=== PATIENT | female | born 1935 | race Caucasian/White ===

== ENCOUNTER 2016-11-06 12:44 | Emergency (ER) | payer MEDICARE ==
--- NOTE | 2016-11-06 16:19 | UC ---
Complaint Female HPI - HPI Summary HPI Summary: complaint of pain with urination that started 3 days ago incontinent for the last 2 days increase frequency and urgency of urination denies fever abdomonial pain or back pain hasn't taken any medication for pain or symptoms - History Of Current Complaint Chief Complaint: UCGU Stated Complaint: URINARY Time Seen by Provider: 11/06/16 16:13 Hx Obtained From: Patient - Allergies/Home Medications Allergies/Adverse Reactions: Allergies Allergy/AdvReac Type Severity Reaction Status Date / Time Amiodarone Allergy Severe TORSADES Verified 11/06/16 14:31 Nitrofurantoin Allergy Severe Difficulty Verified 11/06/16 14:29 [From Macrodantin] Breathing Milk Protein Extract Allergy Intermediate THRUSH Verified 11/06/16 14:31 [From Spiriva] Piperacillin [From Zosyn] Allergy Intermediate BURNING Verified 11/06/16 14:31 SENSATION Tazobactam [From Zosyn] Allergy Intermediate BURNING Verified 11/06/16 14:31 SENSATION Tiotropium [From Spiriva] Allergy Intermediate THRUSH Verified 11/06/16 14:31 Home Medications: Home Medications Apixaban* [Eliquis*] 5 mg PO BID 11/06/16 [History Confirmed 11/06/16] Montelukast Sodium TAB* [Singulair 10 MG TAB*] 10 mg PO DAILY 11/06/16 [History Confirmed 11/06/16] Propafenone HCl 300 mg PO BID 11/06/16 [History Confirmed 11/06/16] Simvastatin [Zocor 40 MG (NF)] 20 mg PO QPM 11/06/16 [History Confirmed 11/06/16 ] PMH/Surg Hx/FS Hx/Imm Hx Previously Healthy: Yes Endocrine History Of: Denies: Diabetes, Thyroid Disease Cardiovascular History Of: Reports: Cardiac Disorders - PACEMAKER 10/11/16, Hypertension Denies: Congestive Heart Failure Respiratory History Of: Reports: COPD - "SOB", Asthma GI/ History Of: Denies: Ulcer, Renal Disease - Surgical History Surgical History: Yes Surgery Procedure, Year, and Place: 2007 left shoulder replacement BILATERALTOTAL HIPS AND LEFT KNEE REPLACEMENT. CARDIAC BYPASS . PACEMAKER OCTOBER2016 - Family History Known Family History: Negative: Cardiac Disease, Hypertension, Diabetes - Social History Occupation: Retired Lives: With Family Alcohol Use: None Substance Use Type: None Smoking Status (MU): Former Smoker When Did the Patient Quit Smoking/Using Tobacco: 1980 Review of Systems Constitutional: Negative Skin: Negative Eyes: Negative ENT: Negative Respiratory: Negative Cardiovascular: Negative Gastrointestinal: Negative Genitourinary: Dysuria, Hematuria, Frequency, Urgency Neurovascular: Negative Musculoskeletal: Negative Neurological: Negative Psychological: Negative All Other Systems Reviewed And Are Negative: Yes Physical Exam Triage Information Reviewed: Yes Appearance: No Pain Distress, Well-Nourished Vital Signs: Initial Vital Signs Temp 98.2 F 11/06/16 14:38 Pulse 77 11/06/16 14:38 Resp 20 11/06/16 14:38 BP 135/59 11/06/16 14:38 Pulse Ox 98 11/06/16 14:38 Vital Signs Reviewed: Yes Eyes: Positive: Conjunctiva Clear ENT: Positive: Pharynx normal, TMs normal Neck: Positive: No Lymphadenopathy Respiratory: Positive: Lungs clear, Normal breath sounds, No respiratory distress, No accessory muscle use Cardiovascular: Positive: RRR, No Murmur, Pulses Normal Abdomen Description: Positive: Nontender, Soft Bowel Sounds: Positive: Present Musculoskeletal: Positive: No Edema Neurological: Positive: Alert Psychological Exam: Normal Skin Exam: Normal Complaint Female Dx - Differential Dx/Diagnosis Differential Diagnosis/HQI/PQRI: Ureteral Stone, Urinary Tract Infection Provider Diagnoses: UTI Discharge - Discharge Plan Condition: Stable Disposition: HOME Prescriptions: Phenazopyridine TAB* [Pyridium 100 mg TAB*] 100 mg PO TID #6 tab Sulfamethox/Trimethoprim DS* [Bactrim DS 800/160 TAB*] 1 tab PO BID #14 tab Patient Education Materials: Urinary Tract Infection in Women (ED) Referrals: Juan J Velásquez MD [Primary Care Provider] - Additional Instructions: Please take antibiotic as directed Increase fluids and rest Take acetaminophen or ibuprofen for fever or pain Please review your discharge instructions. If your symptoms do not improve please call your primary care provider or return to urgent care. Your blood pressure is pre-hypertensive reading. Please contact your primary care provider within 1 day -4 weeks for further evaluation
[2016-11-06 16:30] VITALS: BP 146/60
== END 2016-11-06 16:27 | disposition home or self-care (01) ==
LOC: UCCORT 12:44
DX: N39.0 Urinary tract infection, site not specified (principal); R31.9 Hematuria, unspecified; Z88.1 Allergy status to other antibiotic agents; I10 Essential (primary) hypertension; Z95.0 Presence of cardiac pacemaker; J44.9 Chronic obstructive pulmonary disease, unspecified; Z96.612 Presence of left artificial shoulder joint; Z96.643 Presence of artificial hip joint, bilateral; Z96.652 Presence of left artificial knee joint; Z95.1 Presence of aortocoronary bypass graft; Z87.891 Personal history of nicotine dependence
CPT/HCPCS: 81003; 87077; 87086; 87186; 99212; G0463

== ENCOUNTER 2017-01-22 12:51 | Emergency (ER) | payer MEDICARE ==
[2017-01-22 13:16] VITALS: BP 135/59
--- NOTE | 2017-01-22 13:43 | UC ---
Complaint Female HPI - HPI Summary HPI Summary: 3 DAYS OF WORSENING DYSURIA AND URINARY FREQUENCY. NO FEVER, NAUSEA OR BACK PAIN. LAST UTI ABOUT 3 WEEKS AGO TX WITH CIPRO BY UROLOGY. PRIOR TO THAT HAD KLEBSIELLA UTI 11/06/16 TX WITH BACTRIM. - History Of Current Complaint Chief Complaint: UCGU Stated Complaint: URINARY Time Seen by Provider: 01/22/17 13:15 Hx Obtained From: Patient Onset/Duration: Gradual Onset, Lasting Days, Still Present Timing: Constant Severity Initially: Moderate Severity Currently: Moderate Pain Intensity: 4 Pain Scale Used: 0-10 Numeric Character: Burning Aggravating Factor(s): Urination Alleviating Factor(s): Nothing Associated Signs And Symptoms: Negative: Fever, Back Pain, Nausea, Vomiting(# Of Episodes =) - Allergies/Home Medications Allergies/Adverse Reactions: Allergies Allergy/AdvReac Type Severity Reaction Status Date / Time Amiodarone Allergy Severe TORSADES Verified 01/22/17 13:16 Nitrofurantoin Allergy Severe Difficulty Verified 01/22/17 13:16 [From Macrodantin] Breathing Milk Protein Extract Allergy Intermediate THRUSH Verified 01/22/17 13:16 [From Spiriva] Piperacillin [From Zosyn] Allergy Intermediate BURNING Verified 01/22/17 13:16 SENSATION Tazobactam [From Zosyn] Allergy Intermediate BURNING Verified 01/22/17 13:16 SENSATION Tiotropium [From Spiriva] Allergy Intermediate THRUSH Verified 01/22/17 13:16 Home Medications: Home Medications DULoxetine DR CAP* [Cymbalta CAP*] 60 mg PO DAILY 01/22/17 [History Confirmed ] clonazePAM TAB(*) [Klonopin TAB(*)] 0.5 mg PO TID PRN 01/22/17 [History Confirmed 01/22/17] PMH/Surg Hx/FS Hx/Imm Hx Cardiovascular History: Cardiac Disease, Hypertension Respiratory History: COPD - Surgical History Surgical History: Yes Surgery Procedure, Year, and Place: 2007 left shoulder replacement BILATERALTOTAL HIPS AND LEFT KNEE REPLACEMENT. CARDIAC BYPASS . PACEMAKER OCTOBER2016 - Family History Known Family History: Positive: Cardiac Disease, Hypertension Negative: Diabetes - Social History Alcohol Use: None Substance Use Type: None Smoking Status (MU): Former Smoker When Did the Patient Quit Smoking/Using Tobacco: 1980 Review of Systems Constitutional: Negative Respiratory: Negative Cardiovascular: Negative Gastrointestinal: Negative Genitourinary: Dysuria, Frequency, Urgency All Other Systems Reviewed And Are Negative: Yes Physical Exam Triage Information Reviewed: Yes Appearance: Well-Appearing, No Pain Distress, Well-Nourished Vital Signs: Initial Vital Signs Temp 98.4 F 01/22/17 13:10 Pulse 90 01/22/17 13:10 Resp 18 01/22/17 13:10 BP 135/59 01/22/17 13:10 Pulse Ox 98 01/22/17 13:10 Vital Signs Reviewed: Yes Eyes: Positive: Conjunctiva Clear ENT: Positive: Hearing grossly normal Neck: Positive: Supple Respiratory: Positive: No respiratory distress, No accessory muscle use Cardiovascular: Positive: Pulses Normal Abdomen Description: Positive: Nontender, Soft. Negative: CVA Tenderness (R), CVA Tenderness (L), Distended, Guarding Musculoskeletal: Positive: No Edema Neurological: Positive: Alert Psychological: Positive: Normal Response To Family, Age Appropriate Behavior Skin: Negative: rashes Diagnostics - Laboratory Diagnostic Studies Completed/Ordered: URINE DIP SP. GR. 11.020, 2+ PROTEIN, 2+ BLOOD, 2+ LEUKS, POS NITRITES Complaint Female Dx - Differential Dx/Diagnosis Provider Diagnoses: UTI Discharge - Discharge Plan Condition: Stable Disposition: HOME Prescriptions: Phenazopyridine TAB* [Pyridium TAB*] 200 mg PO TID #6 tab Sulfamethox/Trimethoprim DS* [Bactrim DS 800/160 TAB*] 1 tab PO BID #10 tab Patient Education Materials: Urinary Tract Infection in Women (ED) Referrals: Juan J Velásquez MD [Primary Care Provider] - If Needed Additional Instructions: FOLLOW-UP WITH YOUR UROLOGIST TO DISCUSS RECURRENT URINARY TRACT INFECTIONS.
== END 2017-01-22 14:28 | disposition home or self-care (01) ==
LOC: UCCORT 12:51
DX: N39.0 Urinary tract infection, site not specified (principal); I10 Essential (primary) hypertension; I25.10 Atherosclerotic heart disease of native coronary artery without angina pectoris; Z95.1 Presence of aortocoronary bypass graft; Z95.0 Presence of cardiac pacemaker; J44.9 Chronic obstructive pulmonary disease, unspecified; Z96.612 Presence of left artificial shoulder joint; Z96.643 Presence of artificial hip joint, bilateral; Z96.652 Presence of left artificial knee joint; Z87.891 Personal history of nicotine dependence
CPT/HCPCS: 81003; 87077; 87086; 87186; 99212; G0463

== ENCOUNTER 2017-06-12 12:17 | Emergency (ER) | payer MEDICARE ==
[2017-06-12 12:55] VITALS: BP 125/69
--- NOTE | 2017-06-12 13:46 | UC ---
Complaint Female HPI - HPI Summary HPI Summary: FOUR DAYS OF URINARY FREQUENCY, URGENCY, BURNING WITH URINATION. NO BACK PAIN. NO FEVER. HISTORY OF FREQUENT URINARY TRACT INFECTIONS. SEEN BY UROLOGIST. - History Of Current Complaint Chief Complaint: UCGU Stated Complaint: URINARY Time Seen by Provider: 06/12/17 12:50 Hx Obtained From: Patient, Family/Vice [employer] Hx Last Menstrual Period: n/a Pain Intensity: 0 Pain Scale Used: 0-10 Numeric Character: Dull, Burning Aggravating Factor(s): Urination Associated Signs And Symptoms: Negative: Fever, Back Pain, Vaginal Bleeding/ Discharge, Vaginal Discharge, Nausea, Vomiting(# Of Episodes =) - Risk Factors Ectopic Risk Factor: Negative - Allergies/Home Medications Allergies/Adverse Reactions: Allergies Allergy/AdvReac Type Severity Reaction Status Date / Time Amiodarone Allergy Severe TORSADES Verified 01/22/17 13:16 Nitrofurantoin Allergy Severe Difficulty Verified 01/22/17 13:16 [From Macrodantin] Breathing Milk Protein Extract Allergy Intermediate THRUSH Verified 01/22/17 13:16 [From Spiriva] Piperacillin [From Zosyn] Allergy Intermediate BURNING Verified 01/22/17 13:16 SENSATION Tazobactam [From Zosyn] Allergy Intermediate BURNING Verified 01/22/17 13:16 SENSATION Tiotropium [From Spiriva] Allergy Intermediate THRUSH Verified 01/22/17 13:16 Sulfamethoxazole Allergy Rash Verified 06/12/17 12:55 w/Trimethoprim [From Bactrim] Home Medications: Home Medications Ascorbic Acid TAB* [Vitamin C TAB*] 1,000 mg PO BID 06/12/17 [History Confirmed 06/12/17] Solifenacin(NF) [Vesicare(NF)] 10 mg PO DAILY 06/12/17 [History Confirmed ] Torsemide TAB* [Demadex*] 10 mg PO DAILY 06/12/17 [History Confirmed 06/12/17] PMH/Surg Hx/FS Hx/Imm Hx Previously Healthy: Yes - Surgical History Surgical History: Yes Surgery Procedure, Year, and Place: 2007 left shoulder replacement BILATERALTOTAL HIPS AND LEFT KNEE REPLACEMENT. CARDIAC BYPASS . PACEMAKER OCTOBER2016. AV node ablation 2015 - Family History Known Family History: Positive: Cardiac Disease, Hypertension Negative: Diabetes - Social History Occupation: Retired Lives: With Family Alcohol Use: None Substance Use Type: None Smoking Status (MU): Former Smoker When Did the Patient Quit Smoking/Using Tobacco: 1980 Review of Systems Constitutional: Negative Skin: Negative Eyes: Negative ENT: Negative Respiratory: Negative Cardiovascular: Negative Gastrointestinal: Negative Genitourinary: Dysuria, Frequency, Urgency Motor: Negative Neurovascular: Negative Musculoskeletal: Negative Neurological: Negative Psychological: Negative Is Patient Immunocompromised?: No All Other Systems Reviewed And Are Negative: Yes Physical Exam Triage Information Reviewed: Yes Appearance: Well-Appearing, No Pain Distress, Well-Nourished Vital Signs: Initial Vital Signs Temp 97.9 F 06/12/17 12:51 Pulse 88 06/12/17 12:51 Resp 18 06/12/17 12:51 BP 125/69 06/12/17 12:51 Pulse Ox 98 06/12/17 12:51 Vital Signs Reviewed: Yes Eye Exam: Normal ENT Exam: Normal Dental Exam: Normal Neck exam: Normal Respiratory Exam: Normal Respiratory: Positive: Chest non-tender, Lungs clear, Normal breath sounds, No respiratory distress, No accessory muscle use Cardiovascular Exam: Normal Cardiovascular: Positive: RRR, No Murmur, Pulses Normal, Brisk Capillary Refill Abdominal Exam: Normal Abdomen Description: Positive: Nontender. Negative: CVA Tenderness (R), CVA Tenderness (L) Musculoskeletal Exam: Normal Neurological Exam: Normal Psychological Exam: Normal Psychological: Positive: Normal Response To Family Skin Exam: Normal Complaint Female Dx - Differential Dx/Diagnosis Differential Diagnosis/HQI/PQRI: Urinary Tract Infection Provider Diagnoses: URINARY TRACT INFECTION Discharge - Discharge Plan Condition: Stable Disposition: HOME Prescriptions: Ciprofloxacin TAB* [Cipro 500 MG TAB*] 500 mg PO BID #10 tab Patient Education Materials: Urinary Tract Infection in Women (ED) Referrals: Juan J Velásquez MD [Primary Care Provider] - Saji Shah MD [Medical Doctor] -
--- NOTE | 2017-06-15 07:16 | UC ---
Progress - Progress Note Progress Note: + uti on cipro await sensitivity 06/15/17 7:16a [email or web address]
== END 2017-06-12 13:19 | disposition home or self-care (01) ==
LOC: UCCORT 12:17
DX: N39.0 Urinary tract infection, site not specified (principal); B96.20 Unspecified Escherichia coli [E. coli] as the cause of diseases classified elsewhere; Z87.440 Personal history of urinary (tract) infections; Z95.0 Presence of cardiac pacemaker; Z95.1 Presence of aortocoronary bypass graft; Z96.612 Presence of left artificial shoulder joint; Z96.643 Presence of artificial hip joint, bilateral; Z96.652 Presence of left artificial knee joint; Z88.1 Allergy status to other antibiotic agents; Z88.2 Allergy status to sulfonamides; Z87.891 Personal history of nicotine dependence
CPT/HCPCS: 81003; 87077; 87086; 87186; 99212; G0463

== ENCOUNTER 2017-11-10 14:38 | Emergency (ER) | payer MEDICARE ==
--- OUTSIDE RECORDS SUMMARY | 2017-11-10 15:05 | XMS REPORT ---
:1935 External Reference #:[id number] Author Organization [facility] Address [facility] [place] [address] Phone [phone] Care Team Providers Name Role Phone Guillermo Montelongo MD [facility] Care Team Information Cardiopulmonary Physical Therapist Unavailable Juan J Velásquez M.D. Primary Care Physician Unavailable Payers Type Date Identification Numbers Payment Provider Subscriber Medicare Primary Effective: Policy Number: Medicare Marcelina Cobian 1998 [id number] PayID: [id number] [address] [place] [address] Medigap Part B Effective: Policy Number: [facility] Supplemental Marcelina Mixon 2015 [id number] Plan Aranza PayID: [id number] [address] [place] [address] Problems Date Description Provider Status Onset: 12/15/2011 Needs influenza immunization Juan J Velásquez M.D. Active Onset: 12/15/2011 Systemic lupus erythematosus Juan J Velásquez M.D. Active Onset: 12/15/2011 Depressive disorder Juan J Velásquez M.D. Active Onset: 12/15/2011 Urinary incontinence Juan J Velásquez M.D. Active Onset: 12/15/2011 Pure hypercholesterolemia Juan J Velásquez M.D. Active Onset: 12/15/2011 Chronic renal failure Juan J Velásquez M.D. Active Onset: 12/15/2011 Transient cerebral ischemia Juan J Velásquez M.D. Active Onset: 12/15/2011 Chronic sinusitis Juan J Velásquez M.D. Active Onset: 12/15/2011 Carotid artery occlusion Juan J Velásquez M.D. Active Onset: 12/15/2011 Senile osteoporosis Juan J Velásquez M.D. Active Onset: 12/15/2011 Peripheral vascular disease Juan J Velásquez M.D. Active Onset: 12/15/2011 Edema Juan J Velásquez M.D. Active Onset: 12/15/2011 Essential hypertension Juan J Velásquez M.D. Active Onset: 12/15/2011 Sleep apnea Juan J Velásquez M.D. Active Onset: 12/15/2011 Osteochondropathy Juan J Velásquez M.D. Active Onset: 12/15/2011 Spinal stenosis Juan J Velásquez M.D. Active Onset: 12/15/2011 Mitral valve disorder Juan J Velásquez M.D. Active Onset: 12/15/2011 Chronic obstructive lung disease Juan J Velásquez M.D. Active Onset: 03/17/2017 Mixed urinary incontinence Saji Shah MD Active Onset: 07/20/2017 Bladder muscle dysfunction - overactive Saji Shah MD Active Onset: 10/19/2017 Urinary tract infectious disease Saji Shah MD Active Family History Date Family Member(s) Problem(s) Comments Father due to CAD () Father Heart Disease Father Hypertension Mother Heart Disease Mother Hyperlipidemia Mother Hypercholesterolemia First Brother due to Heart Disease () Social History Type Date Description Comments Marital Status Occupation Patient is retired Cigarette Use 11/01/2017 Former Cigarette Smoker ETOH Use 12/10/2016 Patient denies alcohol use Daily Caffeine 10 oz Allergies, Adverse Reactions, Alerts Date Description Reaction Status Severity Comments 11/17/2011 Macrodantin Anaphylaxis active 01/07/2016 Zosyn burning sensation active 01/07/2016 Spiriva thrush active 03/17/2017 Bactrim active sob 06/24/2017 Amiodarone active leathal arrythmia stated Medications Medication Date Status Form Strength Qnty SIG Indications Ordering Provider Myrbetriq 10/20/ Active Tablets ER 25mg 30tab 1po qd Saji Vasquez 2017 24HR mary Shah MD Vesicare 04/22/ Active Tablets 10mg 30tab 1 by Melissa 2015 s mouth Reddy M, every day M.D. Simvastatin 07/11/ Active Tablets 20mg 90tab 1 by Christen 2013 s mouth Juan J, every day M.D. Singulair 11/16/ Active Tablets 10mg 90tab 1 by Christen 2011 s mouth Juan J, every day M.DFroy Omeprazole 11/04/ Active Capsules 20mg 90cap 1 by Christen 2011 s mouth bid Vasquez Arita Cymbalta 11/04/ Active Caps DR 60mg 90cap 1 by Christen 2011 Part s mouth Juan J, every day M.DFroy Calcium + D / Active Chewtabs 500-1000-4 2 po bid Unknown 0mg-Unt-mc g Centrum / Active Tablets 1 by Unknown mouth every day Imodium A-D / Active Tablets 2mg prn Unknown Miralax / Active Powder qod Unknown Eliquis / Active Tablets 5mg bid Unknown Biotin / Active every day Unknown Torsemide / Active Tablets 10mg as needed Unknown Potassium / Active Tablets ER 10Meq as needed Unknown Chloride ER Stiolto Respimat / Active Aerosol 2.5-2.5mcg as Unknown 0000 /Act directed Ciprofloxacin HCL 09/05/ Hx Tablets 500mg 14tab 1 by Saji Vasquez 2017 Bess s roxana Shah MD 09/12/ twice a 2017 day Cipro 07/20/ Hx Tablets 500mg 6tabs 1 by Saji Vasquez 2018 Bess Shah MD 07/23/ twice a 2017 day Uribel 07/07/ Hx Capsules 118mg 10cap 1 by Saji Vasquez 2017 Bess s roxana Shah MD 07/19/ every 12 2018 hours Ciprofloxacin HCL 05/18/ Hx Tablets 500mg 1tabs 1 by Saji Vasquez 2017 Bess Shah MD 05/19/ prior to [address] by Dr. Shah. Keflex 04/30/ Hx Capsules 500mg 21cap one Saji Shah MD 06/23/ three 2016 times a day. Ciprofloxacin HCL 04/27/ Hx Tablets 250mg 1tabs 1 by Saji Shah MD 04/28/ prior to 2016 Uds test. Verbal given by Dr. Shah. Myrbetriq 04/06/ Hx Tablets ER 25mg 30tab 1 by Saji Vasquez 2016 - 24HR mary Shah MD 06/23/ every day 2016 Oxybutynin 03/17/ Hx Tablets ER 5mg 90tab 1 by Saji Vasquez Chloride ER 2016 - 24HR s mouth MD Pablo 06/23/ day 2016 Cipro 11/25/ Hx Tablets 250mg 14tab 1 by Melissa 2016 - s mouth Reddy M, 12/09/ twice a M.D. 2017 day x 7d Vesicare 04/22/ Hx Tablets 5mg 30tab 1 by Melissa 2016 - s mouth Reddy M, 06/14/ every day M.D. 2015 Trospium Chloride 01/21/ Hx Caps ER 60mg 90cap take 1 JANIYA Torres 2015 - 24HR s capsule Maureen M, 06/14/ by mouth M.D. 2016 daily *do not crush or chew* take 1 hour before food staff admin & initial Myrbetriq 01/07/ Hx Tablets ER 25mg 30tab 1 by Melissa 2016 - 24HR s mouth Maureen M, 01/20/ every day M.DFroy 2015 Proair HFA 02/19/ Hx Aerosol 108(90Base 8.500 2 puffs 4 Christen, 2015 - ) mcg/Act units x daily Juan J, 06/23/ M.D. 2016 Pradaxa / Hx Capsules 150mg 1 by Unknown 0000 - mouth 01/06/ twice a 2015 day Breo Ellipta / Hx Aerosol 100-25mcg/ inhale 1 Unknown 0000 - Inh puff by mouth 2015 once daily Fludrocortisone / Hx Tablets 0.1mg 1 by Unknown Acetate 0000 - mouth 01/06/ day 2015 Propafenone HCL 00/ Hx Tablets 150mg Unknown 0000 - 2015 Lasix / Hx Tablets 20mg 1 by Unknown 0000 - mouth prn 2016 Oxybutynin / Hx Tablets ER 10mg Unknown Chloride ER 0000 - 24HR 2015 Propafenone HCL /00/ Hx Tablets 150mg Unknown 0000 - 2016 Iron 00/ Hx Tablets 325(65Fe) 1 by Unknown 0000 - mg mouth every day 2016 Clonazepam / Hx Tablets 0.5mg prn Unknown - 2016 Pradaxa / Hx Capsules 150mg TK 1 C PO Unknown 0000 - bid 2016 Propafenone HCL / Hx Tablets 300mg tid Unknown - 2016 Loratadine / Hx Capsules 10mg 1 by Unknown 0000 - mouth every day 2016 Co Q-10 / Hx Capsules 100mg 1 by Unknown 0000 - mouth every day 2016 Osteo Bi-Flex / Hx Tablets qam Unknown Regular Strength - 2016 Vital Signs Date Vital Result Comment 11/01/2017 Height 62 inches 5'2" Weight 192.00 lb Weight in kg's 87.091 BMI (Body Mass Index) 35.1 kg/m2 BP Systolic 158 mmHg BP Diastolic 81 mmHg Heart Rate 89 /min Respiratory Rate 18 /min 10/19/2017 Height 62 inches 5'2" Weight 192.00 lb Weight in kg's 87.091 BMI (Body Mass Index) 35.1 kg/m2 BP Systolic 157 mmHg BP Diastolic 60 mmHg Heart Rate 113 /min Post Void Residual 20 07/20/2017 Height 62 inches 5'2" Weight 191.00 lb Weight in kg's 86.638 BMI (Body Mass Index) 34.9 kg/m2 BP Systolic 150 mmHg BP Diastolic 78 mmHg Heart Rate 80 /min Respiratory Rate 20 /min 06/24/2017 Height 62 inches 5'2" Weight 191.00 lb Weight in kg's 86.638 BMI (Body Mass Index) 34.9 kg/m2 BP Systolic 142 mmHg BP Diastolic 70 mmHg Heart Rate 68 /min Respiratory Rate 20 /min 03/17/2017 Height 62 inches 5'2" Weight 187.00 lb Weight in kg's 84.823 BMI (Body Mass Index) 34.2 kg/m2 BP Systolic 168 mmHg BP Diastolic 95 mmHg Heart Rate 88 /min Body Temperature 97.7 F 12/10/2016 Height 62 inches 5'2" Weight 180.00 lb Weight in kg's 81.648 BMI (Body Mass Index) 32.9 kg/m2 BP Systolic 149 mmHg BP Diastolic 82 mmHg Heart Rate 89 /min Respiratory Rate 18 /min Body Temperature 97.3 F Post Void Residual ml 5 Indication:, Ultrasound dominic 01/07/2016 Height 62 inches 5'2" Weight 158.00 lb Weight in kg's 71.669 BMI (Body Mass Index) 28.9 kg/m2 BP Systolic 113 mmHg left wrist audio BP Diastolic 80 mmHg left wrist audio Heart Rate 84 /min Body Temperature 97.2 F Post Void Residual ml 0 Indication:, Ultrasound incont 01/06/2016 BP Systolic 138 mmHg BP Diastolic 78 mmHg Results Test Date Test Result H/L Range Note 230 Ua Routine 11/01/2017 Ua Glucose Negative Ua Protein 1+ Ua Nitrite Negative Ua Leuko 2+ Ua Blood 2+ Ua Color Yellow Ua Ketones Negative Ua Clarity Cloudy Ua Specific Bangs 1.025 1.003-1.030 Ua PH 5.5 5.0-7.5 Ua Bilirubin Negative Ua Urobilinogen 0.2 E.U./dL 0.0-1.0 Urine Culture 10/19/2017 Urine Culture CITROBACTER FREU <SEE NOTE> 1 Quantity > 100,000 CFU/mL 2 Ast-GN67 10/19/2017 Nitrofurantoin <=16 Cefazolin >=64 Ciprofloxacin <=0.25 Ceftazidime 16 Ceftriaxone 2 Cefepime <=1 Levofloxacin 1 Imipenem <=0.25 Gentamicin 8 Tobramycin 8 230 Ua Routine 10/19/2017 Ua Glucose Negative Ua Protein 3+ Ua Nitrite Positive Ua Leuko 3+ Ua Blood 3+ Ua Color Yellow Ua Ketones Trace Ua Clarity Cloudy Ua Specific Bangs 1.025 1.003-1.030 Ua PH 5.5 5.0-7.5 Ua Bilirubin Negative Ua Urobilinogen 0.2 E.U./dL 0.0-1.0 Urine Culture 09/13/2017 Urine Culture MIXED URETHRAL F <SEE NOTE> 3, 4 Quantity 10,000 - 100,000 <SEE NOTE> 3, 5 230 Ua Routine 09/13/2017 Ua Glucose Negative Ua Protein 2+ Ua Nitrite Negative Ua Leuko 1+ Ua Blood 3+ Ua Color Yellow Ua Ketones Negative Ua Clarity Slightly Cloudy Ua Specific Bangs 1.025 1.003-1.030 Ua PH 5.5 5.0-7.5 Ua Bilirubin Negative Ua Urobilinogen 0.2 E.U./dL 0.0-1.0 Urine Culture 09/01/2017 Urine Culture ESCHERICHIA COLI 6 Quantity > 100,000 CFU/mL 7 Urine Culture MIXED URETHRAL F <SEE NOTE> 8 Quantity 10,000 - 50,000 <SEE NOTE> 9 Escherichia Coli 09/01/2017 Nitrofurantoin <=16 Trimethoprim/Sulfamethoxazole <=20 Ampicillin >=32 Cefazolin <=4 Ampicillin/Sulbactam >=32 Ciprofloxacin <=0.25 Piperacillin/Tazobactam <=4 Ceftazidime <=1 Ceftriaxone <=1 Cefepime <=1 Levofloxacin <=0.12 Imipenem <=0.25 Gentamicin <=1 Tobramycin <=1 230 Ua Routine 09/01/2017 Ua Glucose Negative Ua Protein 2+ Ua Nitrite Negative Ua Leuko 3+ Ua Blood 2+ Ua Color Green Ua Ketones Negative Ua Clarity Cloudy Ua Specific Bangs 1.020 1.003-1.030 Ua PH 6.0 5.0-7.5 Ua Bilirubin 1+ Ua Urobilinogen 0.2 E.U./dL 0.0-1.0 Urine Culture 07/05/2017 Urine Culture BETA STREPTOCOCC <SEE NOTE> 10, 11 Quantity > 100,000 CFU/mL 10, 12 Recommended Therapy: PENICILLIN OR AM <SEE NOTE> 10, 13 Urine Culture URETHRAL LEONARD 10 Quantity 50,000 - 100,000 <SEE NOTE> 10, 14 230 Ua Routine 05/18/2017 Ua Glucose Negative Ua Protein Negative Ua Nitrite Negative Ua Leuko Trace Ua Blood Negative Ua Color Not Entered Ua Ketones Negative Ua Clarity Not Entered Ua Specific Bangs 1.015 1.003-1.030 Ua PH 5.5 5.0-7.5 Ua Bilirubin Negative Ua Urobilinogen 0.2 E.U./dL 0.0-1.0 Laboratory test finding 04/27/2017 Urine Culture SPECIMEN DESCRI> 15 230 Ua Routine 04/27/2017 Ua Glucose Negative Ua Protein 30 mg/dL Ua Nitrite Positive Ua Leuko Moderate Ua Blood Moderate Ua Color Not Entered Ua Ketones Negative Ua Clarity Not Entered Ua Specific Bangs 1.015 1.003-1.030 Ua PH 5.0 5.0-7.5 Ua Bilirubin Negative Ua Urobilinogen 0.2 E.U./dL 0.0-1.0 Urine Microscopy 04/06/2017 Urine WBC >100 /HPF 0 - 5 Urine RBC 3-5 /HPF 0-2 Bacteria 3+ /HPF Neg Crystals JOSUE OX, 4+ /HPF Neg Epithelial Cells RARE /HPF Neg Sperm NEG /HPF Neg Yeast NEG /HPF Neg UACast NEG /LPF Neg 230 Ua Routine 04/06/2017 Ua Glucose Negative Ua Protein 1+ Ua Nitrite Negative Ua Leuko 3+ Ua Blood 2+ Ua Color Yellow Ua Ketones Negative Ua Clarity Cloudy Ua Specific Bangs 1.025 1.003-1.030 Ua PH 5.5 5.0-7.5 Ua Bilirubin Negative Ua Urobilinogen 0.2 E.U./dL 0.0-1.0 230 Ua Routine 03/17/2017 Ua Glucose Negative Ua Protein 1+ Ua Nitrite Negative Ua Leuko 3+ Ua Blood 2+ Ua Color Not Entered Ua Ketones Trace Ua Clarity Not Entered Ua Specific Bangs 1.020 1.003-1.030 Ua PH 5.5 5.0-7.5 Ua Bilirubin Negative Ua Urobilinogen 0.2 E.U./dL 0.0-1.0 Urine Culture 12/10/2016 Urine Culture MIXED URETHRAL F <SEE NOTE> 16, 17 Quantity 10,000 - 50,000 <SEE NOTE> 16, 18 Urine Microscopy 12/10/2016 Urine WBC 10-25 /HPF 0 - 5 Urine RBC 0-2 /HPF 0-2 Bacteria 1+ /HPF Neg Crystals CA OX 2+ /HPF Neg Epithelial Cells 2+ /HPF Neg Sperm NEG /HPF Neg Yeast NEG /HPF Neg UACast NEG /LPF Neg 230 Ua Routine 12/10/2016 Ua Glucose Negative Ua Protein Negative Ua Nitrite Negative Ua Leuko 3+ Ua Blood Trace-intact Ua Color yellow Ua Ketones Negative Ua Clarity clear Ua Specifici Bangs 1.020 1.003-1.030 Ua PH 5.0 5.0-7.5 Ua Bilirubin Negative Ua Urobilinogen 0.2 E.U./dL 0.0-1.0 Urine Culture 11/26/2016 Urine Culture ESCHERICHIA COLI 19 Quantity > 100,000 CFU/mL 20 Urine Culture URETHRAL LEONARD Quantity 10,000 - 50,000 <SEE NOTE> 21 Ast-GN67 11/26/2016 Nitrofurantoin 128 Trimethoprim/Sulfamethoxazole <=20 Ampicillin 4 Cefazolin <=4 Ampicillin/Sulbactam 4 Ciprofloxacin <=0.25 Piperacillin/Tazobactam <=4 Ceftazidime <=1 Ceftriaxone <=1 Cefepime <=1 Levofloxacin <=0.12 Imipenem <=0.25 Gentamicin <=1 Tobramycin <=1 230 Ua Routine 11/26/2016 Ua Glucose Negative Ua Protein 1+ Ua Nitrite Positive Ua Leuko 1+ Ua Blood Trace-lysed Ua Color tea colored Ua Ketones Trace Ua Clarity clear Ua Specifici Bangs 1.025 1.003-1.030 Ua PH 5.0 5.0-7.5 Ua Bilirubin 1+ Ua Urobilinogen 0.2 E.U./dL 0.0-1.0 BUN And Creatinine 04/20/2016 BUN - Urea Nitrogen 24 High 7-18 Creatinine 0.9 0.6-1.3 Laboratory test finding 04/20/2016 Egfr >60 >60 230 Ua Routine 01/22/2016 Ua Glucose Negative Ua Protein Negative Ua Nitrite Negative Ua Leuko Negative Ua Blood Negative Ua Color yellow Ua Ketones Negative Ua Clarity clear Ua Specifici Bangs 1.015 1.003-1.030 Ua PH 5.0 5.0-7.5 Ua Bilirubin Negative Ua Urobilinogen 0.2 E.U./dL 0.0-1.0 Laboratory test finding 2015 % Saturation 20 % 11-50 Ferritin 109 ng/mL 20-288 Folate,Serum 19.4 ng/mL Iron,Total 68 g/dL 45-160 22 Reticulocyte Count 0.7 % 0.5-2.0 Reticulocyte Count,Absolute 39589 cells/uL [address] Tibc 341 g/dL 250-450 Vitamin B12,Serum 642 pg/mL 200-1100 BMP W/O Egfr 2015 BUN/Creatinine Ratio 37.3 High 6-22 Calcium 9.2 mg/dL 8.6-10.4 Carbon Dioxide 20 mmol/L 19-30 Chloride 107 mmol/L 98-110 Creatinine 0.71 mg/dL 0.60-0.88 Glucose 92 mg/dL 65-99 Potassium 4.3 mmol/L 3.5-5.3 23 Sodium 141 mmol/L 135-146 24 Urea Nitrogen 27 mg/dL High 7-25 CBC W/ Diff & PLT 2015 Anisocytosis 3+ Bands,% Pending Bands,Absolute Pending Basophilic Stippling Pending Basophils,% 0 % 0-1 Basophils,Absolute 0 cells/uL 0-200 Blast Cells,Absolute Pending Blasts,% Pending Comment Pending Eosinophils,% 2 % 0-4 Eosinophils,Absolute 70 cells/uL 15-500 Hematocrit 33.8 % Low 35.0-45.0 Hemoglobin 10.6 g/dL Low 11.7-15.5 Hypochromasia Pending Lymphocytes,Absolute 1300 cells/uL 850-3900 MCH 31.4 pg 27.0-33.0 MCHC 31.3 g/dL Low 32.0-36.0 MCV 100.2 FL High 80.0-100.0 MPV 9.9 FL 7.5-11.5 Macrocytosis Pending Metamyelocytes,% Pending Metamyelocytes,Absolute Pending Microcytosis Pending Monocytes,% 14 % High 4-12 Monocytes,Absolute 580 cells/uL 200-950 Myelocytes,% Pending Myelocytes,Absolute Pending Neutrophils,Absolute 2190 cells/uL 8039-9340 Nucleated RBC Pending Nucleated RBC,Absolute Pending Platelet Count 102 thous/uL Low 140-400 Platelet Sufficiency Pending Poikilocytosis Pending Polychromasia Pending Promyelocytes,% Pending Promyelocytes,Absolute Pending RBC 3.38 mill/uL Low 3.80-5.10 RBC Morphology Pending RDW 21.8 % High 11.0-15.0 Target Cells Pending Total Lymphocytes,% 32 % 12-47 Total Neutrophils,% 53 % 40-75 WBC 4.1 thous/uL 3.8-10.8 25 Laboratory test finding 11/26/2015 % Saturation 20 % 11-50 Ferritin 112 ng/mL 20-288 Folate,Serum >24.0 ng/mL Iron,Total 76 g/dL 45-160 26 Tibc 373 g/dL 250-450 Vitamin B12,Serum 679 pg/mL 200-1100 CBC W/ Diff & PLT 11/26/2015 Anisocytosis 3+ Bands,% Pending Bands,Absolute Pending Basophilic Stippling Pending Basophils,% 0 % 0-1 Basophils,Absolute 0 cells/uL 0-200 Blast Cells,Absolute Pending Blasts,% Pending Comment Pending Eosinophils,% 2 % 0-4 Eosinophils,Absolute 110 cells/uL 15-500 Hematocrit 37.6 % 35.0-45.0 Hemoglobin 11.5 g/dL Low 11.7-15.5 Hypochromasia Pending Lymphocytes,Absolute 1200 cells/uL 850-3900 MCH 31.0 pg 27.0-33.0 MCHC 30.6 g/dL Low 32.0-36.0 MCV 101.3 FL High 80.0-100.0 MPV 10.7 FL 7.5-11.5 Macrocytosis Pending Metamyelocytes,% Pending Metamyelocytes,Absolute Pending Microcytosis Pending Monocytes,% 9 % 4-12 Monocytes,Absolute 460 cells/uL 200-950 Myelocytes,% Pending Myelocytes,Absolute Pending Neutrophils,Absolute 3470 cells/uL 9019-9679 Nucleated RBC Pending Nucleated RBC,Absolute Pending Platelet Count 128 thous/uL Low 140-400 Platelet Sufficiency Pending Poikilocytosis Pending Polychromasia Pending Promyelocytes,% Pending Promyelocytes,Absolute Pending RBC 3.71 mill/uL Low 3.80-5.10 RBC Morphology Pending RDW 21.5 % High 11.0-15.0 Target Cells Pending Total Lymphocytes,% 23 % 12-47 Total Neutrophils,% 66 % 40-75 WBC 5.2 thous/uL 3.8-10.8 27 BMP W/O Egfr 11/26/2015 BUN/Creatinine Ratio 24.0 High 6-22 Calcium 9.4 mg/dL 8.6-10.4 Carbon Dioxide 24 mmol/L 19-30 Chloride 100 mmol/L 98-110 Creatinine 0.85 mg/dL 0.60-0.88 Glucose 104 mg/dL High 65-99 Potassium 4.2 mmol/L 3.5-5.3 28 Sodium 139 mmol/L 135-146 29 Urea Nitrogen 20 mg/dL 7-25 Laboratory test finding 11/10/2015 Act Partial Thrombo Time 43.2 s High 23.9-34.3 30 Troponin-I 0.031 ng/mL 31 Laboratory test finding 11/10/2015 Culture If Indicated Comment See Note 32 Ua RFX Micro + Culture II See Note 33 Urine Culture See Note 34 CBC W/Automated Diff 11/10/2015 Bas% 0.4 % 0.0-1.1 Baso # 0.02 K/uL 0.0-0.1 Eo% 2.9 % 0.0-6.6 Eos # 0.14 K/uL 0.0-0.5 Hematocrit 31.9 % Low 36.0-46.1 Hemoglobin 9.7 gm/dL Low 11.6-15.8 Lymph # 0.90 K/uL Low 1.8-7.0 Lymph % 18.8 % 17.0-46.1 Mean Cell Volume 102.6 fl High 80.9-99.0 Mean Corpuscular HGB 31.2 pg 25.9-32.7 Mean Corpuscular HGB Conc 30.4 g/dL Low 30.8-34.3 Mean Platelet Volume 10.9 fL 8.9-12.4 Story # 0.57 K/uL 0.3-0.9 Story % 11.9 % 4.3-13.2 Neut# 3.16 K/uL 1.8-7.0 Neut% 66.0 % 40.4-72.8 Platelet Count 106 K/uL Low 155-360 Red Blood Count 3.11 M/uL Low 3.90-5.40 Red Cell Distri Width %CV 18.4 % High 11.7-14.4 Red Cell Distri Width SD 65.7 fl High 3-47 White Blood Count 4.8 K/uL 3.1-10.7 Comprehensive Metabolic Panel 11/10/2015 Alb/Glob 0.6 ratio Albumin 2.5 g/dL Low 3.4-5.0 Alkaline Phosphatase 131 U/L High 45-117 Anion Gap 10 mEq/L 8-16 BUN 16 mg/dL 7-18 BUN/Creat 17.7 ratio Bilirubin,Total 1.0 mg/dL 0.2-1.0 Calcium 9.0 mg/dL 8.5-10.1 Carbon Dioxide 31 mmol/L 21-32 Chloride 96 mmol/L Low 98-107 Creatinine 0.9 mg/dL 0.6-1.3 Globulin 4.2 g/dL 1.9-4.3 Glom Filtration Rate, Estimate >60 mL/min >60 Glucose 102 mg/dL 74-106 35 If >60 mL/min >60 Potassium 3.5 mmol/L 3.5-5.1 SGPT/Alt 33 U/L 12-78 Sgot/Ast 31 U/L 15-37 Sodium 137 mmol/L 136-145 Total Protein 6.7 g/dL 6.4-8.2 Protime 11/10/2015 Inr 1.3 High 0.9-1.1 Protime 16.2 s High 12.1-14.9 36 Urinalysis With Microscopic 11/10/2015 Urine Bacteria Many None Seen High Urine Bilirubin - Dipstick Negative Negative Urine Blood Negative Negative Urine Clarity SL Cloudy Clear Urine Color Yellow Yellow Urine Epithelial Cells Few None Seen /lpf Urine Glucose - Dipstick Negative mg/dL Negative Urine Hyaline Cast 0-2 None Seen #/lpf Urine Ketone Negative mg/dL Negative Urine Leuk Esterase Negative Negative Urine Nitrite - Dipstick Positive High Negative Urine PH 5.5 Low 6.5-7.5 Urine Protein - Dipstick Negative mg/dL Negative Urine RBC 0-2 rbc/hpf 0-2 Urine Specific Bangs >=1.030 1.010-1.030 Urine Urobilinogen - Dipstick 0.2 E.U./dL 0.2-1.0 Urine WBC 2-5 wbc/hpf 0-7 Laboratory test finding 10/29/2015 Magnesium 2.2 mg/dL 1.8-2.4 Basic Metabolic Panel 10/29/2015 Anion Gap 8 mEq/L 8-16 BUN 14 mg/dL 7-18 BUN/Creat 20.0 ratio Calcium 8.3 mg/dL Low 8.5-10.1 Carbon Dioxide 31 mmol/L 21-32 Chloride 100 mmol/L 98-107 Creatinine 0.7 mg/dL 0.6-1.3 Glom Filtration Rate, Estimate >60 mL/min >60 Glucose 89 mg/dL 74-106 37 If >60 mL/min >60 Potassium 3.8 mmol/L 3.5-5.1 Sodium 139 mmol/L 136-145 Laboratory test finding 10/28/2015 Magnesium 2.3 mg/dL 1.8-2.4 Basic Metabolic Panel 10/28/2015 Anion Gap 8 mEq/L 8-16 BUN 12 mg/dL 7-18 BUN/Creat 17.1 ratio Calcium 8.4 mg/dL Low 8.5-10.1 Carbon Dioxide 30 mmol/L 21-32 Chloride 100 mmol/L 98-107 Creatinine 0.7 mg/dL 0.6-1.3 Glom Filtration Rate, Estimate >60 mL/min >60 Glucose 98 mg/dL 74-106 38 If >60 mL/min >60 Potassium 3.2 mmol/L Low 3.5-5.1 Sodium 138 mmol/L 136-145 Laboratory test finding 10/27/2015 Magnesium 2.1 mg/dL 1.8-2.4 Basic Metabolic Panel 10/27/2015 Anion Gap 9 mEq/L 8-16 BUN 12 mg/dL 7-18 BUN/Creat 15.0 ratio Calcium 8.5 mg/dL 8.5-10.1 Carbon Dioxide 31 mmol/L 21-32 Chloride 99 mmol/L 98-107 Creatinine 0.8 mg/dL 0.6-1.3 Glom Filtration Rate, Estimate >60 mL/min >60 Glucose 91 mg/dL 74-106 39 If >60 mL/min >60 Potassium 3.1 mmol/L Low 3.5-5.1 Sodium 139 mmol/L 136-145 Laboratory test finding 10/26/2015 Magnesium 1.9 mg/dL 1.8-2.4 Basic Metabolic Panel 10/26/2015 Anion Gap 9 mEq/L 8-16 BUN 15 mg/dL 7-18 BUN/Creat 18.7 ratio Calcium 8.8 mg/dL 8.5-10.1 Carbon Dioxide 32 mmol/L 21-32 Chloride 99 mmol/L 98-107 Creatinine 0.8 mg/dL 0.6-1.3 Glom Filtration Rate, Estimate >60 mL/min >60 Glucose 96 mg/dL 74-106 40 If >60 mL/min >60 Potassium 3.2 mmol/L Low 3.5-5.1 Sodium 140 mmol/L 136-145 Basic Metabolic Panel 10/24/2015 Anion Gap 8 mEq/L 8-16 BUN 27 mg/dL High 7-18 41 BUN/Creat 22.5 ratio Calcium 8.6 mg/dL 8.5-10.1 Carbon Dioxide 30 mmol/L 21-32 Chloride 101 mmol/L 98-107 Creatinine 1.2 mg/dL 0.6-1.3 Glom Filtration Rate, Estimate 46 mL/min >60 Glucose 92 mg/dL 74-106 42 If 55 mL/min >60 Potassium 3.6 mmol/L 3.5-5.1 Sodium 139 mmol/L 136-145 Occult Blood,Stool 10/23/2015 Stool Occult Blood-Single Negative Negative Spec Basic Metabolic Panel 10/23/2015 Anion Gap 14 mEq/L 8-16 BUN 29 mg/dL High 7-18 43 BUN/Creat 18.1 ratio Calcium 9.2 mg/dL 8.5-10.1 Carbon Dioxide 22 mmol/L 21-32 Chloride 103 mmol/L 98-107 Creatinine 1.6 mg/dL High 0.6-1.3 Glom Filtration Rate, Estimate 33 mL/min >60 Glucose 81 mg/dL 74-106 44 If 40 mL/min >60 Potassium 5.3 mmol/L High 3.5-5.1 Sodium 139 mmol/L 136-145 Basic Metabolic Panel 10/22/2015 Anion Gap 6 mEq/L Low 8-16 BUN 20 mg/dL High 7-18 BUN/Creat 13.3 ratio Calcium 9.0 mg/dL 8.5-10.1 Carbon Dioxide 32 mmol/L 21-32 Chloride 102 mmol/L 98-107 Creatinine 1.5 mg/dL High 0.6-1.3 Glom Filtration Rate, Estimate 35 mL/min >60 Glucose 106 mg/dL 74-106 45 If 43 mL/min >60 Potassium 4.3 mmol/L 3.5-5.1 Sodium 140 mmol/L 136-145 CBC W/Automated Diff 10/22/2015 Bas% 0.4 % 0.0-1.1 Baso # 0.02 K/uL 0.0-0.1 Eo% 1.0 % 0.0-6.6 Eos # 0.05 K/uL 0.0-0.5 Hematocrit 32.8 % Low 36.0-46.1 Hemoglobin 9.7 gm/dL Low 11.6-15.8 Lymph # 1.41 K/uL Low 1.8-7.0 Lymph % 29.1 % 17.0-46.1 Mean Cell Volume 104.5 fl High 80.9-99.0 Mean Corpuscular HGB 30.9 pg 25.9-32.7 Mean Corpuscular HGB Conc 29.6 g/dL Low 30.8-34.3 Mean Platelet Volume 12.2 fL 8.9-12.4 Story # 0.46 K/uL 0.3-0.9 Story % 9.5 % 4.3-13.2 Neut# 2.90 K/uL 1.8-7.0 Neut% 60.0 % 40.4-72.8 Platelet Count 102 K/uL Low 155-360 Red Blood Count 3.14 M/uL Low 3.90-5.40 Red Cell Distri Width %CV 17.7 % High 11.7-14.4 Red Cell Distri Width SD 63.2 fl High 3-47 White Blood Count 4.8 K/uL 3.1-10.7 LDL Cholesterol Profile 10/22/2015 Cholesterol 85 mg/dL <200 46 HDL Cholesterol 23 mg/dL Low >40 47 LDL-Cholesterol 43 mg/dL < 100 48 Triglycerides 93 mg/dL <150 49 Laboratory test finding 10/22/2015 Magnesium 2.0 mg/dL 1.8-2.4 Basic Metabolic Panel 10/22/2015 Anion Gap 8 mEq/L 8-16 BUN 19 mg/dL High 7-18 BUN/Creat 12.6 ratio Calcium 9.1 mg/dL 8.5-10.1 Carbon Dioxide 29 mmol/L 21-32 Chloride 103 mmol/L 98-107 Creatinine 1.5 mg/dL High 0.6-1.3 Glom Filtration Rate, Estimate 35 mL/min >60 Glucose 111 mg/dL High 74-106 50 If 43 mL/min >60 Potassium 4.2 mmol/L 3.5-5.1 Sodium 140 mmol/L 136-145 Laboratory test finding 10/21/2015 Act Partial Thrombo Time 53.2 s High 23.9-34.3 51 Anisocytosis 0-1+ Band% 4 % 0-8 Basophil% 1 % 0-2 CK 78 U/L 26-192 52 Elliptocytes 0-1+ Eosinophil% 1 % 0-5 Lymph% 27 % 17-56 Magnesium 1.9 mg/dL 1.8-2.4 Monocyte% 5 % 0-10 Neutrophils% 62 % 33-73 Nucleated Red Blood Cell 2 % High -0 Platelet Estimate Mod Decrease Poikilocytosis 0-1+ Total Cells Counted 100 #CELLS Troponin-I 0.107 ng/mL 53 CBC W/Automated Diff 10/21/2015 Bas% 0.4 % 0.0-1.1 Baso # 0.02 K/uL 0.0-0.1 Eo% 1.3 % 0.0-6.6 Eos # 0.06 K/uL 0.0-0.5 Hematocrit 33.5 % Low 36.0-46.1 Hemoglobin 10.1 gm/dL Low 11.6-15.8 Lymph # 0.89 K/uL Low 1.8-7.0 Lymph % 18.9 % 17.0-46.1 Mean Cell Volume 104.4 fl High 80.9-99.0 Mean Corpuscular HGB 31.5 pg 25.9-32.7 Mean Corpuscular HGB Conc 30.1 g/dL Low 30.8-34.3 Mean Platelet Volume 12.5 fL High 8.9-12.4 Story # 0.33 K/uL 0.3-0.9 Story % 7.0 % 4.3-13.2 Neut# 3.41 K/uL 1.8-7.0 Neut% 72.4 % 40.4-72.8 Nucleated Red Blood Cell 2 % High -0 Platelet Count 99 K/uL Low 155-360 Red Blood Count 3.21 M/uL Low 3.90-5.40 Red Cell Distri Width %CV 17.7 % High 11.7-14.4 Red Cell Distri Width SD 63.7 fl High 3-47 White Blood Count 4.7 K/uL 3.1-10.7 Comprehensive Metabolic Panel 10/21/2015 Alb/Glob 0.7 ratio Albumin 2.6 g/dL Low 3.4-5.0 Alkaline Phosphatase 233 U/L High 45-117 Anion Gap 10 mEq/L 8-16 BUN 15 mg/dL 7-18 BUN/Creat 15.0 ratio Bilirubin,Total 1.8 mg/dL High 0.2-1.0 Calcium 8.8 mg/dL 8.5-10.1 Carbon Dioxide 33 mmol/L High 21-32 Chloride 100 mmol/L 98-107 Creatinine 1.0 mg/dL 0.6-1.3 Globulin 4.0 g/dL 1.9-4.3 Glom Filtration Rate, Estimate 57 mL/min >60 Glucose 89 mg/dL 74-106 54 If >60 mL/min >60 Potassium 2.8 mmol/L Low 3.5-5.1 SGPT/Alt 61 U/L 12-78 Sgot/Ast 63 U/L High 15-37 Sodium 143 mmol/L 136-145 Total Protein 6.6 g/dL 6.4-8.2 Protime 10/21/2015 Inr 1.6 High 0.9-1.1 Protime 19.0 s High 12.1-14.9 55 Laboratory test finding 10/21/2015 Ua RFX Micro + Culture II See Note 56 1 CITROBACTER FREUNDII 2 > 100,000 CFU/mL 3 R31.9 4 MIXED URETHRAL LEONARD 5 10,000 - 100,000 CFU/mL 6 ESCHERICHIA COLI 7 > 100,000 CFU/mL 8 MIXED URETHRAL LEONARD 9 10,000 - 50,000 CFU/mL 10 Z87.440 11 BETA STREPTOCOCCUS GROUP B 12 > 100,000 CFU/mL 13 PENICILLIN OR AMPICILLIN. 14 50,000 - 100,000 CFU/mL 15 SPECIMEN DESCRIPTION CATHETER,STRAIGHT CULTURE RESULTS >100,000 CFU/ML ESCHERICHIA COLI REPORT STATUS FINAL 04/29/2017 ORGANISM ESCHERICHIA COLI METHOD MICHELE AMIKACIN <=2 SUSCEPTIBLE AMOXICILLIN/CLAVULANIC AC 8/4 SUSCEPTIBLE AMPICILLIN >=32 RESISTANT ISOLATES SUSCEPTIBLE TO AMPICILLIN ARE ALSO SUSCEPTIBLE TO AMOXICILLIN. CEFAZOLIN <=4 SUSCEPTIBLE FOR UNCOMPLICATED UTI'S,CEFAZOLIN MICHELE RESULTS LESS THAN OR EQUAL TO 16 MCG/ML PREDICT SUSCEPTIBILITY OF THE FOLLOWING ORAL CEPHALOSPORINS:CEFACLOR,CEFDINIR, CEFPODOXIME,CEFPROZIL,CEFUROXIME AND CEPHALEXIN. CEFEPIME <=1 SUSCEPTIBLE CEFOXITIN <=4 SUSCEPTIBLE CEFTAZIDIME <=1 SUSCEPTIBLE CEFTRIAXONE <=1 SUSCEPTIBLE CIPROFLOXACIN <=0.25 SUSCEPTIBLE GENTAMICIN <=1 SUSCEPTIBLE LEVOFLOXACIN <=0.12 SUSCEPTIBLE NITROFURANTOIN <=16 SUSCEPTIBLE PIPERACILLIN/TAZOBACTAM <=4 SUSCEPTIBLE TETRACYCLINE <=1 SUSCEPTIBLE TOBRAMYCIN <=1 SUSCEPTIBLE TRIMETH/SULFA <=1/19 SUSCEPTIBLE ERTAPENEM <=0.5 SUSCEPTIBLE 16 R31.9 17 MIXED URETHRAL LEONARD 18 10,000 - 50,000 CFU/mL 19 ESCHERICHIA COLI 20 > 100,000 CFU/mL 21 10,000 - 50,000 CFU/mL 22 NORMAL >5.4 NG/ML BORDERLINE 3.4-5.4 NG/ML LOW <3.4 NG/ML 23 The upper reference limit for Creatinine is approximately 13% higher for people identified as -Taiwanese. 24 GLUCOSE REFERENCE RANGE BASED ON FASTING SPECIMEN. 25 Relative blood cell counts (%) should be compared with absolute cell counts (cells/mcL). Relative counts may not be clinically meaningful if the absolute count of one or more cell type is decreased. Reference ranges for relative cell counts derived from: A Manual of Laboratory and Diagnostics Tests, 9th Ed, [employer] T[employer] Iqbal, 2015. Pediatric Reference Intervals, 7th Ed, [employer], 2011. 26 NORMAL >5.4 NG/ML BORDERLINE 3.4-5.4 NG/ML LOW <3.4 NG/ML 27 Relative blood cell counts (%) should be compared with absolute cell counts (cells/mcL). Relative counts may not be clinically meaningful if the absolute count of one or more cell type is decreased. Reference ranges for relative cell counts derived from: A Manual of Laboratory and Diagnostics Tests, 9th Ed, [employer] Iqbal, 2015. Pediatric Reference Intervals, 7th Ed, [employer], 2011. 28 The upper reference limit for Creatinine is approximately 13% higher for people identified as -Taiwanese. 29 GLUCOSE REFERENCE RANGE BASED ON FASTING SPECIMEN. 30 Is patient on anticoagulants? Coumadin QUERY: Anticoagulant Therapy? QUERY: Date of Last Dose: QUERY: Time of Last Dose: 31 0.0 - 0.045 ng/mL: Normal 0.046 - 0.5 ng/mL: Suggestive 0.6 - 1.5 ng/mL: Consistent 32 CULTURE TO FOLLOW 33 11/10/15 LAB.[email or web address] Deleted by Reflex Group [facility] [place] 34 Organism 1 ! KLEBSIELLA PNEUMONIAE Quantity ! > 100,000 CFU/mL Organism 2 ! URETHRAL LEONARD Quantity ! > 100,000 CFU/mL KLEBSIELLA PNEUMONIAE Target Route Dose M.I.C. RX AB COST ------ ----- -------- ------ -- ------ NITROFURANTOIN 64 I TRIMETHOPRIM/SULFAMETHOXAZOLE <=20 S AMPICILLIN 16 R CEFAZOLIN <=4 S AMPICILLIN/SULBACTAM 4 S CIPROFLOXACIN <=0.25 S PIPERACILLIN/TAZOBACTAM <=4 S CEFTAZIDIME <=1 S CEFTRIAXONE <=1 S CEFEPIME <=1 S LEVOFLOXACIN <=0.12 S IMIPENEM <=0.25 S GENTAMICIN <=1 S TOBRAMYCIN <=1 S 35 Note: Persistent reduction for 3 months or more in an eGFR <60 mL/min/1.73 m2 defines CKD. Patients with eGFR values >/=60 mL/min/1.73 m2 may also have CKD if evidence of persistent proteinuria is present. The original MDRD equation for estimated GFR is not valid for patients less than 18 years of age. Additional information may be found at [email or web address]. 36 THERAPEUTIC INR RANGE: 2.0 - 3.0 DVT, Pulmonary embolus, prophylaxis against venous thrombosis or systemic embolization in high risk patients. 2.5 - 3.5 Mechanical heart valves 37 Note: Persistent reduction for 3 months or more in an eGFR <60 mL/min/1.73 m2 defines CKD. Patients with eGFR values >/=60 mL/min/1.73 m2 may also have CKD if evidence of persistent proteinuria is present. The original MDRD equation for estimated GFR is not valid for patients less than 18 years of age. Additional information may be found at [email or web address]. 38 Note: Persistent reduction for 3 months or more in an eGFR <60 mL/min/1.73 m2 defines CKD. Patients with eGFR values >/=60 mL/min/1.73 m2 may also have CKD if evidence of persistent proteinuria is present. The original MDRD equation for estimated GFR is not valid for patients less than 18 years of age. Additional information may be found at [email or web address]. 39 Note: Persistent reduction for 3 months or more in an eGFR <60 mL/min/1.73 m2 defines CKD. Patients with eGFR values >/=60 mL/min/1.73 m2 may also have CKD if evidence of persistent proteinuria is present. The original MDRD equation for estimated GFR is not valid for patients less than 18 years of age. Additional information may be found at [email or web address]. 40 Note: Persistent reduction for 3 months or more in an eGFR <60 mL/min/1.73 m2 defines CKD. Patients with eGFR values >/=60 mL/min/1.73 m2 may also have CKD if evidence of persistent proteinuria is present. The original MDRD equation for estimated GFR is not valid for patients less than 18 years of age. Additional information may be found at [email or web address]. 41 Result confirmed by repeat analysis. 42 Note: Persistent reduction for 3 months or more in an eGFR <60 mL/min/1.73 m2 defines CKD. Patients with eGFR values >/=60 mL/min/1.73 m2 may also have CKD if evidence of persistent proteinuria is present. The original MDRD equation for estimated GFR is not valid for patients less than 18 years of age. Additional information may be found at [email or web address]. 43 SPECIMEN IS SLIGHTLY HEMOLYZED 44 Note: Persistent reduction for 3 months or more in an eGFR <60 mL/min/1.73 m2 defines CKD. Patients with eGFR values >/=60 mL/min/1.73 m2 may also have CKD if evidence of persistent proteinuria is present. The original MDRD equation for estimated GFR is not valid for patients less than 18 years of age. Additional information may be found at [email or web address]. 45 Note: Persistent reduction for 3 months or more in an eGFR <60 mL/min/1.73 m2 defines CKD. Patients with eGFR values >/=60 mL/min/1.73 m2 may also have CKD if evidence of persistent proteinuria is present. The original MDRD equation for estimated GFR is not valid for patients less than 18 years of age. Additional information may be found at [email or web address]. 46 Reference Guidelines*: Desirable: ........... < 200 mg/dL Borderline High: ..... 200-239 mg/dL High: ................ >=240 mg/dL * The National Cholesterol Education Program (NCEP) 47 Reference Guidelines*: Low HDL: ..... < 40 mg/dL Normal: ..... 40-60 mg/dL Desirable: ... > 60 mg/dL *The National Cholesterol Education Program(NCEP) 48 Reference Guidelines*: Optimal:........... <100 mg/dL Near Optimal....... 100-129 mg/dL Borderline High.... 130-159 mg/dL High............... 160-189 mg/dL Very High.......... >=190 mg/dL * Source: National Cholesterol Education Program (NCEP) 49 Reference Guidelines*: Normal: ............. < 150 mg/dL Borderline High: .... 150-199 mg/dL High: ............... 200-499 mg/dL Very High: .......... > 500 mg/dL * Source: National Cholesterol Education Program (NCEP) 50 Note: Persistent reduction for 3 months or more in an eGFR <60 mL/min/1.73 m2 defines CKD. Patients with eGFR values >/=60 mL/min/1.73 m2 may also have CKD if evidence of persistent proteinuria is present. The original MDRD equation for estimated GFR is not valid for patients less than 18 years of age. Additional information may be found at [email or web address]. 51 Is patient on anticoagulants? Coumadin QUERY: Anticoagulant Therapy? QUERY: Date of Last Dose: QUERY: Time of Last Dose: 52 CALLED RGEAN Vieira WITH K AT 1629 10/21/15 by LAB.[email or web address] 53 0.0 - 0.045 ng/mL: Normal 0.046 - 0.5 ng/mL: Suggestive 0.6 - 1.5 ng/mL: Consistent 54 Note: Persistent reduction for 3 months or more in an eGFR <60 mL/min/1.73 m2 defines CKD. Patients with eGFR values >/=60 mL/min/1.73 m2 may also have CKD if evidence of persistent proteinuria is present. The original MDRD equation for estimated GFR is not valid for patients less than 18 years of age. Additional information may be found at [email or web address]. 55 THERAPEUTIC INR RANGE: 2.0 - 3.0 DVT, Pulmonary embolus, prophylaxis against venous thrombosis or systemic embolization in high risk patients. 2.5 - 3.5 Mechanical heart valves 56 " NO SPECIMEN OBTAINED" PER REQUEST AT 1739 Procedures Date CPT Code Description Status Comment 10/19/2017 37209 Bladder Scan, Post Voiding Residual Urine Completed 07/20/2017 45569 Cystourethroscopy, Separate Procedure Completed 07/20/2017 Mammogram Completed unknown 05/18/2017 33125 Urodynamics, Voiding Pressure Studies Intra Completed Abdominal Tech Comp 05/18/2017 49529 Urodynamics, Voiding Pressure Studies Intra Completed Abdominal Prof Comp 05/18/2017 22438 Urodynamics, Voiding Pressure Studies Intra Completed Abdominal Global 05/18/2017 91325 Urodynamics, Electromyography Studies EMG Of Completed Anal Or Urethra TC 05/18/2017 74148 Urodynamics, Electromyography Studies EMG Of Completed Anal Or Urethra pc 05/18/2017 11842 Urodynamics, Electromyography Studies EMG Of Completed Anal Or Urethral S 05/18/2017 10127 Complex Cystometrogram, With Voiding Pressure Completed Studies Tech Comp 05/18/2017 96877 Complex Cystometrogram, With Voiding Pressure Completed Studies Prof Comp 05/18/2017 74306 Complex Cystometrogram, With Voiding Pressure Completed Studies Global 12/10/2016 98393 Bladder Scan, Post Voiding Residual Urine Completed 01/07/2016 17880 Bladder Scan, Post Voiding Residual Urine Completed 07/04/2009 Colonoscopy Completed neg Encounters Type Date Location Provider CPT E/M Dx Office Visit 11/01/2017 3:30p Lina Chandler 25066 N39.0 Urology Manoj Jolley N32.81 Office Visit 10/27/2017 3:45p Lina Chandler 88031 N39.0 Urology SamreenP.Yakelin Office Visit 10/19/2017 2:35p Fito/[place] [address] N39.0 Urology N32.81 N39.46 Office Visit 04/06/2017 3:15p [facility] [address] N39.46 Office Visit 03/17/2017 2:35p [facility] [address] N39.46 Office Visit 12/10/2016 11:00a [facility] Gillian Young, [place] [address] N39.46 Z87.440 Office Visit 04/22/2016 2:00p [facility] Maureen Torres, 05726 N39.46 M.D. N32.81 R34 Office Visit 01/22/2016 10:50a [facility] Maureen Torres, 80238 N39.46 M.D. N32.81 Office Visit 01/07/2016 10:00a [facility] Gillian Young [employer]/[place] [address] N32.81 N39.46 Plan of Care Future Appointment(s):12/01/2017 2:50 pm - Saji Shah MD at [facility] Lvhdvrf0911/01/2017 - Ángel JolleyPShellN39.0 Urinary tract infection, site not specifiedComments:I performed a catheterized urine collection sent for culture and sensitivity for test of cure.N32.81 Overactive bladderComments:I provided her samples of Myrbetriq 50 mg. Take that for 2 weeks. Should she feel her symptoms have improved she can consider discontinuing Vesicare to see if she can take only 1 medication. Keep her follow-up as scheduled.
--- OUTSIDE RECORDS SUMMARY | 2017-11-10 15:06 | XMS REPORT ---
:1935 External Reference #:[id number] Author Organization [employer] [facility] Address [facility] [place] [address] Phone [phone] Care Team Providers Name Role Phone Guillermo Montelongo MD 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 Primary Care Physician Unavailable Payers Type Date Identification Numbers Payment Provider Subscriber Medicare Primary Effective: Policy Number: Medicare Marcelina Cobian 1998 [id number] PayID: [id number] [address] [place] [address] Medigap Part B Effective: Policy Number: [facility] Supplemental Marcelina Mixon 2015 [id number] Plan Aranza PayID: [id number] [address] [place] [address] Problems Date Description Provider Status Onset: 12/15/2011 [...] Status Occupation Patient is retired Cigarette Use 07/20/2017 Former Cigarette Smoker ETOH Use 12/10/2016 Patient [...] 2016 Vital Signs Date Vital Result Comment 10/19/2017 Height 62 inches 5'2" Weight 192.00 [...] Test Date Test Result H/L Range Note Urine Culture 10/19/2017 Urine Culture CITROBACTER FREU <SEE 1 NOTE> Quantity > 100,000 CFU/mL 2 Ast-GN67 10/19/2017 Nitrofurantoin <=16 Cefazolin >=64 Ciprofloxacin <=0.25 Ceftazidime 16 Ceftriaxone 2 Cefepime <=1 Levofloxacin 1 Imipenem <=0.25 Gentamicin 8 Tobramycin 8 230 Ua Routine 10/19/2017 Ua Glucose Negative Ua Protein 3+ Ua Nitrite Positive Ua Leuko 3+ Ua Blood 3+ Ua Color Yellow Ua Ketones Trace Ua Clarity Cloudy Ua Specific [place] 1.025 1.003-1.030 Ua PH 5.5 5.0-7.5 Ua [...] Negative Ua Clarity Slightly Cloudy Ua Specific [place] 1.025 1.003-1.030 Ua PH 5.5 5.0-7.5 Ua [...] Ketones Negative Ua Clarity Cloudy Ua Specific [place] 1.020 1.003-1.030 Ua PH 6.0 5.0-7.5 Ua [...] Negative Ua Clarity Not Entered Ua Specific [place] 1.015 1.003-1.030 Ua PH 5.5 5.0-7.5 Ua Bilirubin Negative Ua Urobilinogen 0.2 E.U./dL 0.0-1.0 Laboratory test finding 04/27/2017 Urine Culture SPECIMEN DESCRI> 15 230 Ua Routine 04/27/2017 Ua Glucose Negative Ua Protein 30 mg/dL Ua Nitrite Positive Ua Leuko Moderate Ua Blood Moderate Ua Color Not Entered Ua Ketones Negative Ua Clarity Not Entered Ua Specific [place] 1.015 1.003-1.030 Ua PH 5.0 5.0-7.5 Ua [...] Ketones Negative Ua Clarity Cloudy Ua Specific [place] 1.025 1.003-1.030 Ua PH 5.5 5.0-7.5 Ua Bilirubin Negative Ua Urobilinogen 0.2 E.U./dL 0.0-1.0 230 Ua Routine 03/17/2017 Ua Glucose Negative Ua Protein 1+ Ua Nitrite Negative Ua Leuko 3+ Ua Blood 2+ Ua Color Not Entered Ua Ketones Trace Ua Clarity Not Entered Ua Specific [place] 1.020 1.003-1.030 Ua PH 5.5 5.0-7.5 Ua [...] Ketones Negative Ua Clarity clear Ua Specifici [place] 1.020 1.003-1.030 Ua PH 5.0 5.0-7.5 Ua [...] Ketones Trace Ua Clarity clear Ua Specifici [place] 1.025 1.003-1.030 Ua PH 5.0 5.0-7.5 Ua [...] Ketones Negative Ua Clarity clear Ua Specifici [place] 1.015 1.003-1.030 Ua PH 5.0 5.0-7.5 Ua Bilirubin Negative Ua Urobilinogen 0.2 E.U./dL 0.0-1.0 Laboratory test finding 2015 % Saturation 20 % 11-50 Ferritin 109 ng/mL 20-288 Folate,Serum 19.4 ng/mL Iron,Total 68 g/dL 45-160 22 Reticulocyte Count 0.7 % 0.5-2.0 Reticulocyte Count,Absolute 97935 cells/uL 12617-58050 Tibc 341 g/dL 250-450 Vitamin B12,Serum 642 [...] Myelocytes,% Pending Myelocytes,Absolute Pending Neutrophils,Absolute 2190 cells/uL 4530-4323 Nucleated RBC Pending Nucleated RBC,Absolute Pending Platelet [...] Myelocytes,% Pending Myelocytes,Absolute Pending Neutrophils,Absolute 3470 cells/uL 9920-7137 Nucleated RBC Pending Nucleated RBC,Absolute Pending Platelet [...] 30.8-34.3 Mean Platelet Volume 10.9 fL 8.9-12.4 [place] # 0.57 K/uL 0.3-0.9 [place] % 11.9 % 4.3-13.2 Neut# 3.16 K/uL [...] Urine RBC 0-2 rbc/hpf 0-2 Urine Specific [place]bin >=1.030 1.010-1.030 Urine Urobilinogen - Dipstick 0.2 [...] 8 mEq/L 8-16 BUN 27 mg/dL High - 41 BUN/Creat 22.5 ratio Calcium 8.6 mg/dL [...] 14 mEq/L 8-16 BUN 29 mg/dL High 01-18 43 BUN/Creat 18.1 ratio Calcium 9.2 mg/dL [...] 30.8-34.3 Mean Platelet Volume 12.2 fL 8.9-12.4 [place] # 0.46 K/uL 0.3-0.9 [place] % 9.5 % 4.3-13.2 Neut# 2.90 K/uL [...] Mean Platelet Volume 12.5 fL High 8.9-12.4 [place] # 0.33 K/uL 0.3-0.9 [place] % 7.0 % 4.3-13.2 Neut# 3.41 K/uL [...] approximately 13% higher for people identified as -Romanian. 24 GLUCOSE REFERENCE RANGE BASED ON FASTING [...] Iqbal, 2015. Pediatric Reference Intervals, 7th Ed, [facility] Press, 2011. 26 NORMAL >5.4 NG/ML BORDERLINE [...] Iqbal, 2015. Pediatric Reference Intervals, 7th Ed, [facility] Press, 2011. 28 The upper reference limit for Creatinine is approximately 13% higher for people identified as -Romanian. 29 GLUCOSE REFERENCE RANGE BASED ON FASTING SPECIMEN. 30 Is patient on anticoagulants? Coumadin QUERY: Anticoagulant Therapy? QUERY: Date of Last Dose: QUERY: Time of Last Dose: 31 0.0 - 0.045 ng/mL: Normal 0.046 - 0.5 ng/mL: Suggestive 0.6 - 1.5 ng/mL: Consistent 32 CULTURE TO FOLLOW 33 11/10/15 LAB.[email or web address] Deleted by Reflex Group [facility] 34 Organism 1 ! KLEBSIELLA PNEUMONIAE Quantity [...] QUERY: Time of Last Dose: 52 CALLED REGAN Vieira WITH K AT 1625 10/21/15 by LAB.MPK 53 0.0 - 0.045 ng/mL: Normal 0.046 [...] Date CPT Code Description Status Comment 10/19/2017 01427 Bladder Scan, Post Voiding Residual Urine Completed 07/20/2017 07119 Cystourethroscopy, Separate Procedure Completed 07/20/2017 Mammogram Completed unknown 05/18/2017 22187 Urodynamics, Voiding Pressure Studies Intra Completed Abdominal Tech Comp 05/18/2017 98949 Urodynamics, Voiding Pressure Studies Intra Completed Abdominal Prof Comp 05/18/2017 08247 Urodynamics, Voiding Pressure Studies Intra Completed Abdominal Global 05/18/2017 05222 Urodynamics, Electromyography Studies EMG Of Completed Anal Or Urethra TC 05/18/2017 48614 Urodynamics, Electromyography Studies EMG Of Completed Anal Or Urethra pc 05/18/2017 16876 Urodynamics, Electromyography Studies EMG Of Completed Anal Or Urethral S 05/18/2017 15293 Complex Cystometrogram, With Voiding Pressure Completed Studies Tech Comp 05/18/2017 20663 Complex Cystometrogram, With Voiding Pressure Completed Studies Prof Comp 05/18/2017 24319 Complex Cystometrogram, With Voiding Pressure Completed Studies Global 12/10/2016 37051 Bladder Scan, Post Voiding Residual Urine Completed 01/07/2016 63132 Bladder Scan, Post Voiding Residual Urine Completed 07/04/2009 Colonoscopy Completed neg Encounters Type Date Location Provider CPT E/M Dx Office Visit 10/27/2017 3:45p [facility].Nikhil Chandler [address] N39.0 Urology SamreenPShell Office Visit 10/19/2017 2:35p [facility]/[place] [address] N39.0 Urology N32.81 N39.46 Office Visit 04/06/2017 3:15p [facility].[place] [address] N39.46 Office Visit 03/17/2017 2:35p [facility] [address] N39.46 Office Visit 12/10/2016 11:00a [facility].[facility] [address] N39.46 Z87.440 Office Visit 04/22/2016 2:00p [place] U[facility] Maureen Torres, 27005 N39.46 M.DFroy N32.81 R34 Office Visit 01/22/2016 10:50a [facility] Maureen Torres, [address]2081 N39.46 Vasquez N32.81 Office Visit 01/07/2016 10:00a [place] Urology Gillian Young NP/CARL 82715 N32.81 N39.46 Plan of Care Future Appointment(s):11/01/2017 3:30 pm - Manoj Vasquez at [place] [facility] Vzxysrx7012/01/2017 2:50 pm - Saji Shah MD at [facility] [id number] - Manoj VasquezN39.0 Urinary tract infection, site not specifiedComments:Review the culture results and she has Citrobacter freundi susceptible to Cipro. She is given a single dose of Cipro 500 mg today and then 250 twice a day for 4 days. She'll return in 6 days for a catheterized urine and a vaginal exam to make sure there is no evidence of sling erosion.
--- OUTSIDE RECORDS SUMMARY | 2017-11-10 15:07 | XMS REPORT ---
:1935 External Reference #:[id number] Author Organization [facility] Address [address], [address] [place] [address] Phone [phone] Care Team Providers Name Role Phone Juan J Velásquez MD Primary Care Physician Unavailable Payers Type Date Identification Numbers Payment Provider Subscriber Medicare Primary Policy Number: [id number] Medicare Marcelina Cobian PayID: [id number] [address] [place] [address] [facility] Policy Number: [id number] [facility] Marcelina Cobian PayID: [id number] [address] [place] [address] Problems Date Description Provider Status Onset: 10/04/2012 C/O - debility - malaise Pamela Lucas MD Active Onset: 10/04/2012 Acute respiratory failure Pamela Lucas MD Active Onset: 10/04/2012 Pneumonia Pamela Lucas MD Active Onset: 10/04/2012 Walking disability Pamela Lucas MD Active Onset: 10/04/2012 Rehabilitation Unspec Pamela Lucas MD Active Onset: 08/29/2013 Atrial fibrillation Guillermo Montelongo M.D., Active FACC Onset: 08/29/2013 Mitral valve disorder Guillermo Montelongo M.D., Active FACC Onset: 08/29/2013 Dyspnea Guillermo Montelongo M.D., Active FACC Onset: 01/01/2014 Congestive heart failure Guillermo Montelongo M.D., Active FACC Onset: 01/01/2014 Malaise and fatigue Guillermo Montelongo M.D., Active FACC Onset: 01/01/2014 Coronary arteriosclerosis Guillermo Montelongo M.D., Active FACC Onset: 01/18/2014 Low blood pressure Guillermo Montelongo M.D., Active FACC Onset: 09/11/2014 Sleep dysfunction with sleep stage Yudelka Tony, Active disturbance MSN, [place] Onset: 10/22/2014 Palpitations Guillermo Montelongo M.D., Active FACC Onset: 01/08/2015 Atrial flutter Guillermo Montelongo M.D., Active FACC Onset: 03/24/2015 Cellulitis and abscess of upper Kyaw Solorzano MD Active limb Onset: 06/11/2015 Orthostatic hypotension Yudelka Tony, Active MSN, [place] Onset: 10/13/2015 Dizziness and giddiness Guillermo Montelongo M.D., Active FACC Onset: 10/13/2015 Edema Guillermo Montelongo M.D., Active FACC Onset: 11/11/2015 Paroxysmal atrial fibrillation Yudelka Tony, Active MSN, [place] Onset: 11/11/2015 Paroxysmal ventricular tachycardia Yudelka Tony, Active MSN, [place] Onset: 11/11/2015 Unspecified diastolic (congestive) Yudelka Tony, Active heart failure MSN, [place] Family History Date Family Member(s) Problem(s) Comments General CAD General Heart Disease General High Cholesterol Father Heart Disease Mother Heart Disease : (age 48 Years) First Son due to MA First Son Heart Disease Onset: (age 48 Years) First Daughter Myocardial Infarction First Brother CAD CABG @ 42 Social History Type Date Description Comments Marital Status Lives With Daughter Diet Patient is on a low sodium diet Diet Patient is on a low fat diet Occupation Retired Work Status Not Currently Working retired Drive Patient drives Cigarette Use 1980 Quit Cigarette Use Pack Years - 43 ETOH Use Denies alcohol use Smoking Patient is a former smoker quit 1979 Recreational Drug Use Denies Drug Use Daily Caffeine Consumes on average 2 cups of regular coffee per day Allergies, Adverse Reactions, Alerts Date Description Reaction Status Severity Comments Macrodantin active Spiriva thrush active 10/13/2015 Midodrine active allucinations 10/24/2015 Amiodarone active Torsade de Points Medications Medication Date Status Form Strength Qnty SIG Indications Ordering Provider Stiolto 08/03 Active Aerosol 2.5-2.5mc 4gm take 2 puffs Otoniel Respimat g/Act once daily. MD Shanel Please load and teach medication. Miralax 07/27 Active Packet 3350NF 1Mont 17g by mouth h twice a day Jayda, as needed Vasquez, [facility] constipation. Eliquis 05/17 Active Tablets 5mg 180ta 1 Tab By bs Mouth Twice A Reese, Day Vasquez, [facility] Cymbalta Active Caps DR 60mg 30cap 1 po daily Unknown /0000 Part s Omeprazole Active Capsules 20mg 30cap 1 po daily Unknown /0000 DR s Multivitamins Active Capsules 90cap 1 by mouth Unknown /0000 s every day Singulair Active Tablets 10mg 1 by mouth Unknown /0000 every day Simvastatin Active Tablets 40mg 1 by mouth Unknown /0000 every day Tylenol 8 Hour Active Tablets 500MF 2 po bid Unknown Arthritis Pain /0000 ER Vesicare Active Tablets 10mg 1 by mouth Unknown /0000 every day Klor-Con 10 Active Tablets 10Meq 2 by mouth Unknown /0000 ER daily Calcium/Vitamin Active Tablets 600-400mg 2 po bid Unknown D /0000 -Unit Claritin Active Tablets 10mg take 1 tablet Unknown /0000 by mouth daily for allergy Biotin Maximum Active Tablets 34529hvb 1 po daily Unknown Strength /0000 Imodium Active Tablets 2-125mg prn Unknown Multi-Symptom /0000 Relief Torsemide Active Tablets 20mg take 1/2 R60.9 Guillermo M. / tablet prn Jayda, weight gain Vasquez, [facility] Proair HFA Active Aerosol 108(90Bas take 2 puffs Unknown /0000 e) every 6 hours mcg/Act as needed for shortness of breath. Utibron 08/01 Hx Capsules 27.5-15.6 1mont Take 1 puff Otoniel Neohaler /2018 mcg h twice daily. MD Shanel - Please teach 08/03 how to use /2018 inhaler. Demadex 05/12 Hx Tablets 20mg 30tab 20 MG PO Qday R60.9 Guillermo M. /2016 s Start Bassem Montelongo M.D., [facility] Metolazone 05/09 Hx Tablets 2.5mg 90tab take 1 tab 30 R60.9 Guillermo M. s minutes Bess Montelongo M.D., [facility] 05/12 morning lasix dose Oxygen 03/14 Hx discontinue home oxygen Megan Tony, MSN, [place] Nocturnal O2 03/09 Hx hypoxia Guillermo M. And Arterial O2 Bess Montelongo M.D., [facility] 03/14 Propafenone HCL 12/30 Hx Tablets 300mg 4tabs 1- 2 tablets I48.4 by mouth as Megan needed Chavo, palpitations MSN, [place] Multaq 07/27 Hx Tablets 400mg 60tab take one s tablet by roxana Montelongo twice a M.DFroy, [facility] day Ranexa 07/27 Hx Tablets 500mg 1 by mouth ER 12HR twice a day Vasquez Montelongo, [facility] Flecainide 07/22 Hx Tablets 100mg 180ta 1 by mouth . bs twice a day Vasquez Montelongo, [facility] Propafenone HCL 04/14 Hx Tablets 150mg 240ta 1 Tablets . bs Three Times A Smiley Montelongo M.D., [facility] Oxygen Therapy 12/07 Hx Please Discontinue Megan Tony, MSN, [place] Amiodarone HCL 10/12 Hx Tablets 200mg 90tab 2 po qd for 7 R60.0 Guillermo M. s days and then Bess Montelongo by mouth M.DFroy, [facility] 10/23 every Pradaxa 10/12 Hx Capsules 150mg 60cap 1 by mouth I48.0 Guillermo M. s twice a day Vasquez oMntelongo, [facility] Midodrine HCL 09/08 Hx Tablets 10mg 180ta 1 by mouth 3 Guillermo M. bs times a day Vasquez Montelongo, [facility] Oxygen / Hx NC 2Liters Oxygen R06.02 concentrator Megan and Chavo portability MSN, [place] 2L, continuous o2: 86% sitting ra. Exert on ra: 84%. 2L nc exert 96% and rest 94% J44.9 I50.9 Aspirin 07/31/2015 Hx Tablets 81mg 1 by mouth I25.10 Yudelka every day JANN Stack, [place] Midodrine HCL 07/09/2015 - Hx Tablets 10mg 60 1 by mouth I95.1 Guillermo M. 07/31/2015 ta Tid fernanda Montelongo M.D., [facility] Fludrocortisone 07/09/2015 Hx Tablets 0.1mg 18 2 by mouth I95.1 Guillermo M. Acetate 0t every day ab Vasquez Montelongo, [facility] s Northera 06/18/2015 Hx Capsules 100mg 90 1 tab by I95.1 Guillermo M. ca mouth three marie Montelongo times a day Vasquez, [facility] Fludrocortisone 06/18/2015 - Hx Tablets 0.1mg 30 1 by mouth I95.1 Yudelka Acetate 07/09/2015 ta every day JANN Bui, [place] Midodrine HCL 06/11/2015 - Hx Tablets 10mg 90 1 tab by I95.1 Yudelka 06/18/2015 ta mouth quan Guzman bs times a day JANN Tony, [place] Amlodipine 02/18/2015 Hx Tablets 5mg 30 1 by mouth Guillermo M. Besylate ta every day fernanda Montelongo M.D., [facility] Carvedilol 01/21/2015 - Hx Tablets 3.125m 1 by mouth 427.31 Yudelka 02/12/2015 g twice a day JANN Stack, [place] Digoxin 01/20/2015 - Hx Tablets 125mcg 30 1 tab by Yudelka 02/12/2015 ta mouth every Megan michael evening JANN Tony, [place] Carvedilol 01/20/2015 - Hx Tablets 6.25mg 1 by mouth 427.31 Yudelka 01/21/2015 twice a day JANN Stack, [place] Carvedilol 01/13/2015 - Hx Tablets 6.25mg 60 2 by mouth 427.31 Luci Larose, 01/20/2015 ta twice a day MD michael Pradaxa 01/08/2015 - Hx Capsules 150mg 60 1 by mouth I48.0 Luci Larose, 07/31/2015 ca twice a day MD salazar Amiodarone HCL 01/08/2015 Hx Tablets 200mg 90 1 po twice Guillermo M. ta daily fernanda Montelongo M.D., [facility] Carvedilol 09/11/2014 - Hx Tablets 3.125m 60 2 by mouth 427.31 Yudelka 01/13/2015 g ta twice a day Megan Tony, MSN, [place] Klor-Con M10 02/18/2014 Hx Tablets ER 10Meq 90 1 by mouth Yudelka ta on the days Megan michael that nato Tony, [place] is taken Losartan Potassium 01/01/2014 Hx Tablets 100mg 90 1 po qd dave Velásquez MD bs Lisinopril 01/01/2014 - Hx Tablets 2.5mg 90 1 po qd Guillermo M. 01/01/2014 fernanda Christine M.D., [facility] Midodrine HCL 01/01/2014 Hx Tablets 10mg 60 1 by mouth Guillermo MFroy acosta every day fernanda Montelongo M.D., [facility] Lisinopril 12/28/2013 - Hx Tablets 2.5mg 90 1 po qd Kang L 01/01/2014 dave Amos MD, bs PhD Azithromycin 09/11/2013 - Hx Tablets 250mg 6t z pack 5 Yudelka 09/16/2013 ab days Megan Tony MSN, [place] Amiodarone HCL 08/29/2013 - Hx Tablets 300mg 1 po qd Guillermo M. 08/29/2013 Vasquez Montelongo, [facility] Amiodarone HCL 08/29/2013 - Hx Tablets 200mg 1 po qd Guillermo M. 01/01/2014 Vasquez Montelongo, [facility] Coreg 08/29/2013 - Hx Tablets 6.25mg 1 tab po qhs Guillermo M. 01/01/2014 Vasquez Montelongo, [facility] Lasix 08/29/2013 - Hx Tablets 40mg 1 and 1/2 po Guillermo M. 01/01/2014 qd Vasquez Montelongo, [facility] Amiodarone HCL 03/28/2013 - Hx Tablets 200mg 90 1 po qd Guillermo M. 08/29/2013 fernanda Christine M.D., [facility] Carvedilol 09/18/2012 Hx Tablets 6.25mg 18 1 po bid 401.1 Kang Amos MD, ab PhD s Protonix Hx Tablets DR 40mg 30 1 po qd Unknown ta bs Zestril Hx Tablets 10mg 1 1/2 tabs Unknown po qd Aspirin Ec Hx Tablets DR 325mg 1 po qd Unknown Lasix Hx Tablets 20mg 30 1 po qd Unknown ta bs Pravachol Hx Tablets 20mg 30 1 po qd Unknown ta bs Ditropan XL Hx Tablets ER 10mg 1 po qd Unknown 24HR Multivitamins Hx Tablets 1 po qd Unknown Vitamin D3 Hx Capsules 400Uni 60 1 po qd Unknown t ca ps Singulair Hx Tablets 10mg 1 po qd Unknown Cozaar Hx Tablets 25mg 30 1 po qd Unknown ta bs Cordarone Hx Tablets 200mg 90 by mouth Unknown ta every other bs day Xopenex Hx Nebulizer 0.63mg prn Unknown /3ML Spiriva Handihaler Hx Capsules 18mcg 30 1 po qd Unknown ca ps Pradaxa Hx Capsules 150mg 18 1 cap by Unknown 0c mouth twice ap a day s Augmentin Hx Tablets 875-12 20 1 po bid Unknown 5mg ta bs Prednisone Hx Tablets 20mg po qd Unknown Klor-Con M20 - Hx Tablets ER 10Meq 90 1 po qd Unknown 02/18/2014 ta bs Claritin Hx Tablets 10mg po qd prn Unknown Clonazepam Hx Tablets 0.5mg 60 1 po bid prn Unknown ta bs Spiriva Handihaler Hx Capsules 18mcg 1 puff qd Unknown Warfarin Sodium Hx Tablets 2.5mg 12 As directed Yudelka 0t mary Ashley MSN, [place] Clonazepam Hx Tablets 0.5mg 60 1 po prn Unknown ta bs Oxybutynin Hx Tablets ER 10mg 30 1 po qd Unknown Chloride ER 24HR ta bs Simvastatin - Hx Tablets 20mg 30 1 po qd Unknown 01/01/2014 ta bs Lasix - Hx Tablets 40mg 90 1 po qd Unknown 08/29/2013 ta bs Losartan Potassium - Hx Tablets 100mg 90 1 po qd Unknown 01/01/2014 ta bs Coreg - Hx Tablets 6.25mg 18 1 po bid Unknown 08/29/2013 0t ab hernandez Claritin D Hx Capsules 10mg 1 qd Unknown Atorvastatin Hx Tablets 20mg 90 1 po qd Unknown Calcium ta bs Flonase Hx Suspension 50mcg/ 1 intranasal Unknown Act as needed Aspir-[address] 81mg 1 po qd Unknown Lasix Hx Tablets 40mg 90 1 po qd as Unknown ta needed bs Calcium 600 Hx Tablets 1200mg 1 by mouth Unknown twice a day Aspirin Hx Tablets 81mg 1 by mouth Unknown every day Simvastatin - Hx Tablets 20mg 90 1 by mouth Unknown 02/12/2015 ta every day bs Warfarin Sodium - Hx Tablets 5mg 1-2 tabs po Unknown 10/22/2014 qd as directed Clindamycin HCL Hx Capsules 300mg 1 tab bid Unknown for 10 days started 03/22 Albuterol - Hx Powder 2 puffs Unknown 10/13/2015 every 4 - 6 as needed Midodrine HCL - Hx Tablets 10mg 1 by mouth I95.1 Unknown 06/11/2015 twice a day Clonazepam Hx Tablets 0.5mg 1 by mouth Unknown three times a day as needed Iron Hx Tablets 325(65 1 by mouth Unknown Fe) mg every day Tylenol Hx Tablets 325mg 2 by mouth Unknown bid Breo Ellipta Hx Aerosol 100-25 1 inhalation Unknown mcg/In every day h Naproxen Hx Tablets 250mg 1 by mouth Unknown twice a day Fludrocortisone - Hx Tablets 0.1mg 1 by mouth Unknown Acetate 10/13/2015 every day Sodium Chloride Hx 1gm bid Unknown Lasix - Hx Tablets 100mg 60 in a , 40 Unknown 05/12/2017 in pm Ditropan XL Hx Tablets ER 10mg 1 by mouth Unknown 24HR every day Propafenone HCL Hx Tablets 150mg 24 1 by mouth Guillermo Billingsley 0t every 8 ab Jayda hours Vasquez, [facility] s Albuterol Hx Powder 2 puffs Unknown every 4 - 6 as needed Buspirone HCL Hx Tablets 5mg 1-2 tabs by Unknown mouth bid-tid for anxiety as needed Buspar Hx 5 1 po bid Unknown Clonazepam Hx Tablets 0.5mg as needed Unknown Propafenone HCL - Hx Tablets 300mg 2 tabs by Unknown 04/14/2016 mouth three times daily Pradaxa - Hx Capsules 150mg 90 1 by mouth Guillermo Billingsley 05/17/2016 ca twice a day marie Montelongo M.D., [facility] Trospium Chloride Hx Caps ER 24HR 60mg 1 by mouth Unknown ER every day Propafenone HCL - Hx Tablets 300mg 24 1 By Mouth Guillermo Billingsley 07/22/2016 0t Three Times ab Jayda A Day Vasquez, [facility] s Propafenone HCL - Hx Tablets 300mg 1 By Mouth Unknown 07/27/2016 Three Times A Day Propafenone HCL Hx Tablets 300mg 1 po bid Unknown Vital Signs Date Vital Result Comment 10/11/2017 BP Systolic Sitting Left Arm 128 mmHg BP Diastolic Sitting Left Arm 72 mmHg Heart Rate 95 /min Respiratory Rate 16 /min Height 62 inches 5'2" Weight 197.00 lb BMI (Body Mass Index) 36.0 kg/m2 BSA (Body Surface Area) 1.90 m2 [place] body weight in kilograms 50 O2 % BldC Oximetry 96 % Ora 07/11/2017 BP Systolic Sitting Left Arm 118 mmHg BP Diastolic Sitting Left Arm 66 mmHg Heart Rate 81 /min Respiratory Rate 16 /min Height 62 inches 5'2" Weight 198.00 lb BMI (Body Mass Index) 36.2 kg/m2 BSA (Body Surface Area) 1.90 m2 [place] body weight in kilograms 50 O2 % BldC Oximetry 96 % 06/22/2017 BP Systolic Sitting Left Arm 138 mmHg BP Diastolic Sitting Left Arm 58 mmHg Heart Rate 72 /min Respiratory Rate 18 /min Height 62 inches 5'2" Weight 197.00 lb BMI (Body Mass Index) 36.0 kg/m2 BSA (Body Surface Area) 1.90 m2 [place] body weight in kilograms 50 05/24/2017 BP Systolic Sitting Left Arm 136 mmHg BP Diastolic Sitting Left Arm 70 mmHg Heart Rate 74 /min Respiratory Rate 16 /min Height 62 inches 5'2" Weight 195.00 lb BMI (Body Mass Index) 35.7 kg/m2 BSA (Body Surface Area) 1.89 m2 [place] body weight in kilograms 50 05/09/2017 BP Systolic Sitting Left Arm 144 mmHg BP Diastolic Sitting Left Arm 66 mmHg Heart Rate 94 /min Respiratory Rate 16 /min Height 62 inches 5'2" Weight 192.00 lb BMI (Body Mass Index) 35.1 kg/m2 BSA (Body Surface Area) 1.88 m2 [place] body weight in kilograms 50 12/30/2016 BP Systolic Sitting Right Arm 144 mmHg BP Diastolic Sitting Right Arm 80 mmHg Heart Rate 98 /min Respiratory Rate 16 /min Height 62 inches 5'2" Weight 187.00 lb BMI (Body Mass Index) 34.2 kg/m2 BSA (Body Surface Area) 1.86 m2 [place] body weight in kilograms 50 09/23/2016 BP Systolic Sitting Left Arm 132 mmHg BP Diastolic Sitting Left Arm 70 mmHg Heart Rate 64 /min Respiratory Rate 16 /min Height 62 inches 5'2" Weight 181.00 lb BMI (Body Mass Index) 33.1 kg/m2 BSA (Body Surface Area) 1.83 m2 08/12/2016 BP Systolic Sitting Left Arm 130 mmHg BP Diastolic Sitting Left Arm 60 mmHg Heart Rate 72 /min Respiratory Rate 18 /min Height 62 inches 5'2" Weight 178.00 lb BMI (Body Mass Index) 32.6 kg/m2 BSA (Body Surface Area) 1.82 m2 [place] body weight in kilograms 50 07/27/2016 BP Systolic Sitting Right Arm 136 mmHg BP Diastolic Sitting Right Arm 76 mmHg Heart Rate 73 /min Respiratory Rate 16 /min Weight 175.00 lb 05/12/2016 BP Systolic Sitting Left Arm 124 mmHg BP Diastolic Sitting Left Arm 60 mmHg Heart Rate 76 /min Respiratory Rate 16 /min Height 62 inches 5'2" Weight 169.00 lb BMI (Body Mass Index) 30.9 kg/m2 BSA (Body Surface Area) 1.78 m2 02/26/2016 BP Systolic Sitting Left Arm 124 mmHg BP Diastolic Sitting Left Arm 64 mmHg Heart Rate 75 /min Height 62 inches 5'2" Weight 164.00 lb BMI (Body Mass Index) 30.0 kg/m2 BSA (Body Surface Area) 1.76 m2 12/18/2015 BP Systolic Sitting Left Arm 110 mmHg BP Diastolic Sitting Left Arm 60 mmHg Heart Rate 84 /min Respiratory Rate 16 /min Height 62 inches 5'2" Weight 156.00 lb BMI (Body Mass Index) 28.5 kg/m2 BSA (Body Surface Area) 1.72 m2 11/11/2015 BP Systolic Sitting Left Arm 124 mmHg BP Diastolic Sitting Left Arm 54 mmHg Heart Rate 76 /min Respiratory Rate 16 /min Height 62 inches 5'2" 10/13/2015 BP Systolic Sitting Right Arm 140 mmHg BP Diastolic Sitting Right Arm 82 mmHg Heart Rate 143 /min Respiratory Rate 20 /min Height 62 inches 5'2" Weight 191.00 lb BMI (Body Mass Index) 34.9 kg/m2 BSA (Body Surface Area) 1.87 m2 09/09/2015 BP Systolic Sitting Right Arm 160 mmHg BP Diastolic Sitting Right Arm 66 mmHg Heart Rate 96 /min Respiratory Rate 16 /min Height 62 inches 5'2" Weight 188.00 lb BMI (Body Mass Index) 34.4 kg/m2 BSA (Body Surface Area) 1.86 m2 09/04/2015 BP Systolic Sitting Right Arm 146 mmHg BP Diastolic Sitting Right Arm 64 mmHg Heart Rate 74 /min Respiratory Rate 18 /min Height 62 inches 5'2" Weight 188.00 lb BMI (Body Mass Index) 34.4 kg/m2 BSA (Body Surface Area) 1.86 m2 O2 % BldC Oximetry 87 % 08/14/2015 BP Systolic Sitting Left Arm 160 mmHg BP Diastolic Sitting Left Arm 99 mmHg Heart Rate 82 /min Height 62 inches 5'2" Weight 189.00 lb BMI (Body Mass Index) 34.6 kg/m2 BSA (Body Surface Area) 1.87 m2 07/31/2015 BP Systolic Sitting Left Arm 162 mmHg BP Diastolic Sitting Left Arm 76 mmHg Heart Rate 68 /min Respiratory Rate 16 /min Height 60.75 inches 5'0.75" Weight 187.00 lb BMI (Body Mass Index) 35.6 kg/m2 BSA (Body Surface Area) 1.83 m2 07/09/2015 BP Systolic Sitting Left Arm 170 mmHg BP Diastolic Sitting Left Arm 70 mmHg Heart Rate 86 /min Respiratory Rate 18 /min Height 60.75 inches 5'0.75" Weight 188.00 lb BMI (Body Mass Index) 35.8 kg/m2 BSA (Body Surface Area) 1.83 m2 06/18/2015 BP Systolic Sitting Left Arm 166 mmHg BP Diastolic Sitting Left Arm 80 mmHg Heart Rate 82 /min Respiratory Rate 16 /min Height 60.75 inches 5'0.75" Weight 184.00 lb BMI (Body Mass Index) 35.0 kg/m2 BSA (Body Surface Area) 1.82 m2 06/11/2015 BP Systolic Sitting Right Arm 144 mmHg Standing 122/58 BP Diastolic Sitting Right Arm 68 mmHg Standing 122/58 Heart Rate 84 /min Respiratory Rate 16 /min Height 60.75 inches 5'0.75" Weight 183.00 lb BMI (Body Mass Index) 34.9 kg/m2 BSA (Body Surface Area) 1.81 m2 02/18/2015 BP Systolic Sitting Left Arm 140 mmHg BP Diastolic Sitting Left Arm 68 mmHg Heart Rate 80 /min Respiratory Rate 16 /min Height 60.75 inches 5'0.75" Weight 192.00 lb BMI (Body Mass Index) 36.6 kg/m2 BSA (Body Surface Area) 1.85 m2 02/12/2015 BP Systolic Sitting Right Arm 152 mmHg BP Diastolic Sitting Right Arm 64 mmHg Heart Rate 72 /min Respiratory Rate 16 /min Height 60.75 inches 5'0.75" Weight 190.00 lb BMI (Body Mass Index) 36.2 kg/m2 BSA (Body Surface Area) 1.84 m2 O2 % BldC Oximetry 95 % 01/28/2015 BP Systolic Sitting Left Arm 110 mmHg BP Diastolic Sitting Left Arm 54 mmHg Heart Rate 111 /min Respiratory Rate 18 /min Height 60.75 inches 5'0.75" Weight 190.00 lb BMI (Body Mass Index) 36.2 kg/m2 BSA (Body Surface Area) 1.84 m2 01/08/2015 BP Systolic Sitting Right Arm 130 mmHg BP Diastolic Sitting Right Arm 62 mmHg Heart Rate 122 /min Respiratory Rate 16 /min Height 60.75 inches 5'0.75" Weight 190.00 lb BMI (Body Mass Index) 36.2 kg/m2 BSA (Body Surface Area) 1.84 m2 12/23/2014 BP Systolic Sitting Right Arm 138 mmHg BP Diastolic Sitting Right Arm 68 mmHg Heart Rate 82 /min Respiratory Rate 16 /min Height 60.75 inches 5'0.75" Weight 189.00 lb BMI (Body Mass Index) 36.0 kg/m2 BSA (Body Surface Area) 1.84 m2 10/22/2014 BP Systolic Sitting Right Arm 124 mmHg BP Diastolic Sitting Right Arm 64 mmHg Heart Rate 84 /min Respiratory Rate 16 /min Height 60.75 inches 5'0.75" Weight 182.00 lb BMI (Body Mass Index) 34.7 kg/m2 BSA (Body Surface Area) 1.81 m2 09/25/2014 BP Systolic Sitting Right Arm 142 mmHg BP Diastolic Sitting Right Arm 64 mmHg Heart Rate 75 /min Respiratory Rate 20 /min Height 60.75 inches 5'0.75" Weight 183.00 lb BMI (Body Mass Index) 34.9 kg/m2 BSA (Body Surface Area) 1.81 m2 09/11/2014 BP Systolic Sitting Right Arm 142 mmHg BP Diastolic Sitting Right Arm 78 mmHg Heart Rate 87 /min Respiratory Rate 16 /min Height 60.75 inches 5'0.75" Weight 183.00 lb BMI (Body Mass Index) 34.9 kg/m2 BSA (Body Surface Area) 1.81 m2 08/01/2014 Heart Rate 88 /min Respiratory Rate 16 /min Height 60.75 inches 5'0.75" Weight 179.00 lb BMI (Body Mass Index) 34.1 kg/m2 BSA (Body Surface Area) 1.80 m2 05/01/2014 BP Systolic Sitting Right Arm 150 mmHg BP Diastolic Sitting Right Arm 78 mmHg Heart Rate 88 /min Respiratory Rate 16 /min Height 60.75 inches 5'0.75" Weight 180.00 lb BMI (Body Mass Index) 34.3 kg/m2 BSA (Body Surface Area) 1.80 m2 01/18/2014 BP Systolic Sitting Left Arm 150 mmHg BP Diastolic Sitting Left Arm 78 mmHg Heart Rate 92 /min Respiratory Rate 20 /min Height 60.75 inches 5'0.75" Weight 173.00 lb BMI (Body Mass Index) 33.0 kg/m2 BSA (Body Surface Area) 1.77 m2 01/01/2014 BP Systolic Sitting Right Arm 108 mmHg BP Diastolic Sitting Right Arm 50 mmHg Heart Rate 70 /min Respiratory Rate 16 /min Height 60.75 inches 5'0.75" 09/10/2013 BP Systolic Sitting Left Arm 136 mmHg BP Diastolic Sitting Left Arm 66 mmHg Heart Rate 59 /min Respiratory Rate 16 /min Height 60.75 inches 5'0.75" Weight 191.00 lb BMI (Body Mass Index) 36.4 kg/m2 BSA (Body Surface Area) 1.85 m2 08/29/2013 BP Systolic Sitting Right Arm 124 mmHg BP Diastolic Sitting Right Arm 60 mmHg Heart Rate 58 /min Respiratory Rate 16 /min Height 60.75 inches 5'0.75" Weight 194.00 lb BMI (Body Mass Index) 37.0 kg/m2 BSA (Body Surface Area) 1.86 m2 04/12/2013 BP Systolic Sitting Right Arm 112 mmHg BP Diastolic Sitting Right Arm 52 mmHg Heart Rate 61 /min Respiratory Rate 16 /min Height 60.75 inches 5'0.75" Weight 194.00 lb BMI (Body Mass Index) 37.0 kg/m2 BSA (Body Surface Area) 1.86 m2 01/17/2013 Height 60.75 inches 5'0.75" Weight 192.00 lb BMI (Body Mass Index) 36.6 kg/m2 BSA (Body Surface Area) 1.85 m2 12/06/2012 Height 60.75 inches 5'0.75" Weight 190.00 lb BMI (Body Mass Index) 36.2 kg/m2 BSA (Body Surface Area) 1.84 m2 11/01/2012 Height 60.75 inches 5'0.75" Weight 192.00 lb BMI (Body Mass Index) 36.6 kg/m2 BSA (Body Surface Area) 1.85 m2 10/04/2012 BP Systolic Sitting Right Arm 114 mmHg BP Diastolic Sitting Right Arm 58 mmHg Respiratory Rate 18 /min Height 60.75 inches 5'0.75" Weight 188.00 lb BMI (Body Mass Index) 35.8 kg/m2 09/18/2012 BP Systolic Sitting Left Arm 150 mmHg BP Diastolic Sitting Left Arm 78 mmHg Heart Rate 95 /min Respiratory Rate 16 /min Height 62 inches 5'2" Weight 192.00 lb BMI (Body Mass Index) 35.1 kg/m2 Results Test Date Test Result H/L Range Note TSH Reflex FT4 And/Or 05/24/2017 Thyroid Stim Hormone 1.32 uIU/mL 0.30- 4.20 1 FT3 Reflex add FT3? Y 1 Reflex add FT4? Y 1 Basic Metabolic Panel 05/17/2017 Glucose 128 mg/dL High 74-106 2 BUN 34 mg/dL High 7-18 2 Creatinine 1.3 mg/dL 0.6-1.3 2 Glom Filtration Rate, Estimate 42 mL/min >60 2 If 50 mL/min >60 2, 3 BUN/Creat 26.1 ratio 2 Sodium 143 mmol/L 136-145 2 Potassium 3.7 mmol/L 3.5-5.1 2 Chloride 106 mmol/L 98-107 2 Carbon Dioxide 30 mmol/L 21-32 2 Anion Gap 7 mEq/L Low 8-16 2 Calcium 9.6 mg/dL 8.5-10.1 2 Basic Metabolic Panel 05/12/2017 Glucose 114 mg/dL High 74-106 4 BUN 31 mg/dL High 7-18 4 Creatinine 1.0 mg/dL 0.6-1.3 4 Glom Filtration Rate, Estimate 56 mL/min >60 4 If >60 mL/min >60 4, 5 BUN/Creat 31.0 ratio 4 Sodium 144 mmol/L 136-145 4 Potassium 2.9 mmol/L Low 3.5-5.1 4 Chloride 106 mmol/L 98-107 4 Carbon Dioxide 30 mmol/L 21-32 4 Anion Gap 8 mEq/L 8-16 4 Calcium 8.8 mg/dL 8.5-10.1 4 Sodium SerPl-sCnc 05/12/2017 Sodium SerPl-sCnc 144 136-145 Serum or plasma urea 05/12/2017 Serum or plasma urea 31 High 7-18 nitrogen measurement nitrogen measurement (mass/vo (mass/volume) Serum or plasma 05/12/2017 Serum or plasma 1.0 0.6-1.3 creatinine measurement creatinine measurement (mass/volum (mass/volume) Serum or plasma calcium 05/12/2017 Serum or plasma 8.8 8.5-10.1 measurement calcium measurement (mass/volume) (mass/volume) Potassium SerPl-sCnc 05/12/2017 Potassium SerPl-sCnc 2.9 3.5-5.1 Laboratory test finding 05/12/2017 Magnesium 1.9 mg/dL 1.8-2.4 4 Anion Gap SerPl-sCnc 05/12/2017 Anion Gap SerPl-sCnc 8 8-16 BUN/Creat SerPl 05/12/2017 BUN/Creat SerPl 31.0 Glucose [Mass/volume] 05/12/2017 Glucose [Mass/volume] 114 High 74-106 in Serum or Plasma in Serum or Plasma GFR/Bsa pred.non black 05/12/2017 GFR/Bsa pred.non black 56 >60 SerPl MDRD-ArVRat SerPl MDRD-ArVRat Co2 SerPl-sCnc 05/12/2017 Co2 SerPl-sCnc 30 21-32 Chloride SerPl-sCnc 05/12/2017 Chloride SerPl-sCnc 106 98-107 Lymphocytes [#/volume] 05/11/2017 Lymphocytes [#/volume] 1.37 1.0-4.0 in Blood by Automated in Blood by Automated count count Lymphocytes/leuk NFr 05/11/2017 Lymphocytes/leuk NFr 27.1 20.0-42.0 Bld Auto Bld Auto Monocytes/leuk NFr Bld 05/11/2017 Monocytes/leuk NFr Bld 8.9 4.3-13.2 Auto Auto Neutrophils # Bld Auto 05/11/2017 Neutrophils # Bld Auto 3.12 1.8-7.0 Neutrophils/leuk NFr 05/11/2017 Neutrophils/leuk NFr 61.8 40.4-72.8 Bld Auto Bld Auto PMV Bld Auto 05/11/2017 PMV Bld Auto 11.0 8.9-12.4 Platelets [#/volume] in 05/11/2017 Platelets [#/volume] 91 Low 150-400 Blood by Automated in Blood by Automated count count RDW RBC Auto 05/11/2017 RDW RBC Auto 52.5 High 3-47 RDW RBC Auto-Rto 05/11/2017 RDW RBC Auto-Rto 14.0 11.7-14.4 Serum or plasma albumin 05/11/2017 Serum or plasma 3.8 3.4-5.0 measurement albumin measurement (mass/volume) (mass/volume) Serum or plasma 05/11/2017 Serum or plasma 94 45-117 alkaline phosphatase alkaline phosphatase measurement ( measurement (enzymatic activity/volume) Serum or plasma 05/11/2017 Serum or plasma 50 26-192 creatine kinase creatine kinase measurement (enzym measurement (enzymatic activity/volume) Serum or plasma protein 05/11/2017 Serum or plasma 8.0 6.4-8.2 measurement protein measurement (mass/volume) (mass/volume) Serum or plasma total 05/11/2017 Serum or plasma total 0.7 0.2-1.0 bilirubin measurement bilirubin measurement (mass/ (mass/volume) Unloinc 05/11/2017 Unloinc . WBC # Bld Auto 05/11/2017 WBC # Bld Auto 5.1 3.1-10.7 Laboratory test finding 05/11/2017 Troponin-I 0.042 4, 6 ng/mL Laboratory test finding 05/11/2017 Troponin-I 0.031 4, 7 ng/mL Alt SerPl-cCnc 05/11/2017 Alt SerPl-cCnc 21 12-78 Albumin/Glob SerPl 05/11/2017 Albumin/Glob SerPl 0.9 Aspartate 05/11/2017 Aspartate 30 15-37 aminotransferase aminotransferase [Enzymatic activity/vol [Enzymatic activity/volume] in Serum or Plasma Automated erythrocyte 05/11/2017 Automated erythrocyte 35.1 High 25.9- 32.7 mean corpuscular mean corpuscular hemoglobin hemoglobin (mass per erythrocyte) Automated erythrocyte 05/11/2017 Automated erythrocyte 32.8 30.8-34.3 mean corpuscular mean corpuscular hemoglobin hemoglobin concentration measurement (mass/volume) Automated erythrocyte 05/11/2017 Automated erythrocyte 107.0 High 80.9- 99.0 mean corpuscular volume mean corpuscular volume Basophils [#/volume] in 05/11/2017 Basophils [#/volume] 0.01 0.0-0.1 Blood by Automated in Blood by Automated count count Basophils/leuk NFr Bld 05/11/2017 Basophils/leuk NFr Bld 0.2 0.0-1.1 Auto Auto Blood erythrocytes 05/11/2017 Blood erythrocytes 3.73 Low 3.90-5.40 automated count automated count (number/volume) (number/volume) Blood hemoglobin 05/11/2017 Blood hemoglobin 13.1 11.6-15.8 measurement measurement (mass/volume) (mass/volume) Blood monocytes 05/11/2017 Blood monocytes 0.45 0.3-0.9 automated count automated count (number/volume) (number/volume) Blood ovalocytes 05/11/2017 Blood ovalocytes 1+ detection by light detection by light microscopy microscopy Eosinophil # Bld Auto 05/11/2017 Eosinophil # Bld Auto 0.10 0.0-0.5 Eosinophil/leuk NFr Bld 05/11/2017 Eosinophil/leuk NFr 2.0 0.0-6.6 Auto Bld Auto Globulin Ser Calc-mCnc 05/11/2017 Globulin Ser Calc-mCnc 4.2 1.9-4.3 Hct VFr Bld Auto 05/11/2017 Hct VFr Bld Auto 39.9 36.0-46.1 Laboratory test finding 07/24/2016 Alanine 19 12-78 Aminotransferase (Alt/SGPT) Albumin 3.5 3.4-5.0 Albumin/Globulin Ratio 0.8 Alkaline Phosphatase 91 45-117 Anion Gap 13 8-16 BUN/Creatinine Ratio 20.0 Basophils # (Auto) 0.16 High 0.0-0.1 Blood Urea Nitrogen 18 7-18 Calcium Level 9.5 8.5-10.1 Carbon Dioxide Level 26 21-32 Chloride Level 102 98-107 Creatinine 0.9 0.6-1.3 Eosinophils # (Auto) 0.06 0.0-0.5 Globulin 4.2 1.9-4.3 Glucose Screen 108 High 74-106 Hematocrit 40.6 36.0-46.1 Hemoglobin 13.7 11.6-15.8 Mean Corpuscular Hemoglobin 35.4 High 25.9-32.7 Mean Corpuscular Hemoglobin Concent 33.7 30.8-34.3 Mean Corpuscular Volume 104.9 High 80.9-99.0 Mean Platelet Volume 11.3 8.9-12.4 Monocytes # (Auto) 0.42 0.3-0.9 Neutrophils % 59 33-73 Platelet Count 81 Low 155-360 Potassium Level 3.9 3.5-5.1 RDW Coefficient of Variation 11.9 11.7-14.4 Red Blood Count 3.87 Low 3.90-5.40 Red Cell Distribution Width 44.7 3-47 Sodium Level 141 136-145 Total Bilirubin 0.5 0.2-1.0 Total Protein 7.7 6.4-8.2 White Blood Count 5.3 3.1-10.7 Aspartate Amino Transf 07/24/2016 Aspartate Amino Transf 23 15-37 (Ast/Sgot) (Ast/Sgot) Atypical Lymphocytes % 07/24/2016 Atypical Lymphocytes % 8 High 0-7 Differential Total 07/24/2016 Differential Total 100 Cells Counted Cells Counted Eosinophils % 07/24/2016 Eosinophils % 2 0-5 Lymphocytes # (Auto) 07/24/2016 Lymphocytes # (Auto) 1.68 1.0-4.0 Lymphocytes % 07/24/2016 Lymphocytes % 25 20-42 Manual Slide Review 07/24/2016 Manual Slide Review Diff Ordered (Hematology) (Hematology) Monocytes % 07/24/2016 Monocytes % 6 0-10 Neutrophils # (Auto) 07/24/2016 Neutrophils # (Auto) 2.96 1.8-7.0 Platelet Estimate 07/24/2016 Platelet Estimate Mod Decrease Laboratory test 04/20/2016 Urine Bilirubin Negative Negative finding Urine Color Yellow Yellow Urine Ketones Negative Negative Urine Leukocyte Esterase Small High Negative Urine Nitrite Negative Negative Urine Protein Negative Negative Urine Urobilinogen 0.2 0.2-1.0 Urine pH 5.5 Low 6.5-7.5 Urine Blood 04/20/2016 Urine Blood Negative Negative Urine Clarity 04/20/2016 Urine Clarity Clear Clear Urine Epithelial Cells 04/20/2016 Urine Epithelial Few None Seen Cells Urine Glucose (Ua) 04/20/2016 Urine Glucose (Ua) Negative Negative Urine RBC 04/20/2016 Urine RBC None Seen 0-2 Urine Specific [place] 04/20/2016 Urine Specific 1.025 1.010-1.030 [place] Laboratory test 02/18/2016 Troponin-I 0.031 ng/mL 8, 9 finding Laboratory test 02/18/2016 Troponin-I 0.033 ng/mL 10 finding Basic Metabolic Panel 02/18/2016 Glucose 95 mg/dL 74-106 BUN 24 mg/dL High -18 Creatinine 0.9 mg/dL 0.6-1.3 Glom Filtration Rate, Estimate >60 mL/min >60 If >60 mL/min >60 11 BUN/Creat 26.6 ratio Sodium 141 mmol/L 136-145 Potassium 3.4 mmol/L Low 3.5-5.1 Chloride 104 mmol/L 98-107 Carbon Dioxide 29 mmol/L 21-32 Anion Gap 8 mEq/L 8-16 Calcium 8.6 mg/dL 8.5-10.1 CBC W/Automated Diff 02/18/2016 White Blood Count 4.6 K/uL 3.1-10.7 Red Blood Count 3.11 M/uL Low 3.90-5.40 Hemoglobin 11.2 gm/dL Low 11.6-15.8 Hematocrit 34.0 % Low 36.0-46.1 Mean Cell Volume 109.3 fl High 80.9-99.0 Mean Corpuscular HGB 36.0 pg High 25.9-32.7 Mean Corpuscular HGB Conc 32.9 g/dL 30.8-34.3 Platelet Count 85 K/uL Low 155-360 12 Red Cell Distri Width SD 54.9 fl High 3-47 Red Cell Distri Width %CV 14.3 % 11.7-14.4 Mean Platelet Volume 10.8 fL 8.9-12.4 Neut% 43.6 % 40.4-72.8 Lymph % 44.7 % 17.0-46.1 Bland % 8.9 % 4.3-13.2 Eo% 2.6 % 0.0-6.6 Bas% 0.2 % 0.0-1.1 Neut# 2.00 K/uL 1.8-7.0 Lymph # 2.05 K/uL 1.8-7.0 Bland # 0.41 K/uL 0.3-0.9 Eos # 0.12 K/uL 0.0-0.5 Baso # 0.01 K/uL 0.0-0.1 Laboratory test finding 02/18/2016 Slide Review . 13 Laboratory test finding 04/05/2015 Miscellaneous Test Comment Test(s) added Laboratory test finding 04/05/2015 Markel Test Yes Arterial Blood Base Excess -1 -2-2 Arterial Blood Hco3 24 22-26 Arterial Blood Oxygen Saturation 97 90-99 Arterial Blood pCO2 at Patient Temp 39 35-45 Arterial Blood pH at Patient Temp 7.40 7.35-7.45 Arterial Blood pO2 at Patient Temp 89 80-105 Blood Gas Puncture Site R.Rad.Art. Blood Gas Specimen Type Room Air Blood Gas Spontaneous Rate 15 Laboratory test finding 04/05/2015 Alanine Aminotransferase (Alt/SGPT) 19 12-78 Albumin 3.3 Low 3.4-5.0 Albumin/Globulin Ratio 1.0 Alkaline Phosphatase 86 45-117 Anion Gap 6 Low 8-16 Aspartate Amino Transf (Ast/Sgot) 19 15-37 BUN/Creatinine Ratio 21.4 Basophils # (Auto) 0.01 0.0-0.1 Basophils (%) (Auto) 0.2 0.0-1.1 Blood Urea Nitrogen 30 High 7-18 Calcium Level 8.6 8.5-10.1 Carbon Dioxide Level 29 21-32 Chloride Level 105 98-107 Creatinine 1.4 High 0.6-1.3 D-Dimer, Quantitative 9.66 Eosinophils # (Auto) 0.30 0.0-0.5 Eosinophils (%) (Auto) 6.0 0.0-6.6 Estimated GFR () 46 >60 Estimated GFR (Non- 38 >60 Globulin 3.3 1.9-4.3 Glucose Screen 89 74-106 Hematocrit 30.3 Low 36.0-46.1 Hemoglobin 9.4 Low 11.6-15.8 Lymphocytes # (Auto) 0.85 Low 1.8-7.0 Lymphocytes (%) (Auto) 17.1 17.0-46.1 Mean Corpuscular Hemoglobin 31.4 25.9-32.7 Mean Corpuscular Hemoglobin Concent 31.0 30.8-34.3 Mean Corpuscular Volume 101.3 High 80.9-99.0 Mean Platelet Volume 10.0 8.9-12.4 Monocytes # (Auto) 0.31 0.3-0.9 Monocytes (%) (Auto) 6.3 4.3-13.2 Neutrophils # (Auto) 3.49 1.0-7.0 Neutrophils (%) (Auto) 70.4 40.4-72.8 Platelet Count 198 155-360 Potassium Level 4.2 3.5-5.1 RDW Coefficient of Variation 15.3 High 11.7-14.4 Red Blood Count 2.99 Low 3.90-5.40 Red Cell Distribution Width 54.5 High 3-47 Sodium Level 140 136-145 Total Bilirubin 0.4 0.2-1.0 Total Creatine Kinase 29 26-192 Total Protein 6.6 6.4-8.2 White Blood Count 5.0 3.1-10.7 Laboratory test finding 03/23/2015 Aerobic Culture Organism: Methicillin Resistant S.aureus Laboratory test finding 03/22/2015 Anion Gap 2 Low 8-16 BUN/Creatinine Ratio 18.8 Blood Urea Nitrogen 17 7-18 C-Reactive Protein, Quantitative 85.5 <3.0 Calcium Level 8.1 Low 8.5-10.1 Carbon Dioxide Level 28 21-32 Chloride Level 107 98-107 Creatinine 0.9 0.6-1.3 Glucose Screen 95 74-106 Hematocrit 26.4 Low 36.0-46.1 Hemoglobin 8.3 Low 11.6-15.8 Mean Corpuscular Hemoglobin 31.3 25.9-32.7 Mean Corpuscular Hemoglobin Concent 31.4 30.8-34.3 Mean Corpuscular Volume 99.6 High 80.9-99.0 Mean Platelet Volume 11.4 8.9-12.4 Platelet Count 169 155-360 Potassium Level 4.4 3.5-5.1 RDW Coefficient of Variation 14.0 11.7-14.4 Red Blood Count 2.65 3.90-5.40 Sodium Level 137 136-145 White Blood Count 6.5 3.1-10.7 Laboratory test finding 03/21/2015 Vancomycin Level Trough 10.9 Low 15.0- 20.0 Laboratory test finding 03/20/2015 Alanine Aminotransferase 15 12-78 (Alt/SGPT) Albumin 2.1 Low 3.4-5.0 Albumin/Globulin Ratio 0.6 Alkaline Phosphatase 80 45-117 Aspartate Amino Transf (Ast/Sgot) 20 15-37 Globulin 3.6 1.9-4.3 Magnesium Level 2.1 1.8-2.4 Total Bilirubin 0.4 0.2-1.0 Total Protein 5.7 Low 6.4-8.2 Laboratory test finding 03/18/2015 Band Neutrophils % 7 0-8 Basophils # (Auto) 0.01 0.0-0.1 Differential Total Cells Counted 100 Eosinophils # (Auto) 0.26 0.0-0.5 Eosinophils % 1 0-5 Lymphocytes # (Auto) 0.43 Low 1.8-7.0 Lymphocytes % 3 Low 17-56 Macrocytosis 1+ Monocytes # (Auto) 0.48 0.3-0.9 Monocytes % 3 0-10 Neutrophils # (Auto) 9.68 High 1.0-7.0 Neutrophils % 86 High 33-73 Ovalocytes 2+ Platelet Estimate Slight Decrease Red Cell Distribution Width 51.8 High 3-47 Laboratory test finding 03/18/2015 Urine Culture No Growth: Final Report Laboratory test finding 03/17/2015 Aerobic Blood Culture No Growth: Final Report Anaerobic Blood Culture No Growth: Final Report Basophils (%) (Auto) 0.1 0.0-1.1 Digoxin Level 0.2 Low 0.8-2.0 Eosinophils (%) (Auto) 0.6 0.0-6.6 Erythrocyte Sedimentation Rate 49 High 0-30 Lactic Acid Level 1.8 0.4-2.0 Lymphocytes (%) (Auto) 6.1 Low 17.0-46.1 Monocytes (%) (Auto) 5.3 4.3-13.2 Neutrophils (%) (Auto) 87.9 High 40.4-72.8 Laboratory test finding 02/19/2015 Blood Urea Nitrogen 19 High 7-18 Creatinine 1.1 0.6-1.3 Laboratory test finding 02/12/2015 Basophils # (Auto) 0.02 0.0-0.1 Basophils (%) (Auto) 0.3 0.0-1.1 Eosinophils # (Auto) 0.34 0.0-0.5 Eosinophils (%) (Auto) 4.7 0.0-6.6 Estimated GFR () 55 >60 Estimated GFR (Non- 46 >60 Lymphocytes # (Auto) 1.50 Low 1.8-7.0 Lymphocytes (%) (Auto) 20.7 17.0-46.1 Monocytes # (Auto) 0.61 0.3-0.9 Monocytes (%) (Auto) 8.4 4.3-13.2 Neutrophils # (Auto) 4.76 1.0-7.0 Neutrophils (%) (Auto) 65.9 40.4-72.8 RDW Coefficient of Variation 13.8 11.7-14.4 Red Cell Distribution Width 47.7 High 3-47 Sodium Level 141 136-145 CBC W/Automated Diff 02/12/2015 White Blood Count 7.2 K/uL 3.1-10.7 Red Blood Count 3.50 M/uL Low 3.90-5.40 Hemoglobin 10.8 gm/dL Low 11.6-15.8 Hematocrit 34.6 % Low 36.0-46.1 Mean Cell Volume 98.9 fl 80.9-99.0 Mean Corpuscular HGB 30.9 pg 25.9-32.7 Mean Corpuscular HGB Conc 31.2 g/dL 30.8-34.3 Platelet Count 156 K/uL 155-360 Red Cell Distri Width SD 47.7 fl High 3-47 Red Cell Distri Width %CV 13.8 % 11.7-14.4 Mean Platelet Volume 10.6 fL 8.9-12.4 Neut% 65.9 % 40.4-72.8 Lymph % 20.7 % 17.0-46.1 Bland % 8.4 % 4.3-13.2 Eo% 4.7 % 0.0-6.6 Bas% 0.3 % 0.0-1.1 Neut# 4.76 K/uL 1.0-7.0 Lymph # 1.50 K/uL Low 1.8-7.0 Bland # 0.61 K/uL 0.3-0.9 Eos # 0.34 K/uL 0.0-0.5 Baso # 0.02 K/uL 0.0-0.1 Laboratory test finding 02/12/2015 Thyroid Stim 2.13 uIU/mL 0.36-3.74 Hormone Comprehensive Metabolic 02/12/2015 Glucose 108 mg/dL High 74-106 Panel BUN 26 mg/dL High 7-18 Creatinine 1.2 mg/dL 0.6-1.3 Glom Filtration Rate, Estimate 46 mL/min >60 If 55 mL/min >60 14 BUN/Creat 21.6 ratio Sodium 141 mmol/L 136-145 Potassium 4.2 mmol/L 3.5-5.1 Chloride 107 mmol/L 98-107 Carbon Dioxide 28 mmol/L 21-32 Anion Gap 6 mEq/L Low 8-16 Calcium 9.6 mg/dL 8.5-10.1 Total Protein 6.8 g/dL 6.4-8.2 Albumin 3.4 g/dL 3.4-5.0 Globulin 3.4 g/dL 1.9-4.3 Alb/Glob 1.0 ratio Bilirubin,Total 0.5 mg/dL 0.2-1.0 Sgot/Ast 21 U/L 15-37 SGPT/Alt 23 U/L 12-78 Alkaline Phosphatase 82 U/L 45-117 Laboratory test finding 01/23/2015 Estimated GFR () 55 & gt;60 Estimated GFR (Non- 46 >60 Sodium Level 141 136-145 Basic Metabolic Panel 01/23/2015 Glucose 88 mg/dL 74-106 BUN 22 mg/dL High 7-18 Creatinine 1.2 mg/dL 0.6-1.3 Glom Filtration Rate, Estimate 46 mL/min >60 If 55 mL/min >60 15 BUN/Creat 18.3 ratio Sodium 141 mmol/L 136-145 Potassium 4.4 mmol/L 3.5-5.1 Chloride 106 mmol/L 98-107 Carbon Dioxide 26 mmol/L 21-32 Anion Gap 9 mEq/L 8-16 Calcium 8.9 mg/dL 8.5-10.1 Laboratory test finding 01/23/2015 Magnesium 1.9 mg/dL 1.8-2.4 Protime 10/08/2014 Protime 26.7 seconds High 12.1-14.9 Inr 2.5 High 0.9-1.1 16 Protime 09/25/2014 Protime 24.6 seconds High 12.1-14.9 Inr 2.3 High 0.9-1.1 17 Protime 09/17/2014 Protime 17.1 seconds High 12.0-14.4 Inr 1.4 High 0.9-1.1 18 Protime 05/01/2014 Protime 22.2 seconds High 12.0-14.4 Inr 2.0 High 0.9-1.1 19 Protime 03/20/2014 Protime 29.3 seconds High 12.1-14.9 Inr 2.8 High 0.9-1.1 20 Protime 03/06/2014 Protime 22.6 seconds High 12.1-14.9 Inr 2.0 High 0.9-1.1 21 Protime 02/25/2014 Protime 17.5 seconds High 12.0-14.4 Inr 1.4 High 0.9-1.1 22 Protime 02/08/2014 Protime 18.6 seconds High 12.1-14.9 Inr 1.6 High 0.9-1.1 23 1 R06.02, I48.4 2 BMP 3 Note: Persistent reduction for 3 months or more in an eGFR <60 mL/min/1.73 m2 defines CKD. Patients with eGFR values >/=60 mL/min/1.73 m2 may also have CKD if evidence of persistent proteinuria is present. The original MDRD equation for estimated GFR is not valid for patients less than 18 years of age. Additional information may be found at [email or web address]. 4 DEHYDRATION, AHMET 5 Note: Persistent reduction for 3 months or more in an eGFR <60 mL/min/1.73 m2 defines CKD. Patients with eGFR values >/=60 mL/min/1.73 m2 may also have CKD if evidence of persistent proteinuria is present. The original MDRD equation for estimated GFR is not valid for patients less than 18 years of age. Additional information may be found at [email or web address]. 6 0.0 - 0.045 ng/mL: Normal 0.046 - 0.5 ng/mL: Suggestive 0.6 - 1.5 ng/mL: Consistent 7 0.0 - 0.045 ng/mL: Normal 0.046 - 0.5 ng/mL: Suggestive 0.6 - 1.5 ng/mL: Consistent 8 AFIB 9 0.0 - 0.045 ng/mL: Normal 0.046 - 0.5 ng/mL: Suggestive 0.6 - 1.5 ng/mL: Consistent 10 0.0 - 0.045 ng/mL: Normal 0.046 - 0.5 ng/mL: Suggestive 0.6 - 1.5 ng/mL: Consistent 11 Note: Persistent reduction for 3 months or more in an eGFR <60 mL/min/1.73 m2 defines CKD. Patients with eGFR values >/=60 mL/min/1.73 m2 may also have CKD if evidence of persistent proteinuria is present. The original MDRD equation for estimated GFR is not valid for patients less than 18 years of age. Additional information may be found at [email or web address]. 12 NO PLT CLUMPS SEEN ON SCAN OF PERIPHERAL SMEAR LRG PLTS SEEN ON SCAN OF PERIPHERAL SMEAR Result confirmed by repeat analysis. 13 Instrument flagged sample for slide review. Less than 10% Bands seen, no other immature WBC's seen. RBC morphology essentially normal. Platelet estimate=MODERATE DECREASE 14 Note: Persistent reduction for 3 months or more in an eGFR <60 mL/min/1.73 m2 defines CKD. Patients with eGFR values >/=60 mL/min/1.73 m2 may also have CKD if evidence of persistent proteinuria is present. The original MDRD equation for estimated GFR is not valid for patients less than 18 years of age. Additional information may be found at [email or web address]. 15 Note: Persistent reduction for 3 months or more in an eGFR <60 mL/min/1.73 m2 defines CKD. Patients with eGFR values >/=60 mL/min/1.73 m2 may also have CKD if evidence of persistent proteinuria is present. The original MDRD equation for estimated GFR is not valid for patients less than 18 years of age. Additional information may be found at [email or web address]. 16 THERAPEUTIC INR RANGE: 2.0 - 3.0 DVT, Pulmonary embolus, prophylaxis against venous thrombosis or systemic embolization in high risk patients. 2.5 - 3.5 Mechanical heart valves 17 THERAPEUTIC INR RANGE: 2.0 - 3.0 DVT, Pulmonary embolus, prophylaxis against venous thrombosis or systemic embolization in high risk patients. 2.5 - 3.5 Mechanical heart valves 18 THERAPEUTIC INR RANGE: 2.0 - 3.0 DVT, Pulmonary embolus, prophylaxis against venous thrombosis or systemic embolization in high risk patients. 2.5 - 3.5 Mechanical heart valves 19 THERAPEUTIC INR RANGE: 2.0 - 3.0 DVT, Pulmonary embolus, prophylaxis against venous thrombosis or systemic embolization in high risk patients. 2.5 - 3.5 Mechanical heart valves 20 THERAPEUTIC INR RANGE: 2.0 - 3.0 DVT, Pulmonary embolus, prophylaxis against venous thrombosis or systemic embolization in high risk patients. 2.5 - 3.5 Mechanical heart valves 21 THERAPEUTIC INR RANGE: 2.0 - 3.0 DVT, Pulmonary embolus, prophylaxis against venous thrombosis or systemic embolization in high risk patients. 2.5 - 3.5 Mechanical heart valves 22 THERAPEUTIC INR RANGE: 2.0 - 3.0 DVT, Pulmonary embolus, prophylaxis against venous thrombosis or systemic embolization in high risk patients. 2.5 - 3.5 Mechanical heart valves 23 THERAPEUTIC INR RANGE: 2.0 - 3.0 DVT, Pulmonary embolus, prophylaxis against venous thrombosis or systemic embolization in high risk patients. 2.5 - 3.5 Mechanical heart valves Procedures Date CPT Code Description Status 10/04/2017 54280 Dual Pacemaker Programming Anayisis, Review And Report Completed 07/26/2017 89414 Bronchospasm Provocation Evaluation Multi Spirometric Completed Determinati 07/26/2017 25914 Spirometry Completed 05/24/2017 10036 Dual Pacemaker Programming Anayisis, Review And Report Completed 05/17/2017 96145 Echocardiogram Complete Completed 05/09/2017 50998 EKG-Tracing And Report Completed 03/01/2017 03085 Dual Pacemaker Programming Anayisis, Review And Report Completed 01/18/2017 27515 Dual Pacemaker Programming Anayisis, Review And Report Completed 01/18/2017 13452 Dual Pacemaker Programming Anayisis, Review And Report Completed 12/30/2016 84608 EKG-Tracing And Report Completed 12/21/2016 06354 Dual Pacemaker Programming Anayisis, Review And Report Completed 12/21/2016 74000 Dual Pacemaker Programming Anayisis, Review And Report Completed 09/23/2016 04945 EKG-Tracing And Report Completed 08/12/2016 88446 EKG-Tracing And Report Completed 07/27/2016 45280 EKG-Tracing And Report Completed 05/12/2016 66809 EKG-Tracing And Report Completed 02/26/2016 62964 EKG-Tracing And Report Completed 02/18/2016 30582 Cardioversion External Completed 02/18/2016 61093 EKG Interpretation And Report Only Completed 02/18/2016 13852 EKG Interpretation And Report Only Completed 12/18/2015 05705 EKG-Tracing And Report Completed 11/11/2015 71552 EKG-Tracing And Report Completed 10/29/2015 65582 EKG Interpretation And Report Only Completed 10/29/2015 50226 EKG Interpretation And Report Only Completed 10/28/2015 55253 EKG Interpretation And Report Only Completed 10/27/2015 24316 EKG Interpretation And Report Only Completed 10/26/2015 21600 EKG Interpretation And Report Only Completed 10/26/2015 54189 EKG Interpretation And Report Only Completed 10/25/2015 63879 EKG Interpretation And Report Only Completed 10/24/2015 95502 EKG Interpretation And Report Only Completed 10/23/2015 25589 EKG Interpretation And Report Only Completed 10/22/2015 56665 EKG Interpretation And Report Only Completed 10/13/2015 03900 EKG-Tracing And Report Completed 07/31/2015 92000 EKG-Tracing And Report Completed 06/30/2015 48746 Echocardiogram Complete Completed 03/19/2015 04908 EKG Interpretation And Report Only Completed 02/12/2015 87092 EKG-Tracing And Report Completed 01/28/2015 47881 EKG Interpretation And Report Only Completed 01/28/2015 16537 EKG-Tracing And Report Completed 01/28/2015 15952 Cardioversion External Completed 01/08/2015 85318 EKG-Tracing And Report Completed 10/22/2014 00963 EKG-Tracing And Report Completed 09/25/2014 55314 Event Monitor Inter/Review Only Completed 09/25/2014 21456 EKG-Tracing And Report Completed 09/11/2014 45031 EKG-Tracing And Report Completed 01/01/2014 74011 EKG-Tracing And Report Completed 12/26/2013 40470 Doppler ECHO Color Flow Mapping Completed 12/26/2013 61371 Doppler Echocardiogram Complete Completed 12/26/2013 86381 Transesophageal Echocardiogram Completed 11/15/2013 69692 Echocardiogram Complete Completed 08/29/2013 70508 EKG-Tracing And Report Completed 07/30/2013 31249 Cardioversion External Completed 07/30/2013 22554 Transesophageal Echocardiogram Completed 07/30/2013 59584 Doppler Echocardiogram Complete Completed 07/30/2013 33212 Doppler ECHO Color Flow Mapping Completed 04/12/2013 09155 EKG-Tracing And Report Completed 04/12/2013 10816 EKG-Tracing And Report Completed 09/18/2012 35979 EKG-Tracing And Report Completed 08/28/2012 82174 Doppler ECHO Color Flow Mapping Completed 08/28/2012 47765 Doppler Echocardiogram Complete Completed 08/28/2012 20004 Transesophageal Echocardiogram Completed 08/21/2012 40111 EKG Interpretation And Report Only Completed 08/21/2012 61433 Echocardiogram Complete Completed 08/21/2012 55873 Transesophageal Echocardiogram Completed 08/21/2012 68740 Doppler Echocardiogram Complete Completed 08/21/2012 38835 Doppler ECHO Color Flow Mapping Completed 08/18/2012 81622 Echocardiogram Complete Completed 05/17/2008 03955 Doppler ECHO Color Flow Mapping Completed 05/17/2008 05587 Doppler Echocardiogram Complete Completed 05/17/2008 88366 Echocariogram 2D Complete Completed Encounters Type Date Location Provider CPT E/M Dx Office Visit 07/11/2017 2:00p [place] [address] R06.02 Office Visit 06/22/2017 1:40p Cardiology Office Yudelka Tony, 25516 R06.02 MSN, [employer] I47.2 I50.9 I48.4 I25.10 I34.0 Office Visit 05/24/2017 1:20p Cardiology Office Yudelka Knoxyder, 86348 R06.02 MSN, [employer] I50.9 I25.10 I34.0 Z95.0 I47.2 I48.4 Office Visit 05/09/2017 1:30p Cardiology Office CARL Antoine 89641 R60.9 I48.4 I47.2 Z95.0 I34.0 I25.10 Office Visit 12/30/2016 1:40p Cardiology Office Yudelka Knoxyder, 09684 I48.4 MSN, [employer] I47.2 I34.0 I25.10 I50.9 I95.1 Office Visit 09/23/2016 3:40p Cardiology Office Yudelka Knoxyder, 15575 I48.4 MSN, [facility] I95.1 I34.0 I25.10 I47.2 I50.9 Office Visit 08/12/2016 2:40p Cardiology Office Yudelka Guzman Chavo, 35458 I48.4 MSN, [facility] I34.0 I95.1 I25.10 I47.2 Office Visit 07/27/2016 2:45p Cardiology Office Guillermo Montelongo, 37285 I48.4 M.D., [facility] I34.0 I95.1 R53.1 Office Visit 05/12/2016 10:40a Cardiology Office Yudelka Menchacakelly Tony, 87326 I48.4 MSN, [facility] I50.9 I34.0 I25.10 Office Visit 02/26/2016 11:00a Cardiology Office Guillermo Montelongo, 46014 I48.4 M.D., FACC R06.02 I34.0 I25.10 I95.1 Office Visit 12/18/2015 3:00p Cardiology Office Yudelka Tony, 64653 I34.0 MSN, [facility] I48.1 I25.10 I47.2 I95.1 I50.9 Office Visit 11/11/2015 2:00p Cardiology Office Yudelka Tony, 40785 I48.0 MSN, [facility] I50.30 I47.2 I25.10 I34.0 R53.1 Office Visit 10/28/2015 1:52p [place] [address] I48.0 I48.0 Office Visit 10/22/2015 11:26a [place] [address] I47.2 I25.10 R55 Office Visit 10/13/2015 3:00p Cardiology Office Guillermo Montelongo, 86096 I48.0 M.DFroy, [facility] R06.02 I34.0 I25.10 R53.83 R42 R60.0 Office Visit 09/09/2015 1:00p Cardiology Office Guillermo Montelongo, 91398 R06.02 M.DFroy, [facility] R53.83 I34.0 I25.10 I48.0 Office Visit 09/04/2015 9:40a Cardiology Office Yudelka Knoxyder, 68181 J44.9 MSN, [facility] I95.1 I48.0 I25.10 I50.9 I34.0 Office Visit 08/14/2015 3:20p Cardiology Office Yudelka Guzman Tony, 42326 I95.1 MSN, [facility] R06.02 I48.0 I25.10 I50.9 I34.0 Office Visit 07/31/2015 3:40p Cardiology Office Yudelka Knoxyder, 12755 I95.1 MSN, [facility] I48.0 I25.10 I50.9 I34.0 Office Visit 07/09/2015 3:10p Cardiology Office Guillermo Montelongo, 67477 I95.1 M.DFroy, [facility] I48.0 R06.02 I34.0 I25.10 Office Visit 06/18/2015 3:00p Cardiology Office Yudelka Knoxyder, 83380 I95.1 MSN, [facility] R06.02 I48.0 I34.0 I25.10 I50.9 Office Visit 06/11/2015 3:00p Cardiology Office Yudelka Tony, 07484 R06.02 MSN, [facility] I95.1 I48.0 I34.0 I25.10 I50.9 Office Visit 03/24/2015 1:00p [place] [address] L02.411 Office Visit 03/17/2015 2:16p [facility] [address] [place] [address] L02.411 I48.0 Office Visit 02/18/2015 3:00p Cardiology Office Guillermo Montelongo, 22215 780.79 M.D., FACC 427.32 786.05 424.0 Office Visit 02/12/2015 2:00p Cardiology Office Guillermo Montelongo, 24271 427.32 M.D., FACC 786.05 424.0 780.79 Office Visit 01/28/2015 11:30a Cardiology Office Yudelkahimanshu Menchacakelly Tony, 23725 427.32 MSN, [facility] 786.05 424.0 427.31 414.00 458.9 Office Visit 01/08/2015 11:20a Cardiology Office Guillermo Montelongo, 99447 427.32 M.D., FACC 786.05 424.0 Office Visit 12/23/2014 1:40p Cardiology Office Guillermo Montelongo, 10697 786.05 M.D., FACC 785.1 427.31 414.00 458.9 Office Visit 10/22/2014 10:00a Cardiology Office Guillermo Montelongo, 24382 785.1 M.D., FACC 786.05 414.00 Office Visit 09/25/2014 1:00p Cardiology Office Yudelka Megan Tony, 14592 427.31 MSN, [facility] 424.0 458.9 Office Visit 09/11/2014 2:00p Cardiology Office Yudelka Tony, 64035 427.31 MSN, [facility] 414.00 424.0 458.9 780.56 Office Visit 08/01/2014 1:40p Cardiology Office Guillermo Montelongo, 92447 414.00 M.D., FACC 427.31 424.0 458.9 780.79 Office Visit 05/01/2014 1:20p Cardiology Office Guillermo Montelongo, 40374 414.00 M.D., FACC 428.0 427.31 424.0 786.05 Office Visit 01/18/2014 1:30p Cardiology Office Guillermo Montelongo, 71567 414.00 M.D., FACC 428.0 427.31 V57.9 458.9 Office Visit 01/01/2014 3:40p Cardiology Office Guillermo Montelongo, 76732 428.0 M.D., FACC 780.79 427.31 414.00 Office Visit 12/26/2013 2:28p [place], [address] 428.0 PhD Office Visit 12/25/2013 11:24a [facility] Judy Martinez, 38086 428.0 [facility] M.D. 782.3 Office Visit 11/26/2013 4:01p [place], [address] 786.05 PhD Office Visit 11/25/2013 2:32p [facility] Erica Trinh, 25714 428.0 [facility] M.D. 414.00 Office Visit 11/15/2013 4:19p [facility] Erica Trinh M.D. 73814 486 [facility] 794.31 Office Visit 09/10/2013 3:00p Cardiology Office Guillermo Montelongo, 67083 427.31 M.D., FACC 424.0 Office Visit 08/29/2013 1:20p Cardiology Office Guillermo Montelongo, 41571 427.31 M.D., FACC 424.0 786.05 Office Visit 07/30/2013 3:50p [place], [address] 427.31 PhD Office Visit 07/29/2013 11:51a [facility] Erica Trinh, 14015 786.05 [facility] M.D. Office Visit 04/12/2013 11:20a Cardiology Office Guillermo Montelongo, 85693 427.31 MSylvain, [facility] 401.1 272.0 Office Visit 03/28/2013 3:10p [facility] Cheryle Jennifer, 93596 427.31 [facility] M.Skylar. Office Visit 03/28/2013 1:06p Cardiology Office Guillermo Billingsley 20806 427.31 Vasquez Montelongo, [facility] Office Visit 01/17/2013 10:30a [place] [address] 486 799.3 719.7 V57.9 Office Visit 12/06/2012 10:30a [place] [address] 799.3 486 V57.9 Office Visit 11/01/2012 10:00a [place] [address] 799.3 719.7 V57.9 Office Visit 10/04/2012 9:00a [place] [address] 799.3 518.81 486 719.7 V57.9 Office Visit 09/18/2012 1:30p Cardiology [place] 10295 427.31 272.0 401.1 Office Visit 08/25/2012 3:25p Cardiology Office Guillermo Montelongo, 30463 427.31 MSylvain, [facility] Office Visit 08/18/2012 10:07a Cardiology Office Guillermo Montelongo, 75935 786.09 MSylvain, [facility] 786.05 Plan of Care Future Appointment(s):04/19/2018 1:30 pm - Otoniel Ugarte MD at Porbczcbjth08/02/ 2018 10:15 am - Yudelka Tony, MSN, [facility] at Cardiology [id number]/26/2017 3:20 pm - Yudelka Tony MSN, [facility] at Cardiology [id number]/11/2017 - Otoniel Ugarte MDJ44.9 Chronic obstructive pulmonary disease, unspecifiedComments: Reviewed PFTs. Continue with Stiolto and as needed albuterol.Follow up:6 months
[2017-11-10 15:14] VITALS: BP 133/61
[2017-11-10] MEDS ORDERED: Tetan/Diph/Pertus SYR(Tdap)* 0.5 ML SYR(BOOSTRIX) use SYR IM ONE (15:27)
--- NOTE | 2017-11-10 15:45 | ED ---
Bite Injury/Animal - HPI Summary HPI Summary: 81 yo WF p/w cat bite on right forearm last night from her domestic cat as she was shooing it away from her bed before going to sleep. Cat vaccinations UTD but she does not recall her last tetanus booster - History of Current Complaint Chief Complaint: UCBiteInjury Stated Complaint: RIGHT FOREARM CAT BITE Time Seen by Provider: 11/10/17 14:55 Hx Obtained From: Patient Hx Last Menstrual Period: n/a Onset of Injury: Happened hours ago Type of Bite: Pet Hx of Bite: Provoked by: - shooing Has Animal Been Immunized?: Yes Severity Initially: Mild Severity Currently: Mild Pain Intensity: 0 Character: Puncture - Allergies/Home Medications Allergies/Adverse Reactions: Allergies Allergy/AdvReac Type Severity Reaction Status Date / Time amiodarone Allergy Palpitation Verified 11/10/17 15:17 s nitrofurantoin Allergy Difficulty Verified 11/10/17 15:17 Breathing Penicillins Allergy Unknown Verified 11/10/17 15:08 Reaction Details piperacillin [From Zosyn] Allergy Flushing Verified 11/10/17 15:17 sulfamethoxazole Allergy Rash Verified 11/10/17 15:17 [From Bactrim] tazobactam [From Zosyn] Allergy Flushing Verified 11/10/17 15:17 tiotropium Allergy See Comment Verified 11/10/17 15:17 [From Spiriva with HandiHaler] trimethoprim [From Bactrim] Allergy Rash Verified 11/10/17 15:17 Home Medications: Home Medications Mirabegron (NF) [Myrbetriq (NF)] 50 mg PO DAILY 11/10/17 [History Confirmed 04/20] Tiotropium Br/Olodaterol HCl [Stiolto Respimat Inhal In[place]ar] 1 each PO DAILY 04/20 [History Confirmed 11/10/17] PMH/Surg Hx/FS Hx/Imm Hx Previously Healthy: Yes Endocrine/Hematology History: Denies: Hx Diabetes, Hx Systemic Lupus Erythematosus, Hx Thyroid Disease Cardiovascular History: Reports: Hx Hypertension Denies: Hx Congestive Heart Failure Respiratory History: Reports: Hx Asthma, Hx Chronic Obstructive Pulmonary Disease (COPD) - "SOB" GI History: Denies: Hx Ulcer History: Denies: Hx Dialysis, Hx Renal Disease - Cancer History Hx Chemotherapy: No - Surgical History Surgery Procedure, Year, and Place: 2007 BILATERAL shoulder replacement BILATERAL TOTAL HIPS AND LEFT KNEE REPLACEMENT. CARDIAC BYPASS . PACEMAKER OCTOBER2016. AV node ablation 2015 Infectious Disease History: No Infectious Disease History: Reports: Hx of Known/Suspected MRSA Denies: Hx Clostridium Difficile, Hx Hepatitis, Hx Human Immunodeficiency Virus (HIV), Hx Shingles, Hx Tuberculosis, Hx Known/Suspected VRE, Hx Known/ Suspected VRSA, History Other Infectious Disease, Traveled Outside the [place] in Last 30 Days - Family History Known Family History: Positive: Cardiac Disease, Hypertension Negative: Diabetes - Social History Alcohol Use: None Substance Use Type: Reports: None Smoking Status (MU): Former Smoker Have You Smoked in the Last Year: No Review of Systems Constitutional: Negative Eyes: Negative ENT: Negative Cardiovascular: Negative Respiratory: Negative Positive: Other - see HPI Neurological: Negative All Other Systems Reviewed And Are Negative: Yes Physical Exam Triage Information Reviewed: Yes Vital Signs On Initial Exam: Initial Vitals Temp Pulse Resp BP Pulse Ox 37.1 C 86 19 133/61 97 11/10/17 15:04 11/10/17 15:04 11/10/17 15:04 11/10/17 15:04 11/10/17 15:04 Vital Signs Reviewed: Yes Appearance: Positive: Well-Appearing Skin: Positive: Warm, Other - small 1cm sideways V shaped puncture wound on extensor surface of right forearm Head/Face: Positive: Normal Head/Face Inspection Eyes: Positive: Normal ENT: Positive: Normal ENT inspection Neck: Positive: Supple Respiratory/Lung Sounds: Positive: Clear to Auscultation Cardiovascular: Positive: Normal Abdomen Description: Positive: Nontender Musculoskeletal: Positive: Normal Neurological: Positive: Normal Diagnostics - Vital Signs Vital Signs Temp Pulse Resp BP Pulse Ox 11/10/17 15:04 37.1 C 86 19 133/61 97 - Laboratory Lab Statement: Any lab studies that have been ordered have been reviewed, and results considered in the medical decision making process. Bite Injury Course/Dx - Diagnoses Provider Diagnosis: Cat bite of forearm Discharge - Sign-Out/Discharge Documenting (check all that apply): Discharge/Admit/Transfer - Discharge Plan Condition: Stable Disposition: HOME Prescriptions: Clindamycin HCl 300 mg PO TID 10 Days #30 capsule Patient Education Materials: Animal Bite (ED) Referrals: Juan J Velásquez MD [Primary Care Provider] - - Billing Disposition and Condition Condition: STABLE Disposition: HOME
== END 2017-11-10 15:47 | disposition home or self-care (01) ==
LOC: UCCORT 14:38
DX: S51.851A Open bite of right forearm, initial encounter (principal); W55.01XA Bitten by cat, initial encounter; Y93.89 Activity, other specified; Y92.003 Bedroom of unspecified non-institutional (private) residence as the place of occurrence of the external cause; Z88.1 Allergy status to other antibiotic agents; Z88.0 Allergy status to penicillin; Z88.8 Allergy status to other drugs, medicaments and biological substances; Z87.891 Personal history of nicotine dependence
CPT/HCPCS: 90471; 90715; 99212; G0463

== ENCOUNTER 2018-07-05 20:18 | Emergency (ER) | payer MEDICARE ==
[2018-07-05 21:15] VITALS: BP 118/58
[2018-07-05] MEDS: Ciprofloxacin TAB* 500 MG PO ONE (21:45)
--- NOTE | 2018-07-05 21:50 | UC ---
Complaint Female HPI - HPI Summary HPI Summary: Patient is an 82-year-old female who presents to emergency department for dysuria or frequency 2-3 days. Patient notes history of recurrent UTIs. She notes she has not been treated and several months. Patient's daughter notes she is a history of pancytopenia and [place] [facility] Daughter notes that she is going to be started on cyclosporine. Patient denies fever, chills, nausea, vomiting, abdominal pain, flank pain. Symptoms are mild in severity. No current modifying factors. Patient notes numerous drug allergies and states she is usually prescribed Cipro 500 mg twice a day 7 days. 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 Hx Last Menstrual Period: n/a Pain Intensity: 0 - Allergies/Home Medications Allergies/Adverse Reactions: Allergies Allergy/AdvReac Type Severity Reaction Status Date / Time amiodarone Allergy Palpitation Verified 07/05/18 21:05 s nitrofurantoin Allergy Difficulty Verified 07/05/18 21:05 Breathing piperacillin [From Zosyn] Allergy Flushing Verified 07/05/18 21:05 sulfamethoxazole Allergy Rash Verified 07/05/18 21:05 [From Bactrim] tazobactam [From Zosyn] Allergy Flushing Verified 06/23/18 14:33 tiotropium Allergy See Comment Verified 07/05/18 21:05 [From Spiriva with HandiHaler] trimethoprim [From Bactrim] Allergy Rash Verified 07/05/18 21:05 Home Medications: Home Medications LevoCETirizine TAB (NF) [Xyzal TAB (NF)] 5 mg PO DAILY 07/05/18 [History Confirmed 07/05/18] Lisinopril TAB* [Prinivil TAB*] 40 mg PO DAILY 07/05/18 [History Confirmed 07/05] Omeprazole CAP* [Prilosec CAP* 20 MG] 20 mg PO BID 07/05/18 [History Confirmed 07/05/18] Potassium Chlor TAB* [Klor Con ER TAB*] 10 meq PO DAILY 07/05/18 [History Confirmed 07/05/18] PMH/Surg Hx/FS Hx/Imm Hx Previously Healthy: Yes - Surgical History Surgical History: Yes Surgery Procedure, Year, and Place: 2007 BILATERAL shoulder replacement BILATERAL TOTAL HIPS AND LEFT KNEE REPLACEMENT. CARDIAC BYPASS . PACEMAKER OCTOBER2016. AV node ablation 2015 - Family History Known Family History: Positive: Cardiac Disease, Hypertension Negative: Diabetes - Social History Occupation: Retired Lives: With Family Alcohol Use: Rare Substance Use Type: None Smoking Status (MU): Former Smoker Type: Cigarettes Have You Smoked in the Last Year: No When Did the Patient Quit Smoking/Using Tobacco: 1980 Household Exposure Type: Cigarettes Review of Systems All Other Systems Reviewed And Are Negative: Yes Constitutional: Positive: Negative. Negative: Fever, Chills Gastrointestinal: Positive: Negative. Negative: Vomiting, Nausea Genitourinary: Positive: Dysuria, Frequency, Urgency Neurovascular: Positive: Negative Neurological: Positive: Negative Is Patient Immunocompromised?: Yes Physical Exam Triage Information Reviewed: Yes Appearance: Well-Appearing - Pt. sitting in chair in NAD. Wearing NC. Daughter present. Vital Signs: Initial Vital Signs Temp 97.5 F 07/05/18 21:11 Pulse 75 07/05/18 21:11 Resp 18 07/05/18 21:11 BP 118/58 07/05/18 21:11 Pulse Ox 99 07/05/18 21:11 Vital Signs Reviewed: Yes Eye Exam: Normal Eyes: Positive: Conjunctiva Clear Neck exam: Normal Respiratory Exam: Normal Respiratory: Positive: Lungs clear, Normal breath sounds Cardiovascular: Positive: RRR Abdomen Description: Positive: Nontender, Soft, Other: - Mild bilateral CVA tenderness Musculoskeletal Exam: Normal Neurological Exam: Normal Psychological Exam: Normal Skin Exam: Normal Complaint Female Dx - Course Course Of Treatment: Patient presenting with urinary symptoms. She is afebrile and very well-appearing. Urinalysis is consistent with a UTI. Will started on Cipro since this is worse for patient in the past and she has numerous drug allergies. Advised to call PCP tomorrow for close follow-up appointment. Increase fluids. Advised to go to the emergency room for abdominal pain, fever , vomiting or if concerned. Patient and daughter understand and agree with plan. - Differential Dx/Diagnosis Differential Diagnosis/HQI/PQRI: Renal Colic, Ureteral Stone, Urinary Tract Infection Provider Diagnosis: UTI (urinary tract infection) Discharge - Sign-Out/Discharge Documenting (check all that apply): Patient Departure All imaging exams completed and their final reports reviewed: No Studies - Discharge Plan Condition: Good Disposition: HOME Prescriptions: Ciprofloxacin TAB* [Cipro 500 MG TAB*] 500 mg PO BID #14 tab Patient Education Materials: Urinary Tract Infection in Women (ED) Referrals: Perla Samuels MD [Primary Care Provider] - Additional Instructions: Follow up with your PCP in 2-3 days Take antibiotic as directed Increase fluids Go to the ER for abdominal pain, fever, vomiting or if concerned - Billing Disposition and Condition Condition: GOOD Disposition: Home - Attestation Statements Provider Attestation: Per institutional requirements, I have reviewed the chart, however, I was not consulted specifically or made aware of this patient by the midlevel provider. I did not personally evaluate, interact with , or disposition this patient.
== END 2018-07-05 21:51 | disposition home or self-care (01) ==
LOC: UCCORT 20:18
DX: N39.0 Urinary tract infection, site not specified (principal); D61.818 Other pancytopenia; Z88.0 Allergy status to penicillin; Z88.8 Allergy status to other drugs, medicaments and biological substances; Z88.1 Allergy status to other antibiotic agents; Z87.891 Personal history of nicotine dependence
CPT/HCPCS: 81003; 87077; 87086; 87186; 99212; A9270-GY; G0463

== ENCOUNTER 2018-09-27 10:38 | Inpatient (IN) | payer MEDICARE ==
--- NOTE | 2018-09-27 11:24 | ED ---
Shortness of Breath - HPI Summary HPI Summary: This patient is an 82 year old F presenting to ED accompanied by daughter with a chief complaint of SOB since a couple months ago. The CC is described as worsening since blood transfusion (one unit of blood) 2 days ago for dx of slow GI bleed and anemia. She was dx with those and discharged from [place] 1 week ago and was given 2L of blood then. The daughter found the patient SOB and confusion at 0500 this morning. The patient rates the pain 3/10 in severity. Symptoms aggravated by nothing. Symptoms alleviated by nothing. Patient reports epigastric cramping with minimal hematochezia, confusion, and RLE edema. Patient denies any weight gain, cough, and CP. She has not followed up with GI as an outpatient and is supposed to see them today in [place]. Patient didnt take the Lasix this morning but did take it yesterday. The patient sleeps on three pillows. PMHx of afib, CHF, COPD, and MRSA. Patient is on 2L O2 at home. Patients platelets were found to be low in [place] so she was taken off Eliquis. 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 - accompanied by daughter Onset/Duration: Sudden Onset, Lasting Weeks, Still Present Timing: Constant Current Severity: Mild - 3/10 Alleviating Factors: Nothing Associated Signs & Symptoms: Cough (Nonproductive), Edema - RLE - Allergy/Home Medications Allergies/Adverse Reactions: Allergies Allergy/AdvReac Type Severity Reaction Status Date / Time amiodarone Allergy Palpitation Verified 09/27/18 10:55 s cefdinir Allergy Rash Verified 09/27/18 10:55 nitrofurantoin Allergy Difficulty Verified 09/27/18 10:55 Breathing piperacillin [From Zosyn] Allergy Flushing Verified 09/27/18 10:55 sulfamethoxazole Allergy Rash Verified 09/27/18 10:55 [From Bactrim] tazobactam [From Zosyn] Allergy Flushing Verified 09/27/18 10:55 tiotropium Allergy See Comment Verified 09/27/18 10:55 [From Spiriva with HandiHaler] trimethoprim [From Bactrim] Allergy Rash Verified 09/27/18 10:55 Home Medications: Home Medications Biotin 10,000 mcg PO DAILY 09/27/18 [History Confirmed 09/27/18] Calcium Carbonate/Vitamin D3 [Calcium 600-Vit D3 800 Tablet] 2 tab PO BID [History Confirmed 09/27/18] Eltrombopag Olamine [Promacta] 50 mg PO DAILY 09/27/18 [History Confirmed ] Levocetirizine Dihydrochloride [Xyzal] 5 mg PO DAILY 09/27/18 [History Confirmed 09/27/18] PMH/Surg Hx/FS Hx/Imm Hx Endocrine/Hematology History: Denies: Hx Diabetes, Hx Systemic Lupus Erythematosus, Hx Thyroid Disease Cardiovascular History: Reports: Hx Hypertension Denies: Hx Congestive Heart Failure Respiratory History: Reports: Hx Asthma, Hx Chronic Obstructive Pulmonary Disease (COPD) - "SOB" GI History: Denies: Hx Ulcer History: Denies: Hx Dialysis, Hx Renal Disease - Cancer History Hx Chemotherapy: No - Surgical History Surgery Procedure, Year, and Place: 2007 BILATERAL shoulder replacement BILATERAL TOTAL HIPS AND LEFT KNEE REPLACEMENT. CARDIAC BYPASS . PACEMAKER OCTOBER2016. AV node ablation 2015 Infectious Disease History: Yes Infectious Disease History: Reports: Hx of Known/Suspected MRSA Denies: Hx Clostridium Difficile, Hx Hepatitis, Hx Human Immunodeficiency Virus (HIV), Hx Shingles, Hx Tuberculosis, Hx Known/Suspected VRE, Hx Known/ Suspected VRSA, History Other Infectious Disease, Traveled Outside the [place] in Last 30 Days - Family History Known Family History: Positive: Cardiac Disease, Hypertension Negative: Diabetes - Social History Alcohol Use: None Substance Use Type: Reports: None Smoking Status (MU): Former Smoker Type: Cigarettes Have You Smoked in the Last Year: No Review of Systems Negative: Fever, Chills Negative: Erythema Negative: Sore Throat Negative: Chest Pain Positive: Shortness Of Breath, Cough - nonproductive Positive: Abdominal Pain - epigastric cramping, Other - minimal hematochezia; denies recent weight gain Negative: dysuria, hematuria Positive: Edema - RLE. Negative: Myalgia Negative: Rash Neurological: Other - confusion; denies dizziness All Other Systems Reviewed And Are Negative: Yes Physical Exam - Summary Physical Exam Summary: Constitutional: Well-developed, Well-nourished, Alert. (-) Distressed Skin: Warm, Dry HENT: Normocephalic; Atraumatic Eyes: Conjunctiva normal Neck: Musculoskeletal ROM normal neck. (-) JVD, (-) Stridor, (-) Tracheal deviation Cardio: Rhythm regular, rate normal, Heart sounds normal; Intact distal pulses; The pedal pulses are 2+ and symmetric. Radial pulses are 2+ and symmetric. (-) Murmur Pulmonary/Chest wall: Effort normal. (-) Respiratory distress, Crackles and wheezes in L lower lung field, (-) Rales Abd: Soft, (-) epigastric tenderness, (-) Distension, (-) Guarding, (-) Rebound Musculoskeletal: (-) Edema Lymph: (-) Cervical adenopathy Neuro: Alert, Oriented x3 Psych: Mood and affect Normal Triage Information Reviewed: Yes Vital Signs On Initial Exam: Initial Vitals Temp Pulse Resp BP Pulse Ox 98 F 74 16 162/61 94 09/27/18 10:50 09/27/18 10:50 09/27/18 10:50 09/27/18 10:50 09/27/18 10:50 Vital Signs Reviewed: Yes Diagnostics - Vital Signs Vital Signs Temp Pulse Resp BP Pulse Ox 09/27/18 10:50 98 F 74 16 162/61 94 - Laboratory Result Diagrams: 09/29/18 09:35 09/29/18 09:35 Lab Statement: Any lab studies that have been ordered have been reviewed, and results considered in the medical decision making process. - Radiology CXR Radiology Interpretation Completed By: Radiologist Summary of Radiographic Findings: CARDIOMEGALY WITH INTERSTITIAL EDEMA CONSISTENT WITH CHF. PACEMAKER LEADS ARE IN PLACE. Dr. Johnson has reviewed this radiology report. - EKG 1125 Cardiac Rate: Other Rate - paced at 69 BPM Summary of EKG Findings: Q waves in V2-V6, no STEMI, changed from 05/25/13 Re-Evaluation - Re-Evaluation First Eval Re-Evaluation Time: 13:19 Comment: Discussed results with the patient and plan for admission. Patient understands and agrees with this plan. Course/Dx - Course Assessment/Plan: This patient is an 82 year old F presenting to ED accompanied by daughter with a chief complaint of SOB since a couple months ago. The CC is described as worsening since blood transfusion (one unit of blood) 2 days ago for dx of slow GI bleed and anemia in [place]. In the ED course, the patient was given a duoneb. EKG reveals paced rhythm at 69 BPM, Q waves in V2-V6, and no STEMI; changed from 05/25/13. CXR reveals CARDIOMEGALY WITH INTERSTITIAL EDEMA CONSISTENT WITH CHF. PACEMAKER LEADS ARE IN PLACE. Consulted Dr. Calhoun about the patient's case and he accepts the patient for admission. Spoke with Dr. Harper at 1331 about the patient's case and informed her that the patient will be admitteed. Dr. Harper knows the patient as an outpatient referral. The patient will be admitted with dx of CHF exacerbation, chronic GI bleed, and R leg swelling. Patient understands and agrees with this plan. - Diagnoses Differential Diagnosis/HQI/PQRI: Positive: Other - CHF exacerbation, chronic GI bleed, and R leg swelling Provider Diagnoses: CHF exacerbation, Chronic GI bleeding, Right leg swelling - Physician Notifications Discussed Care of Patient With: Kwabena Calhoun Time Discussed With Above Provider: 13:25 Instructed by Provider To: Other - Dr. Calhoun accepts the patient for admission. Spoke with Dr. Harper at 1331 about the patient's case and informed her that the patient will be admitteed. Dr. Harper knows the patient as an outpatient referral. - Critical Care Time Critical Care Time: 30-74 min - 45 minutes Discharge - Sign-Out/Discharge Documenting (check all that apply): Patient Departure - admit Patient Received Moderate/Deep Sedation with Procedure: No - Discharge Plan Condition: Stable Disposition: ADMITTED TO [facility] - Billing Disposition and Condition Condition: STABLE Disposition: Admitted to [facility] - Attestation Statements Document Initiated by Leelaibe: Yes Documenting Scribe: Pete Apodaca Provider For Whom Joey is Documenting (Include Credential): Francis Johnson MD Scribe Attestation: Pete Thomason, scribed for Francis Johnson MD on 10/02/18 at 1040. Scribe Documentation Reviewed: Yes Provider Attestation: The documentation as recorded by the Pete shabazz accurately reflects the service I personally performed and the decisions made by me, Francis Johnson MD Status of Scribe Document: Viewed
[2018-09-27] MEDS ORDERED: Albuterol/Ipratropium NEB.SOL* Albuterol 2.5 MG/Ipratropium 0.5 MG 3 ML INH ONE (11:25)
[2018-09-27 12:01] LABS: Influenza A Molecular NEGATIVE (Negative); Influenza B Molecular NEGATIVE (Negative)
[2018-09-27 13:03] LABS: Hematocrit 24 % (33-41); Hemoglobin 8.1 g/dL (12.0-16.0); Mean Corpuscular HGB Conc 34 g/dL (31-36); Mean Corpuscular Hemoglobin 36 pg (27-31); Mean Corpuscular Volume 106 fL (80-97); Red Blood Count 2.23 10^6 /uL (3.70-4.87); Red Cell Distribution Width 24 % (10.5-15)
[2018-09-27 13:09] LABS: Albumin 3.2 g/dL (3.2-5.2); BUN/Creatinine Ratio 26.9 (8-20); Calcium 8.9 mg/dL (8.6-10.3); EGFR African American 85.1 (>60); EGFR Non-African American 70.4 (>60); Globulin 3.1 g/dL (2-4); Potassium 3.9 mmol/L (3.5-5.0); Total Bilirubin 1.4 mg/dL (0.2-1.0); Total Protein 6.3 g/dL (6.4-8.9)
[2018-09-27] MEDS ORDERED: Furosemide IV* 10 MG/ML VIAL (40 MG) IV SLOW PU ONE (13:15)
[2018-09-27] MEDS ORDERED: Nitro 2% OINT* (Nitroglycerin) 1 INCH/PAK PAK TOPICAL ONE (13:15)
[2018-09-27 13:17] LABS: Troponin I 0.04 ng/mL (<0.04)
[2018-09-27 14:03] LABS: ABS Basophils 0 10^3/ul (0-0.2); ABS Eosinophils 0.2 10^3/ul (0-0.6); ABS Lymphocytes 1.4 10^3/ul (1.0-4.8); ABS Monocytes 0.2 10^3/ul (0-0.8); ABS Nucleated RBC 0 10^3/ul; Lymphocyte % 23.7 %; Mean Platelet Volume 10.3 fL (7.4-10.4); Nucleated Red Blood Cells % 0.2; Platelet Count 65 10^3/uL (150-450); White Blood Count 5.8 10^3/uL (3.5-10.8)
[2018-09-27] MEDS ORDERED: Acetaminophen TAB* 325 MG PO PRN (14:39)
[2018-09-27 14:41] LABS: Urine Appearance Cloudy; Urine Bacteria Absent (Absent); Urine Bilirubin Negative (Negative); Urine Blood Negative (Negative); Urine Color Yellow; Urine Glucose Negative (Negative); Urine Ketones Negative (Negative); Urine Nitrite Negative (Negative); Urine Protein Negative (Negative); Urine Red Blood Cell Trace(0-2/hpf) (Absent); Urine Specific Gravity 1.016 (1.010-1.030); Urine Squamous Epithelial Cell Present (Absent); Urine Urobilinogen Negative (Negative); Urine White Blood Cell 1+(6-10/hpf) (Absent)
[2018-09-27] MEDS ORDERED: Albuterol 2.5 MG/3 ML NEB.SOL* (0.083%) INH PRN (14:46)
[2018-09-27 14:53] LABS: Activated Partial Thrombo Time 31.7 seconds (26.0-36.3); INR 1.1 (0.77-1.02)
[2018-09-27 15:07] LABS: Troponin I 0.04 ng/mL (<0.04)
[2018-09-27 16:52] LABS: Troponin I 0.04 ng/mL (<0.04)
[2018-09-27 17:29] LABS: Hematocrit 26 % (33-41); Hemoglobin 8.5 g/dL (12.0-16.0)
--- NOTE | 2018-09-27 17:52 | HP ---
CC: Dr. Perla Samuels; Dr. Harper; Dr. Montelongo; Dr. Chase* HISTORY AND PHYSICAL: DATE OF ADMISSION: 09/27/18 PRIMARY CARE PROVIDER: Dr. Perla Sameuls. ATTENDING PHYSICIAN WHILE IN THE HOSPITAL: Dr. Kwabena Calhoun* ( report being dictated by Garrison Finn NP). CONSULTING INBOUND INGREDIENT LOGISTICS SPECIALIST: Dr. Harper. CHIEF COMPLAINT: 1. Shortness of breath. 2. Lower leg swelling. HISTORY OF PRESENT ILLNESS: Mrs. Cobian is an 82-year-old female patient with a significant past medical history. She has a history of ITP, COPD, hyperlipidemia, GERD, hypertension, depression, history of CHF, depression, anxiety, avascular necrosis, history of TIA in the past, history of recurrent GI bleed, who is coming in to our ER today stating that on Tuesday she receive a unit of blood for a low H and H. Her hemoglobin was 7.3. Recently apparently last week was in [place] and was diagnosed with a lower GI bleed secondary to the diverticular bleed. She was discharged to have followup with GI and to have a colonoscopy. Unfortunately though, over the last few days, she has noticed that she has had progressive lower leg swelling. She has been taking 20 mg of Lasix a day. She has been noticing that she has been more short of breath particularly with exertion. She denied having any orthopnea, no chest pain. She says in the last few days she has not noticed any black or tarry stools or bright red blood per rectum. She has noticed occasionally prior to the last few days that she was having some clots, but no bright red blood reported now. She states that she has been feeling fatigued, more short of breath. She was concerned and came into the hospital today for evaluation. She denies any vomiting or diarrhea. No abdominal discomfort was reported and again no chest pain. She was found in the ER to have a possible CHF exacerbation. Because of this, we were asked to evaluate for admission. PAST MEDICAL HISTORY: Significant for: 1. ITP. 2. Aplastic anemia. 3. COPD. 4. History of recurrent UTIs. 5. DANILO, not on CPAP. 6. Right lung nodule, which is chronic. 7. CHF. 8. CAD. 9. AFib. 10. Hyperlipidemia. 11. TIA. 12. Varicose veins. 13. GERD. 14. Diverticulosis. 15. Esophageal spasm. 16. Urinary incontinence secondary to urge incontinence. 17. Avascular necrosis. 18. MRSA. 19. Depression. 20. History of GI bleed. PAST SURGICAL HISTORY: 1. She has had an appendectomy. 2. Left total hip arthroplasty. 3. Right total hip x2. 4. Right total shoulder. 5. Left total knee. 6. Left total shoulder. 7. Urethral sling. 8. L4-S1 spinal surgery. 9. Cataract repair. 10. CABG with mitral valve repair and atrial fibrillation and PFO repair. 11. I and D of the right axillary abscess. 12. Pacemaker insertion. 13. AV node ablation. MEDICATIONS: Home medications include: 1. Stiolto 2 inhalations daily. 2. Zocor 40 mg daily. 3. Potassium 10 mEq daily. 4. Prilosec 20 mg p.o. b.i.d. 5. Multivitamin 1 tablet daily. 6. Singulair 10 mg daily. 7. Myrbetriq 50 mg daily. 8. Lisinopril 40 mg daily. 9. Levocetirizine 5 mg daily. 10. Lasix 20 mg daily. 11. Promacta 50 mg daily. 12. Cymbalta 60 mg a day. 13. Calcium with vitamin D 2 tablets p.o. b.i.d. 14. Biotin 10,000 mcg p.o. daily. ALLERGIES TO MEDICATIONS: Include MACRODANTIN, ZOSYN, BACTRIM, SPIRIVA, AMIODARONE, and CEFDINIR. FAMILY HISTORY: Both her parents had heart disease. SOCIAL HISTORY: She is a former smoker. Rarely drinks alcohol. Surrogate decision maker is her daughter. REVIEW OF SYSTEMS: There is no documented fever. She denies a significant weight change to me. She denies having any double vision. There is no ear discharge. She denied having any rhinorrhea. There is no sore throat. No thyroid enlargement. She denied having any chest pain. There was no orthopnea. There was no nocturnal dyspnea. She denies having any abdominal pain. There was no nausea, no vomiting. She did admit to having some dysuria and frequency. No seizure, no loss of consciousness, no pruritus, and no skin ulcerations. Review of 14 systems was completed, all others negative. PHYSICAL EXAMINATION GENERAL: At this time, Mrs. Cobian is an 82-year-old female patient. She is chronically ill appearing. She is sitting in the ED stretcher. She does not appear to be in any acute distress. VITAL SIGNS: Blood pressure 149/76, pulse of 69, respirations 18, O2 sat 96%, temperature 98. HEENT: Head: Atraumatic and normocephalic. Eyes: EOMs are intact. Sclerae anicteric and not pale. Throat: Oral mucosa appears to be dry. No oropharyngeal erythema. NECK: Supple. LUNGS: She had fine crackles in the bases, equal diaphragmatic expansion. HEART: Heart sounds S1, S2. She had a regular rate and rhythm. There were no murmurs, rubs, or gallops. ABDOMEN: Soft, flat, nontender. Bowel sounds are present. EXTREMITIES: Pulses were 2+ throughout. She had 2+ pitting edema in the pedal area bilaterally. NEUROLOGICAL: She is awake. She is alert. She is oriented x3. Tongue midline. [employer] were equal. She had no gross focal deficits. SKIN: Intact. DIAGNOSTIC STUDIES/LAB DATA: WBC 5.8, RBC 2.23, hemoglobin of 8.1, last hemoglobin was 7.3, hematocrit 24, platelet count of 65 which is running at her baseline. Sodium 141, potassium 3.9, chloride of 104, bicarb 28, BUN 22, creatinine 0.79, glucose 120, lactate 0.8, calcium 8.9. Total bili 1.4, AST 14 , ALT 8, alk phos 69. Troponin 0.04, BNP of 331 and an albumin of 3.2. Serology was negative for flu. She did have a chest x-ray obtained today, impression: Cardiomegaly with interstitial edema consistent with CHF. Pacemaker leads are in place. She did have an EKG obtained today. I have a previous EKG, but it is from 2013. Today' s EKG shows a ventricular paced rhythm, rate of 69. Previous EKG showed sinus bradycardia at a rate of 57. Old medical records were reviewed. ASSESSMENT AND PLAN: Mrs. Cobian is an 82-year-old female patient coming in to the ED today with complaints of shortness of breath, on evaluation found to be in congestive heart failure. She will be admitted under inpatient status for: 1. Congestive heart failure exacerbation. I suspect this could be secondary to the recent blood she received; however, it could be from the fact that she may have a little bit of high-output failure from low H and H due to the chronic gastrointestinal bleed. She got 80 of Lasix here in the ED. She is feeling better. Her lungs sound better. I will continue IV Lasix. Check an echo, daily weights. Place her on telemetry. Cycle her troponins. I am going to trend her H and H's as a gastrointestinal bleed could be complicating the picture. I have placed a call to Dr. Harper. She does not appear to be actively bleeding at this point, but again it was reported as a slow bleed. I am going to get the records from [place] and again get recommendations from GI as we may need to do a colonoscopy sooner rather than later, but I would like to get GI's input. At this point, I would transfuse her if her H and H falls below 8. I am repeating this in [address] 2 IVs as well and I am typing and screening her. 2. Low gastrointestinal bleed. Again, getting records from [place]. I have ordered a Hemoccult. There has been no noted stool here. At this point, I would get serial H and H's, 2 peripheral IVs, type and screen, transfuse as indicated and we will continue to follow. 3. History of immune thrombocytopenic purpura. Continue meds as prescribed. I will continue her meds as prescribed. At this point, her platelets are stable. We will continue to follow. 4. History of aplastic anemia. We will continue to follow. 5. History of chronic obstructive pulmonary disease. I will continue her inhalers as prescribed and I have ordered p.r.n. albuterol. 6. Obstructive sleep apnea. Again, she is not compliant with CPAP. 7. History of right lung nodule. Follow with PCP. 8. Coronary artery disease. Continue meds as prescribed. I would be hesitant to start aspirin at this point given the fact she has a slow bleed, but she is on statin therapy which I will continue. She did get nitrates here. She is not having any active symptoms and we will follow. 9. Atrial fibrillation. At this point, again I would hold off on any anticoagulation because of her current possible bleed. 10. History of transient ischemic attack. Continue with secondary prevention. Again, I am holding off on any anticoagulation given the fact that she does have a presumed diverticular bleed. 11. Gastroesophageal reflux disease. Continue PPI therapy. 12. History of diverticulosis. Again, getting records from [place] and have a consult with GI. 13. Depression and anxiety. Continue supportive care. 14. DVT prophylaxis. I have ordered SCDs. I am holding on heparin given the fact that there was a concern for recent bleed and concurrent bleed. 15. Hyperlipidemia. Continue statin therapy. 16. Code status. Full code. 17. Fluids, electrolytes, and nutrition. I will put her on a clear liquid diet. 18. Indeterminate troponin. Again, troponin is 0.04. EKG is stable. I am checking an echo. I will trend these. It could be some demand ischemia secondary to a possible congestive heart failure exacerbation, again secondary to a presumed lower gastrointestinal bleed. TIME SPENT: The time spent on the admission was 60 minutes, greater than half the time spent [id number] with the patient obtaining my history and physical; other half time spent going over the plan of care with the patient and implementing plan of care. I did discuss the plan of care with my attending, Dr. Calhoun; he is in agreement. GARRISON FINN NP [id number]/CPS #: [id number]
[2018-09-27] MEDS: Atorvastatin* 20 MG TAB PO SCH (18:14)
--- NOTE | 2018-09-27 20:26 | CONS ---
GASTROENTEROLOGY CONSULT REPORT: DATE OF CONSULT: 09/27/18 REASON FOR CONSULT: GI bleeding. REQUESTING PROVIDER: Dr. Griffin. HISTORY OF PRESENT ILLNESS: Ms. Marcelina Cobian is an 82-year-old woman with a complicated medical history including CAD status-post CABG, pacemaker placement , CHF, AFib, previously on Eliquis; COPD, TIA, DANILO, aplastic anemia, and ITP, who is admitted with CHF exacerbation in the setting of anemia and GI bleeding requiring transfusions. Majority of history is obtained from the patient's daughter, Ester, who is a nurse bilingual operator. Ms. Cobian has a history of GI bleeding approximately 2 years ago. She reportedly was hospitalized at that time, but the decision was made not to perform colonoscopy for unclear reasons. Then approximately 6 months ago , she began to have blood in her stools on a regular basis. Describes seeing blood with each bowel movement several times per day. Blood is typically bright red or dark red. No black stools. She has stool ranging from loose to hard. Over the same time period (6 months or so), she has also had increasing issues with anemia and thrombocytopenia. She is being followed at [facility] and has undergone several bone marrow biopsies. Currently diagnosed with aplastic anemia and ITP. She was previously on Eliquis for A fib, but this was stopped in the setting of the blood count abnormalities and bleeding. She was hospitalized at [place] last week for the bleeding and anemia. She was given 2 units of blood with subsequent hemoglobin of 8.8. She had a bleeding scan performed at [place]. This report is not available, although it seems that it was positive and demonstrated active bleeding from the distal transverse colon. The patient refused colonoscopy. She was discharged and seen by hematology last week at which point she was noted to have a hemoglobin of 7.3. She received an additional unit of blood on Tuesday, which seemed to have precipitated the heart failure exacerbation. Her GI bleeding symptoms remained unchanged. She reports having a colonoscopy attempted approximately 10 years ago in [place] ([facility]). She recalls that they were unable to complete the colonoscopy, presumably due to a difficult colon anatomically. The patient does remember being told she has diverticulosis. After the failed colonoscopy, it seems that she had a barium enema study performed. She states that she has had other colonoscopy attempts in the past, which were also unsuccessful. She denies any family history of colon polyps or colon cancer. Regarding current presentation, Ms Cobian describes significant shortness of breath since the transfusion. On arrival to the ER, Ms. Cobian was noted to have normal heart rate and mildly hypertensive blood pressure. Labs demonstrated a hemoglobin of 8.1, hematocrit of 24, platelet count 65. INR 1.1, troponin of 0.04. On interview, Ms. Cobian denies any abdominal pain at present, although she has occasional mid to diffuse abdominal discomfort. Discomfort tends to occur during periods of prolonged fasting. She has a history of GERD for which she is on omeprazole twice daily. She denies any dysphagia, nausea, vomiting. Bowel movements fluctuated from hard to soft and contain blood each time. She has several bowel movements per day. PAST MEDICAL HISTORY: Past medical history is quite complex. She has a history of aplastic anemia and ITP, for which she is followed at [facility]. 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 PAST SURGICAL HISTORY: Appendectomy in 1944, left total hip replacement in 1997 , right total hip replacement x2 in 1999 and 2003, right total shoulder replacement in 1999, left total knee replacement in 2005, left total shoulder in 2007, urethral sling in 2009, endoscopic spinal surgery L4 to S1 in 2010, bilateral cataracts in 2012, CABG with mitral valve repair, atrial ablation and a PFO repair in 2013, pacemaker in October 2016, AV marce ablation in December 2016. MEDICATIONS: 1. Promacta 50 mg every morning. 2. Singulair 10 mg every evening. 3. Simvastatin 40 mg every evening. 4. Calcium and vitamin D 2 tablets twice daily. 5. Omeprazole 20 mg twice daily. 6. Stiolto 2 puffs every morning. 7. Cymbalta 60 mg q.a.m. 8. Lasix p.r.n. 9. Xyzal 5 mg in the morning. 10. Biotin 10,000 units in the morning. 11. Centrum daily. 12. Myrbetriq 50 mg daily. 13. Lisinopril 40 mg daily. 14. 2 L of oxygen continuously. ALLERGIES: MACRODANTIN causes anaphylaxis, ZOSYN causes a burning sensation, BACTRIM causes a rash, SPIRIVA causes thrush, AMIODARONE causes torsades, CEFDINIR causes a rash. SOCIAL HISTORY: The patient is . She is a former smoker. She quit smoking 30 years ago and has a 45-pack year smoking history. She drinks rare alcohol. No drug use. REVIEW OF SYSTEMS: The patient endorses fatigue, shortness of breath, abdominal discomfort, abnormal bowel movements and bleeding as discussed above. She also has had some vaginal bleeding and blood in her urine. The patient denies any other complaints on complete review of systems. PHYSICAL EXAM: Vital Signs: Afebrile, heart rate 73, blood pressure 144/82, 96 % on room air. General: Elderly woman. Pleasant, but states "I hate gastroenterologists." HEENT: Mildly dry mucous membranes. Anicteric sclerae. Cardiovascular: Regular rate and rhythm. No murmurs, rubs, or gallops. Pulmonary: Decent air movement. No significant wheezing appreciated. No crackles on anterior lung rios. Abdomen: Soft, nondistended. Mild tenderness in epigastrium. Positive bowel sounds. Extremities: No significant edema. LABORATORY DATA: Labs as summarized in the HPI notable for a white count of 5.8 , hemoglobin 8.1, hematocrit 24, MCV 106, platelet count 65. INR 1.1. Sodium 141, creatinine 0.78, BUN 21. Bilirubin is 1.4 with normal AST, ALT, and alk phos. Troponin 0.04. BNP 331. Flu swab negative. Urinalysis notable for trace leuk esterase and trace rbc's. IMAGING: Chest x-ray demonstrated interstitial edema consistent with CHF. IMPRESSION: Ms. Cobian is an 82-year-old woman with a very complicated medical history including aplastic anemia, idiopathic thrombocytopenic purpura, coronary artery disease status post coronary artery bypass graft, congestive heart failure, transient ischemic attack, and pacemaker placement, who has history of rectal bleeding several times per day as well as progressive anemia requiring transfusions. The patient was transfused 2 units last week at [place] and received another unit of blood on Tuesday. The patient reportedly had a positive bleeding scan at [place] last week with a source of bleeding in the distal transverse colon. She refused colonoscopy workup at that time and was scheduled to be seen in clinic. Unfortunately, she now is admitted with heart failure exacerbation following her most recent transfusion. Ms. Cobian is quite hesitant to undergo an endoscopic evaluation, although she understands that the acute on chronic anemia is a significant issue. It seems as if her anemia may be multifactorial with concern for aplastic anemia as well as GI blood loss. Interestingly, she has not been able to have a complete colonoscopy presumably due to a technically challenging colonic anatomy. I think that it would be important during this hospitalization to attempt to perform a flexible sigmoidoscopy versus colonoscopy to evaluate for potential bleeding source(s) given the positive bleeding scan performed last week at [place]. I would recommended that this be deferred until the patient is more stable from a cardiopulmonary standpoint given concern for an acute heart failure exacerbation at present. She is certainly stable from a bleeding standpoint with a hemoglobin of 8.1 and a hematocrit of 24. GI will continue to follow along. Dr. Carrasco will see the patient tomorrow to reassess clinical condition and discuss possible timing of endoscopic evaluation. The patient is in agreement with this plan at this point. Please obtain outside imaging study (bleeding scan) and prior colonoscopy reports. Thank you very much for this consult. Please contact on-call GI provider with any acute change in clinical status. [id number]/[facility] #: [id number] LAZARA
[2018-09-27] MEDS: Pantoprazole TAB * 40 MG TAB PO SCH (21:59)
[2018-09-27 23:02] LABS: Hematocrit 22 % (33-41); Hemoglobin 7.6 g/dL (12.0-16.0)
[2018-09-27 23:29] LABS: Troponin I 0.06 ng/mL (<0.04)
[2018-09-27] MEDS: Melatonin 3 MG TAB PO SCH (23:55)
[2018-09-28 04:59] LABS: ABS Basophils 0 10^3/ul (0-0.2); ABS Eosinophils 0.1 10^3/ul (0-0.6); ABS Lymphocytes 1.1 10^3/ul (1.0-4.8); ABS Monocytes 0.1 10^3/ul (0-0.8); ABS Nucleated RBC 0 10^3/ul; Eosinophil % 3.1 %; Hematocrit 23 % (33-41); Hemoglobin 7.7 g/dL (12.0-16.0); Lymphocyte % 32.5 %; Mean Corpuscular HGB Conc 34 g/dL (31-36); Mean Corpuscular Hemoglobin 36 pg (27-31); Mean Corpuscular Volume 104 fL (80-97); Mean Platelet Volume 9.5 fL (7.4-10.4); Nucleated Red Blood Cells % 0.6; Platelet Count 55 10^3/uL (150-450); Red Blood Count 2.16 10^6 /uL (3.70-4.87); Red Cell Distribution Width 23 % (10.5-15); White Blood Count 3.4 10^3/uL (3.5-10.8)
[2018-09-28 05:05] LABS: INR 1.09 (0.77-1.02)
[2018-09-28 05:16] LABS: Anion Gap 12 mmol/L (2-11); BUN/Creatinine Ratio 27.4 (8-20); Blood Urea Nitrogen 20 mg/dL (6-24); CO2 Carbon Dioxide 31 mmol/L (22-32); Calcium 8.5 mg/dL (8.6-10.3); Chloride 99 mmol/L (101-111); EGFR African American 91.9 (>60); Glucose 118 mg/dL (70-100); Potassium 3.4 mmol/L (3.5-5.0); Sodium 142 mmol/L (135-145)
[2018-09-28 05:20] LABS: Troponin I 0.05 ng/mL (<0.04)
[2018-09-28] MEDS ORDERED: ELTROMBOPAG 50 MG PO SCH (09:00)
[2018-09-28] MEDS ORDERED: PTO: Tiotropium Brom/Olodaterol(NF) 4 GM 60 PUFF MDI INH SCH (09:00)
[2018-09-28] MEDS ORDERED: Potassium Chlor TAB* 10 MEQ TAB.ER PO SCH (09:00)
[2018-09-28] MEDS: Montelukast Sodium TAB* 10 MG PO SCH (09:52)
[2018-09-28] MEDS: Lisinopril TAB* 10 MG PO SCH (09:52)
[2018-09-28] MEDS: Furosemide IV* 10 MG/ML 2 ML VIAL (20 MG) IV SLOW PU SCH (09:52)
[2018-09-28] MEDS: Pantoprazole TAB * 40 MG TAB PO SCH ×2 (09:52→22:08)
[2018-09-28] MEDS: NFT: Mirabegron (NF) 50 MG TAB PO SCH (09:53)
[2018-09-28] MEDS ORDERED: Perflutren Lipid Microsphere* 3 ML VIAL ONE (11:09)
[2018-09-28] MEDS: DULoxetine DR CAP* 60 MG CAP.DR PO SCH (12:04)
--- NOTE | 2018-09-28 13:29 | ECHO ---
Patient: ALVARADO CHAVEZ [facility] Rec#: [id number] : 1935 Date: 09/28/2018 Age: 82y Height: 157 cm / 61.8 in Weight: 87 kg / 191.7 lbs Sex: F BSA: 1.87 Room#: [facility] Admit Date#: 09/27/2018 Type: Inpatient Referring: Garrison Finn NP Reading: Bakari Rios DO Heel Former: Renée San RDCS CC: Perla Samuels MD Transthoracic Echocardiogram Indication: Congestive heart failure BP: 149/36 HR: 71 Rhythm: Paced Findings History: Obesity, COPD, HLD, HTN. CHF, TIA, A-fib, Pacer, CABG, MV repair, PFO repair. Technical Comments: The study quality is fair. The study is technically limited due to poor apical windows. Completed at 1155. Left Ventricle: The left ventricular chamber size is normal. Mild concentric left ventricular hypertrophy is observed. There is normal left ventricular systolic function. The estimated ejection fraction is 60-65%. Ventricular septal wall motion has a post-operative appearance. There is abnormal ventricular septal wall motion consistent with right ventricular pacemaker. The assessment of diastolic function is non-diagnostic. Left Atrium: The left atrium is moderately dilated. Right Ventricle: The right ventricle is mildly dilated. The right ventricular global systolic function is normal. A pacemaker wire is visualized in the right ventricle. Right Atrium: The right atrium is moderately dilated. A pacemaker wire is visualized in the right atrium. Aortic Valve: The aortic valve is trileaflet. The aortic valve leaflets are mildly thickened. There is trace to mild aortic regurgitation. There is no evidence of aortic stenosis. Mitral Valve: The mitral valve leaflets are mildly thickened. There is mild mitral regurgitation. There is borderline mitral stenosis. The mean gradient across the mitral valve is 5 mmHg. Mitral valve repair functioning abnormally. Tricuspid Valve: The tricuspid valve leaflets are normal. There is mild tricuspid regurgitation. The right ventricular systolic pressure is estimated at 44 mmHg. There is evidence of mild pulmonary hypertension. There is no tricuspid stenosis. Pulmonic Valve: The pulmonic valve appears normal. There is a trace pulmonic regurgitation. There is no pulmonic stenosis. Pericardium: There is no significant pericardial effusion. Aorta: There is no dilatation of the ascending aorta. There is no dilatation of the aortic arch. The aortic root is normal in size. Pulmonary Artery: The main pulmonary artery is not well visualized. Venous: The inferior vena cava appears normal in size. There is a greater than 50% respiratory change in the inferior vena cava dimension. Contrast: Definity was used to optimize study. 4 mL of diluted Definity were utilized. Intravenous contrast was used to enhance endocardial border definition. Conclusions The left ventricular chamber size is normal. Mild concentric left ventricular hypertrophy is observed. There is normal left ventricular systolic function. The estimated ejection fraction is 60-65%. The left atrium is moderately dilated. The right ventricle is mildly dilated. The right ventricular global systolic function is normal. A pacemaker wire is visualized in the right ventricle. No history provided, appears to be a normal functioning mitral valve repair with mild intravalvular regurgitation and borderline stenosis. There is mild tricuspid regurgitation. There is evidence of mild pulmonary hypertension. Definity was used to optimize study. Patient is in an atrial arrhythmia at time of study None prior for comparison at time of interpretation Measurements Name Value Normal Range RVIDd (AP) 2D 2.8 cm (0.9 - 2.6) RVDdMajor (2D) 4.5 cm (2.2 - 4.4) RAd ISD 4CH 5.7 cm (3.4 - 4.9) RA (A4C)W 4.5 cm (2.9 - 4.6) IVSd (2D) 1.1 cm (0.6 - 1) LVPWd (2D) 1.2 cm (0.6 - 1) LVIDd (2D) 4.5 cm (3.6 - 5.4) LVIDs (2D) 3.5 cm - LV FS (2D) 23 % (25 - 45) Aortic Annulus 1.7 cm (1.4 - 2.6) Ao root diameter (2D) 3.1 cm (2.1 - 3.5) Ascending Ao 2.9 cm (2.1 - 3.4) Aortic arch 2 cm (1.8 - 3.4) LA dimension (AP) 2D 3.9 cm (2.3 - 3.8) LAd ISD 4CH 6.1 cm (2.9 - 5.3) LA ISD 4CH W 4.6 cm (2.5 - 4.5) Name Value Normal Range LA ESV BP (A/L) index 41 ml/m2 - Name Value Normal Range MV E-wave Vmax 1.5 m/sec - MV deceleration time 254 msec - LV septal e' Vmax 0.06 m/sec - LV lateral e' Vmax 0.08 m/sec - LV E:e' septal ratio 25 ratio - LV E:e' lateral ratio 18.8 ratio - Name Value Normal Range AV Vmax 1.8 m/sec - AV VTI 34 cm - AV peak gradient 13 mmHg - AV mean gradient 6 mmHg - LVOT diameter 2 cm - LVOT Vmax 1.2 m/sec - LVOT VTI 21 cm - LVOT peak gradient 6 mmHg - LVOT mean gradient 3 mmHg - ELADIO Vmax 0.8 m/sec - Name Value Normal Range MV Vmax 1.9 m/sec - MV VTI 48 cm - MV peak gradient 14 mmHg - MV mean gradient 5 mmHg - MV PHT 175 msec - MVA (PHT) 1.3 cm2 - MVA (continuity VTI) 1.4 cm2 - Name Value Normal Range TR Vmax 3.2 m/sec - TR peak gradient 41 mmHg - RAP 3 mmHg - RVSP 44 mmHg - IVC diameter 2 cm - Name Value Normal Range PV Vmax 1.1 m/sec - PV peak gradient 5 mmHg - AL end-diastolic Vmax 1.1 m/sec - PA end-diastolic pressur5 mmHg -
[2018-09-28] MEDS: ELTROMBOPAG 50 MG PO SCH (14:31)
[2018-09-28] MEDS: PTO: Tiotropium Brom/Olodaterol(NF) 4 GM 60 PUFF MDI INH SCH (14:33)
[2018-09-28] MEDS ORDERED: PEG 3000 GI LAVAGE* 1 GALLON PO ONE ×2 (14:37→18:00)
[2018-09-28] MEDS ORDERED: Potassium Chlor TAB* 20 MEQ TAB.ER PO ONE (17:40)
--- NOTE | 2018-09-28 17:43 | PN ---
Subjective Date of Service: 09/28/18 Interval History: At baseline resp status. Uses O2 2L/min at home. Quit smoking in her 40's. No new c/o. Objective Active Medications: Acetaminophen (Tylenol Tab*) 650 mg PO Q4H PRN PRN Reason: FEVER/PAIN Albuterol (Ventolin 2.5 Mg/3 Ml Neb.Berta*) 2.5 mg INH Q2H PRN PRN Reason: SOB/WHEEZING Atorvastatin Calcium (Lipitor*) 20 mg PO QPM [facility] Last Admin: 09/27/18 18:14 Dose: 20 mg Duloxetine HCl (Cymbalta Cap*) 60 mg PO DAILY [facility] Last Admin: 09/28/18 12:04 Dose: 60 mg Eltrombopag (Promacta (Nf)) 50 mg PO DAILY@0730 [facility] Last Admin: 09/28/18 14:31 Dose: 50 mg Furosemide (Lasix Iv*) 20 mg IV SLOW PU DAILY [facility] Last Admin: 09/28/18 09:52 Dose: 20 mg Lisinopril (Prinivil Tab*) 40 mg PO DAILY [facility] Last Admin: 09/28/18 09:52 Dose: 40 mg Melatonin (Melatonin) 3 mg PO BEDTIME [facility] Last Admin: 09/27/18 23:55 Dose: Not Given Mirabegron (Myrbetriq (Nf)) 50 mg PO DAILY [facility] Last Admin: 09/28/18 09:53 Dose: Not Given Montelukast Sodium (Singulair Tab*) 10 mg PO DAILY [facility] Last Admin: 09/28/18 09:52 Dose: 10 mg Pantoprazole Sodium (Protonix Tab*) 40 mg PO BID [facility] Last Admin: 09/28/18 09:52 Dose: 40 mg Polyethylene Glycol/Electrolytes (Golytely*) 4,000 ml PO 1800 ONE Stop: 09/28/18 18:01 Potassium Chloride (Klor Con Er Tab*) 10 meq PO DAILY [facility] Last Admin: 09/28/18 09:52 Dose: 10 meq Tiotropium [place]/Olodaterol (Stiolto Respimat Inh [place] (60 Puff)(Nf)) 2 puff INH DAILY@0900 [facility] Last Admin: 09/28/18 14:33 Dose: 2 puff Vital Signs - 8 hr 09/28/18 14:31 Temperature 97.3 F Pulse Rate 72 Respiratory 22 Rate Blood Pressure 146/48 (mmHg) O2 Sat by Pulse 98 Oximetry Oxygen Devices in Use Now: Nasal Cannula Appearance: Alert, partly up in bed. In good spirits. Looks comfortable. Eyes: No Scleral Icterus Neck: NL Appearance and Movements; NL JVP, No Thyroid Enlargement, Masses Respiratory: Symmetrical Chest Expansion and Respiratory Effort, Clear to Auscultation, Clear to Percussion Cardiovascular: NL Sounds; No Murmurs; No JVD, RRR, No Edema, - Extremities: No Edema, No Clubbing, Cyanosis Skin: No Rash or Ulcers, No Nodules or Sclerosis, - Neurological: Alert and Oriented x 3, NL Sensation Result Diagrams: 09/28/18 04:44 09/28/18 04:44 Microbiology and Other Data: Microbiology 09/27/18 19:40 Nasal Screen MRSA (PCR) - Final Nasal Mrsa Not Detected 09/27/18 11:36 Influenza Types A,B Antigen - Final Nasal Specimen received for Influenza A/B Molecular testing Assess/Plan/Problems-Billing Assessment: - Patient Problems (1) Anemia Current Visit: Yes Status: Acute Code(s): D64.9 - ANEMIA, UNSPECIFIED SNOMED Code(s): 475593283 Comment: Treated for hypoproliferative anemia by Dr. Chase with eltromopag. ? contibution of bleeding to anemia. Clinically bleeding may have stopped. Note high ferritin and iron levels. (2) Lower GI bleed Current Visit: Yes Status: Acute Code(s): K92.2 - GASTROINTESTINAL HEMORRHAGE, UNSPECIFIED SNOMED Code(s): 98013546 Comment: Colonoscopy 09/29. Discussed with Dr. Carrasco. (3) CHF (congestive heart failure) Current Visit: Yes Status: Acute Code(s): I50.9 - HEART FAILURE, UNSPECIFIED SNOMED Code(s): 55941747 Comment: ? diastolic chf. Pt reports increases SOB after transfusion. Continue IV furosemide, consider changing to oral torsemide later. (4) COPD (chronic obstructive pulmonary disease) Current Visit: Yes Status: Acute Code(s): J44.9 - CHRONIC OBSTRUCTIVE PULMONARY DISEASE, UNSPECIFIED SNOMED Code(s): 48997543 Comment: Continue montelukast, tiotropium. Also DANILO, not on CPAP. (5) HTN (hypertension) Current Visit: Yes Status: Acute Code(s): I10 - ESSENTIAL (PRIMARY) HYPERTENSION SNOMED Code(s): 26645316 Comment: Continue lisinopril home dose. (6) CAD (coronary artery disease) Current Visit: Yes Status: Acute Code(s): I25.10 - ATHSCL HEART DISEASE OF [place] CORONARY ARTERY W/O ANG PCTRS SNOMED Code(s): 72304293 Comment: S/P CABG with mirtal valve and PFO repair. Continue statin. No ASA due to bleeding and thrombocytopenia.
[2018-09-28] MEDS: Atorvastatin* 20 MG TAB PO SCH (18:01)
[2018-09-28] MEDS: Melatonin 3 MG TAB PO SCH (22:08)
[2018-09-28] MEDS: Potassium Chlor TAB* 10 MEQ TAB.ER PO SCH (22:08)
[2018-09-29] MEDS ORDERED: PROCHLORPERAZINE INJ 5 MG/ML 2 ML VIAL IV PRN (00:29)
[2018-09-29 07:46] VITALS: BP 149/41
[2018-09-29] MEDS: ELTROMBOPAG 50 MG PO SCH (08:07)
[2018-09-29] MEDS: PTO: Tiotropium Brom/Olodaterol(NF) 4 GM 60 PUFF MDI INH SCH (08:07)
[2018-09-29] MEDS: Pantoprazole TAB * 40 MG TAB PO SCH (08:08)
[2018-09-29] MEDS: Potassium Chlor TAB* 10 MEQ TAB.ER PO SCH (08:08)
[2018-09-29] MEDS: Lisinopril TAB* 10 MG PO SCH (08:08)
[2018-09-29] MEDS: Montelukast Sodium TAB* 10 MG PO SCH (08:08)
[2018-09-29] MEDS: Furosemide IV* 10 MG/ML 2 ML VIAL (20 MG) IV SLOW PU SCH ×2 (08:08→08:13)
[2018-09-29] MEDS: DULoxetine DR CAP* 60 MG CAP.DR PO SCH (08:08)
[2018-09-29] MEDS: NFT: Mirabegron (NF) 50 MG TAB PO SCH (08:09)
[2018-09-29] MEDS ORDERED: Torsemide TAB* 20 MG PO SCH (09:00)
[2018-09-29] MEDS ORDERED: Potassium Chlor TAB* 20 MEQ TAB.ER PO SCH (09:00)
[2018-09-29 09:51] LABS: Hematocrit 23 % (33-41); Hemoglobin 7.8 g/dL (12.0-16.0); Mean Corpuscular HGB Conc 34 g/dL (31-36); Mean Corpuscular Hemoglobin 36 pg (27-31); Mean Corpuscular Volume 105 fL (80-97); Red Blood Count 2.18 10^6 /uL (3.70-4.87); Red Cell Distribution Width 24 % (10.5-15); White Blood Count 3.3 10^3/uL (3.5-10.8)
[2018-09-29 10:01] LABS: Calcium 8.9 mg/dL (8.6-10.3); EGFR African American 91.9 (>60); Potassium 3.9 mmol/L (3.5-5.0)
[2018-09-29 10:29] LABS: ABS Basophils 0 10^3/ul (0-0.2); ABS Eosinophils 0.1 10^3/ul (0-0.6); ABS Lymphocytes 0.7 10^3/ul (1.0-4.8); ABS Monocytes 0.1 10^3/ul (0-0.8); ABS Neutrophils 2.3 10^3/ul (1.5-7.7); ABS Nucleated RBC 0 10^3/ul; Eosinophil % 3.4 %; Mean Platelet Volume 9.5 fL (7.4-10.4); Nucleated Red Blood Cells % 0.5; Platelet Count 60 10^3/uL (150-450)
--- NOTE | 2018-09-29 10:51 | PN ---
Progress Note - Progress Note Date of Service: 09/29/18 Note: Time spent on discharge including exam of patient, discussion with patient, daughter, CM, nurse, Dr. Healy, review of EMR and preparation of discharge documents is 45 minutes.
--- NOTE | 2018-09-29 11:40 | DS ---
CC: Dr. Harper; Dr. Samuels; Dr. Chase* DISCHARGE SUMMARY: DATE OF ADMISSION: 09/27/18 DATE OF DISCHARGE: 09/29/18 HISTORY OF PRESENT ILLNESS: This 82-year-old woman presented with shortness of breath and lower leg swelling. She was thought to have a possible CHF exacerbation in the hospital. She also complained of occasional blood in her stool. She has been admitted to [place] and diagnosis of lower GI bleed, possibly related to diverticulosis. She was supposed to have a followup with colonoscopy. I think, she refused the prep. She certainly did not have colonoscopy. She has refused colonoscopy in the past, and now she is also followed by Dr. Chase for hypoproliferative anemia and thrombocytopenia. She is followed by Dr. Chase for this and he has prescribed eltrombopag oral therapy for this. She was given this throughout her hospital stay. She was seen in consultation by Dr. Harper who has recommended she have colonoscopy. She had part of the prep but only a small part of it and refused to have it any more. She did not require any transfusions during this hospital stay. I believe her stool were not bloody. Hemoglobin was 8.1 on admission that fluctuated some. The lowest was 7.6, on the day of discharge it was 7.8. Platelet count also fluctuated a little bit. It was 60,000 on the day of discharge, about the same as before. White count is 3.3. The patient will make an appointment to see Dr. Harper in the office at a later date to discuss possible alternate preparations for colonoscopy. She received intravenous furosemide here. I am going to switch off her oral furosemide to oral torsemide at same milligram dosage. She will have a CBC and basic metabolic profile on 10/02/18. DISCHARGE DIAGNOSES: 1. Anemia. 2. Lower GI bleed. 3. Congestive heart failure. 4. Chronic obstructive pulmonary disease. 5. Hypertension. 6. Coronary artery disease. DISCHARGE MEDICATIONS: 1. Torsemide 20 mg daily. 2. Multivitamin with minerals 1 daily. 3. Montelukast 10 mg daily. 4. Simvastatin 40 mg h.s. 5. Duloxetine 60 mg daily. 6. Mirabegron 50 mg daily. 7. Tiotropium/olodaterol inhaler 2 sprays daily. 8. Potassium chloride 10 mEq daily. 9. Lisinopril 40 mg daily. 10. Omeprazole 20 mg b.i.d. 11. Levocetirizine 5 mg daily. 12. Eltrombopag 50 mg daily. 13. Calcium with vitamin D3 two tablets twice daily. 14. Biotin 10,000 mcg daily. CONDITION ON DISCHARGE: Improved. DISPOSITION ON DISCHARGE: Discharged home. [id number]/[facility] #: [id number] MTDD
== END 2018-09-29 12:10 | disposition home or self-care (01) | DRG 292 ==
LOC: ED 10:38 → MEDTELE 14:36
PROVIDERS: ADMIT Student in an Organized Health Care Education/Training Program; ATTEND Internal Medicine
DX: I11.0 Hypertensive heart disease with heart failure (principal); D61.9 Aplastic anemia, unspecified; M87.9 Osteonecrosis, unspecified; D69.3 Immune thrombocytopenic purpura; D62 Acute posthemorrhagic anemia; I48.91 Unspecified atrial fibrillation; J44.9 Chronic obstructive pulmonary disease, unspecified; Z96.643 Presence of artificial hip joint, bilateral; Z96.652 Presence of left artificial knee joint; Z96.612 Presence of left artificial shoulder joint; R91.1 Solitary pulmonary nodule; Z96.611 Presence of right artificial shoulder joint; G47.33 Obstructive sleep apnea (adult) (pediatric); E78.5 Hyperlipidemia, unspecified; K21.9 Gastro-esophageal reflux disease without esophagitis; I25.10 Atherosclerotic heart disease of native coronary artery without angina pectoris; K22.4 Dyskinesia of esophagus; I83.90 Asymptomatic varicose veins of unspecified lower extremity; M81.0 Age-related osteoporosis without current pathological fracture; M19.90 Unspecified osteoarthritis, unspecified site; M48.00 Spinal stenosis, site unspecified; F32.9 Major depressive disorder, single episode, unspecified; F41.9 Anxiety disorder, unspecified; Z95.0 Presence of cardiac pacemaker; Z82.49 Family history of ischemic heart disease and other diseases of the circulatory system; Z86.14 Personal history of Methicillin resistant Staphylococcus aureus infection; Z88.1 Allergy status to other antibiotic agents; Z88.8 Allergy status to other drugs, medicaments and biological substances; Z88.2 Allergy status to sulfonamides; Z95.1 Presence of aortocoronary bypass graft; Z87.891 Personal history of nicotine dependence; Z87.440 Personal history of urinary (tract) infections; Z98.42 Cataract extraction status, left eye; Z98.41 Cataract extraction status, right eye; Z86.73 Personal history of transient ischemic attack (TIA), and cerebral infarction without residual deficits
CPT/HCPCS: 36415; 71045; 80048; 80053; 81003; 81015; 83605; 83880; 84484; 85014; 85018; 85025; 85060; 85610; 85730; 86850; 86900; 86901; 87077; 87086; 87186; 87641; 93005; 93306; 99284; A9270-GY; C8929; J0780; J1940

== ENCOUNTER 2018-11-14 12:18 | Inpatient (IN) | payer MEDICARE ==
--- NOTE | 2018-11-14 12:47 | ED ---
GI/ HPI - HPI Summary HPI Summary: Patient is a 82 y/o F presenting to ED via EMS with complaints of diarrhea and weakness for the past three days. Patient had been seen at [facility] for bloody stool, patient was admitted, had a colonoscopy around a week ago. Patient had been discharged from [facility] three days ago and is currently on Cipro and Flagyl for diverticulitis. She reports that she has been having increased episodes of diarrhea since being discharge from the hospital but denies the presence of any blood in her stool. She additionally notes increasing fatigue, stating that she has been having difficulty getting into bed and claims that she could not sit up this morning. Patient is followed by Dr. Chase, who saw the patient yesterday. Bloodwork was done and the patient was noted to have platelet level of 10. Patient reports that she had called Dr. Chase 's office this morning concerned about her continued fatigue and diarrhea, patient claims she was advised to come to the ED for platelet transfusion and CT ABD/PEL. Patient denies DELGADO and chest pain. She reports chronic SOB and some abdominal pain. PMHx of blood transfusion, anemia, angioplasty, HTN, asthma, COPD, GI bleed, arthritis, TIA, depression. PSHx of bilateral shoulder replacement, cardiac bypass, pacemaker, AV node ablation. FMHx of cardiac disease, HTN. Patient is a former smoker, reports rare alcohol usage, no substance usage is reported. On triage, nothing is noted to aggravate/alleviate Sx. Home medications and allergies are reviewed. - History of Current Complaint Chief Complaint: EDWeakness Time Seen by Provider: 11/14/18 12:23 Stated Complaint: DIARRHEA/WEAKNESS PER EMS Hx Obtained From: Patient Hx Last Menstrual Period: n/a Onset/Duration: Started Days Ago - three days, Still Present, Worse Since Timing: Constant, Lasting Days - three days Severity: Mild Current Severity: Mild Pain Intensity: 0 Associated Signs and Symptoms: Positive: Diarrhea, Abdominal Pain, Other: - POSITIVE - FATIGUE, CHRONIC SOB; NEGATIVE - DELGADO. Negative: Chest Pain Aggravating Factor(s): Nothing Alleviating Factor(s): Nothing - Additional Pertinent History Primary Care Physician: [id number] - Allergy/Home Medications Allergies/Adverse Reactions: Allergies Allergy/AdvReac Type Severity Reaction Status Date / Time amiodarone Allergy Palpitation Verified 11/14/18 12:28 s cefdinir Allergy Rash Verified 11/14/18 12:28 nitrofurantoin Allergy Difficulty Verified 11/14/18 12:28 Breathing piperacillin [From Zosyn] Allergy Flushing Verified 11/14/18 12:28 sulfamethoxazole Allergy Rash Verified 11/14/18 12:28 [From Bactrim] tazobactam [From Zosyn] Allergy Flushing Verified 11/14/18 12:28 tiotropium Allergy See Comment Verified 11/14/18 12:28 [From Spiriva with HandiHaler] trimethoprim [From Bactrim] Allergy Rash Verified 11/14/18 12:28 Home Medications: Home Medications Biotin 10,000 mcg PO QAM 11/14/18 [History Confirmed 11/14/18] Ciprofloxacin TAB* [Cipro 250 MG Tab*] 250 mg PO TID 11/14/18 [History Confirmed 11/14/18] Famotidine TAB* [Pepcid 20 MG TAB*] 20 mg PO DAILY PRN 11/14/18 [History Confirmed 11/14/18] Loperamide CAP* [Imodium CAP*] 2 - 4 mg PO DAILY PRN 11/14/18 [History Confirmed 11/14/18] Multivitamin/Iron/Folic Acid [Centrum Adults Tablet] 1 tab PO QAM 11/14/18 [ History Confirmed 11/14/18] Ondansetron TAB* [Zofran 4 MG Tab*] 4 mg PO Q6H PRN 11/14/18 [History Confirmed 11/14/18] Torsemide TAB* [Demadex 20 MG*] 20 mg PO DAILY PRN 11/14/18 [History Confirmed 11/14/18] azaCITIDine* IV USE [Vidaza* IV USE] 100 mg .SEE ORDER Q28D 11/14/18 [History Confirmed 11/14/18] clonazePAM TAB(*) [KlonoPIN TAB(*)] 0.5 mg PO DAILY PRN 11/14/18 [History Confirmed 11/14/18] metroNIDAZOLE [Flagyl 500 MG TAB] 500 mg PO BID 11/14/18 [History Confirmed ] predniSONE TAB* [Deltasone 10 MG TAB*] 20 mg PO DAILY 11/14/18 [History Confirmed 11/14/18] PMH/Surg Hx/FS Hx/Imm Hx Endocrine/Hematology History: Reports: Hx Blood Transfusions, Hx Anemia Denies: Hx Diabetes, Hx Systemic Lupus Erythematosus, Hx Thyroid Disease Cardiovascular History: Reports: Hx Angioplasty, Hx Hypertension Denies: Hx Congestive Heart Failure Respiratory History: Reports: Hx Asthma, Hx Chronic Obstructive Pulmonary Disease (COPD) - "SOB" GI History: Reports: Hx Gastrointestinal Bleed Denies: Hx Ulcer History: Denies: Hx Dialysis, Hx Renal Disease Musculoskeletal History: Reports: Hx Arthritis, Other Musculoskeletal History - Bilat hip replacements, knee replacement, bilat shoulder surgery Sensory History: Reports: Hx Contacts or Glasses Denies: Hx Hearing Aid Opthamlomology History: Reports: Hx Contacts or Glasses Neurological History: Reports: Hx Transient Ischemic Attacks (TIA) Psychiatric History: Reports: Hx Depression - Cancer History Hx Chemotherapy: No - Surgical History Surgery Procedure, Year, and Place: 2007 BILATERAL shoulder replacement BILATERAL TOTAL HIPS AND LEFT KNEE REPLACEMENT. CARDIAC BYPASS . PACEMAKER OCTOBER2016. AV node ablation 2015 Infectious Disease History: No Infectious Disease History: Reports: Hx of Known/Suspected MRSA Denies: Hx Clostridium Difficile, Hx Hepatitis, Hx Human Immunodeficiency Virus (HIV), Hx Shingles, Hx Tuberculosis, Hx Known/Suspected VRE, Hx Known/ Suspected VRSA, History Other Infectious Disease, Traveled Outside the [place] in Last 30 Days - Family History Known Family History: Positive: Cardiac Disease, Hypertension Negative: Diabetes - Social History Alcohol Use: Rare Alcohol Amount: 3 drinks a month Substance Use Type: Reports: None Smoking Status (MU): Former Smoker Type: Cigarettes Have You Smoked in the Last Year: No Review of Systems Positive: Fatigue Negative: Chest Pain Positive: Shortness Of Breath - CHRONIC Positive: Abdominal Pain, Diarrhea Negative: Headache All Other Systems Reviewed And Are Negative: Yes Physical Exam - Summary Physical Exam Summary: Appearance: Chronically Ill-appearing, Well-nourished, lying in bed comfortably Skin: Warm, dry, no obvious rash; ecchymotic areas of varying ages at both arms Eyes: sclera anicteric, no conjunctival pallor ENT: mucous membranes moist, pharynx appears normal Neck: Supple, nontender Respiratory: Clear to auscultation, no signs of respiratory distress Cardiovascular: Normal S1, S2. No murmurs. Normal distal pulses in tibial and radial bilaterally. Abdomen: Soft, nontender, normal active bowel sounds present Musculoskeletal: Normal, Strength/ROM Intact Neurological: A&Ox3, awake and alert, mentation is normal, speech is fluent and appropriate Psychiatric: affect is normal, does not appear anxious or depressed Triage Information Reviewed: Yes Vital Signs On Initial Exam: Initial Vitals Temp Pulse Resp BP Pulse Ox 98.0 F 71 19 105/38 98 11/14/18 12:23 11/14/18 12:23 11/14/18 12:23 11/14/18 12:23 11/14/18 12:23 Vital Signs Reviewed: Yes Diagnostics - Vital Signs Vital Signs Temp Pulse Resp BP Pulse Ox 11/14/18 12:23 98.0 F 71 19 105/38 98 - Laboratory Result Diagrams: 11/14/18 13:46 11/14/18 13:46 Lab Statement: Any lab studies that have been ordered have been reviewed, and results considered in the medical decision making process. - CT ABD/PEL CT CT Interpretation Completed By: Radiologist Summary of CT Findings: IMPRESSION: 1. FINDINGS MOST CONSISTENT WITH SIGMOID DIVERTICULITIS WITH WITH A PERIDIVERTICULAR. ABSCESS. 2. NO CONTRAST IS SEEN WITHIN THE KIDNEY COLLECTING SYSTEMS ON THE DELAYED IMAGES. CONSISTENT WITH RENAL FAILURE. RECOMMEND HYDRATION AND FOLLOW-UP. 3. HEPATIC STEATOSIS. THIS REPORT WAS REVIEWED BY DR. JONES Re-Evaluation - Re-Evaluation First Eval Re-Evaluation Time: 14:21 Comment: Notified of platelet count of 7, absolute neutrophils of 0.9. GIGU Course/Dx - Course Course Of Treatment: Patient is a 82 y/o F presenting to ED via EMS with complaints of diarrhea and weakness for the past three days. Patient had been seen at [facility] for bloody stool, patient was admitted, had a colonoscopy around a week ago. Patient had been discharged from [facility] three days ago and is currently on Cipro and Flagyl for diverticulitis. She reports that she has been having increased episodes of diarrhea since being discharge from the hospital but denies the presence of any blood in her stool. She additionally notes increasing fatigue. Patient is followed by Dr. Chase, who saw the patient yesterday. Bloodwork was done and the patient was noted to have platelet level of 10. Patient reports that she had called Dr. Chase's office this morning concerned about her continued fatigue and diarrhea, patient claims she was advised to come to the ED for platelet transfusion and CT ABD/PEL. Patient denies DELGADO and chest pain. She reports chronic SOB and some abdominal pain. On physical exam, patient is noted to be chronically ill appearing with ecchymotic areas of varying age at both arms. Labs showed WBC 2.2, RBC 2.8, Hgb 9.3, Hct 27, MCH 33, RDW 23, Plt count 7, absolute neuts 0.9, potassium 3.1 , chloride 97, anion gap 13, BUN 45, creatinine 1.45, BUN/creatinine ratio 31, glucose 102, total bilirubin 1.3, total protein 6. During ED course, patient received [address] ABD/PEL IMPRESSION: 1. FINDINGS MOST CONSISTENT WITH SIGMOID DIVERTICULITIS WITH WITH A PERIDIVERTICULAR. ABSCESS. 2. NO CONTRAST IS SEEN WITHIN THE KIDNEY COLLECTING SYSTEMS ON THE DELAYED IMAGES. CONSISTENT WITH RENAL FAILURE. RECOMMEND HYDRATION AND FOLLOW-UP. 3. HEPATIC STEATOSIS. Patient's case was discussed with Dr. Chase, he states that someone from his services will come to ED to see patient and that the patient will be admitted to his services. - Diagnoses Provider Diagnoses: Diverticulitis - Physician Notifications Discussed Care Of Patient With: Wilton Chase Time Discussed With Above Provider: 13:38 Instructed by Provider To: Other - Patient's case was discussed with Dr. Chase, he states that someone from his services will come to ED to see patient and that the patient will be admitted to his services. Discharge - Sign-Out/Discharge Documenting (check all that apply): Patient Departure - admit Patient Received Moderate/Deep Sedation with Procedure: No - Discharge Plan Condition: Stable Disposition: ADMITTED TO [facility] - Billing Disposition and Condition Condition: STABLE Disposition: Admitted to [facility] - Attestation Statements Document Initiated by Joey: Yes Documenting Scribe: JORDANA EASON Provider For Whom Joey is Documenting (Include Credential): LUIS E JONES MD Scribe Attestation: JORDANA Thomason, scribed for LUIS E JONES MD on 11/14/18 at 2054. Scribe Documentation Reviewed: Yes Provider Attestation: The documentation as recorded by the JORDANA shabazz accurately reflects the service I personally performed and the decisions made by me, LUIS E JONES MD Status of Scribe Document: Viewed
[2018-11-14 14:23] LABS: ABS Eosinophils 0.1 10^3/ul (0-0.6); ABS Monocytes 0.3 10^3/ul (0-0.8); Eosinophil % 3.7 %; Hematocrit 27 % (35-47); Hemoglobin 9.3 g/dL (12.0-16.0); Lymphocyte % 43.4 %; Mean Corpuscular HGB Conc 34 g/dL (31-36); Mean Corpuscular Hemoglobin 33 pg (27-31); Mean Corpuscular Volume 97 fL (80-97); Mean Platelet Volume 8.9 fL (7.4-10.4); Platelet Count 7 10^3/uL (150-450); Red Cell Distribution Width 23 % (10.5-15); White Blood Count 2.2 10^3/uL (3.5-10.8)
[2018-11-14 14:46] LABS: Albumin 3.3 g/dL (3.2-5.2); Albumin/Globulin Ratio 1.2 (1-3); Calcium 8.8 mg/dL (8.6-10.3); EGFR African American 41.6 (>60); EGFR Non-African American 34.4 (>60); Globulin 2.7 g/dL (2-4); Potassium 3.1 mmol/L (3.5-5.0); Total Bilirubin 1.3 mg/dL (0.2-1.0)
[2018-11-14] MEDS ORDERED: Iodixanol* (CONTRAST) 320 MG/ML 100 ML SDV IV ONE (15:21)
[2018-11-14] MEDS ORDERED: Magnesium Sulfate 2 GM IV* 2 GM/50 ML BAG IVPB ONE (15:31)
[2018-11-14] MEDS ORDERED: clonazePAM TAB(*) 0.5 MG PO PRN (15:32)
[2018-11-14 15:57] LABS: Magnesium 1.8 mg/dL (1.9-2.7)
[2018-11-14] MEDS ORDERED: Montelukast Sodium TAB* 10 MG PO SCH (18:00)
[2018-11-14] MEDS: NS 0.9% w/ 20 Meq KCL 1000 ML* 1,000 ML IV SCH (18:03)
[2018-11-14] MEDS: KCL 10 MEQ/50 ML IVPREMIX* 10 MEQ/50 ML BAG IV SCH ×3 (18:04→23:44)
[2018-11-14] MEDS ORDERED: metroNIDAZOLE IV 500 MG/100ML* 500 MG/100 ML BAG IVPB SCH (19:30)
[2018-11-14] MEDS: PTO: Mirabegron (NF) 50 MG TAB PO SCH (19:31)
[2018-11-14] MEDS ORDERED: Ciprofloxacin 400MG IVPREMIX(* 400 MG/200 ML BAG IVPB SCH (21:00)
[2018-11-14 22:22] LABS: ABS Neutrophils 0.9 10^3/ul (1.5-7.7)
[2018-11-14] MEDS: Montelukast Sodium TAB* 10 MG PO SCH (22:40)
[2018-11-15] MEDS ORDERED: Ciprofloxacin 400MG IVPREMIX(* 400 MG/200 ML BAG IVPB SCH (00:30)
[2018-11-15] MEDS: metroNIDAZOLE IV 500 MG/100ML* 500 MG/100 ML BAG IVPB SCH ×4 (01:49→17:26)
[2018-11-15] MEDS: MDI INH SCH (07:30)
[2018-11-15] MEDS: OLODATEROL INH SCH (07:30)
[2018-11-15] MEDS: TIOTROPIUM BROM INH SCH (07:30)
[2018-11-15 08:15] LABS: Hematocrit 23 % (35-47); Mean Corpuscular HGB Conc 35 g/dL (31-36); Mean Corpuscular Hemoglobin 34 pg (27-31); Mean Corpuscular Volume 98 fL (80-97); Mean Platelet Volume 9.6 fL (7.4-10.4); Platelet Count 7 10^3/uL (150-450); Red Blood Count 2.39 10^6 /uL (3.70-4.87); Red Cell Distribution Width 23 % (10.5-15)
[2018-11-15 08:22] LABS: Albumin 2.7 g/dL (3.2-5.2); Albumin/Globulin Ratio 1.1 (1-3); BUN/Creatinine Ratio 34.2 (8-20); Calcium 8.1 mg/dL (8.6-10.3); EGFR African American 56.7 (>60); EGFR Non-African American 46.8 (>60); Globulin 2.5 g/dL (2-4); Potassium 4.2 mmol/L (3.5-5.0); Total Bilirubin 1.2 mg/dL (0.2-1.0); Total Protein 5.2 g/dL (6.4-8.9)
[2018-11-15 08:40] LABS: ABS Eosinophils 0.1 10^3/ul (0-0.6); ABS Lymphocytes 0.6 10^3/ul (1.0-4.8); ABS Monocytes 0.1 10^3/ul (0-0.8); ABS Neutrophils 1.1 10^3/ul (1.5-7.7)
[2018-11-15 08:49] LABS: ABS Neutrophils 1.1 10^3/ul (1.5-7.7)
[2018-11-15] MEDS: Pantoprazole TAB * 40 MG TAB PO SCH (08:50)
[2018-11-15] MEDS: DULoxetine DR CAP* 60 MG CAP.DR PO SCH (08:50)
[2018-11-15] MEDS ORDERED: predniSONE TAB* 10 MG PO SCH (09:00)
[2018-11-15] MEDS ORDERED: Potassium Chlor TAB* 10 MEQ TAB.ER PO SCH (09:00)
[2018-11-15] MEDS: NS 0.9% w/ 20 Meq KCL 1000 ML* 1,000 ML IV SCH (10:41)
--- NOTE | 2018-11-15 11:09 | PN ---
Progress Note - Progress Note Date of Service: 11/15/18 SOAP: Subjective: lower abdominal pain improved but still there. frequent diarrhea, wanting immodium. Objective: Vital Signs Temp Pulse Resp BP Pulse Ox 97.9 F 70 18 132/44 100 11/15/18 08:12 11/15/18 08:12 11/15/18 09:15 11/15/18 08:48 11/15/18 08:12 lying flat in nad dry OP CTA bl s1 s2 II/ SHARON relatively soft, mild ttp over LLQ +bs trace LE edema A+O x 3, nonfocal neurological exam CT A/P personally reviewed and as per EMR (sigmoid diverticulitis and 3 cm pericolonic abscess) Laboratory Results - last 24 hr 11/14/18 11/14/18 11/15/18 13:46 13:46 07:42 WBC 2.2 L 2.0 L RBC 2.80 L 2.39 L Hgb 9.3 L 8.0 L Hct 27 L 23 L MCV 97 98 H MCH 33 H 34 H MCHC 34 35 RDW 23 H 23 H Plt Count 7 L* 7 L* MPV 8.9 9.6 Neut % (Auto) 39.6 Not Reportable Lymph % (Auto) 43.4 Not Reportable [place] % (Auto) 12.7 Not Reportable Eos % (Auto) 3.7 Not Reportable Baso % (Auto) 0.6 Not Reportable Absolute Neuts (auto) 0.9 L* 1.1 L Absolute Lymphs (auto) 1.0 0.6 L Absolute Monos (auto) 0.3 0.1 Absolute Eos (auto) 0.1 0.1 Absolute Basos (auto) 0.0 0.0 Absolute Nucleated RBC 0.0 Not Reportable Neutrophils % 53.0 Lymphocytes % 38.0 Reactive Lymphs % 3.0 Monocytes % 5.0 Eosinophils % 1.0 Basophils % 0.0 Nucleated RBC % 0.0 Not Reportable Abs Neuts (Manual) 1.1 L Abs Lymphs (Manual) 0.9 L Abs Monocytes (Manual) 0.1 Absolute Eos (Manual) 0.0 Abs Basophils (Manual) 0.0 Normal RBC Morphology Not Reportable Anisocytosis 1+ Sodium 141 Potassium 3.1 L Chloride 97 L Carbon Dioxide 31 Anion Gap 13 H BUN 45 H Creatinine 1.45 H Est GFR ( Amer) 41.6 Est GFR (Non-Af Amer) 34.4 BUN/Creatinine Ratio 31.0 H Glucose 102 H Calcium 8.8 Magnesium 1.8 L Total Bilirubin 1.30 H AST 15 ALT 18 Alkaline Phosphatase 63 Total Protein 6.0 L Albumin 3.3 Globulin 2.7 Albumin/Globulin Ratio 1.2 11/15/18 07:42 WBC RBC Hgb Hct MCV MCH MCHC RDW Plt Count MPV Neut % (Auto) Lymph % (Auto) [place] % (Auto) Eos % (Auto) Baso % (Auto) Absolute Neuts (auto) Absolute Lymphs (auto) Absolute Monos (auto) Absolute Eos (auto) Absolute Basos (auto) Absolute Nucleated RBC Neutrophils % Lymphocytes % Reactive Lymphs % Monocytes % Eosinophils % Basophils % Nucleated RBC % Abs Neuts (Manual) Abs Lymphs (Manual) Abs Monocytes (Manual) Absolute Eos (Manual) Abs Basophils (Manual) Normal RBC Morphology Anisocytosis Sodium 138 Potassium 4.2 Chloride 100 L Carbon Dioxide 33 H Anion Gap 5 BUN 38 H Creatinine 1.11 H Est GFR ( Amer) 56.7 Est GFR (Non-Af Amer) 46.8 BUN/Creatinine Ratio 34.2 H Glucose 91 Calcium 8.1 L Magnesium Total Bilirubin 1.20 H AST 14 ALT 14 Alkaline Phosphatase 60 Total Protein 5.2 L Albumin 2.7 L Globulin 2.5 Albumin/Globulin Ratio 1.1 Acetaminophen (Tylenol Tab*) 650 mg PO Q4H PRN PRN Reason: FEVER/PAIN Clonazepam (Klonopin Tab(*)) 0.5 mg PO DAILY PRN PRN Reason: ANXIETY Duloxetine HCl (Cymbalta Cap*) 60 mg PO QAM [facility] Last Admin: 11/15/18 08:50 Dose: 60 mg Potassium Chloride/Sodium Chloride (Ns 0.9% W/ 20 Meq Kcl 1000 Ml*) 1,000 mls @ 75 mls/hr IV PER RATE [facility] Last Admin: 11/15/18 10:41 Dose: 75 mls/hr Ciprofloxacin/Dextrose (Cipro 400 Mg Ivpremix(*)) 400 mg in 200 mls @ 200 mls/ hr IVPB 2200 ANA; Protocol Last Admin: 11/15/18 00:42 Dose: 200 mls/hr Metronidazole/Sodium Chloride (Flagyl 500 Mg Ivpb*) 500 mg in 100 mls @ 100 mls /hr IVPB 0130,0930,1730 [facility] Last Admin: 11/15/18 08:50 Dose: 100 mls/hr Mirabegron (Myrbetriq (Nf)) 50 mg PO QPM [facility] Last Admin: 11/14/18 19:31 Dose: Not Given Montelukast Sodium (Singulair Tab*) 10 mg PO BEDTIME [facility] Last Admin: 11/14/18 22:40 Dose: 10 mg Ondansetron HCl (Zofran Inj*) 4 mg IV Q4H PRN PRN Reason: NAUSEA/VOMITING Pantoprazole Sodium (Protonix Tab*) 40 mg PO DAILY [facility] Last Admin: 11/15/18 08:50 Dose: 40 mg Potassium Chloride (Klor Con Er Tab*) 10 meq PO DAILY [facility] Last Admin: 11/15/18 08:49 Dose: 10 meq Prednisone (Deltasone Tab*) 20 mg PO DAILY [facility] Last Admin: 11/15/18 08:50 Dose: 20 mg Tiotropium [place]/Olodaterol (Stiolto Respimat Inh [place] (60 Puff)(Nf)) 2 puff INH QAM [facility] Last Admin: 11/15/18 07:30 Dose: 2 puff Assessment: 82 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 Unfortunately with her platelets of 7k she is NOT a surgical candidate and would not be a candidate for percutaneous drainage either. I explained to her that we will need to pursue conservative management. 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 ITP). will try another course of IVIG and will not transfuse platelets unless bleeding. If no response may need to consider matched platelet transfusion -discussed risks and benefits of IVIG and she is willing to proceed -will dose over 5 days and watch fluid status full code
[2018-11-15] MEDS: Levofloxacin 500 MG IVPREMIX(* 500 MG/100 ML BAG IVPB SCH (12:56)
[2018-11-15] MEDS: IMMUNE GLOBULIN IV SCH ×4 (14:28)
[2018-11-15] MEDS: Vancomycin CAP* 125 MG CAP PO SCH ×3 (14:31→20:33)
[2018-11-15] MEDS ORDERED: ELTROMBOPAG 50 MG PO SCH (16:00)
[2018-11-15] MEDS: ELTROMBOPAG 50 MG PO SCH (16:48)
[2018-11-15] MEDS: PTO: Mirabegron (NF) 50 MG TAB PO SCH (17:19)
[2018-11-15] MEDS: Montelukast Sodium TAB* 10 MG PO SCH (20:33)
[2018-11-16] MEDS: metroNIDAZOLE IV 500 MG/100ML* 500 MG/100 ML BAG IVPB SCH ×3 (01:20→17:54)
[2018-11-16 07:57] LABS: ABS Lymphocytes 0.7 10^3/ul (1.0-4.8); ABS Monocytes 0.1 10^3/ul (0-0.8); ABS Neutrophils 0.7 10^3/ul (1.5-7.7); Eosinophil % 0.8 %; Hematocrit 21 % (35-47); Hemoglobin 7.2 g/dL (12.0-16.0); Lymphocyte % 44.5 %; Mean Corpuscular HGB Conc 35 g/dL (31-36); Mean Corpuscular Hemoglobin 34 pg (27-31); Mean Corpuscular Volume 97 fL (80-97); Mean Platelet Volume 9.9 fL (7.4-10.4); Nucleated Red Blood Cells % 0.2; Platelet Count 4 10^3/uL (150-450); Red Blood Count 2.11 10^6 /uL (3.70-4.87); Red Cell Distribution Width 23 % (10.5-15); White Blood Count 1.5 10^3/uL (3.5-10.8)
[2018-11-16 08:13] LABS: Albumin 2.6 g/dL (3.2-5.2); Albumin/Globulin Ratio 0.7 (1-3); BUN/Creatinine Ratio 34.8 (8-20); Calcium 8.2 mg/dL (8.6-10.3); EGFR African American 73.1 (>60); EGFR Non-African American 60.4 (>60); Globulin 3.8 g/dL (2-4); Potassium 4.5 mmol/L (3.5-5.0); Total Bilirubin 0.9 mg/dL (0.2-1.0); Total Protein 6.4 g/dL (6.4-8.9)
[2018-11-16] MEDS: TIOTROPIUM BROM INH SCH (08:13)
[2018-11-16] MEDS: MDI INH SCH (08:13)
[2018-11-16] MEDS: OLODATEROL INH SCH (08:13)
--- NOTE | 2018-11-16 09:13 | PN ---
Progress Note - Progress Note Date of Service: 11/16/18 SOAP: Subjective: NPO x 24 hours and on PO vanco and stools have decreased significantly. No BM today at all yet. minimal abdominal pain. IV keeps occluding. Objective: Vital Signs Temp Pulse Resp BP Pulse Ox 98.2 F 70 16 151/57 99 11/15/18 23:36 11/16/18 08:14 11/16/18 08:14 11/15/18 23:36 11/16/18 08:14 perr eomi op dry CTA bl s1 s2 n; obese nt +bs trace LE edema A+O x 3, grossly nonfocal scattered ecchymoses Laboratory Results - last 24 hr 11/16/18 11/16/18 11/16/18 07:38 07:44 07:44 WBC 1.5 L RBC 2.11 L Hgb 7.2 L Hct 21 L MCV 97 MCH 34 H MCHC 35 RDW 23 H Plt Count 4 L* MPV 9.9 Neut % (Auto) 47.6 Lymph % (Auto) 44.5 [place] % (Auto) 5.3 Eos % (Auto) 0.8 Baso % (Auto) 1.8 Absolute Neuts (auto) 0.7 L Absolute Lymphs (auto) 0.7 L Absolute Monos (auto) 0.1 Absolute Eos (auto) 0.0 Absolute Basos (auto) 0.0 Absolute Nucleated RBC 0.0 Nucleated RBC % 0.2 Sodium 137 Potassium 4.5 Chloride 103 Carbon Dioxide 28 Anion Gap 6 BUN 31 H Creatinine 0.89 Est GFR ( Amer) 73.1 Est GFR (Non-Af Amer) 60.4 BUN/Creatinine Ratio 34.8 H Glucose 119 H Calcium 8.2 L Total Bilirubin 0.90 AST 14 ALT 13 Alkaline Phosphatase 54 Total Protein 6.4 Albumin 2.6 L Globulin 3.8 Albumin/Globulin Ratio 0.7 L Blood Type A Positive Crossmatch See Detail Acetaminophen (Tylenol Tab*) 650 mg PO Q4H PRN PRN Reason: FEVER/PAIN Clonazepam (Klonopin Tab(*)) 0.5 mg PO DAILY PRN PRN Reason: ANXIETY Duloxetine HCl (Cymbalta Cap*) 60 mg PO QAM COUNT INCLUDES THE [facility] Last Admin: 11/15/18 08:50 Dose: 60 mg Eltrombopag (Promacta (Nf)) 50 mg PO DAILY@0800 COUNT INCLUDES THE [facility] Last Admin: 11/15/18 16:48 Dose: 50 mg Metronidazole/Sodium Chloride (Flagyl 500 Mg Ivpb*) 500 mg in 100 mls @ 100 mls /hr IVPB 0130,0930,1730 COUNT INCLUDES THE [facility] Last Admin: 11/16/18 01:20 Dose: 100 mls/hr Immune Globulin 5 gm/ Immune Globulin 10 gm/ Immune Globulin 20 gm/ IV Solution 350 mls @ 0 mls/hr IV Q24H ANA; Protocol Stop: 11/19/18 13:01 Last Admin: 11/15/18 14:28 Dose: 43 mls/hr Levofloxacin/Dextrose (Levaquin 500 Mg Ivpremix(*)) 500 mg in 100 mls @ 100 mls /hr IVPB Q24H COUNT INCLUDES THE [facility]; Protocol Last Admin: 11/15/18 12:56 Dose: 100 mls/hr Sodium Chloride (Ns 0.9% 1000 Ml) 1,000 mls @ 75 mls/hr IV PER RATE COUNT INCLUDES THE [facility] Mirabegron (Myrbetriq (Nf)) 50 mg PO QPM COUNT INCLUDES THE [facility] Last Admin: 11/15/18 17:19 Dose: Not Given Montelukast Sodium (Singulair Tab*) 10 mg PO BEDTIME COUNT INCLUDES THE [facility] Last Admin: 11/15/18 20:33 Dose: 10 mg Ondansetron HCl (Zofran Inj*) 4 mg IV Q4H PRN PRN Reason: NAUSEA/VOMITING Pantoprazole Sodium (Protonix Tab*) 40 mg PO DAILY COUNT INCLUDES THE [facility] Last Admin: 11/15/18 08:50 Dose: 40 mg Prednisone (Deltasone Tab*) 20 mg PO DAILY COUNT INCLUDES THE [facility] Tiotropium [place]/Olodaterol (Stiolto Respimat Inh [place] (60 Puff)(Nf)) 2 puff INH QAM COUNT INCLUDES THE [facility] Last Admin: 11/16/18 08:13 Dose: 2 puff Vancomycin HCl (Vancomycin Cap*) 125 mg PO QID COUNT INCLUDES THE [facility] Last Admin: 11/15/18 20:33 Dose: 125 mg Assessment: 82 yo F w MDS and 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 Unfortunately with her platelets she is NOT a surgical candidate and would not be a candidate for percutaneous drainage either. 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 ITP). will try another course of IVIG. Platelets <5 today so will give a unit of platelets and check 30 mins after infusion -IVIG over 5 dys -cont home promacta -tranfuse 1 U PRBC given Hb <7.5 verbally reconsented for blood transfusion full code
[2018-11-16] MEDS: Vancomycin CAP* 125 MG CAP PO SCH ×4 (09:16→21:36)
[2018-11-16] MEDS: DULoxetine DR CAP* 60 MG CAP.DR PO SCH (09:16)
[2018-11-16] MEDS: ELTROMBOPAG 50 MG PO SCH (09:16)
[2018-11-16] MEDS: predniSONE TAB* 20 MG PO SCH (09:17)
[2018-11-16] MEDS: Pantoprazole TAB * 40 MG TAB PO SCH (09:17)
[2018-11-16] MEDS: Acetaminophen TAB* 325 MG PO PRN (09:34)
--- NOTE | 2018-11-16 13:01 | CONS ---
CONSULTATION REPORT: DATE OF CONSULT: 11/16/18 REQUESTING PHYSICIAN: Dr. Franco.* CONSULTING SERVICE: Infectious Disease. REASON FOR CONSULT: C. difficile colitis, diverticular abscess. IMPRESSION: 1. Clostridium difficile colitis after recent hospitalization outside of the area, improving on oral vancomycin. 2. Recent diverticulitis and now diverticular abscess by CT scan, which according to Interventional Radiology was not accessible due to its location. It is about 3 cm in diameter per Radiology, so I think that would be curable with a longer course of antibiotics. 3. Myelodysplastic syndrome. Recently started azacitidine and now with pancytopenia. Absolute neutrophil count 700. 4. PENICILLIN and CEPHALOSPORIN allergy; she is not sure of the reaction. RECOMMENDATION: 1. As I discussed with Dr. Franco yesterday, we will plan on Levaquin 500 mg IV daily and Flagyl 500 mg 3 times a day for now. We will see how she does over the next few days to decide on whether she would have a longer course of antibiotics delivered IV versus p.o. 2. Vancomycin 125 mg 4 times a day for 10 days. HISTORY OF PRESENT ILLNESS: This is an 82-year-old woman with myelodysplastic syndrome, recently started chemotherapy for it and then developed severe left- sided abdominal pain with some bloody diarrhea. She was taken by ambulance to [facility], treated with IV antibiotics there. She had transfusions as well. When she was discharged home, she had the onset of severe horrible explosive diarrhea that was different from the original diarrhea she had. There was some blood and lot of mucus. She also had severe diffuse abdominal pain. She was seen by the oncology office and admitted to the hospital on 11/14. A C. difficile PCR came back positive. A CT scan was done with findings as noted above. She has had no fevers here. She has had improvement in her abdominal pain and today is down to a couple of small soft stools. She is not feeling hungry. She does not have fevers, chills, or sweats. PAST MEDICAL HISTORY: 1. Myelodysplastic syndrome, recently started azacitidine. She had been on chronic corticosteroids and IVIG treatment in the past. 2. History of urinary tract infection. 3. Atrial fibrillation. 4. COPD. 5. Sinusitis. 6. Congestive heart failure. 7. History of avascular necrosis. 8. Coronary artery disease, treated with coronary artery bypass. 9. Chronic kidney disease. 10. Depression. 11. Diverticulosis. 12. Hyperlipidemia. 13. Hypertension. 14. Mitral valve disease. 15. Osteoarthritis. 16. Osteoporosis. 17. Peripheral vascular disease. 18. Obstructive sleep apnea. 19. Spinal stenosis. 20. History of TIA in the . 21. Status post appendectomy. 22. Status post bilateral shoulder arthroplasty. 23. Status post bilateral hip arthroplasties. 24. Status post right knee arthroplasty. 25. Status post mitral valve replacement and closure of PFO and coronary artery bypass in 2014. 26. Status post pacemaker. ALLERGIES: AMIODARONE and BACTRIM caused rash; CEFDINIR and MACRODANTIN caused anaphylaxis; OMNICEF, STEROIDS - developed avascular necrosis; ZOSYN, had burning sensation. MEDICATIONS: 1. Tylenol. 2. Clonazepam as needed. 3. Duloxetine. 4. Promacta. 5. Levaquin 500 mg IV daily. 6. Flagyl 500 mg 3 times daily. 7. Myrbetriq. 8. Singulair. 9. Ondansetron. 10. Pantoprazole. 11. Prednisone 20 mg a day. 12. Spiriva. 13. Vancomycin 125 mg by mouth 4 times a day. SOCIAL HISTORY: She lives in [place], lives with her daughter. She is a past smoker. FAMILY HISTORY: Hyperlipidemia, coronary artery disease. REVIEW OF SYSTEMS: All negative to 14-point review except as noted above in the history of present illness. PHYSICAL EXAM: Vital Signs: Temperature 37, heart rate 70, respiratory rate 18 , blood pressure 151/57, oxygen 100% on 2 L by nasal cannula. In general, she is awake, not in distress. Neurologic: She is oriented x3. Follows all commands. HEENT: There is no conjunctival hemorrhage. Oropharynx without lesions. Neck is supple without mass. Heart has regular rate and rhythm without murmurs, rubs, or gallops. Lungs are clear to auscultation bilaterally. Abdomen: Soft, mildly distended, nontender. There are bowel sounds present. Skin: There is no rash or splinter hemorrhage. There are ecchymoses in both arms. Musculoskeletal: There is no spine tenderness to palpation. LAB DATA: White blood cell count 1.5, hemoglobin 7, platelets 4. Creatinine is 0.9. Please see impression and recommendations outlined above. Thank you for asking me to see Cobian in consultation. [id number]/[facility] #: [id number]
[2018-11-16] MEDS: PTO: Mirabegron (NF) 50 MG TAB PO SCH (17:29)
[2018-11-16] MEDS: Levofloxacin 500 MG IVPREMIX(* 500 MG/100 ML BAG IVPB SCH ×2 (18:17→20:37)
[2018-11-16 21:32] LABS: Mean Platelet Volume 7.1 fL (7.4-10.4); Platelet Count 23 10^3/uL (150-450)
[2018-11-16] MEDS: Montelukast Sodium TAB* 10 MG PO SCH (21:36)
[2018-11-16] MEDS: IMMUNE GLOBULIN IV SCH ×4 (21:41)
[2018-11-16] MEDS: NS 0.9% 1000 ML** 1,000 ML IV SCH (22:59)
[2018-11-17] MEDS: IMMUNE GLOBULIN IV SCH ×8 (00:26→22:54)
[2018-11-17] MEDS: metroNIDAZOLE IV 500 MG/100ML* 500 MG/100 ML BAG IVPB SCH ×3 (03:07→17:59)
[2018-11-17 05:16] LABS: ABS Lymphocytes 0.8 10^3/ul (1.0-4.8); ABS Neutrophils 0.5 10^3/ul (1.5-7.7); Eosinophil % 0.7 %; Hematocrit 23 % (35-47); Hemoglobin 7.6 g/dL (12.0-16.0); Lymphocyte % 59.3 %; Mean Corpuscular HGB Conc 34 g/dL (31-36); Mean Corpuscular Hemoglobin 31 pg (27-31); Mean Corpuscular Volume 93 fL (80-97); Mean Platelet Volume 7.7 fL (7.4-10.4); Nucleated Red Blood Cells % 0.2; Platelet Count 16 10^3/uL (150-450); Red Blood Count 2.42 10^6 /uL (3.70-4.87); Red Cell Distribution Width 27 % (10.5-15); White Blood Count 1.3 10^3/uL (3.5-10.8)
[2018-11-17 05:32] LABS: Albumin 2.6 g/dL (3.2-5.2); Albumin/Globulin Ratio 0.6 (1-3); Calcium 8.1 mg/dL (8.6-10.3); EGFR African American 80.4 (>60); EGFR Non-African American 66.4 (>60); Globulin 4.5 g/dL (2-4); Potassium 4.3 mmol/L (3.5-5.0); Total Bilirubin 1.4 mg/dL (0.2-1.0); Total Protein 7.1 g/dL (6.4-8.9)
[2018-11-17] MEDS: OLODATEROL INH SCH (08:11)
[2018-11-17] MEDS: MDI INH SCH (08:11)
[2018-11-17] MEDS: TIOTROPIUM BROM INH SCH (08:11)
[2018-11-17] MEDS: Acetaminophen TAB* 325 MG PO PRN ×2 (09:45→18:20)
[2018-11-17] MEDS: Vancomycin CAP* 125 MG CAP PO SCH ×4 (09:45→22:56)
[2018-11-17] MEDS: DULoxetine DR CAP* 60 MG CAP.DR PO SCH (09:47)
[2018-11-17] MEDS: ELTROMBOPAG 50 MG PO SCH (09:47)
[2018-11-17] MEDS: Pantoprazole TAB * 40 MG TAB PO SCH (09:47)
[2018-11-17] MEDS: predniSONE TAB* 20 MG PO SCH (09:47)
--- NOTE | 2018-11-17 10:33 | PN ---
Progress Note - Progress Note Date of Service: 11/17/18 SOAP: Subjective: CC: C-diff colitis and diverticular abscess HPI: Ms. Cobian is an 82 yo female with PMH significant for Myelodysplastic syndrome, A fib, COPD, CAD s/p CABG, CKD, depression, HLD, HTN, PVD, TIA, CHF, and diverticulitis. Who presented to the emergency room with complaints of diarrhea. Continues to have diarrhea, but reports this has decreased to about 2 loose stools daily. She reports that she has not eaten in 4 days, she is excited to be advanced to clear liquids. Continues to have lower abdominal discomfort. Denies fever, chills, shortness of breath, nausea, or vomiting. Denies urinary symptoms. Objective: Vital Signs - 8 hr 11/17/18 11/17/18 11/17/18 02:17 02:32 02:47 Temperature 97.1 F 97.1 F 96.8 F Pulse Rate 69 70 70 Respiratory 16 16 18 Rate Blood Pressure 150/64 152/62 149/60 (mmHg) O2 Sat by Pulse 100 100 100 Oximetry 11/17/18 11/17/18 11/17/18 03:02 03:16 08:12 Temperature 97.2 F 97.2 F Pulse Rate 70 70 70 Respiratory 16 18 16 Rate Blood Pressure 152/61 153/61 (mmHg) O2 Sat by Pulse 100 100 93 Oximetry Physical Exam: General: NAD, laying in bed Neurological: Alert and Oriented HEENT: No thrush, moist MM Cardiovascular: Heart rate regular Respiratory: Lungs clear bilateral Abdominal: Bowel sounds present; ABD soft, slightly tender in the lower quadrants. Skin: No rash Laboratory Results - last 24 hr 11/17/18 11/17/18 04:53 04:53 WBC 1.3 L RBC 2.42 L Hgb 7.6 L Hct 23 L MCV 93 MCH 31 MCHC 34 RDW 27 H Plt Count 16 L MPV 7.7 Neut % (Auto) 36.0 Lymph % (Auto) 59.3 [place] % (Auto) 2.6 Eos % (Auto) 0.7 Baso % (Auto) 1.4 Absolute Neuts (auto) 0.5 L Absolute Lymphs (auto) 0.8 L Absolute Monos (auto) 0.0 Absolute Eos (auto) 0.0 Absolute Basos (auto) 0.0 Absolute Nucleated RBC 0.0 Nucleated RBC % 0.2 Hem Pathologist Commnt Sodium 134 L Potassium 4.3 Chloride 101 Carbon Dioxide 28 Anion Gap 5 BUN 32 H Creatinine 0.82 Est GFR ( Amer) 80.4 Est GFR (Non-Af Amer) 66.4 BUN/Creatinine Ratio 39.0 H Glucose 101 H Calcium 8.1 L Total Bilirubin 1.40 H AST 16 ALT 13 Alkaline Phosphatase 49 Total Protein 7.1 Albumin 2.6 L Globulin 4.5 H Albumin/Globulin Ratio 0.6 L Assessment: 1. C-diff colitis. Symptoms continue to improve on vancomycin. 2 loose stools daily. 2. Recent diverticulitis, now with a diverticular abscess. Unable to be drained by Radiology, abscess measures about 3 cm. Continues to have lower ABD pain. Appetite is returning. 3. PCN and CEPHALOSPORIN allergy. Unsure of the reaction Plan: Continue Vancomycin 125 mg by mouth QID for 10 days for C-diff colitis. Continue Levaquin 500 mg IV daily and Flagyl 500 mg IV TID for diverticulitis and diverticular abscess.
--- NOTE | 2018-11-17 10:33 | PN ---
Progress Note - Progress Note Date of Service: 11/17/18 SOAP: Subjective: [Feeling ok this am. 2 loose stools this am, more formed and less watery. No blood. Some abd discomfort. She would like to start eating.] Objective: [ Acetaminophen (Tylenol Tab*) 650 mg PO Q4H PRN PRN Reason: FEVER/PAIN Last Admin: 11/17/18 09:45 Dose: 650 mg Clonazepam (Klonopin Tab(*)) 0.5 mg PO DAILY PRN PRN Reason: ANXIETY Duloxetine HCl (Cymbalta Cap*) 60 mg PO QAM [facility] Last Admin: 11/17/18 09:47 Dose: 60 mg Eltrombopag (Promacta (Nf)) 50 mg PO DAILY@0800 [facility] Last Admin: 11/17/18 09:47 Dose: 50 mg Heparin Sodium (Porcine) (Heparin Flush Picc/Ml/Cvc(*)) 1 - 3 ml FLUSH 0600, 1800 ANA; Protocol Last Admin: 11/17/18 04:46 Dose: 1 ml Metronidazole/Sodium Chloride (Flagyl 500 Mg Ivpb*) 500 mg in 100 mls @ 100 mls /hr IVPB 0130,0930,1730 [facility] Last Admin: 11/17/18 09:51 Dose: 100 mls/hr Sodium Chloride (Ns 0.9% 1000 Ml) 1,000 mls @ 75 mls/hr IV PER RATE [facility] Last Admin: 11/16/18 22:59 Dose: 75 mls/hr Levofloxacin/Dextrose (Levaquin 500 Mg Ivpremix(*)) 500 mg in 100 mls @ 100 mls /hr IVPB 1800 ANA; Protocol Last Admin: 11/16/18 20:37 Dose: 100 mls/hr Immune Globulin 5 gm/ Immune Globulin 10 gm/ Immune Globulin 20 gm/ IV Solution 350 mls @ 0 mls/hr IV Q24HR@2200 ANA; Protocol Stop: 11/19/18 22:01 Last Admin: 11/17/18 00:26 Dose: 43 mls/hr Mirabegron (Myrbetriq (Nf)) 50 mg PO QPM [facility] Last Admin: 11/16/18 17:29 Dose: Not Given Montelukast Sodium (Singulair Tab*) 10 mg PO BEDTIME [facility] Last Admin: 11/16/18 21:36 Dose: 10 mg Ondansetron HCl (Zofran Inj*) 4 mg IV Q4H PRN PRN Reason: NAUSEA/VOMITING Pantoprazole Sodium (Protonix Tab*) 40 mg PO DAILY [facility] Last Admin: 11/17/18 09:47 Dose: 40 mg Prednisone (Deltasone Tab*) 20 mg PO DAILY [facility] Last Admin: 11/17/18 09:47 Dose: 20 mg Tiotropium [place]/Olodaterol (Stiolto Respimat Inh [place] (60 Puff)(Nf)) 2 puff INH QAM [facility] Last Admin: 11/17/18 08:11 Dose: 2 puff Vancomycin HCl (Vancomycin Cap*) 125 mg PO QID [facility] Last Admin: 11/17/18 09:45 Dose: 125 mg Laboratory Results - last 24 hr 11/16/18 11/16/18 11/17/18 07:38 21:16 04:53 WBC 1.3 L RBC 2.42 L Hgb 7.6 L Hct 23 L MCV 93 MCH 31 MCHC 34 RDW 27 H Plt Count 23 L D 16 L MPV 7.1 L 7.7 Neut % (Auto) 36.0 Lymph % (Auto) 59.3 [place] % (Auto) 2.6 Eos % (Auto) 0.7 Baso % (Auto) 1.4 Absolute Neuts (auto) 0.5 L Absolute Lymphs (auto) 0.8 L Absolute Monos (auto) 0.0 Absolute Eos (auto) 0.0 Absolute Basos (auto) 0.0 Absolute Nucleated RBC 0.0 Nucleated RBC % 0.2 Sodium Potassium Chloride Carbon Dioxide Anion Gap BUN Creatinine Est GFR ( Amer) Est GFR (Non-Af Amer) BUN/Creatinine Ratio Glucose Calcium Total Bilirubin AST ALT Alkaline Phosphatase Total Protein Albumin Globulin Albumin/Globulin Ratio Blood Type A Positive Antibody Screen Negative Crossmatch See Detail 11/17/18 04:53 WBC RBC Hgb Hct MCV MCH MCHC RDW Plt Count MPV Neut % (Auto) Lymph % (Auto) [place] % (Auto) Eos % (Auto) Baso % (Auto) Absolute Neuts (auto) Absolute Lymphs (auto) Absolute Monos (auto) Absolute Eos (auto) Absolute Basos (auto) Absolute Nucleated RBC Nucleated RBC % Sodium 134 L Potassium 4.3 Chloride 101 Carbon Dioxide 28 Anion Gap 5 BUN 32 H Creatinine 0.82 Est GFR ( Amer) 80.4 Est GFR (Non-Af Amer) 66.4 BUN/Creatinine Ratio 39.0 H Glucose 101 H Calcium 8.1 L Total Bilirubin 1.40 H AST 16 ALT 13 Alkaline Phosphatase 49 Total Protein 7.1 Albumin 2.6 L Globulin 4.5 H Albumin/Globulin Ratio 0.6 L Blood Type Antibody Screen Crossmatch Vital Signs: Temp Pulse Resp BP Pulse Ox 97.2 F 70 16 153/61 93 11/17/18 03:16 11/17/18 08:12 11/17/18 08:12 11/17/18 03:16 11/17/18 08:12 Exam: Gen: 82 yo female who appears chronically ill but in NAD HEENT: MMM CV: RRR, no m/r/g Resp: CTA, no w/c/r Abd: soft, TTP in the RUQ and RLQ, active bowel sounds Ext: 1+ RLE, no LLE edema Skin: scattered bruising] [Assessment: 82 yo 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 Unfortunately she is NOT a surgical candidate or percutaneous drainage due to her thrombocytopenia and neutropenia. She does appear to be improving with additional antibiotics. 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 - cont IVIG over 5 dys (day 2/5) - cont home promacta - transfuse for Hgb <7.5, plts <10K or bleeding full code ]
[2018-11-17] MEDS: FILGRASTIM-SNDZ* 480 MCG/0.8 ML SYRINGE SUBCUT SCH (12:14)
[2018-11-17] MEDS: NS 0.9% 1000 ML** 1,000 ML IV SCH (17:59)
[2018-11-17] MEDS: Levofloxacin 500 MG IVPREMIX(* 500 MG/100 ML BAG IVPB SCH (19:36)
[2018-11-17] MEDS: PTO: Mirabegron (NF) 50 MG TAB PO SCH (19:52)
[2018-11-17] MEDS: Montelukast Sodium TAB* 10 MG PO SCH (22:56)
[2018-11-18] MEDS: metroNIDAZOLE IV 500 MG/100ML* 500 MG/100 ML BAG IVPB SCH ×3 (02:14→17:40)
[2018-11-18] MEDS: NS 0.9% 1000 ML** 1,000 ML IV SCH (05:19)
[2018-11-18 06:08] LABS: Hematocrit 22 % (35-47); Hemoglobin 7.6 g/dL (12.0-16.0); Mean Corpuscular HGB Conc 34 g/dL (31-36); Mean Corpuscular Hemoglobin 32 pg (27-31); Mean Corpuscular Volume 94 fL (80-97); Mean Platelet Volume 8.3 fL (7.4-10.4); Platelet Count 9 10^3/uL (150-450); Red Blood Count 2.36 10^6 /uL (3.70-4.87); Red Cell Distribution Width 28 % (10.5-15); White Blood Count 2.6 10^3/uL (3.5-10.8)
[2018-11-18 06:22] LABS: Albumin 2.5 g/dL (3.2-5.2); Albumin/Globulin Ratio 0.5 (1-3); BUN/Creatinine Ratio 36.4 (8-20); Calcium 8.2 mg/dL (8.6-10.3); EGFR African American 86.4 (>60); EGFR Non-African American 71.4 (>60); Globulin 5.3 g/dL (2-4); Potassium 4.1 mmol/L (3.5-5.0); Total Bilirubin 1.3 mg/dL (0.2-1.0); Total Protein 7.8 g/dL (6.4-8.9)
[2018-11-18 07:36] LABS: ABS Lymphocytes 0.7 10^3/ul (1.0-4.8); ABS Monocytes 0.1 10^3/ul (0-0.8); ABS Neutrophils 1.7 10^3/ul (1.5-7.7)
[2018-11-18 07:41] LABS: ABS Neutrophils 1.9 10^3/ul (1.5-7.7)
[2018-11-18] MEDS ORDERED: Furosemide IV* 10 MG/ML 2 ML VIAL (20 MG) IV SLOW PU ONE (07:41)
--- NOTE | 2018-11-18 07:41 | PN ---
Progress Note - Progress Note Date of Service: 11/18/18 SOAP: Subjective: feeling better overall. two soft stools yesterday (no diarrhea x 2 days) and no abdominal pain. back hurts from being in bed so much. +SOB with movement Objective: Vital Signs Temp Pulse Resp BP Pulse Ox 98.9 F 101 18 149/75 97 11/18/18 04:08 11/18/18 04:08 11/18/18 04:08 11/18/18 04:08 11/18/18 04:08 sitting up in nad perr eomi op moist crackles bases bl obese nT +bs 1+ LE edema L, 2+ right scattered ecchymoses and petechiae A+O x 3 Laboratory Results - last 24 hr 11/18/18 11/18/18 05:25 05:25 WBC 2.6 L RBC 2.36 L Hgb 7.6 L Hct 22 L MCV 94 MCH 32 H MCHC 34 RDW 28 H Plt Count 9 L* MPV 8.3 Neut % (Auto) Not Reportable Lymph % (Auto) Not Reportable [place] % (Auto) Not Reportable Eos % (Auto) Not Reportable Baso % (Auto) Not Reportable Absolute Neuts (auto) 1.7 Absolute Lymphs (auto) 0.7 L Absolute Monos (auto) 0.1 Absolute Eos (auto) 0.0 Absolute Basos (auto) 0.0 Absolute Nucleated RBC Not Reportable Immature Gran % 6.0 Neutrophils % 67.0 Band Neutrophils % 6.0 Lymphocytes % 20.0 Monocytes % 6.0 Eosinophils % 1.0 Nucleated RBC % Not Reportable Normal RBC Morphology Normal Sodium 133 L Potassium 4.1 Chloride 104 Carbon Dioxide 26 Anion Gap 3 BUN 28 H Creatinine 0.77 Est GFR ( Amer) 86.4 Est GFR (Non-Af Amer) 71.4 BUN/Creatinine Ratio 36.4 H Glucose 123 H Calcium 8.2 L Total Bilirubin 1.30 H AST 17 ALT 13 Alkaline Phosphatase 49 Total Protein 7.8 Albumin 2.5 L Globulin 5.3 H Albumin/Globulin Ratio 0.5 L Assessment: 82 yo 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 now admitted with diverticulitis complicated by a diverticular abscess and c diff colitis, being medically managed and improving Plan: Diverticulitis and Diverticular abscess: cont flagyl and levaquin IV advance diet to BRAT diet today and eval for worsening diarrhea/abd pain Cdiff colitis: cont vanco PO x 10d -will d/w ID when to stop contact precautions now that having soft stools pancytopenia: - 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
[2018-11-18] MEDS: MDI INH SCH (07:54)
[2018-11-18] MEDS: OLODATEROL INH SCH (07:54)
[2018-11-18] MEDS: TIOTROPIUM BROM INH SCH (07:54)
[2018-11-18] MEDS: ELTROMBOPAG 50 MG PO SCH (10:10)
[2018-11-18] MEDS: FILGRASTIM-SNDZ* 480 MCG/0.8 ML SYRINGE SUBCUT SCH (10:13)
[2018-11-18] MEDS: predniSONE TAB* 20 MG PO SCH (10:16)
[2018-11-18] MEDS: DULoxetine DR CAP* 60 MG CAP.DR PO SCH (10:16)
[2018-11-18] MEDS: Vancomycin CAP* 125 MG CAP PO SCH ×4 (10:16→22:36)
[2018-11-18] MEDS: Pantoprazole TAB * 40 MG TAB PO SCH (10:16)
[2018-11-18] MEDS: PTO: Mirabegron (NF) 50 MG TAB PO SCH (17:49)
[2018-11-18] MEDS: Levofloxacin 500 MG IVPREMIX(* 500 MG/100 ML BAG IVPB SCH (18:13)
[2018-11-18] MEDS ORDERED: Furosemide IV* 10 MG/ML 2 ML VIAL (20 MG) IV ONE ×2 (21:34→23:59)
[2018-11-18] MEDS: Montelukast Sodium TAB* 10 MG PO SCH (22:13)
[2018-11-18] MEDS: IMMUNE GLOBULIN IV SCH ×4 (22:50)
[2018-11-19] MEDS: metroNIDAZOLE IV 500 MG/100ML* 500 MG/100 ML BAG IVPB SCH ×3 (02:41→17:38)
[2018-11-19 06:57] LABS: Hematocrit 23 % (35-47); Mean Corpuscular HGB Conc 35 g/dL (31-36); Mean Corpuscular Hemoglobin 33 pg (27-31); Mean Corpuscular Volume 94 fL (80-97); Mean Platelet Volume 9.4 fL (7.4-10.4); Platelet Count 7 10^3/uL (150-450); Red Blood Count 2.43 10^6 /uL (3.70-4.87); Red Cell Distribution Width 28 % (10.5-15); White Blood Count 4.8 10^3/uL (3.5-10.8)
[2018-11-19 07:06] LABS: Calcium 8.4 mg/dL (8.6-10.3); EGFR African American 75.1 (>60); Potassium 4.1 mmol/L (3.5-5.0)
[2018-11-19 07:19] LABS: ABS Lymphocytes 1.3 10^3/ul (1.0-4.8); ABS Neutrophils 3.5 10^3/ul (1.5-7.7)
[2018-11-19 07:25] LABS: ABS Neutrophils 3.6 10^3/ul (1.5-7.7)
[2018-11-19] MEDS: ELTROMBOPAG 50 MG PO SCH (08:07)
[2018-11-19] MEDS: predniSONE TAB* 20 MG PO SCH (08:08)
[2018-11-19] MEDS: Vancomycin CAP* 125 MG CAP PO SCH ×4 (08:08→20:38)
[2018-11-19] MEDS: FILGRASTIM-SNDZ* 480 MCG/0.8 ML SYRINGE SUBCUT SCH (08:09)
[2018-11-19] MEDS: DULoxetine DR CAP* 60 MG CAP.DR PO SCH (08:09)
[2018-11-19] MEDS: Pantoprazole TAB * 40 MG TAB PO SCH (08:09)
[2018-11-19] MEDS: MDI INH SCH (08:11)
[2018-11-19] MEDS: TIOTROPIUM BROM INH SCH (08:11)
[2018-11-19] MEDS: OLODATEROL INH SCH (08:11)
--- NOTE | 2018-11-19 09:42 | PN ---
Subjective Date of Service: 11/19/18 Interval History: Ms. Cobian reports that she continues to be short of breath with movement, even just bed mobility. She denies other complaint other than feeling anxious about feeling so sick. Objective Active Medications: Acetaminophen (Tylenol Tab*) 650 mg PO Q4H PRN Clonazepam (Klonopin Tab(*)) 0.5 mg PO DAILY PRN Duloxetine HCl (Cymbalta Cap*) 60 mg PO QAM ANA Eltrombopag (Promacta (Nf)) 50 mg PO DAILY@0800 [facility] Filgrastim-Sndz (Zarxio*) 480 mcg SUBCUT DAILY ANA Heparin Sodium (Porcine) (Heparin Flush Picc/Ml/Cvc(*)) 1 - 3 ml FLUSH 0600, 1800 ANA; Protocol Metronidazole/Sodium Chloride (Flagyl 500 Mg Ivpb*) 500 mg in 100 mls @ 100 mls /hr IVPB 0130,0930,1730 ANA Levofloxacin/Dextrose (Levaquin 500 Mg Ivpremix(*)) 500 mg in 100 mls @ 100 mls /hr IVPB 1800 ANA; Protocol Immune Globulin 5 gm/ Immune Globulin 10 gm/ Immune Globulin 20 gm/ IV Solution 350 mls @ 0 mls/hr IV Q24HR@2200 ANA; Protocol Mirabegron (Myrbetriq (Nf)) 50 mg PO QPM ANA Montelukast Sodium (Singulair Tab*) 10 mg PO BEDTIME ANA Ondansetron HCl (Zofran Inj*) 4 mg IV Q4H PRN Pantoprazole Sodium (Protonix Tab*) 40 mg PO DAILY ANA Prednisone (Deltasone Tab*) 20 mg PO DAILY ANA Tiotropium [place]/Olodaterol (Stiolto Respimat Inh [place] (60 Puff)(Nf)) 2 puff INH QAM ANA Vancomycin HCl (Vancomycin Cap*) 125 mg PO QID [facility] Vital Signs: Temp Pulse Resp BP Pulse Ox 97.0 F 99 20 165/72 99 11/19/18 03:15 11/19/18 08:08 11/19/18 08:08 11/19/18 03:15 11/19/18 08:08 Oxygen Devices in Use Now: Nasal Cannula Appearance: Female lying in bed in NAD Eyes: No Scleral Icterus Ears/Nose/Mouth/Throat: Mucous Membranes Moist Respiratory: Symmetrical Chest Expansion and Respiratory Effort, - - Crackles in bases Cardiovascular: - - UE edema Abdominal: NL Sounds; No Tenderness; No Distention Skin: No Rash or Ulcers Neurological: Alert and Oriented x 3, NL Muscle Strength and Tone Nutrition: Taking PO's Result Diagrams: 11/19/18 06:05 11/19/18 06:05 Microbiology and Other Data: . Assess/Plan/Problems-Billing Assessment: Ms. Cobian is an 82 yo F with a PMH of MDS who just started treatment with recent admission to [facility] after developing nausea and vomiting with syncope found to have diverticulitis (tx with cipro and flagyl) and GI bleeding with thrombocytopenia. She received 2 units PRBC and 2 units platelets in [place]. She was admitted here on 11/14/18 with weakness and diarrhea with plt count of 10, found to have diverticular abscess and cdiff colitis. - Patient Problems (1) Acute CHF Comment: - Persistent SOB with any movement today, plan for additional lasix - In setting of IVF and platelet/blood transfusions for MDS - Suspect diastolic dysfunction, systolic function normal on echo 09/27/18 (2) Intestinal diverticular abscess Comment: - Continue levaquin and metronidazole (3) Clostridium difficile colitis Comment: - Diarrhea improving - Continue vancomycin (4) Pancytopenia Comment: - WBC improved, Hgb stable, Plt fell slightly to 7, no bleeding - Likely due to MDS and ITP - Management per oncology - Continue IVIG (Day 5/5), continue home promacta - Transfuse for Hgb < 7.5, Plt < 5 or bleeding (5) Myelodysplastic syndrome Comment: - Management per oncology (6) CAD (coronary artery disease) Comment: - Hx of CABG with mitral valve and PFO repair. Continue statin. No ASA due to bleeding and thrombocytopenia. (7) COPD (chronic obstructive pulmonary disease) Comment: - Continue montelukast, tiotropium. Also DANILO, not on CPAP. (8) HTN (hypertension) Comment: - Continue lisinopril home dose. (9) DVT prophylaxis Comment: - SCDs only (10) Full code status Comment: Status and Disposition: Inpatient, disposition per oncology
[2018-11-19] MEDS ORDERED: Furosemide IV* 10 MG/ML 2 ML VIAL (20 MG) IV ONE (11:01)
[2018-11-19] MEDS: Ondansetron INJ* 2 MG/ML VIAL IV PRN (13:58)
[2018-11-19] MEDS: Acetaminophen TAB* 325 MG PO PRN (14:00)
[2018-11-19] MEDS: PTO: Mirabegron (NF) 50 MG TAB PO SCH (17:44)
[2018-11-19] MEDS: Levofloxacin 500 MG IVPREMIX(* 500 MG/100 ML BAG IVPB SCH (18:51)
[2018-11-19] MEDS: Montelukast Sodium TAB* 10 MG PO SCH (20:38)
[2018-11-19] MEDS ORDERED: [UNRECOGNIZED DRUG - OTHER] IV ONE ×4 (22:00)
[2018-11-19] MEDS ORDERED: IMMUNE GLOBULN IV ONE ×4 (22:00)
[2018-11-20] MEDS: metroNIDAZOLE IV 500 MG/100ML* 500 MG/100 ML BAG IVPB SCH ×3 (00:59→17:26)
[2018-11-20] MEDS: DULoxetine DR CAP* 60 MG CAP.DR PO SCH (07:13)
[2018-11-20] MEDS: Pantoprazole TAB * 40 MG TAB PO SCH (07:13)
[2018-11-20] MEDS: FILGRASTIM-SNDZ* 480 MCG/0.8 ML SYRINGE SUBCUT SCH (07:13)
[2018-11-20] MEDS: Vancomycin CAP* 125 MG CAP PO SCH ×4 (07:13→21:27)
[2018-11-20] MEDS: predniSONE TAB* 20 MG PO SCH (07:13)
[2018-11-20] MEDS: ELTROMBOPAG 50 MG PO SCH (07:13)
[2018-11-20] MEDS: OLODATEROL INH SCH (08:25)
[2018-11-20] MEDS: TIOTROPIUM BROM INH SCH (08:25)
[2018-11-20] MEDS: MDI INH SCH (08:25)
[2018-11-20 08:45] LABS: Hematocrit 20 % (35-47); Mean Corpuscular HGB Conc 35 g/dL (31-36); Mean Corpuscular Hemoglobin 33 pg (27-31); Mean Corpuscular Volume 95 fL (80-97); Mean Platelet Volume 10.1 fL (7.4-10.4); Platelet Count 5 10^3/uL (150-450); Red Blood Count 2.12 10^6 /uL (3.70-4.87); Red Cell Distribution Width 28 % (10.5-15)
[2018-11-20 09:04] LABS: Albumin 2.3 g/dL (3.2-5.2); Albumin/Globulin Ratio 0.4 (1-3); BUN/Creatinine Ratio 36.6 (8-20); Calcium 8.3 mg/dL (8.6-10.3); EGFR African American 80.4 (>60); EGFR Non-African American 66.4 (>60); Globulin 6.2 g/dL (2-4); Potassium 4.1 mmol/L (3.5-5.0); Total Bilirubin 1.7 mg/dL (0.2-1.0); Total Protein 8.5 g/dL (6.4-8.9)
[2018-11-20 09:48] LABS: Polychromasia 1+
--- NOTE | 2018-11-20 09:50 | PN ---
Progress Note - Progress Note Date of Service: 11/20/18 SOAP: Subjective: []She feels poorly today. Has been very weak, not getting out of bed. Appetite is poor and food is not very good anyway. Bowls are better, soft stool, yesterday felt less bloated. No fevers or chills. Acetaminophen (Tylenol Tab*) 650 mg PO Q4H PRN PRN Reason: FEVER/PAIN Last Admin: 11/19/18 14:00 Dose: 650 mg Clonazepam (Klonopin Tab(*)) 0.5 mg PO DAILY PRN PRN Reason: ANXIETY Duloxetine HCl (Cymbalta Cap*) 60 mg PO QAM [facility] Last Admin: 11/20/18 07:13 Dose: 60 mg Eltrombopag (Promacta (Nf)) 50 mg PO DAILY@0800 [facility] Last Admin: 11/20/18 07:13 Dose: 50 mg Filgrastim-Sndz (Zarxio*) 480 mcg SUBCUT DAILY [facility] Last Admin: 11/20/18 07:13 Dose: 480 mcg Heparin Sodium (Porcine) (Heparin Flush Picc/Ml/Cvc(*)) 1 - 3 ml FLUSH 0600, 1800 [facility]; Protocol Last Admin: 11/20/18 04:46 Dose: 1 ml Metronidazole/Sodium Chloride (Flagyl 500 Mg Ivpb*) 500 mg in 100 mls @ 100 mls /hr IVPB 0130,0930,1730 [facility] Last Admin: 11/20/18 09:29 Dose: 100 mls/hr Levofloxacin/Dextrose (Levaquin 500 Mg Ivpremix(*)) 500 mg in 100 mls @ 100 mls /hr IVPB 1800 [facility]; Protocol Last Admin: 11/19/18 18:51 Dose: 100 mls/hr Mirabegron (Myrbetriq (Nf)) 50 mg PO QPM [facility] Last Admin: 11/19/18 17:44 Dose: Not Given Montelukast Sodium (Singulair Tab*) 10 mg PO BEDTIME [facility] Last Admin: 11/19/18 20:38 Dose: 10 mg Ondansetron HCl (Zofran Inj*) 4 mg IV Q4H PRN PRN Reason: NAUSEA/VOMITING Last Admin: 11/19/18 13:58 Dose: 4 mg Pantoprazole Sodium (Protonix Tab*) 40 mg PO DAILY [facility] Last Admin: 11/20/18 07:13 Dose: 40 mg Prednisone (Deltasone Tab*) 20 mg PO DAILY [facility] Last Admin: 11/20/18 07:13 Dose: 20 mg Tiotropium [place]/Olodaterol (Stiolto Respimat Inh [place] (60 Puff)(Nf)) 2 puff INH QAM [facility] Last Admin: 11/20/18 08:25 Dose: 2 puff Vancomycin HCl (Vancomycin Cap*) 125 mg PO QID [facility] Last Admin: 11/20/18 07:13 Dose: 125 mg Objective: [] Vital Signs Temp Pulse Resp BP Pulse Ox 97.9 F 77 16 132/68 100 11/20/18 08:04 11/20/18 08:28 11/20/18 08:28 11/20/18 08:04 11/20/18 08:28 HEENT: eyes pale. OM moist and no thrush. 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 Has persistent marked thrombocytopenia and anemia, preserved WBC. Plan: 1. Diverticulitis and Diverticular abscess: - Flagyl and levaquin IV - diet as tolerated. 2. Cdiff colitis: - Continue oral vanco x 10d, through 11/25/18 3. Thrombocytopenia. 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 - Tx Plts today - Stop Promacta, tomorrow start Nplate - May be exacerbated by antibiotics 4. Anemia. - Transfuse today - Repeat serologic studies: Epo level, B12, Iron, Retic - consider GFS 4. SOB. Crackles on exam, amemia. Suspect anemia is significant contribution. - PRBC 2 U - Lasix 20 IV x 1 again 5. Code. Need to discuss but with friends, will come back later.
[2018-11-20] MEDS ORDERED: Furosemide IV* 10 MG/ML 2 ML VIAL (20 MG) IV ONE (10:05)
[2018-11-20 10:48] LABS: Hematocrit for Retic CNT 17 % (35-47); RBC Retic Count 1.78 10^6/uL (3.70-4.87)
[2018-11-20 10:51] LABS: Corrected Retic Count 0.4 % (0.5-1.5); Immature Retic Fraction 0.37
[2018-11-20 11:30] LABS: LDH 299 U/L (140-271)
[2018-11-20 12:32] LABS: Erythrocyte Sed Rate > 120 mm/Hr (0-29)
[2018-11-20 16:41] LABS: Mean Platelet Volume 7.1 fL (7.4-10.4); Platelet Count 27 10^3/uL (150-450)
[2018-11-20] MEDS: PTO: Mirabegron (NF) 50 MG TAB PO SCH (17:33)
[2018-11-20] MEDS: Acetaminophen TAB* 325 MG PO PRN (19:48)
[2018-11-20] MEDS: Levofloxacin 500 MG IVPREMIX(* 500 MG/100 ML BAG IVPB SCH (20:00)
[2018-11-20] MEDS: Montelukast Sodium TAB* 10 MG PO SCH (21:27)
[2018-11-21] MEDS: metroNIDAZOLE IV 500 MG/100ML* 500 MG/100 ML BAG IVPB SCH ×3 (01:07→17:01)
[2018-11-21 06:40] LABS: Albumin 2.4 g/dL (3.2-5.2); Albumin/Globulin Ratio 0.4 (1-3); BUN/Creatinine Ratio 42.1 (8-20); Calcium 8.4 mg/dL (8.6-10.3); EGFR African American 87.7 (>60); EGFR Non-African American 72.5 (>60); Globulin 5.6 g/dL (2-4); Magnesium 1.8 mg/dL (1.9-2.7); Potassium 3.8 mmol/L (3.5-5.0); Total Bilirubin 2.3 mg/dL (0.2-1.0)
[2018-11-21 06:43] LABS: ABS Eosinophils 0.1 10^3/ul (0-0.6); ABS Lymphocytes 1.2 10^3/ul (1.0-4.8); ABS Neutrophils 4.3 10^3/ul (1.5-7.7); Eosinophil % 1.2 %; Hematocrit 26 % (35-47); Hemoglobin 9.2 g/dL (12.0-16.0); Lymphocyte % 21.8 %; Mean Corpuscular HGB Conc 36 g/dL (31-36); Mean Corpuscular Hemoglobin 33 pg (27-31); Mean Corpuscular Volume 92 fL (80-97); Nucleated Red Blood Cells % 0.6; Red Cell Distribution Width 22 % (10.5-15); White Blood Count 5.6 10^3/uL (3.5-10.8)
[2018-11-21] MEDS: MDI INH SCH (07:17)
[2018-11-21] MEDS: TIOTROPIUM BROM INH SCH (07:17)
[2018-11-21] MEDS: OLODATEROL INH SCH (07:17)
[2018-11-21] MEDS: ELTROMBOPAG 50 MG PO SCH (08:34)
[2018-11-21 08:38] LABS: Mean Platelet Volume 10.4 fL (7.4-10.4); Platelet Count 4 10^3/uL (150-450)
[2018-11-21] MEDS: Pantoprazole TAB * 40 MG TAB PO SCH (08:52)
[2018-11-21] MEDS: Acetaminophen TAB* 325 MG PO PRN (08:52)
[2018-11-21] MEDS: predniSONE TAB* 20 MG PO SCH (08:53)
[2018-11-21] MEDS: Ondansetron INJ* 2 MG/ML VIAL IV PRN (08:53)
[2018-11-21] MEDS: DULoxetine DR CAP* 60 MG CAP.DR PO SCH (08:54)
[2018-11-21] MEDS: Vancomycin CAP* 125 MG CAP PO SCH ×4 (08:54→20:02)
[2018-11-21] MEDS: FILGRASTIM-SNDZ* 480 MCG/0.8 ML SYRINGE SUBCUT SCH (09:05)
[2018-11-21] MEDS ORDERED: ROMIPLOSTIM 250 MCG/0.5 ML SUBCUT ONE (10:00)
[2018-11-21] MEDS ORDERED: Furosemide IV* 10 MG/ML 2 ML VIAL (20 MG) IV ONE (10:39)
--- NOTE | 2018-11-21 10:39 | PN ---
Progress Note - Progress Note Date of Service: 11/21/18 SOAP: Subjective: []Feeling very discouraged and almost worse every day, however diarrhea much better. "I'm just so weak and shaky, I can't get up." No appetite and poor PO intake. Left arm aches and is swollen with bruise, "I think its a little worse." Medications: Acetaminophen (Tylenol Tab*) 650 mg PO Q4H PRN PRN Reason: FEVER/PAIN Last Admin: 11/21/18 08:52 Dose: 650 mg Clonazepam (Klonopin Tab(*)) 0.5 mg PO DAILY PRN PRN Reason: ANXIETY Last Admin: 11/20/18 14:53 Dose: 0.5 mg Duloxetine HCl (Cymbalta Cap*) 60 mg PO QAM [facility] Last Admin: 11/21/18 08:54 Dose: 60 mg Eltrombopag (Promacta (Nf)) 50 mg PO DAILY@0800 [facility] Last Admin: 11/21/18 08:34 Dose: 50 mg Filgrastim-Sndz (Zarxio*) 480 mcg SUBCUT DAILY [facility] Last Admin: 11/21/18 09:05 Dose: 480 mcg Heparin Sodium (Porcine) (Heparin Flush Picc/Ml/Cvc(*)) 1 - 3 ml FLUSH 0600, 1800 [facility]; Protocol Last Admin: 11/21/18 06:13 Dose: 2 ml Metronidazole/Sodium Chloride (Flagyl 500 Mg Ivpb*) 500 mg in 100 mls @ 100 mls /hr IVPB 0130,0930,1730 [facility] Last Admin: 11/21/18 10:22 Dose: 100 mls/hr Levofloxacin/Dextrose (Levaquin 500 Mg Ivpremix(*)) 500 mg in 100 mls @ 100 mls /hr IVPB 1800 [facility]; Protocol Last Admin: 11/20/18 20:00 Dose: 100 mls/hr Mirabegron (Myrbetriq (Nf)) 50 mg PO QPM [facility] Last Admin: 11/20/18 17:33 Dose: Not Given Montelukast Sodium (Singulair Tab*) 10 mg PO BEDTIME [facility] Last Admin: 11/20/18 21:27 Dose: 10 mg Ondansetron HCl (Zofran Inj*) 4 mg IV Q4H PRN PRN Reason: NAUSEA/VOMITING Last Admin: 11/21/18 08:53 Dose: 4 mg Pantoprazole Sodium (Protonix Tab*) 40 mg PO DAILY [facility] Last Admin: 11/21/18 08:52 Dose: 40 mg Prednisone (Deltasone Tab*) 20 mg PO DAILY [facility] Last Admin: 11/21/18 08:53 Dose: 20 mg Tiotropium [place]/Olodaterol (Stiolto Respimat Inh [place] (60 Puff)(Nf)) 2 puff INH QAM [facility] Last Admin: 11/21/18 07:17 Dose: 2 puff Vancomycin HCl (Vancomycin Cap*) 125 mg PO QID [facility] Last Admin: 11/21/18 08:54 Dose: 125 mg Objective: [] Vital Signs Temp Pulse Resp BP Pulse Ox 97.8 F 68 18 153/64 97 11/21/18 04:19 11/21/18 07:19 11/21/18 07:19 11/21/18 04:19 11/21/18 07:19 A&Ox3, EOMI, [place], neuro grossly non-focal HRR, S1S2 LS clear, right base dim. +BS, abd. soft and non-tender Obese Left hand with large hematoma, +2 edema +1 edema right foot Laboratory Results - last 24 hr 11/20/18 11/20/18 11/20/18 08:17 10:30 10:30 WBC RBC RBC (Retic) 1.78 L Hgb Hct HCT (Retic) 17 L MCV MCH MCHC RDW Plt Count MPV Neut % (Auto) Lymph % (Auto) [place] % (Auto) Eos % (Auto) Baso % (Auto) Absolute Neuts (auto) Absolute Lymphs (auto) Absolute Monos (auto) Absolute Eos (auto) Absolute Basos (auto) Absolute Nucleated RBC Nucleated RBC % ESR > 120 H Retic Count, Calc 1.2 Corrected Retic Count 0.4 L Retic Shift Factor 2.5 Retic Production Index 0.20 Immature Retic Fraction 0.37 Mean Retic Volume 150.4 Hem Pathologist Commnt Sodium Potassium Chloride Carbon Dioxide Anion Gap BUN Creatinine Est GFR ( Amer) Est GFR (Non-Af Amer) BUN/Creatinine Ratio Glucose Calcium Magnesium Total Bilirubin AST ALT Alkaline Phosphatase Lactate Dehydrogenase 299 H Total Protein Albumin Globulin Albumin/Globulin Ratio Vitamin B12 1002 H Blood Type A Positive Antibody Screen Negative Crossmatch See Detail 11/20/18 11/21/18 11/21/18 16:25 06:10 06:10 WBC 5.6 RBC 2.80 L RBC (Retic) Hgb 9.2 L Hct 26 L HCT (Retic) MCV 92 MCH 33 H MCHC 36 RDW 22 H Plt Count 27 L D 4 L* D MPV 7.1 L 10.4 Neut % (Auto) 76.3 Lymph % (Auto) 21.8 [place] % (Auto) 0.3 Eos % (Auto) 1.2 Baso % (Auto) 0.4 Absolute Neuts (auto) 4.3 Absolute Lymphs (auto) 1.2 Absolute Monos (auto) 0.0 Absolute Eos (auto) 0.1 Absolute Basos (auto) 0.0 Absolute Nucleated RBC 0.0 Nucleated RBC % 0.6 ESR Retic Count, Calc Corrected Retic Count Retic Shift Factor Retic Production Index Immature Retic Fraction Mean Retic Volume Hem Pathologist Commnt Sodium 135 Potassium 3.8 Chloride 103 Carbon Dioxide 28 Anion Gap 4 BUN 32 H Creatinine 0.76 Est GFR ( Amer) 87.7 Est GFR (Non-Af Amer) 72.5 BUN/Creatinine Ratio 42.1 H Glucose 106 H Calcium 8.4 L Magnesium 1.8 L Total Bilirubin 2.30 H AST 28 ALT 20 Alkaline Phosphatase 75 Lactate Dehydrogenase Total Protein 8.0 Albumin 2.4 L Globulin 5.6 H Albumin/Globulin Ratio 0.4 L Vitamin B12 Blood Type Antibody Screen Crossmatch Assessment: []82 yo F w MDS admitted colitis and diverticular abscess with improvement, however course complicated by persistent marked thrombocytopenia not responsive to transfusions confirming ITP. While she has improved in regards to her acute illness she is very weak and will possibly require rehab once her platelets improve. Plan: []1. C.Diff Colitis and Diverticular abscess: appears to be improving - cont. Flagyl and levaquin IV for now - Continue oral vanco x 10d, through 11/25/18 3. ITP: no evidence for bleeding at this time - start NPlate 1 mg/kg today per Dr. Chase - follow daily labs 4. Anemia: stable post transfusion - appears to have slight hemolytic component, no roll for further work-up for now - Dr. Chase to consider GSF 4. Edema: repeat lasix x1 today 5. Pain: Tylenol not effective, trial Tramadol 6. Weakness: multi-factorial - PT/OT eval. and treat - poor nutrition may play a roll, request nutrition consult DNR Dispo: inpt. d/t profound thrombocytopenia, will need PT and possible rehab on d /c
[2018-11-21 11:01] LABS: Indirect Bilirubin 1.4 mg/dL (0.3-1.0)
[2018-11-21] MEDS: PTO: Mirabegron (NF) 50 MG TAB PO SCH (18:41)
[2018-11-21] MEDS: Levofloxacin 500 MG IVPREMIX(* 500 MG/100 ML BAG IVPB SCH (18:42)
[2018-11-21] MEDS: traMADol TAB* 50 MG PO PRN (20:02)
[2018-11-21] MEDS: Montelukast Sodium TAB* 10 MG PO SCH (20:02)
[2018-11-21] MEDS: Nystatin TOP POWDER* 15 GM BTL TOPICAL SCH (20:05)
[2018-11-22] MEDS: metroNIDAZOLE IV 500 MG/100ML* 500 MG/100 ML BAG IVPB SCH ×3 (02:46→17:58)
[2018-11-22 06:43] LABS: Albumin 2.4 g/dL (3.2-5.2); Albumin/Globulin Ratio 0.5 (1-3); BUN/Creatinine Ratio 47.8 (8-20); Calcium 8.3 mg/dL (8.6-10.3); EGFR African American 101.5 (>60); EGFR Non-African American 83.9 (>60); Globulin 5.2 g/dL (2-4); Potassium 3.5 mmol/L (3.5-5.0); Total Bilirubin 2.1 mg/dL (0.2-1.0); Total Protein 7.6 g/dL (6.4-8.9)
[2018-11-22 07:03] LABS: Hematocrit 24 % (35-47); Hemoglobin 8.7 g/dL (12.0-16.0); Mean Corpuscular HGB Conc 36 g/dL (31-36); Mean Corpuscular Hemoglobin 33 pg (27-31); Mean Corpuscular Volume 92 fL (80-97); Mean Platelet Volume 10.6 fL (7.4-10.4); Platelet Count 5 10^3/uL (150-450); Red Blood Count 2.66 10^6 /uL (3.70-4.87); Red Cell Distribution Width 22 % (10.5-15); White Blood Count 5.7 10^3/uL (3.5-10.8)
[2018-11-22 07:45] LABS: ABS Neutrophils 4.5 10^3/ul (1.5-7.7); ABS Neutrophils 4.8 10^3/ul (1.5-7.7)
[2018-11-22] MEDS: OLODATEROL INH SCH (08:04)
[2018-11-22] MEDS: MDI INH SCH (08:04)
[2018-11-22] MEDS: TIOTROPIUM BROM INH SCH (08:04)
[2018-11-22] MEDS: Vancomycin CAP* 125 MG CAP PO SCH ×4 (08:28→21:08)
[2018-11-22] MEDS: predniSONE TAB* 20 MG PO SCH (08:28)
[2018-11-22] MEDS: DULoxetine DR CAP* 60 MG CAP.DR PO SCH (08:28)
[2018-11-22] MEDS: Pantoprazole TAB * 40 MG TAB PO SCH (08:29)
[2018-11-22] MEDS: ELTROMBOPAG 50 MG PO SCH (08:29)
[2018-11-22] MEDS: Nystatin TOP POWDER* 15 GM BTL TOPICAL SCH ×2 (08:30→21:05)
[2018-11-22] MEDS: FILGRASTIM-SNDZ* 480 MCG/0.8 ML SYRINGE SUBCUT SCH (08:32)
--- NOTE | 2018-11-22 08:52 | PN ---
Progress Note - Progress Note Date of Service: 11/22/18 SOAP: Subjective: CC: C-diff colitis and diverticular abscess HPI: Ms. Cobian is an 82 yo female with PMH significant for Myelodysplastic syndrome, A fib, COPD, CAD s/p CABG, CKD, depression, HLD, HTN, PVD, TIA, CHF, and diverticulitis. Denies fever, chills, shortness of breath, nausea, vomiting diarrhea, urinary symptoms, ABD pain. Reports generalized weakness. Objective: Vital Signs - 8 hr 11/22/18 11/22/18 03:10 08:05 Temperature 98.2 F Pulse Rate 70 80 Respiratory 16 16 Rate Blood Pressure 154/63 (mmHg) O2 Sat by Pulse 100 99 Oximetry Physical Exam: General: NAD, sitting up in bed Neurological: Alert and Oriented x4 HEENT: No thrush, mosit MM Cardiovascular: Heart rate regular Respiratory: Lung sounds clear, diminished in the bases Abdominal: Bowel sounds present; ABD soft, tenderness in the right lower ABD with palpation and non distended Skin: No rash Laboratory Results - last 24 hr 11/20/18 11/21/18 11/22/18 10:30 06:10 06:07 WBC 5.7 RBC 2.66 L Hgb 8.7 L Hct 24 L MCV 92 MCH 33 H MCHC 36 RDW 22 H Plt Count 5 L* MPV 10.6 H Neut % (Auto) Not Reportable Lymph % (Auto) Not Reportable [place] % (Auto) Not Reportable Eos % (Auto) Not Reportable Baso % (Auto) Not Reportable Absolute Neuts (auto) 4.5 Absolute Lymphs (auto) Not Reportable Absolute Monos (auto) Not Reportable Absolute Eos (auto) Not Reportable Absolute Basos (auto) Not Reportable Absolute Nucleated RBC Not Reportable Neutrophils % 85.0 Lymphocytes % 11.0 Monocytes % 3.0 Eosinophils % 0.0 Basophils % 0.0 Blast Cells % 1.0 H* Nucleated RBC % Not Reportable Abs Neuts (Manual) 4.8 Abs Lymphs (Manual) 0.6 L Abs Monocytes (Manual) 0.2 Absolute Eos (Manual) 0.0 Abs Basophils (Manual) 0.0 Nucleated RBCs/100 WBC 1.0 H Normal RBC Morphology Not Reportable Anisocytosis 1+ Sodium 135 Potassium 3.8 Chloride 103 Carbon Dioxide 28 Anion Gap 4 BUN 32 H Creatinine 0.76 Est GFR ( Amer) 87.7 Est GFR (Non-Af Amer) 72.5 BUN/Creatinine Ratio 42.1 H Glucose 106 H Calcium 8.4 L Magnesium 1.8 L Erythropoietin 1976 H Total Bilirubin 2.30 H Direct Bilirubin 0.90 H Indirect Bilirubin 1.4 H AST 28 ALT 20 Alkaline Phosphatase 75 Total Protein 8.0 Albumin 2.4 L Globulin 5.6 H Albumin/Globulin Ratio 0.4 L 11/22/18 06:07 Sodium 135 Potassium 3.5 Chloride 102 Carbon Dioxide 29 Anion Gap 4 BUN 32 H Creatinine 0.67 Est GFR ( Amer) 101.5 Est GFR (Non-Af Amer) 83.9 BUN/Creatinine Ratio 47.8 H Glucose 120 H Calcium 8.3 L Total Bilirubin 2.10 H AST 24 ALT 20 Alkaline Phosphatase 89 Total Protein 7.6 Albumin 2.4 L Globulin 5.2 H Albumin/Globulin Ratio 0.5 L Microbiology 11/18/18 09:00 Stool Culture - Final Stool Stool Gross Appearance - Final Shiga Toxin I & II - Final 11/15/18 10:00 Stool Gross Appearance - Final Stool C. difficile DNA Amplification - Final 027 Presumptive NEGATIVE Toxigenic C.diff POSITIVE Stool Lactoferrin - Final 11/15/18 10:00 Stool Occult Blood (MICHELE) - Final Stool Assessment: 1. C-diff colitis. Reports that the diarrhea has resolved. 2. Recent diverticulitis, now with a diverticular abscess. Unable to be drained by Radiology, abscess measures about 3 cm. ABD pain has mostly resolved, reports that she is tolerating a soft diet. 3. PCN and CEPHALOSPORIN allergy. Patient is unsure of the reaction 4. Thrombocytopenia. Hematology/Oncology is following the patient Plan: Continue Vancomycin 125 mg by mouth QID for 10 days for C-diff colitis, day 7/ 10. Continue Levaquin 500 mg IV daily and Flagyl 500 mg IV TID for diverticulitis and diverticular abscess while in the hospital. Once ready for discharge change antibiotics to Levaquin 500 mg PO daily and Flagyl 500 mg PO BID for a total of 4 week of antibiotics.
[2018-11-22 09:48] LABS: Methylmalonic Acid 0.2 nmol/mL (<=0.40)
--- NOTE | 2018-11-22 09:48 | PN ---
Progress Note - Progress Note Date of Service: 11/22/18 SOAP: Subjective: []Feels a lot better than yesterday. Left arm feels a little smaller. Has been able to eat a little. Tramadol did not do anything and made her feel weird, "I didn't sleep well either." In good spirits and hopeful for cont.'d improvement. Medications: Acetaminophen (Tylenol Tab*) 650 mg PO Q4H PRN PRN Reason: FEVER/PAIN Last Admin: 11/21/18 08:52 Dose: 650 mg Duloxetine HCl (Cymbalta Cap*) 60 mg PO QAM [facility] Last Admin: 11/22/18 08:28 Dose: 60 mg Filgrastim-Sndz (Zarxio*) 480 mcg SUBCUT DAILY [facility] Last Admin: 11/22/18 08:32 Dose: 480 mcg Heparin Sodium (Porcine) (Heparin Flush Picc/Ml/Cvc(*)) 1 - 3 ml FLUSH 0600, 1800 [facility]; Protocol Last Admin: 11/22/18 05:50 Dose: 2 ml Metronidazole/Sodium Chloride (Flagyl 500 Mg Ivpb*) 500 mg in 100 mls @ 100 mls /hr IVPB 0130,0930,1730 [facility] Last Admin: 11/22/18 08:34 Dose: 100 mls/hr Levofloxacin/Dextrose (Levaquin 500 Mg Ivpremix(*)) 500 mg in 100 mls @ 100 mls /hr IVPB 1800 [facility]; Protocol Last Admin: 11/21/18 18:42 Dose: 100 mls/hr Mirabegron (Myrbetriq (Nf)) 50 mg PO QPM [facility] Last Admin: 11/21/18 18:41 Dose: 50 mg Montelukast Sodium (Singulair Tab*) 10 mg PO BEDTIME [facility] Last Admin: 11/21/18 20:02 Dose: 10 mg Nystatin (Nystatin Top Powder*) 1 applic TOPICAL BID [facility] Last Admin: 11/22/18 08:30 Dose: 1 applic Ondansetron HCl (Zofran Inj*) 4 mg IV Q4H PRN PRN Reason: NAUSEA/VOMITING Last Admin: 11/21/18 08:53 Dose: 4 mg Pantoprazole Sodium (Protonix Tab*) 40 mg PO DAILY [facility] Last Admin: 11/22/18 08:29 Dose: 40 mg Prednisone (Deltasone Tab*) 20 mg PO DAILY [facility] Last Admin: 11/22/18 08:28 Dose: 20 mg Tiotropium [place]/Olodaterol (Stiolto Respimat Inh [place] (60 Puff)(Nf)) 2 puff INH QAM [facility] Last Admin: 11/22/18 08:04 Dose: 2 puff Tramadol HCl (Ultram*) 50 mg PO Q6H PRN PRN Reason: PAIN Last Admin: 11/21/18 20:02 Dose: 50 mg Vancomycin HCl (Vancomycin Cap*) 125 mg PO QID [facility] Last Admin: 11/22/18 08:28 Dose: 125 mg Objective: [] Vital Signs Temp Pulse Resp BP Pulse Ox 98.2 F 80 16 154/63 99 11/22/18 03:10 11/22/18 08:05 11/22/18 08:05 11/22/18 03:10 11/22/18 08:05 A&Ox3, EOMI, neuro grossly non-focal HRR, S1S2 LS clear +BS, abd. soft with mild lower quad tenderness Left arm +2 edema, slightly decreased bruising from yesterday Right foot +1 edema Laboratory Results - last 24 hr 11/20/18 11/21/18 11/22/18 10:30 06:10 06:07 WBC 5.7 RBC 2.66 L Hgb 8.7 L Hct 24 L MCV 92 MCH 33 H MCHC 36 RDW 22 H Plt Count 5 L* MPV 10.6 H Neut % (Auto) Not Reportable Lymph % (Auto) Not Reportable [place] % (Auto) Not Reportable Eos % (Auto) Not Reportable Baso % (Auto) Not Reportable Absolute Neuts (auto) 4.5 Absolute Lymphs (auto) Not Reportable Absolute Monos (auto) Not Reportable Absolute Eos (auto) Not Reportable Absolute Basos (auto) Not Reportable Absolute Nucleated RBC Not Reportable Neutrophils % 85.0 Lymphocytes % 11.0 Monocytes % 3.0 Eosinophils % 0.0 Basophils % 0.0 Blast Cells % 1.0 H* Nucleated RBC % Not Reportable Abs Neuts (Manual) 4.8 Abs Lymphs (Manual) 0.6 L Abs Monocytes (Manual) 0.2 Absolute Eos (Manual) 0.0 Abs Basophils (Manual) 0.0 Nucleated RBCs/100 WBC 1.0 H Normal RBC Morphology Not Reportable Anisocytosis 1+ Sodium 135 Potassium 3.8 Chloride 103 Carbon Dioxide 28 Anion Gap 4 BUN 32 H Creatinine 0.76 Est GFR ( Amer) 87.7 Est GFR (Non-Af Amer) 72.5 BUN/Creatinine Ratio 42.1 H Glucose 106 H Calcium 8.4 L Magnesium 1.8 L Erythropoietin 1976 H Total Bilirubin 2.30 H Direct Bilirubin 0.90 H Indirect Bilirubin 1.4 H AST 28 ALT 20 Alkaline Phosphatase 75 Total Protein 8.0 Albumin 2.4 L Globulin 5.6 H Albumin/Globulin Ratio 0.4 L Methylmalonic Acid 0.20 11/22/18 06:07 WBC RBC Hgb Hct MCV MCH MCHC RDW Plt Count MPV Neut % (Auto) Lymph % (Auto) [place] % (Auto) Eos % (Auto) Baso % (Auto) Absolute Neuts (auto) Absolute Lymphs (auto) Absolute Monos (auto) Absolute Eos (auto) Absolute Basos (auto) Absolute Nucleated RBC Neutrophils % Lymphocytes % Monocytes % Eosinophils % Basophils % Blast Cells % Nucleated RBC % Abs Neuts (Manual) Abs Lymphs (Manual) Abs Monocytes (Manual) Absolute Eos (Manual) Abs Basophils (Manual) Nucleated RBCs/100 WBC Normal RBC Morphology Anisocytosis Sodium 135 Potassium 3.5 Chloride 102 Carbon Dioxide 29 Anion Gap 4 BUN 32 H Creatinine 0.67 Est GFR ( Amer) 101.5 Est GFR (Non-Af Amer) 83.9 BUN/Creatinine Ratio 47.8 H Glucose 120 H Calcium 8.3 L Magnesium Erythropoietin Total Bilirubin 2.10 H Direct Bilirubin Indirect Bilirubin AST 24 ALT 20 Alkaline Phosphatase 89 Total Protein 7.6 Albumin 2.4 L Globulin 5.2 H Albumin/Globulin Ratio 0.5 L Methylmalonic Acid Assessment: []82 yo F w MDS admitted colitis and diverticular abscess with improvement, however course complicated by persistent marked thrombocytopenia not responsive to transfusions confirming ITP. While she has improved in regards to her acute illness she is very weak and will possibly require rehab once her platelets improve. Plan: []1. C.Diff Colitis and Diverticular abscess: appears to be improving - cont. Flagyl and levaquin IV for now, likely needs 2-3 weeks followed by PO taper - Continue oral vanco x 10d, through 11/25/18 - ID following 3. ITP: no evidence for bleeding at this time - start NPlate 1 mg/kg started 11/22/18, stop Promacta - follow daily labs 4. Anemia: stable post transfusion - appears to have slight hemolytic component, no roll for further work-up for now 4. Edema: repeat lasix x1 today 5. Pain: trial hydrocodone/APAP 6. Weakness: multi-factorial - PT/OT eval. and treat, OK to tx. with low platelets - appreciate nutrition consult DNR Dispo: inpt. d/t profound thrombocytopenia, will need PT and possible rehab on d /c
[2018-11-22] MEDS ORDERED: Furosemide IV* 10 MG/ML 2 ML VIAL (20 MG) IV SLOW PU ONE (10:17)
[2018-11-22] MEDS: PTO: Mirabegron (NF) 50 MG TAB PO SCH (18:45)
[2018-11-22] MEDS: Levofloxacin 500 MG IVPREMIX(* 500 MG/100 ML BAG IVPB SCH (21:01)
[2018-11-22] MEDS: Montelukast Sodium TAB* 10 MG PO SCH (21:05)
[2018-11-23] MEDS: metroNIDAZOLE IV 500 MG/100ML* 500 MG/100 ML BAG IVPB SCH ×3 (00:36→17:13)
[2018-11-23] MEDS: MDI INH SCH (07:23)
[2018-11-23] MEDS: TIOTROPIUM BROM INH SCH (07:23)
[2018-11-23] MEDS: OLODATEROL INH SCH (07:23)
[2018-11-23] MEDS: DULoxetine DR CAP* 60 MG CAP.DR PO SCH (07:51)
[2018-11-23] MEDS: predniSONE TAB* 20 MG PO SCH (07:51)
[2018-11-23] MEDS: Pantoprazole TAB * 40 MG TAB PO SCH (07:51)
[2018-11-23] MEDS: Nystatin TOP POWDER* 15 GM BTL TOPICAL SCH ×2 (07:52→20:55)
[2018-11-23] MEDS: Vancomycin CAP* 125 MG CAP PO SCH ×4 (07:52→20:55)
[2018-11-23] MEDS: FILGRASTIM-SNDZ* 480 MCG/0.8 ML SYRINGE SUBCUT SCH (07:52)
[2018-11-23] MEDS: Folic Acid TAB* 1 MG PO SCH (08:02)
[2018-11-23 08:17] LABS: Hematocrit 23 % (35-47); Hemoglobin 8.3 g/dL (12.0-16.0); Mean Corpuscular HGB Conc 36 g/dL (31-36); Mean Corpuscular Hemoglobin 32 pg (27-31); Mean Corpuscular Volume 91 fL (80-97); Mean Platelet Volume 10.5 fL (7.4-10.4); Platelet Count 4 10^3/uL (150-450); Red Blood Count 2.55 10^6 /uL (3.70-4.87); Red Cell Distribution Width 22 % (10.5-15); White Blood Count 5.2 10^3/uL (3.5-10.8)
[2018-11-23 08:29] LABS: Albumin 2.4 g/dL (3.2-5.2); Albumin/Globulin Ratio 0.5 (1-3); BUN/Creatinine Ratio 48.4 (8-20); Calcium 8.4 mg/dL (8.6-10.3); EGFR Non-African American 91.7 (>60); Globulin 4.9 g/dL (2-4); Potassium 3.3 mmol/L (3.5-5.0); Total Bilirubin 2.1 mg/dL (0.2-1.0); Total Protein 7.3 g/dL (6.4-8.9)
[2018-11-23 08:58] LABS: ABS Eosinophils 0.1 10^3/ul (0-0.6); ABS Neutrophils 3.3 10^3/ul (1.5-7.7)
[2018-11-23 09:59] LABS: Magnesium 1.6 mg/dL (1.9-2.7)
--- NOTE | 2018-11-23 10:11 | PN ---
Progress Note - Progress Note Date of Service: 11/23/18 SOAP: Subjective: [Feeling ok today. Disappointed with her lack of progress. 1-2 soft stools daily. No nausea. Some abdominal discomfort. L arm seems stable, no additional swelling.] Objective: [ Laboratory Results - last 24 hr 11/23/18 11/23/18 07:45 07:45 WBC 5.2 RBC 2.55 L Hgb 8.3 L Hct 23 L MCV 91 MCH 32 H MCHC 36 RDW 22 H Plt Count 4 L* MPV 10.5 H Neut % (Auto) Not Reportable Lymph % (Auto) Not Reportable [place] % (Auto) Not Reportable Eos % (Auto) Not Reportable Baso % (Auto) Not Reportable Absolute Neuts (auto) Not Reportable Absolute Lymphs (auto) Not Reportable Absolute Monos (auto) Not Reportable Absolute Eos (auto) Not Reportable Absolute Basos (auto) Not Reportable Absolute Nucleated RBC Not Reportable Immature Gran % 1.0 Neutrophils % 62.0 Band Neutrophils % 1.0 Lymphocytes % 26.0 Reactive Lymphs % 1.0 Monocytes % 9.0 Eosinophils % 1.0 Nucleated RBC % Not Reportable Abs Neuts (Manual) 3.3 Abs Lymphs (Manual) 1.4 Abs Monocytes (Manual) 0.5 Absolute Eos (Manual) 0.1 Normal RBC Morphology Normal Sodium 136 Potassium 3.3 L Chloride 101 Carbon Dioxide 32 Anion Gap 3 BUN 30 H Creatinine 0.62 Est GFR ( Amer) 111.0 Est GFR (Non-Af Amer) 91.7 BUN/Creatinine Ratio 48.4 H Glucose 122 H Calcium 8.4 L Magnesium 1.6 L Total Bilirubin 2.10 H AST 22 ALT 17 Alkaline Phosphatase 103 Total Protein 7.3 Albumin 2.4 L Globulin 4.9 H Albumin/Globulin Ratio 0.5 L Acetaminophen (Tylenol Tab*) 650 mg PO Q4H PRN PRN Reason: FEVER/PAIN Last Admin: 11/21/18 08:52 Dose: 650 mg Hydrocodone Bitart/Acetaminophen ([place] 5-325 Tab*) 1 tab PO Q4H PRN PRN Reason: PAIN Duloxetine HCl (Cymbalta Cap*) 60 mg PO QAM [facility] Last Admin: 11/23/18 07:51 Dose: 60 mg Filgrastim-Sndz (Zarxio*) 480 mcg SUBCUT DAILY [facility] Last Admin: 11/23/18 07:52 Dose: 480 mcg Folic Acid (Folvite Tab*) 1 mg PO DAILY [facility] Last Admin: 11/23/18 08:02 Dose: 1 mg Heparin Sodium (Porcine) (Heparin Flush Picc/Ml/Cvc(*)) 1 - 3 ml FLUSH 0600, 1800 [facility]; Protocol Last Admin: 11/23/18 06:18 Dose: 2 ml Metronidazole/Sodium Chloride (Flagyl 500 Mg Ivpb*) 500 mg in 100 mls @ 100 mls /hr IVPB 0130,0930,1730 [facility] Last Admin: 11/23/18 00:36 Dose: 100 mls/hr Levofloxacin/Dextrose (Levaquin 500 Mg Ivpremix(*)) 500 mg in 100 mls @ 100 mls /hr IVPB 1800 [facility]; Protocol Last Admin: 11/22/18 21:01 Dose: 100 mls/hr Magnesium Sulfate (Magnesium Sulf 4 Gm/100 Ml Iv*) 4,000 mg in 100 mls @ 33.333 mls/hr IVPB ONCE ONE Stop: 11/23/18 12:59 Potassium Chloride (Potassium Chloride 10 Meq/50 Ml Ivpremix*) 10 meq in 50 mls @ 50 mls/hr IV Q1H [facility] Stop: 11/23/18 12:59 Mirabegron (Myrbetriq (Nf)) 50 mg PO QPM [facility] Last Admin: 11/22/18 18:45 Dose: 50 mg Montelukast Sodium (Singulair Tab*) 10 mg PO BEDTIME [facility] Last Admin: 11/22/18 21:05 Dose: 10 mg Nystatin (Nystatin Top Powder*) 1 applic TOPICAL BID [facility] Last Admin: 11/23/18 07:52 Dose: 1 applic Ondansetron HCl (Zofran Inj*) 4 mg IV Q4H PRN PRN Reason: NAUSEA/VOMITING Last Admin: 11/21/18 08:53 Dose: 4 mg Pantoprazole Sodium (Protonix Tab*) 40 mg PO DAILY [facility] Last Admin: 11/23/18 07:51 Dose: 40 mg Potassium Chloride (Klor Con Er Tab*) 20 meq PO DAILY [facility] Prednisone (Deltasone Tab*) 20 mg PO DAILY [facility] Last Admin: 11/23/18 07:51 Dose: 20 mg Tiotropium [place]/Olodaterol (Stiolto Respimat Inh [place] (60 Puff)(Nf)) 2 puff INH QAM [facility] Last Admin: 11/23/18 07:23 Dose: 2 puff Torsemide (Demadex*) 20 mg PO DAILY [facility] Tramadol HCl (Ultram*) 50 mg PO Q6H PRN PRN Reason: PAIN Last Admin: 11/21/18 20:02 Dose: 50 mg Vancomycin HCl (Vancomycin Cap*) 125 mg PO QID [facility] Last Admin: 11/23/18 07:52 Dose: 125 mg Vital Signs: Temp Pulse Resp BP Pulse Ox 97.8 F 77 16 137/51 96 11/23/18 04:07 11/23/18 07:23 11/23/18 07:23 11/23/18 04:07 11/23/18 07:23 Exam: Gen: Chronically ill appearing 82 yo female in NAD HEENT: MMM CV: RRR Resp: few crackles at bases Abd: soft, active BS, diffuse mild TTP Ext: LUE is very edematous with diffuse ecchymosis, RLE 3+ edema] [Assessment: []82 yo F w MDS admitted colitis and diverticular abscess with improvement, however course complicated by persistent marked thrombocytopenia not responsive to transfusions confirming ITP. While she has improved in regards to her acute illness she is very weak with refractory thrombocytopenia. Plan: []1. C.Diff Colitis and Diverticular abscess: - improving - cont. Flagyl and levaquin IV for now, transition to po at discharge for a total of 4 weeks per ID recommendation - Continue oral vanco x 10d, through 11/25/18 - ID following 3. ITP: - hematoma L arm, which appears stable at this time - started NPlate 1 mg/kg started 11/21/18, stopped Promacta - repeat Nplate 11/28 at 2mg/kg if there is no significant response as the week goes on 4. Anemia: - Hgb drifting down slightly - no clinical evidence of active bleeding - if Hgb continues to fall, consider platelet transfusion and additional PRBCs - she does not feel like she benefits symptomatically from PRBCs, so will avoid transfusing today and wait until <8 g/dl 4. Edema: - resume usual home diuretics 5. Pain: - trial hydrocodone/APAP 6. Weakness: multi-factorial - PT/OT eval. and treat, OK for bed exercises with low platelets - appreciate nutrition consult DNR Dispo: inpt. d/t profound thrombocytopenia, will likely need ASHUTOSH at discharge ]
[2018-11-23] MEDS: Torsemide TAB 10 MG PO SCH (10:28)
[2018-11-23] MEDS: KCL 10 MEQ/50 ML IVPREMIX* 10 MEQ/50 ML BAG IV SCH ×3 (10:28→12:59)
[2018-11-23] MEDS ORDERED: Magnesium Sulf 4 GM/100 ML IV* 4,000 MG/100 ML BAG IVPB ONE (10:30)
[2018-11-23] MEDS: Ondansetron INJ* 2 MG/ML VIAL IV PRN (14:13)
[2018-11-23] MEDS: PTO: Mirabegron (NF) 50 MG TAB PO SCH (17:13)
[2018-11-23] MEDS: Levofloxacin 500 MG IVPREMIX(* 500 MG/100 ML BAG IVPB SCH (18:28)
[2018-11-23] MEDS: Montelukast Sodium TAB* 10 MG PO SCH (20:55)
[2018-11-23] MEDS: clonazePAM TAB(*) 0.5 MG PO PRN (20:55)
[2018-11-23] MEDS: HYDROcodone/ACETAMIN 5-325 MG* 1 TAB PO PRN (23:50)
[2018-11-24] MEDS: metroNIDAZOLE IV 500 MG/100ML* 500 MG/100 ML BAG IVPB SCH ×3 (02:44→16:59)
[2018-11-24 06:17] LABS: Albumin 2.3 g/dL (3.2-5.2); Albumin/Globulin Ratio 0.5 (1-3); BUN/Creatinine Ratio 42.9 (8-20); Calcium 7.9 mg/dL (8.6-10.3); EGFR African American 96.5 (>60); EGFR Non-African American 79.7 (>60); Globulin 4.7 g/dL (2-4); Potassium 3.1 mmol/L (3.5-5.0)
[2018-11-24 06:18] LABS: Hematocrit 22 % (35-47); Hemoglobin 7.7 g/dL (12.0-16.0); Mean Corpuscular HGB Conc 35 g/dL (31-36); Mean Corpuscular Hemoglobin 32 pg (27-31); Mean Corpuscular Volume 92 fL (80-97); Mean Platelet Volume 10.4 fL (7.4-10.4); Platelet Count 4 10^3/uL (150-450); Red Blood Count 2.39 10^6 /uL (3.70-4.87); Red Cell Distribution Width 22 % (10.5-15)
[2018-11-24 06:45] LABS: Polychromasia 1+
[2018-11-24 06:46] LABS: ABS Lymphocytes 0.9 10^3/ul (1.0-4.8); ABS Monocytes 0.1 10^3/ul (0-0.8); ABS Neutrophils 3.7 10^3/ul (1.5-7.7); Eosinophil % 0.3 %; Lymphocyte % 19.1 %; Nucleated Red Blood Cells % 0.3
[2018-11-24 07:00] LABS: White Blood Count 4.8 10^3/uL (3.5-10.8)
[2018-11-24 08:26] LABS: Magnesium 1.9 mg/dL (1.9-2.7)
[2018-11-24] MEDS: Torsemide TAB 10 MG PO SCH (09:38)
[2018-11-24] MEDS: Folic Acid TAB* 1 MG PO SCH (09:38)
[2018-11-24] MEDS: DULoxetine DR CAP* 60 MG CAP.DR PO SCH (09:38)
[2018-11-24] MEDS: Vancomycin CAP* 125 MG CAP PO SCH ×4 (09:39→20:00)
[2018-11-24] MEDS: Pantoprazole TAB * 40 MG TAB PO SCH (09:39)
[2018-11-24] MEDS: Potassium Chlor TAB* 20 MEQ TAB.ER PO SCH (09:39)
[2018-11-24] MEDS: predniSONE TAB* 20 MG PO SCH (09:39)
[2018-11-24] MEDS: FILGRASTIM-SNDZ* 480 MCG/0.8 ML SYRINGE SUBCUT SCH (09:40)
[2018-11-24] MEDS: Nystatin TOP POWDER* 15 GM BTL TOPICAL SCH ×2 (09:56→20:01)
[2018-11-24] MEDS: MDI INH SCH (10:11)
[2018-11-24] MEDS: TIOTROPIUM BROM INH SCH (10:11)
[2018-11-24] MEDS: OLODATEROL INH SCH (10:11)
--- NOTE | 2018-11-24 10:32 | PN ---
Progress Note - Progress Note Date of Service: 11/24/18 SOAP: Subjective: []She feels the same. Diarrhea and abdominal symptoms are better. She has no energy, is lying in bed and not moving and feels like she is not going to get better. Not in pain. She is eating. Acetaminophen (Tylenol Tab*) 650 mg PO Q4H PRN PRN Reason: FEVER/PAIN Last Admin: 11/21/18 08:52 Dose: 650 mg Hydrocodone Bitart/Acetaminophen ([place] 5-325 Tab*) 1 tab PO Q4H PRN PRN Reason: PAIN Last Admin: 11/23/18 23:50 Dose: 0.5 tab Clonazepam (Klonopin Tab(*)) 0.5 mg PO DAILY PRN PRN Reason: ANXIETY Last Admin: 11/23/18 20:55 Dose: 0.5 mg Duloxetine HCl (Cymbalta Cap*) 60 mg PO QAM [facility] Last Admin: 11/24/18 09:38 Dose: 60 mg Filgrastim-Sndz (Zarxio*) 480 mcg SUBCUT DAILY [facility] Last Admin: 11/24/18 09:40 Dose: 480 mcg Folic Acid (Folvite Tab*) 1 mg PO DAILY [facility] Last Admin: 11/24/18 09:38 Dose: 1 mg Heparin Sodium (Porcine) (Heparin Flush Picc/Ml/Cvc(*)) 1 - 3 ml FLUSH 0600, 1800 [facility]; Protocol Last Admin: 11/24/18 05:21 Dose: 2 ml Metronidazole/Sodium Chloride (Flagyl 500 Mg Ivpb*) 500 mg in 100 mls @ 100 mls /hr IVPB 0130,0930,1730 [facility] Last Admin: 11/24/18 09:38 Dose: 100 mls/hr Levofloxacin/Dextrose (Levaquin 500 Mg Ivpremix(*)) 500 mg in 100 mls @ 100 mls /hr IVPB 1800 [facility]; Protocol Last Admin: 11/23/18 18:28 Dose: 100 mls/hr Mirabegron (Myrbetriq (Nf)) 50 mg PO QPM [facility] Last Admin: 11/23/18 17:13 Dose: 50 mg Montelukast Sodium (Singulair Tab*) 10 mg PO BEDTIME [facility] Last Admin: 11/23/18 20:55 Dose: 10 mg Nystatin (Nystatin Top Powder*) 1 applic TOPICAL BID [facility] Last Admin: 11/24/18 09:56 Dose: 1 applic Ondansetron HCl (Zofran Inj*) 4 mg IV Q4H PRN PRN Reason: NAUSEA/VOMITING Last Admin: 11/23/18 14:13 Dose: 4 mg Pantoprazole Sodium (Protonix Tab*) 40 mg PO DAILY [facility] Last Admin: 11/24/18 09:39 Dose: 40 mg Potassium Chloride (Klor Con Er Tab*) 20 meq PO DAILY [facility] Last Admin: 11/24/18 09:39 Dose: 20 meq Prednisone (Deltasone Tab*) 20 mg PO DAILY [facility] Last Admin: 11/24/18 09:39 Dose: 20 mg Tiotropium [place]/Olodaterol (Stiolto Respimat Inh [place] (60 Puff)(Nf)) 2 puff INH QAM [facility] Last Admin: 11/24/18 10:11 Dose: 2 puff Torsemide (Torsemide) 20 mg PO DAILY [facility] Last Admin: 11/24/18 09:38 Dose: 20 mg Tramadol HCl (Ultram*) 50 mg PO Q6H PRN PRN Reason: PAIN Last Admin: 11/21/18 20:02 Dose: 50 mg Vancomycin HCl (Vancomycin Cap*) 125 mg PO QID [facility] Last Admin: 11/24/18 09:39 Dose: 125 mg Objective: [] Vital Signs Temp Pulse Resp BP Pulse Ox 96.9 F 70 14 141/46 99 11/23/18 23:41 11/24/18 10:12 11/24/18 10:12 11/23/18 23:41 11/24/18 10:12 HEENT: eyes pale. OM moist and no thrush. 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 Admitted for collitis but now with prolonged pancytopenias. Discussed that the critical blood count for her is her platelets. He WBC has been fine and Hgb is dropping primarily form chronic bleeding in setting of thrombocytoepina. Discussed with patient residential plan and tapia is increase in platelets. If we cannot improve platelet counts the ultimately comfort care. Plan: 1. Diverticulitis and Diverticular abscess: - Flagyl and levaquin IV x 4 weeks 2. Cdiff colitis: - Continue oral vanco x 10d, through 11/25/18 3. Thrombocytopenia. 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 - Tx Plts today and then maintain Plts > 10,000 - Nplate 2 mcg/kg today and then does q Fridays 4. Anemia. - Transfuse today x U PRBC an then for Hgb < 8.5 - Re-check Epo level tomorrow. 5. Neutropenia. Continue GCSF 6. Edema. Home diuretics - Replete K, K-dur 20 melba bid today. - Follow Mg 7. Weakness. - PT every day, work to standing - Decrease steroids 8. Code. Need to discuss but with friends, will come back later.
--- NOTE | 2018-11-24 10:39 | PN ---
Progress Note - Progress Note Date of Service: 11/24/18 SOAP: Subjective: CC: C-diff colitis and diverticular abscess HPI: Ms. Cobian is an 82 yo female with PMH significant for Myelodysplastic syndrome, A fib, COPD, CAD s/p CABG, CKD, depression, HLD, HTN, PVD, TIA, CHF, and diverticulitis. Denies fever, chills, shortness of breath, nausea, vomiting, diarrhea, urinary symptoms, or ABD pain. Reports generalized weakness, 1-2 loose stools daily. Objective: Vital Signs - 8 hr 11/24/18 10:12 Pulse Rate 70 Respiratory 14 Rate O2 Sat by Pulse 99 Oximetry Physical Exam: General: NAD, laying in bed Neurological: Alert and Oriented x4 HEENT: No thrush, Moist MM Cardiovascular: Heart rate regular Respiratory: Lung sounds clear bilateral, diminished in the bases Abdominal: Bowel sounds present; ABD soft, non distended and mild tenderness in the right LQ Skin: No rash Laboratory Results - last 24 hr 11/23/18 11/24/18 11/24/18 07:45 06:00 06:00 WBC 4.8 RBC 2.39 L Hgb 7.7 L Hct 22 L MCV 92 MCH 32 H MCHC 35 RDW 22 H Plt Count 4 L* MPV 10.4 Neut % (Auto) 78.1 Lymph % (Auto) 19.1 [place] % (Auto) 2.2 Eos % (Auto) 0.3 Baso % (Auto) 0.3 Absolute Neuts (auto) 3.7 Absolute Lymphs (auto) 0.9 L Absolute Monos (auto) 0.1 Absolute Eos (auto) 0.0 Absolute Basos (auto) 0.0 Absolute Nucleated RBC 0.0 Immature Gran % 18.0 H Neutrophils % 60.0 Band Neutrophils % 18.0 H Lymphocytes % 12.0 Reactive Lymphs % 6.0 Monocytes % 2.0 Blast Cells % 2.0 H* Nucleated RBC % 0.3 Normal RBC Morphology Not Reportable Polychromasia 1+ Hem Pathologist Commnt Sodium 137 Potassium 3.1 L Chloride 98 L Carbon Dioxide 35 H Anion Gap 4 BUN 30 H Creatinine 0.70 Est GFR ( Amer) 96.5 Est GFR (Non-Af Amer) 79.7 BUN/Creatinine Ratio 42.9 H Glucose 121 H Calcium 7.9 L Magnesium 1.9 Total Bilirubin 2.00 H AST 20 ALT 15 Alkaline Phosphatase 101 Total Protein 7.0 Albumin 2.3 L Globulin 4.7 H Albumin/Globulin Ratio 0.5 L Microbiology 11/18/18 09:00 Stool Culture - Final Stool Stool Gross Appearance - Final Shiga Toxin I & II - Final 11/15/18 10:00 Stool Gross Appearance - Final Stool C. difficile DNA Amplification - Final 027 Presumptive NEGATIVE Toxigenic C.diff POSITIVE Stool Lactoferrin - Final 11/15/18 10:00 Stool Occult Blood (MICHELE) - Final Stool Assessment: 1. C-diff colitis. Reports that the diarrhea has mostly resolved with 1-2 loose stools daily. 2. Recent diverticulitis, now with a diverticular abscess. Unable to be drained by Radiology, abscess measures about 3 cm. Afebrile and no leukocytosis. ABD pain has mostly resolved, reports that she is tolerating a soft diet. 3. PCN and CEPHALOSPORIN allergy. Patient is unsure of the reaction 4. Thrombocytopenia. Hematology/Oncology is following the patient Plan: Continue Vancomycin 125 mg by mouth QID for 10 days for C-diff colitis, day 9/ 10. Continue Levaquin 500 mg IV daily and Flagyl 500 mg IV TID for diverticulitis and diverticular abscess while in the hospital. Once ready for discharge change antibiotics to Levaquin 500 mg PO daily and Flagyl 500 mg PO BID for a total of 4 week of antibiotics.
[2018-11-24] MEDS ORDERED: ROMIPLOSTIM 250 MCG/0.5 ML SUBCUT ONE (11:00)
[2018-11-24] MEDS: Levofloxacin 500 MG IVPREMIX(* 500 MG/100 ML BAG IVPB SCH (18:29)
[2018-11-24] MEDS: PTO: Mirabegron (NF) 50 MG TAB PO SCH (18:53)
[2018-11-24] MEDS: Montelukast Sodium TAB* 10 MG PO SCH (20:00)
[2018-11-24] MEDS: HYDROcodone/ACETAMIN 5-325 MG* 1 TAB PO PRN (21:24)
[2018-11-24 21:34] LABS: Mean Platelet Volume 9.1 fL (7.4-10.4); Platelet Count 6 10^3/uL (150-450)
[2018-11-25] MEDS: metroNIDAZOLE IV 500 MG/100ML* 500 MG/100 ML BAG IVPB SCH ×3 (01:47→16:44)
[2018-11-25 05:45] LABS: Hematocrit 24 % (35-47); Hemoglobin 8.2 g/dL (12.0-16.0); Mean Corpuscular HGB Conc 35 g/dL (31-36); Mean Corpuscular Hemoglobin 32 pg (27-31); Mean Corpuscular Volume 90 fL (80-97); Mean Platelet Volume 11.1 fL (7.4-10.4); Platelet Count 3 10^3/uL (150-450); Red Blood Count 2.61 10^6 /uL (3.70-4.87); Red Cell Distribution Width 20 % (10.5-15); White Blood Count 4.4 10^3/uL (3.5-10.8)
[2018-11-25 05:49] LABS: Albumin 2.4 g/dL (3.2-5.2); Albumin/Globulin Ratio 0.6 (1-3); BUN/Creatinine Ratio 40.2 (8-20); Calcium 7.6 mg/dL (8.6-10.3); EGFR African American 80.4 (>60); EGFR Non-African American 66.4 (>60); Globulin 4.2 g/dL (2-4); Potassium 3.3 mmol/L (3.5-5.0); Total Bilirubin 1.8 mg/dL (0.2-1.0); Total Protein 6.6 g/dL (6.4-8.9)
[2018-11-25 06:08] LABS: ABS Monocytes 1.1 10^3/ul (0-0.8); ABS Neutrophils 2.3 10^3/ul (1.5-7.7); Eosinophil % 0.3 %; Lymphocyte % 22.3 %; Nucleated Red Blood Cells % 0.5
[2018-11-25] MEDS ORDERED: predniSONE TAB* 10 MG PO SCH (09:00)
[2018-11-25] MEDS: FILGRASTIM-SNDZ* 480 MCG/0.8 ML SYRINGE SUBCUT SCH (09:12)
[2018-11-25] MEDS: Pantoprazole TAB * 40 MG TAB PO SCH (09:12)
[2018-11-25] MEDS: Folic Acid TAB* 1 MG PO SCH (09:12)
[2018-11-25] MEDS: Vancomycin CAP* 125 MG CAP PO SCH (09:12)
[2018-11-25] MEDS: Potassium Chlor TAB* 20 MEQ TAB.ER PO SCH ×2 (09:12→20:00)
[2018-11-25] MEDS: Torsemide TAB 10 MG PO SCH (09:12)
[2018-11-25] MEDS: Nystatin TOP POWDER* 15 GM BTL TOPICAL SCH ×2 (09:13→20:02)
[2018-11-25] MEDS: DULoxetine DR CAP* 60 MG CAP.DR PO SCH (09:13)
[2018-11-25] MEDS: MDI INH SCH (09:24)
[2018-11-25] MEDS: OLODATEROL INH SCH (09:24)
[2018-11-25] MEDS: TIOTROPIUM BROM INH SCH (09:24)
--- NOTE | 2018-11-25 09:26 | PN ---
Progress Note - Progress Note Date of Service: 11/25/18 SOAP: Subjective: []No change, feeling pretty good. Has some pain in Left arm. No fevers or chills. No other bleeding. Tolerated transfusions. Eating well, no abdominal pain, solid BM. Worked with PT yesterday. Acetaminophen (Tylenol Tab*) 650 mg PO Q4H PRN PRN Reason: FEVER/PAIN Last Admin: 11/21/18 08:52 Dose: 650 mg Hydrocodone Bitart/Acetaminophen ([place] 5-325 Tab*) 1 tab PO Q4H PRN PRN Reason: PAIN Last Admin: 11/24/18 21:24 Dose: 0.5 tab Clonazepam (Klonopin Tab(*)) 0.5 mg PO DAILY PRN PRN Reason: ANXIETY Last Admin: 11/23/18 20:55 Dose: 0.5 mg Duloxetine HCl (Cymbalta Cap*) 60 mg PO QAM [facility] Last Admin: 11/25/18 09:13 Dose: 60 mg Filgrastim-Sndz (Zarxio*) 480 mcg SUBCUT DAILY [facility] Last Admin: 11/25/18 09:12 Dose: 480 mcg Folic Acid (Folvite Tab*) 1 mg PO DAILY [facility] Last Admin: 11/25/18 09:12 Dose: 1 mg Heparin Sodium (Porcine) (Heparin Flush Picc/Ml/Cvc(*)) 1 - 3 ml FLUSH 0600, 1800 [facility]; Protocol Last Admin: 11/25/18 05:04 Dose: 2 ml Metronidazole/Sodium Chloride (Flagyl 500 Mg Ivpb*) 500 mg in 100 mls @ 100 mls /hr IVPB 0130,0930,1730 [facility] Last Admin: 11/25/18 09:12 Dose: 100 mls/hr Levofloxacin/Dextrose (Levaquin 500 Mg Ivpremix(*)) 500 mg in 100 mls @ 100 mls /hr IVPB 1800 [facility]; Protocol Last Admin: 11/24/18 18:29 Dose: 100 mls/hr Mirabegron (Myrbetriq (Nf)) 50 mg PO QPM [facility] Last Admin: 11/24/18 18:53 Dose: 50 mg Montelukast Sodium (Singulair Tab*) 10 mg PO BEDTIME [facility] Last Admin: 11/24/18 20:00 Dose: 10 mg Nystatin (Nystatin Top Powder*) 1 applic TOPICAL BID [facility] Last Admin: 11/25/18 09:13 Dose: 1 applic Ondansetron HCl (Zofran Inj*) 4 mg IV Q4H PRN PRN Reason: NAUSEA/VOMITING Last Admin: 11/23/18 14:13 Dose: 4 mg Pantoprazole Sodium (Protonix Tab*) 40 mg PO DAILY [facility] Last Admin: 11/25/18 09:12 Dose: 40 mg Potassium Chloride (Klor Con Er Tab*) 20 meq PO DAILY [facility] Last Admin: 11/25/18 09:12 Dose: 20 meq Prednisone (Deltasone Tab*) 10 mg PO DAILY [facility] Last Admin: 11/25/18 09:12 Dose: 10 mg Tiotropium [place]/Olodaterol (Stiolto Respimat Inh [place] (60 Puff)(Nf)) 2 puff INH QAM [facility] Last Admin: 11/24/18 10:11 Dose: 2 puff Torsemide (Torsemide) 20 mg PO DAILY [facility] Last Admin: 11/25/18 09:12 Dose: 20 mg Tramadol HCl (Ultram*) 50 mg PO Q6H PRN PRN Reason: PAIN Last Admin: 11/21/18 20:02 Dose: 50 mg Vancomycin HCl (Vancomycin Cap*) 125 mg PO QID [facility] Last Admin: 11/25/18 09:12 Dose: 125 mg k 3.3 Mg 1.8 plt 3, no response to Tx Hgb 8.2 Objective: [] Vital Signs Temp Pulse Resp BP Pulse Ox 97.9 F 70 16 130/46 98 11/25/18 07:33 11/25/18 07:33 11/25/18 07:33 11/25/18 07:33 11/25/18 07:33 HEENT: eyes pale. OM moist and no thrush. Decreased BS and base crackles RRR s1S2 +BS, feels distended but non tender, obese Ext bruising and bleeding arm, buise from BP cuff. 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 Admitted for collitis but now with prolonged pancytopenias. Discussed that the critical blood count for her is her platelets. He WBC has been fine and Hgb is dropping primarily form chronic bleeding in setting of thrombocytoepina. 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 She did not respond to platelet transfusion. Has been treated with IVIG and is on Nplate, 2 mcg/kg given yesterday. Need to reduced production but do not want to use myelosuppressive agents. Options are HD Dex, Rituximab, cyclosporine. Plan: 1. Diverticulitis and Diverticular abscess: - Flagyl and levaquin IV x 4 weeks 2. Cdiff colitis: - Stop oral Vancomycin, follow for recurrent diarrhea. 3. Thrombocytopenia. 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 - Tx Plts today and then maintain Plts > 10,000 - Nplate 2 mcg/kg today and then does q Fridays - s/p IVIG, Dex 40 IV dialy and if not improved in 4 days -> Rituximab. 4. Anemia. - Transfuse for Hgb < 8.0 - Epo level pending. 5. Neutropenia. Continue GCSF 6. Edema. Home diuretics - Replete K, K-dur 20 melba bid - Give 2 G IV MG 7. Weakness. - PT every day, work to standing - Decrease steroids 8. Code. DNR DNI, discussed with patient and daughter.
[2018-11-25] MEDS ORDERED: Magnesium Sulfate 2 GM IV* 2 GM/50 ML BAG IVPB ONE (09:34)
[2018-11-25] MEDS: Dexamethasone IV* 40 MG in NS 0.9% 50 ML* 50 ML IVPB SCH (10:25)
[2018-11-25] MEDS: Levofloxacin 500 MG IVPREMIX(* 500 MG/100 ML BAG IVPB SCH (16:44)
[2018-11-25] MEDS: PTO: Mirabegron (NF) 50 MG TAB PO SCH (17:39)
[2018-11-25] MEDS: Montelukast Sodium TAB* 10 MG PO SCH (20:00)
[2018-11-25] MEDS: HYDROcodone/ACETAMIN 5-325 MG* 1 TAB PO PRN (20:00)
[2018-11-26] MEDS: metroNIDAZOLE IV 500 MG/100ML* 500 MG/100 ML BAG IVPB SCH ×3 (02:56→18:02)
[2018-11-26 05:28] LABS: Hematocrit 22 % (35-47); Hemoglobin 7.5 g/dL (12.0-16.0); Mean Corpuscular HGB Conc 35 g/dL (31-36); Mean Corpuscular Hemoglobin 31 pg (27-31); Mean Corpuscular Volume 90 fL (80-97); Mean Platelet Volume 10.9 fL (7.4-10.4); Platelet Count 3 10^3/uL (150-450); Red Cell Distribution Width 19 % (10.5-15)
[2018-11-26 05:40] LABS: Albumin 2.6 g/dL (3.2-5.2); Albumin/Globulin Ratio 0.6 (1-3); BUN/Creatinine Ratio 46.1 (8-20); Calcium 8.1 mg/dL (8.6-10.3); EGFR African American 87.7 (>60); EGFR Non-African American 72.5 (>60); Globulin 4.3 g/dL (2-4); Magnesium 1.9 mg/dL (1.9-2.7); Potassium 3.8 mmol/L (3.5-5.0); Total Bilirubin 1.5 mg/dL (0.2-1.0); Total Protein 6.9 g/dL (6.4-8.9)
[2018-11-26 05:53] LABS: ABS Lymphocytes 0.4 10^3/ul (1.0-4.8); ABS Neutrophils 1.6 10^3/ul (1.5-7.7); Eosinophil % 0.1 %; Nucleated Red Blood Cells % 0.3
[2018-11-26] MEDS: OLODATEROL INH SCH (07:16)
[2018-11-26] MEDS: TIOTROPIUM BROM INH SCH (07:16)
[2018-11-26] MEDS: MDI INH SCH (07:16)
[2018-11-26] MEDS ORDERED: Dexamethasone IV* 4 MG/ML 5 ML VIAL (20 MG) ONE (08:23)
[2018-11-26] MEDS: Dexamethasone IV* 40 MG in NS 0.9% 50 ML* 50 ML IVPB SCH (08:46)
[2018-11-26] MEDS: Nystatin TOP POWDER* 15 GM BTL TOPICAL SCH ×2 (08:53→20:09)
[2018-11-26] MEDS: Folic Acid TAB* 1 MG PO SCH (08:55)
[2018-11-26] MEDS: Torsemide TAB 10 MG PO SCH (08:55)
[2018-11-26] MEDS: DULoxetine DR CAP* 60 MG CAP.DR PO SCH (08:55)
[2018-11-26] MEDS: Pantoprazole TAB * 40 MG TAB PO SCH (08:56)
[2018-11-26] MEDS: Potassium Chlor TAB* 20 MEQ TAB.ER PO SCH ×2 (08:56→20:09)
[2018-11-26] MEDS: FILGRASTIM-SNDZ* 480 MCG/0.8 ML SYRINGE SUBCUT SCH (09:04)
--- NOTE | 2018-11-26 09:08 | PN ---
Subjective Date of Service: 11/26/18 Interval History: Patient resting in bed on assessment. Reports unchanged sob (no increase in sob or improvement). Continues to have sob with movement in bed. Has been using bed ag. Denies cp, palpitations, fever, chills. Objective Active Medications: Acetaminophen (Tylenol Tab*) 650 mg PO Q4H PRN PRN Reason: FEVER/PAIN Last Admin: 11/21/18 08:52 Dose: 650 mg Hydrocodone Bitart/Acetaminophen ([place] 5-325 Tab*) 1 tab PO Q4H PRN PRN Reason: PAIN Last Admin: 11/25/18 20:00 Dose: 1 tab Clonazepam (Klonopin Tab(*)) 0.5 mg PO DAILY PRN PRN Reason: ANXIETY Last Admin: 11/23/18 20:55 Dose: 0.5 mg Duloxetine HCl (Cymbalta Cap*) 60 mg PO QAM [facility] Last Admin: 11/26/18 08:55 Dose: 60 mg Filgrastim-Sndz (Zarxio*) 480 mcg SUBCUT DAILY [facility] Last Admin: 11/26/18 09:04 Dose: 480 mcg Folic Acid (Folvite Tab*) 1 mg PO DAILY [facility] Last Admin: 11/26/18 08:55 Dose: 1 mg Heparin Sodium (Porcine) (Heparin Flush Picc/Ml/Cvc(*)) 1 - 3 ml FLUSH 0600, 1800 [facility]; Protocol Last Admin: 11/26/18 05:04 Dose: 2 ml Metronidazole/Sodium Chloride (Flagyl 500 Mg Ivpb*) 500 mg in 100 mls @ 100 mls /hr IVPB 0130,0930,1730 [facility] Last Admin: 11/26/18 08:46 Dose: 100 mls/hr Levofloxacin/Dextrose (Levaquin 500 Mg Ivpremix(*)) 500 mg in 100 mls @ 100 mls /hr IVPB 1800 [facility]; Protocol Last Admin: 11/25/18 16:44 Dose: 100 mls/hr Dexamethasone Sodium Phosphate (40 mg/ Sodium Chloride) 60 mls @ 210 mls/hr IVPB DAILY [facility] Stop: 11/29/18 09:59 Last Admin: 11/26/18 08:46 Dose: 210 mls/hr Mirabegron (Myrbetriq (Nf)) 50 mg PO QPM [facility] Last Admin: 11/25/18 17:39 Dose: 50 mg Montelukast Sodium (Singulair Tab*) 10 mg PO BEDTIME [facility] Last Admin: 11/25/18 20:00 Dose: 10 mg Nystatin (Nystatin Top Powder*) 1 applic TOPICAL BID [facility] Last Admin: 11/26/18 08:53 Dose: 1 applic Ondansetron HCl (Zofran Inj*) 4 mg IV Q4H PRN PRN Reason: NAUSEA/VOMITING Last Admin: 11/23/18 14:13 Dose: 4 mg Pantoprazole Sodium (Protonix Tab*) 40 mg PO DAILY [facility] Last Admin: 11/26/18 08:56 Dose: 40 mg Potassium Chloride (Klor Con Er Tab*) 20 meq PO BID [facility] Last Admin: 11/26/18 08:56 Dose: 20 meq Tiotropium [place]/Olodaterol (Stiolto Respimat Inh [place] (60 Puff)(Nf)) 2 puff INH QAM [facility] Last Admin: 11/26/18 07:16 Dose: 2 puff Torsemide (Torsemide) 20 mg PO DAILY [facility] Last Admin: 11/26/18 08:55 Dose: 20 mg Tramadol HCl (Ultram*) 50 mg PO Q6H PRN PRN Reason: PAIN Last Admin: 11/21/18 20:02 Dose: 50 mg Vital Signs - 8 hr 11/26/18 11/26/18 03:24 07:17 Temperature 97.0 F Pulse Rate 70 70 Respiratory 16 14 Rate Blood Pressure 126/43 (mmHg) O2 Sat by Pulse 95 96 Oximetry Oxygen Devices in Use Now: Nasal Cannula Appearance: Comfortable, NAD Eyes: No Scleral Icterus Ears/Nose/Mouth/Throat: Clear Oropharnyx, Mucous Membranes Moist Neck: NL Appearance and Movements; NL JVP Respiratory: Symmetrical Chest Expansion and Respiratory Effort, Clear to Auscultation Cardiovascular: NL Sounds; No Murmurs; No JVD, RRR, - - Bilateral +2 LE edema. Edema to LUE. Abdominal: NL Sounds; No Tenderness; No Distention Lymphatic: No Cervical Adenopathy Extremities: - - LUE edema and bruising. Patient reports is improved from yesterday. Radial pulse strong Skin: - - Bruising to LUE Neurological: Alert and Oriented x 3 Nutrition: Taking PO's Result Diagrams: 11/26/18 05:10 11/26/18 05:10 Additional Lab and Data: Laboratory Results - last 24 hr 11/26/18 11/26/18 05:10 05:10 WBC 2.0 L RBC 2.40 L Hgb 7.5 L Hct 22 L MCV 90 MCH 31 MCHC 35 RDW 19 H Plt Count 3 L* MPV 10.9 H Neut % (Auto) 77.2 Lymph % (Auto) 20.0 [place] % (Auto) 2.0 Eos % (Auto) 0.1 Baso % (Auto) 0.7 Absolute Neuts (auto) 1.6 Absolute Lymphs (auto) 0.4 L Absolute Monos (auto) 0.0 Absolute Eos (auto) 0.0 Absolute Basos (auto) 0.0 Absolute Nucleated RBC 0.0 Nucleated RBC % 0.3 Sodium 138 Potassium 3.8 Chloride 96 L Carbon Dioxide 39 H Anion Gap 3 BUN 35 H Creatinine 0.76 Est GFR ( Amer) 87.7 Est GFR (Non-Af Amer) 72.5 BUN/Creatinine Ratio 46.1 H Glucose 187 H Calcium 8.1 L Magnesium 1.9 Total Bilirubin 1.50 H AST 14 ALT 12 Alkaline Phosphatase 81 Total Protein 6.9 Albumin 2.6 L Globulin 4.3 H Albumin/Globulin Ratio 0.6 L Microbiology and Other Data: . Assess/Plan/Problems-Billing Assessment: Ms. Cobian is an 82 yo F with a PMH of MDS who just started treatment with recent admission to [facility] after developing nausea and vomiting with syncope found to have diverticulitis (tx with cipro and flagyl) and GI bleeding with thrombocytopenia. She received 2 units PRBC and 2 units platelets in [place]. She was admitted here on 11/14/18 with weakness and diarrhea with plt count of 10, found to have diverticular abscess and cdiff colitis. 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 Then maintain PLT > 10,000 - On Nplate Q Fridays per Oncology (2) Anemia Comment: - Hgb 7.5, therefore, will receive one unit PRBC today then transfusion if Hgb less than 8.0 per Oncology - (3) Neutropenia Comment: - Management per oncology (4) Edema Comment: - Cont home diurectics - Hx of CHF Diastolic Dysfunction - No S/S of pulm edema - Cont daily weights and strict I&Os (5) Weakness Comment: - PT consulting - Conts to use bedpan as she is too weak to use commode - Steriods being decreased per oncology (6) Clostridium difficile colitis Comment: - Diarrhea improving - Completed oral vancomycin treatment (7) Intestinal diverticular abscess Current Visit: Yes Status: Acute Code(s): K63.0 - ABSCESS OF INTESTINE SNOMED Code(s): 3404709877235 Comment: - ID consulting - Continue levaquin 500 mg IV daily and metronidazole 500 mg IV TID while in the hospital - When ready for discharge can transition to Levaquin 500 mg PO daily and Metronidazole 500 mg BID for 4 weeks per ID (8) DNR (do not resuscitate) (9) DVT prophylaxis Comment: - SCDs only Status and Disposition: Inpatient, disposition per oncology Attending: Boyd Pedroza
[2018-11-26] MEDS ORDERED: Magnesium Sulfate 2 GM IV* 2 GM/50 ML BAG IVPB ONE (09:33)
[2018-11-26] MEDS: PTO: Mirabegron (NF) 50 MG TAB PO SCH (17:50)
[2018-11-26] MEDS: Levofloxacin 500 MG IVPREMIX(* 500 MG/100 ML BAG IVPB SCH (18:06)
[2018-11-26 19:37] LABS: Mean Platelet Volume 8.2 fL (7.4-10.4); Platelet Count 17 10^3/uL (150-450)
[2018-11-26] MEDS: Montelukast Sodium TAB* 10 MG PO SCH (20:09)
[2018-11-27] MEDS: metroNIDAZOLE IV 500 MG/100ML* 500 MG/100 ML BAG IVPB SCH ×3 (01:40→17:15)
[2018-11-27] MEDS: traMADol TAB* 50 MG PO PRN (01:50)
[2018-11-27 05:36] LABS: Hematocrit 24 % (35-47); Hemoglobin 8.5 g/dL (12.0-16.0); Mean Corpuscular HGB Conc 35 g/dL (31-36); Mean Corpuscular Hemoglobin 32 pg (27-31); Mean Corpuscular Volume 91 fL (80-97); Mean Platelet Volume 8.3 fL (7.4-10.4); Platelet Count 8 10^3/uL (150-450); Red Blood Count 2.69 10^6 /uL (3.70-4.87); Red Cell Distribution Width 17 % (10.5-15); White Blood Count 3.9 10^3/uL (3.5-10.8)
[2018-11-27 05:55] LABS: BUN/Creatinine Ratio 53.3 (8-20); Calcium 8.4 mg/dL (8.6-10.3); EGFR African American 89.1 (>60); EGFR Non-African American 73.6 (>60); Potassium 4.4 mmol/L (3.5-5.0)
[2018-11-27 06:44] LABS: ABS Lymphocytes 0.5 10^3/ul (1.0-4.8); ABS Monocytes 0.1 10^3/ul (0-0.8); ABS Neutrophils 3.3 10^3/ul (1.5-7.7); Eosinophil % 0.1 %; Lymphocyte % 12.7 %; Nucleated Red Blood Cells % 0.4
[2018-11-27] MEDS: MDI INH SCH (07:29)
[2018-11-27] MEDS: TIOTROPIUM BROM INH SCH (07:29)
[2018-11-27] MEDS: OLODATEROL INH SCH (07:29)
--- NOTE | 2018-11-27 09:34 | PN ---
Progress Note - Progress Note Date of Service: 11/27/18 SOAP: Subjective: []Feeling well today, no complaints. Eating, some constipation. Not in pain. Arm is stable to getting a little better. Tx blood and plts yesterday. No pain with swallowing. Acetaminophen (Tylenol Tab*) 650 mg PO Q4H PRN PRN Reason: FEVER/PAIN Last Admin: 11/21/18 08:52 Dose: 650 mg Hydrocodone Bitart/Acetaminophen ([place] 5-325 Tab*) 1 tab PO Q4H PRN PRN Reason: PAIN Last Admin: 11/25/18 20:00 Dose: 1 tab Clonazepam (Klonopin Tab(*)) 0.5 mg PO DAILY PRN PRN Reason: ANXIETY Last Admin: 11/23/18 20:55 Dose: 0.5 mg Duloxetine HCl (Cymbalta Cap*) 60 mg PO QAM [facility] Last Admin: 11/26/18 08:55 Dose: 60 mg Filgrastim-Sndz (Zarxio*) 480 mcg SUBCUT DAILY [facility] Last Admin: 11/26/18 09:04 Dose: 480 mcg Folic Acid (Folvite Tab*) 1 mg PO DAILY [facility] Last Admin: 11/26/18 08:55 Dose: 1 mg Heparin Sodium (Porcine) (Heparin Flush Picc/Ml/Cvc(*)) 1 - 3 ml FLUSH 0600, 1800 [facility]; Protocol Last Admin: 11/27/18 05:20 Dose: 2 ml Metronidazole/Sodium Chloride (Flagyl 500 Mg Ivpb*) 500 mg in 100 mls @ 100 mls /hr IVPB 0130,0930,1730 [facility] Last Admin: 11/27/18 01:40 Dose: 100 mls/hr Levofloxacin/Dextrose (Levaquin 500 Mg Ivpremix(*)) 500 mg in 100 mls @ 100 mls /hr IVPB 1800 [facility]; Protocol Last Admin: 11/26/18 18:06 Dose: 100 mls/hr Dexamethasone Sodium Phosphate (40 mg/ Sodium Chloride) 60 mls @ 210 mls/hr IVPB DAILY [facility] Stop: 11/29/18 09:59 Last Admin: 11/26/18 08:46 Dose: 210 mls/hr Mirabegron (Myrbetriq (Nf)) 50 mg PO QPM [facility] Last Admin: 11/26/18 17:50 Dose: 50 mg Montelukast Sodium (Singulair Tab*) 10 mg PO BEDTIME [facility] Last Admin: 11/26/18 20:09 Dose: 10 mg Nystatin (Nystatin Top Powder*) 1 applic TOPICAL BID [facility] Last Admin: 11/26/18 20:09 Dose: 1 applic Ondansetron HCl (Zofran Inj*) 4 mg IV Q4H PRN PRN Reason: NAUSEA/VOMITING Last Admin: 11/23/18 14:13 Dose: 4 mg Pantoprazole Sodium (Protonix Tab*) 40 mg PO DAILY [facility] Last Admin: 11/26/18 08:56 Dose: 40 mg Potassium Chloride (Klor Con Er Tab*) 20 meq PO BID [facility] Last Admin: 11/26/18 20:09 Dose: 20 meq Tiotropium [place]/Olodaterol (Stiolto Respimat Inh [place] (60 Puff)(Nf)) 2 puff INH QAM [facility] Last Admin: 11/27/18 07:29 Dose: 2 puff Torsemide (Torsemide) 20 mg PO DAILY [facility] Last Admin: 11/26/18 08:55 Dose: 20 mg Tramadol HCl (Ultram*) 50 mg PO Q6H PRN PRN Reason: PAIN Last Admin: 11/27/18 01:50 Dose: 50 mg Objective: [] Vital Signs Temp Pulse Resp BP Pulse Ox 97.3 F 69 16 135/55 99 11/27/18 03:50 11/27/18 03:50 11/27/18 04:25 11/27/18 03:50 11/27/18 03:50 HEENT: eyes pale. OM moist, no clear thrush but she may be developing Decreased BS and base crackles RRR s1S2 +BS, feels distended but non tender, obese Ext bruising and bleeding arm, buise from BP cuff. 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 Admitted for collitis but now with prolonged pancytopenias. Critical blood count for her is her platelets. He WBC has been fine and Hgb is dropping primarily form chronic bleeding in setting of thrombocytoepina. Current therapy for refractory immune mediated thrombocytopenia. Has been treated with IVIG and is on Nplate, 2 mcg/kg give last Tuesday and today on day 3 of 4 HD Dex. Plan: 1. Diverticulitis and Diverticular abscess: - Flagyl and levaquin IV x 4 weeks 2. Cdiff colitis, resolved 3. Thrombocytopenia. 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 - Tx Plts today and then maintain Plts > 10,000 - Nplate 3 mcg/kg on Tuesday - s/p IVIG, Dex 40 IV dialy x4, currently day 3/ 4. Anemia. - Transfuse for Hgb < 8.0 - Epo increased, no GFS 5. Neutropenia. Continue GCSF 6. Edema. Home diuretics - Replete K, K-dur 20 melba bid - Mg stable 7. Weakness. - PT every day, work to standing 8. Constipation. Seen 2 per day. 8. Code. DNR DNI, discussed with patient and daughter.
[2018-11-27] MEDS: Dexamethasone IV* 40 MG in NS 0.9% 50 ML* 50 ML IVPB SCH (09:53)
[2018-11-27] MEDS: DULoxetine DR CAP* 60 MG CAP.DR PO SCH (09:58)
[2018-11-27] MEDS: Folic Acid TAB* 1 MG PO SCH (09:58)
[2018-11-27] MEDS: Pantoprazole TAB * 40 MG TAB PO SCH (09:58)
[2018-11-27] MEDS: Torsemide TAB 10 MG PO SCH (09:58)
[2018-11-27] MEDS: Potassium Chlor TAB* 20 MEQ TAB.ER PO SCH ×2 (09:59→20:47)
[2018-11-27] MEDS: Nystatin TOP POWDER* 15 GM BTL TOPICAL SCH ×2 (10:01→22:21)
[2018-11-27] MEDS: FILGRASTIM-SNDZ* 480 MCG/0.8 ML SYRINGE SUBCUT SCH (10:02)
[2018-11-27] MEDS: Levofloxacin 500 MG IVPREMIX(* 500 MG/100 ML BAG IVPB SCH (19:12)
[2018-11-27] MEDS: PTO: Mirabegron (NF) 50 MG TAB PO SCH (19:16)
[2018-11-27] MEDS ORDERED: Loperamide CAP* 2 MG PO ONE (19:57)
--- NOTE | 2018-11-27 19:58 | PN ---
Hospitalist Progress Note Date of Service: 11/27/18 RN mentioned C. diff (-) for latest test. Reviewed data. Pt requests Immodium for diarrhea. Gave 1 x dose as requested.
[2018-11-27] MEDS: Montelukast Sodium TAB* 10 MG PO SCH (20:47)
[2018-11-27] MEDS ORDERED: Docusate CAP* 100 MG PO SCH (21:00)
[2018-11-27] MEDS ORDERED: Senna TAB PO SCH (21:00)
[2018-11-27] MEDS: Acetaminophen TAB* 325 MG PO PRN (23:56)
[2018-11-28 01:35] LABS: Mean Platelet Volume 7.7 fL (7.4-10.4); Platelet Count 19 10^3/uL (150-450)
[2018-11-28] MEDS: metroNIDAZOLE IV 500 MG/100ML* 500 MG/100 ML BAG IVPB SCH ×3 (01:43→19:44)
[2018-11-28] MEDS: MDI INH SCH (07:46)
[2018-11-28] MEDS: TIOTROPIUM BROM INH SCH (07:46)
[2018-11-28] MEDS: OLODATEROL INH SCH (07:46)
[2018-11-28] MEDS ORDERED: Dexamethasone IV* 4 MG/ML 5 ML VIAL (20 MG) ONE (08:53)
[2018-11-28] MEDS ORDERED: Senna TAB PO PRN (08:54)
[2018-11-28] MEDS ORDERED: Docusate CAP* 100 MG PO PRN (08:54)
[2018-11-28] MEDS: Potassium Chlor TAB* 20 MEQ TAB.ER PO SCH ×2 (09:21→23:46)
[2018-11-28] MEDS: Torsemide TAB 10 MG PO SCH (09:21)
[2018-11-28] MEDS: Pantoprazole TAB * 40 MG TAB PO SCH (09:21)
[2018-11-28] MEDS: Folic Acid TAB* 1 MG PO SCH (09:21)
[2018-11-28] MEDS: DULoxetine DR CAP* 60 MG CAP.DR PO SCH (09:21)
[2018-11-28] MEDS: clonazePAM TAB(*) 0.5 MG PO PRN (09:21)
[2018-11-28] MEDS: FILGRASTIM-SNDZ* 480 MCG/0.8 ML SYRINGE SUBCUT SCH (09:22)
[2018-11-28] MEDS: Dexamethasone IV* 40 MG in NS 0.9% 50 ML* 50 ML IVPB SCH (09:22)
--- NOTE | 2018-11-28 09:42 | PN ---
Progress Note - Progress Note Date of Service: 11/28/18 SOAP: Subjective: CC: C-diff colitis and diverticular abscess HPI: Ms. Cobian is an 82 yo female with PMH significant for Myelodysplastic syndrome, A fib, COPD, CAD s/p CABG, CKD, depression, HLD, HTN, PVD, TIA, CHF, and diverticulitis. Denies fever, chills, shortness of breath, nausea, vomiting, diarrhea, urinary symptoms, or ABD pain. Reports generalized weakness, 1-2 loose stools daily. She is tolerating a soft diet. States that she is felling much better than she was last week. Objective: Vital Signs - 8 hr 11/28/18 11/28/18 11/28/18 04:26 07:29 09:21 Temperature 98.5 F 97.4 F Pulse Rate 69 70 Respiratory 18 20 20 Rate Blood Pressure 139/72 164/73 (mmHg) O2 Sat by Pulse 95 100 Oximetry Physical Exam: General: NAD, sitting up in bed Neurological: Alert and Oriented x 4 HEENT: No thrush, moist MM Cardiovascular: Heart rate regular Respiratory: Lung sounds clear bilateral Abdominal: Bowel sounds present; ABD soft, non tender and non distended Skin: No rash Laboratory Last Values WBC 3.9 10^3/uL (3.5-10.8) 11/27/18 05:20 RBC 2.69 10^6 /uL (3.70-4.87) L 11/27/18 05:20 RBC (Retic) 1.78 10^6/uL (3.70-4.87) L 11/20/18 10:30 Hgb 8.5 g/dL (12.0-16.0) L 11/27/18 05:20 Hct 24 % (35-47) L 11/27/18 05:20 HCT (Retic) 17 % (35-47) L 11/20/18 10:30 MCV 91 fL (80-97) 11/27/18 05:20 MCH 32 pg (27-31) H 11/27/18 05:20 MCHC 35 g/dL (31-36) 11/27/18 05:20 RDW 17 % (10.5-15) H 11/27/18 05:20 Plt Count 19 10^3/uL (150-450) L D 11/28/18 01:20 MPV 7.7 fL (7.4-10.4) 11/28/18 01:20 Neut % (Auto) 84.4 % 11/27/18 05:20 Lymph % (Auto) 12.7 % 11/27/18 05:20 [place] % (Auto) 2.7 % 11/27/18 05:20 Eos % (Auto) 0.1 % 11/27/18 05:20 Baso % (Auto) 0.1 % 11/27/18 05:20 Absolute Neuts (auto) 3.3 10^3/ul (1.5-7.7) 11/27/18 05:20 Absolute Lymphs (auto) 0.5 10^3/ul (1.0-4.8) L 11/27/18 05:20 Absolute Monos (auto) 0.1 10^3/ul (0-0.8) 11/27/18 05:20 Absolute Eos (auto) 0.0 10^3/ul (0-0.6) 11/27/18 05:20 Absolute Basos (auto) 0.0 10^3/ul (0-0.2) 11/27/18 05:20 Absolute Nucleated RBC 0.0 10^3/ul 11/27/18 05:20 Immature Gran % 18.0 % (0-9) H 11/24/18 06:00 Neutrophils % 60.0 % 11/24/18 06:00 Band Neutrophils % 18.0 % (0-8) H 11/24/18 06:00 Lymphocytes % 12.0 % 11/24/18 06:00 Reactive Lymphs % 6.0 % (0-6) 11/24/18 06:00 Monocytes % 2.0 % 11/24/18 06:00 Eosinophils % 1.0 % 11/23/18 07:45 Basophils % 0.0 % 11/22/18 06:07 Blast Cells % 2.0 % H* 11/24/18 06:00 Nucleated RBC % 0.4 11/27/18 05:20 Abs Neuts (Manual) 3.3 10^3/ul (1.5-7.7) 11/23/18 07:45 Abs Lymphs (Manual) 1.4 10^3/ul (1.0-4.8) 11/23/18 07:45 Abs Monocytes (Manual) 0.5 10^3/ul (0-0.8) 11/23/18 07:45 Absolute Eos (Manual) 0.1 10^3/ul (0-0.6) 11/23/18 07:45 Abs Basophils (Manual) 0.0 10^3/ul (0-0.2) 11/22/18 06:07 Nucleated RBCs/100 WBC 1.0 (0-0) H 11/22/18 06:07 Normal RBC Morphology Not Reportable 11/24/18 06:00 Polychromasia 1+ 11/24/18 06:00 Anisocytosis 1+ 11/22/18 06:07 ESR > 120 mm/Hr (0-29) H 11/20/18 10:30 Retic Count, Calc 1.2 % (0.5-1.5) 11/20/18 10:30 Corrected Retic Count 0.4 % (0.5-1.5) L 11/20/18 10:30 Retic Shift Factor 2.5 11/20/18 10:30 Retic Production Index 0.20 11/20/18 10:30 Immature Retic Fraction 0.37 11/20/18 10:30 Mean Retic Volume 150.4 11/20/18 10:30 Hem Pathologist Commnt 11/23/18 07:45 Sodium 137 mmol/L (135-145) 11/27/18 05:20 Potassium 4.4 mmol/L (3.5-5.0) 11/27/18 05:20 Chloride 97 mmol/L (101-111) L 11/27/18 05:20 Carbon Dioxide 39 mmol/L (22-32) H 11/27/18 05:20 Anion Gap 1 mmol/L (2-11) L 11/27/18 05:20 BUN 40 mg/dL (6-24) H 11/27/18 05:20 Creatinine 0.75 mg/dL (0.51-0.95) 11/27/18 05:20 Est GFR ( Amer) 89.1 (>60) 11/27/18 05:20 Est GFR (Non-Af Amer) 73.6 (>60) 11/27/18 05:20 BUN/Creatinine Ratio 53.3 (8-20) H 11/27/18 05:20 Glucose 191 mg/dL (70-100) H 11/27/18 05:20 Calcium 8.4 mg/dL (8.6-10.3) L 11/27/18 05:20 Magnesium 2.0 mg/dL (1.9-2.7) 11/27/18 05:20 Erythropoietin 1976 mIU/mL (2.6 - 18.5) H 11/20/18 10:30 Total Bilirubin 1.50 mg/dL (0.2-1.0) H 11/26/18 05:10 Direct Bilirubin 0.90 mg/dL (0.03-0.18) H 11/21/18 06:10 Indirect Bilirubin 1.4 mg/dL (0.3-1.0) H 11/21/18 06:10 AST 14 U/L (13-39) 11/26/18 05:10 ALT 12 U/L (7-52) 11/26/18 05:10 Alkaline Phosphatase 81 U/L (34-104) 11/26/18 05:10 Lactate Dehydrogenase 299 U/L (140-271) H 11/20/18 10:30 Total Protein 6.9 g/dL (6.4-8.9) 11/26/18 05:10 Albumin 2.6 g/dL (3.2-5.2) L 11/26/18 05:10 Globulin 4.3 g/dL (2-4) H 11/26/18 05:10 Albumin/Globulin Ratio 0.6 (1-3) L 11/26/18 05:10 Vitamin B12 1002 pg/mL (180-914) H 11/20/18 10:30 Methylmalonic Acid 0.20 nmol/mL (<=0.40) 11/20/18 10:30 Blood Type A Positive 11/24/18 06:00 Antibody Screen Negative 11/24/18 06:00 Crossmatch See Detail 11/25/18 12:09 Microbiology 11/27/18 13:20 Stool Gross Appearance - Final Stool C. difficile DNA Amplification - Final 027 Presumptive NEGATIVE Toxigenic C.diff NEGATIVE 11/18/18 09:00 Stool Culture - Final Stool Stool Gross Appearance - Final Shiga Toxin I & II - Final 11/15/18 10:00 Stool Gross Appearance - Final Stool C. difficile DNA Amplification - Final 027 Presumptive NEGATIVE Toxigenic C.diff POSITIVE Stool Lactoferrin - Final 11/15/18 10:00 Stool Occult Blood (MICHELE) - Final Stool Assessment: 1. C-diff colitis. Reports that the diarrhea has resolved, is having with 1-2 loose stools daily. Completed Vancomycin for C-diff colitis, on 11/25/18. 2. Recent diverticulitis, now with a diverticular abscess. Unable to be drained by Radiology, abscess measures about 3 cm. Afebrile and no leukocytosis. ABD pain has resolved. She is tolerating a soft diet. 3. PCN and CEPHALOSPORIN allergy. Patient is unsure of the reaction 4. Thrombocytopenia. Hematology/Oncology is following the patient Plan: Continue Levaquin 500 mg IV daily and Flagyl 500 mg IV TID for diverticulitis and diverticular abscess while in the hospital. Once ready for discharge change antibiotics to Levaquin 500 mg PO daily and Flagyl 500 mg PO BID for a total of 4 week of antibiotics. Day . Followup with ID outpatient. She will need to have a repeat ABD CT scan about 3 weeks into her ABX and prior to the completion of ABX.
--- NOTE | 2018-11-28 10:07 | PN ---
Progress Note - Progress Note Date of Service: 11/28/18 SOAP: Subjective: []Feeling pretty good. Has gotten up to chair but gets really anxious and shaky when she does. Left arm cont.'s to improve. Soft stool this AM. Medications: Acetaminophen (Tylenol Tab*) 650 mg PO Q4H PRN PRN Reason: FEVER/PAIN Last Admin: 11/27/18 23:56 Dose: 650 mg Hydrocodone Bitart/Acetaminophen ([place] 5-325 Tab*) 1 tab PO Q4H PRN PRN Reason: PAIN Last Admin: 11/25/18 20:00 Dose: 1 tab Clonazepam (Klonopin Tab(*)) 0.5 mg PO DAILY PRN PRN Reason: ANXIETY Last Admin: 11/28/18 09:21 Dose: 0.5 mg Docusate Sodium (Colace Cap*) 200 mg PO BEDTIME PRN PRN Reason: CONSTIPATION Duloxetine HCl (Cymbalta Cap*) 60 mg PO QAM [facility] Last Admin: 11/28/18 09:21 Dose: 60 mg Filgrastim-Sndz (Zarxio*) 480 mcg SUBCUT DAILY [facility] Last Admin: 11/28/18 09:22 Dose: 480 mcg Folic Acid (Folvite Tab*) 1 mg PO DAILY [facility] Last Admin: 11/28/18 09:21 Dose: 1 mg Heparin Sodium (Porcine) (Heparin Flush Picc/Ml/Cvc(*)) 1 - 3 ml FLUSH 0600, 1800 [facility]; Protocol Last Admin: 11/28/18 05:08 Dose: 2 ml Metronidazole/Sodium Chloride (Flagyl 500 Mg Ivpb*) 500 mg in 100 mls @ 100 mls /hr IVPB 0130,0930,1730 [facility] Last Admin: 11/28/18 01:43 Dose: 100 mls/hr Levofloxacin/Dextrose (Levaquin 500 Mg Ivpremix(*)) 500 mg in 100 mls @ 100 mls /hr IVPB 1800 [facility]; Protocol Last Admin: 11/27/18 19:12 Dose: 100 mls/hr Dexamethasone Sodium Phosphate (40 mg/ Sodium Chloride) 60 mls @ 210 mls/hr IVPB DAILY [facility] Stop: 11/29/18 09:59 Last Admin: 11/28/18 09:22 Dose: 210 mls/hr Mirabegron (Myrbetriq (Nf)) 50 mg PO QPM [facility] Last Admin: 11/27/18 19:16 Dose: 50 mg Montelukast Sodium (Singulair Tab*) 10 mg PO BEDTIME [facility] Last Admin: 11/27/18 20:47 Dose: 10 mg Nystatin (Nystatin Top Powder*) 1 applic TOPICAL BID [facility] Last Admin: 11/27/18 22:21 Dose: 1 applic Ondansetron HCl (Zofran Inj*) 4 mg IV Q4H PRN PRN Reason: NAUSEA/VOMITING Last Admin: 11/23/18 14:13 Dose: 4 mg Pantoprazole Sodium (Protonix Tab*) 40 mg PO DAILY [facility] Last Admin: 11/28/18 09:21 Dose: 40 mg Potassium Chloride (Klor Con Er Tab*) 20 meq PO BID [facility] Last Admin: 11/28/18 09:21 Dose: 20 meq Senna (Senokot Tab*) 2 tab PO BEDTIME PRN PRN Reason: CONSTIPATION Tiotropium [place]/Olodaterol (Stiolto Respimat Inh [place] (60 Puff)(Nf)) 2 puff INH QAM [facility] Last Admin: 11/28/18 07:46 Dose: 2 puff Torsemide (Torsemide) 20 mg PO DAILY [facility] Last Admin: 11/28/18 09:21 Dose: 20 mg Tramadol HCl (Ultram*) 50 mg PO Q6H PRN PRN Reason: PAIN Last Admin: 11/27/18 01:50 Dose: 50 mg Objective: [] Vital Signs Temp Pulse Resp BP Pulse Ox 97.4 F 70 20 122/78 100 11/28/18 07:29 11/28/18 07:29 11/28/18 09:39 11/28/18 09:00 11/28/18 07:29 A&Ox3, EOMI, neuro grossly non-focal HRR, S1S2 LS clear +BS, abd. 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 Admitted for colitis but now with prolonged pancytopenias. Critical blood count at this time is her platelets with complication of intermittent/recurrent/chronic GI bleed, anemia stble at this time. 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 Plan: []1. Diverticulitis with Diverticular abscess: unable to drain, plan medication management, appreicate ID input - Will need 4 weeks of abx., cont IV while inpt. and transition to PO with discharge - D13 - c/o constipation but then requested anti-diarrheal, change laxatives to PRN 2. Cdiff colitis: resolved - OK to use PRN imodium now 3. Thrombocytopenia: MDS compounded by ITP - Transfuse to maintain Plts > 10,000 - Nplate 3 mcg/kg on Tuesday12/01/18 - s/p IVIG, Dex 40 IV daily x4, currently day 10/05 4. Anemia: 2/2 GI bleed - Transfuse for Hgb < 8.0 - Epo increased, no GFS 5. Neutropenia: stable - Continue neupogen 480 mcg sq daily for now 6. Edema: normal EF 09/2018 - cont. home diuretics - Replete K, K-dur 20 melba bid, Mg stable - Follow dialy labs 7. Weakness: - PT every day, work to standing DNR/DNI Dispo: pending improvement in plt., plan for home with daughter
[2018-11-28] MEDS: Nystatin TOP POWDER* 15 GM BTL TOPICAL SCH ×2 (10:38→23:26)
[2018-11-28 11:07] LABS: Hematocrit 21 % (35-47); Hemoglobin 7.2 g/dL (12.0-16.0); Mean Corpuscular HGB Conc 34 g/dL (31-36); Mean Corpuscular Hemoglobin 32 pg (27-31); Mean Corpuscular Volume 92 fL (80-97); Mean Platelet Volume 9.5 fL (7.4-10.4); Platelet Count 5 10^3/uL (150-450); Red Cell Distribution Width 17 % (10.5-15); White Blood Count 4.1 10^3/uL (3.5-10.8)
[2018-11-28 11:18] LABS: Albumin 2.1 g/dL (3.2-5.2); Albumin/Globulin Ratio 0.7 (1-3); BUN/Creatinine Ratio 59.7 (8-20); Calcium 6.6 mg/dL (8.6-10.3); EGFR Non-African American 91.7 (>60); Globulin 3.1 g/dL (2-4); Potassium 3.2 mmol/L (3.5-5.0); Total Bilirubin 1.3 mg/dL (0.2-1.0); Total Protein 5.2 g/dL (6.4-8.9)
[2018-11-28] MEDS ORDERED: KCL 20 MEQ/100 ML IVPREMIX* 20 MEQ/100 ML BAG IV ONE (13:17)
[2018-11-28 13:56] LABS: Magnesium 1.4 mg/dL (1.9-2.7)
[2018-11-28] MEDS ORDERED: Magnesium Sulf 4 GM/100 ML IV* 4,000 MG/100 ML BAG IVPB ONE (14:07)
[2018-11-28] MEDS: PTO: Mirabegron (NF) 50 MG TAB PO SCH (18:01)
[2018-11-28] MEDS: Levofloxacin 500 MG IVPREMIX(* 500 MG/100 ML BAG IVPB SCH (21:20)
[2018-11-28 21:55] LABS: Mean Platelet Volume 9.9 fL (7.4-10.4); Platelet Count 7 10^3/uL (150-450)
[2018-11-28] MEDS: Montelukast Sodium TAB* 10 MG PO SCH (23:26)
[2018-11-29] MEDS: metroNIDAZOLE IV 500 MG/100ML* 500 MG/100 ML BAG IVPB SCH ×2 (02:30→09:01)
[2018-11-29 07:07] LABS: Hematocrit 26 % (35-47); Hemoglobin 9.2 g/dL (12.0-16.0); Mean Corpuscular HGB Conc 35 g/dL (31-36); Mean Corpuscular Hemoglobin 31 pg (27-31); Mean Corpuscular Volume 89 fL (80-97); Platelet Count 4 10^3/uL (150-450); Red Blood Count 2.95 10^6 /uL (3.70-4.87); Red Cell Distribution Width 17 % (10.5-15); White Blood Count 3.9 10^3/uL (3.5-10.8)
[2018-11-29] MEDS: Dexamethasone IV* 40 MG in NS 0.9% 50 ML* 50 ML IVPB SCH (08:08)
[2018-11-29] MEDS: FILGRASTIM-SNDZ* 480 MCG/0.8 ML SYRINGE SUBCUT SCH (08:09)
[2018-11-29] MEDS: Folic Acid TAB* 1 MG PO SCH (08:09)
[2018-11-29] MEDS: DULoxetine DR CAP* 60 MG CAP.DR PO SCH (08:09)
[2018-11-29] MEDS: Potassium Chlor TAB* 20 MEQ TAB.ER PO SCH ×2 (08:09→20:48)
[2018-11-29] MEDS: Pantoprazole TAB * 40 MG TAB PO SCH (08:09)
[2018-11-29] MEDS: Torsemide TAB 10 MG PO SCH (08:09)
[2018-11-29] MEDS: Magnesium Oxide TAB* 400 MG PO SCH (08:10)
[2018-11-29 08:23] LABS: ABS Lymphocytes 0.3 10^3/ul (1.0-4.8); ABS Monocytes 0.1 10^3/ul (0-0.8); ABS Neutrophils 3.5 10^3/ul (1.5-7.7); Lymphocyte % 8.8 %; Nucleated Red Blood Cells % 0.4
[2018-11-29 09:35] LABS: Albumin 2.6 g/dL (3.2-5.2); Albumin/Globulin Ratio 0.7 (1-3); BUN/Creatinine Ratio 54.3 (8-20); Calcium 7.5 mg/dL (8.6-10.3); EGFR African American 96.5 (>60); EGFR Non-African American 79.7 (>60); Globulin 3.7 g/dL (2-4); Magnesium 2.2 mg/dL (1.9-2.7); Potassium 4.1 mmol/L (3.5-5.0); Total Bilirubin 1.6 mg/dL (0.2-1.0); Total Protein 6.3 g/dL (6.4-8.9)
[2018-11-29] MEDS: OLODATEROL INH SCH (09:35)
[2018-11-29] MEDS: MDI INH SCH (09:35)
[2018-11-29] MEDS: TIOTROPIUM BROM INH SCH (09:35)
--- NOTE | 2018-11-29 09:54 | PN ---
Progress Note - Progress Note Date of Service: 11/29/18 SOAP: Subjective: []Left arm is worse this AM, more dark purple and mroe swollen. Lots of discomfort with BPs (right arm restricted). Is tired this AM and discouraged. Gets stomach discomfort after eating, but no overt nausea. Medications: Acetaminophen (Tylenol Tab*) 650 mg PO Q4H PRN PRN Reason: FEVER/PAIN Last Admin: 11/27/18 23:56 Dose: 650 mg Hydrocodone Bitart/Acetaminophen ([place] 5-325 Tab*) 1 tab PO Q4H PRN PRN Reason: PAIN Last Admin: 11/25/18 20:00 Dose: 1 tab Clonazepam (Klonopin Tab(*)) 0.5 mg PO DAILY PRN PRN Reason: ANXIETY Last Admin: 11/28/18 09:21 Dose: 0.5 mg Docusate Sodium (Colace Cap*) 200 mg PO BEDTIME PRN PRN Reason: CONSTIPATION Duloxetine HCl (Cymbalta Cap*) 60 mg PO QAM [facility] Last Admin: 11/29/18 08:09 Dose: 60 mg Filgrastim-Sndz (Zarxio*) 480 mcg SUBCUT DAILY [facility] Last Admin: 11/29/18 08:09 Dose: 480 mcg Folic Acid (Folvite Tab*) 1 mg PO DAILY [facility] Last Admin: 11/29/18 08:09 Dose: 1 mg Heparin Sodium (Porcine) (Heparin Flush Picc/Ml/Cvc(*)) 1 - 3 ml FLUSH 0600, 1800 [facility]; Protocol Last Admin: 11/29/18 06:22 Dose: 2 ml Metronidazole/Sodium Chloride (Flagyl 500 Mg Ivpb*) 500 mg in 100 mls @ 100 mls /hr IVPB 0130,0930,1730 [facility] Last Admin: 11/29/18 09:01 Dose: 100 mls/hr Levofloxacin/Dextrose (Levaquin 500 Mg Ivpremix(*)) 500 mg in 100 mls @ 100 mls /hr IVPB 1800 [facility]; Protocol Last Admin: 11/28/18 21:20 Dose: 100 mls/hr Dexamethasone Sodium Phosphate (40 mg/ Sodium Chloride) 60 mls @ 210 mls/hr IVPB DAILY [facility] Stop: 11/29/18 09:59 Last Admin: 11/29/18 08:08 Dose: 210 mls/hr Loperamide HCl (Imodium Cap*) 2 mg PO QID PRN PRN Reason: DIARRHEA Magnesium Oxide (Magox 400 Tab*) 400 mg PO DAILY [facility] Last Admin: 11/29/18 08:10 Dose: 400 mg Mirabegron (Myrbetriq (Nf)) 50 mg PO QPM [facility] Last Admin: 11/28/18 18:01 Dose: 50 mg Montelukast Sodium (Singulair Tab*) 10 mg PO BEDTIME [facility] Last Admin: 11/28/18 23:26 Dose: 10 mg Nystatin (Nystatin Top Powder*) 1 applic TOPICAL BID [facility] Last Admin: 11/28/18 23:26 Dose: 1 applic Ondansetron HCl (Zofran Inj*) 4 mg IV Q4H PRN PRN Reason: NAUSEA/VOMITING Last Admin: 11/23/18 14:13 Dose: 4 mg Pantoprazole Sodium (Protonix Tab*) 40 mg PO DAILY [facility] Last Admin: 11/29/18 08:09 Dose: 40 mg Potassium Chloride (Klor Con Er Tab*) 20 meq PO BID [facility] Last Admin: 11/29/18 08:09 Dose: 20 meq Senna (Senokot Tab*) 2 tab PO BEDTIME PRN PRN Reason: CONSTIPATION Tiotropium [place]/Olodaterol (Stiolto Respimat Inh [place] (60 Puff)(Nf)) 2 puff INH QAM [facility] Last Admin: 11/29/18 09:35 Dose: 2 puff Torsemide (Torsemide) 20 mg PO DAILY [facility] Last Admin: 11/29/18 08:09 Dose: 20 mg Objective: [] Vital Signs Temp Pulse Resp BP Pulse Ox 97.5 F 70 15 145/57 97 11/29/18 07:51 11/29/18 09:36 11/29/18 09:36 11/29/18 07:51 11/29/18 09:36 A&Ox3, EOMI, neuro grossly non-focal HRR, S1S2 LS clear +BS, soft and mildly tender Left arm +2 edema with marked echymosis Laboratory Results - last 24 hr 11/25/18 11/28/18 11/28/18 05:15 09:45 09:45 WBC 4.1 RBC 2.30 L Hgb 7.2 L Hct 21 L MCV 92 MCH 32 H MCHC 34 RDW 17 H Plt Count 5 L* D MPV 9.5 Neut % (Auto) Lymph % (Auto) [place] % (Auto) Eos % (Auto) Baso % (Auto) Absolute Neuts (auto) Absolute Lymphs (auto) Absolute Monos (auto) Absolute Eos (auto) Absolute Basos (auto) Absolute Nucleated RBC Nucleated RBC % Hem Pathologist Commnt Sodium 139 Potassium 3.2 L Chloride 107 Carbon Dioxide 29 Anion Gap 3 BUN 37 H Creatinine 0.62 Est GFR ( Amer) 111.0 Est GFR (Non-Af Amer) 91.7 BUN/Creatinine Ratio 59.7 H Glucose 256 H Calcium 6.6 L Magnesium 1.4 L Total Bilirubin 1.30 H AST 12 L ALT 10 Alkaline Phosphatase 70 Total Protein 5.2 L Albumin 2.1 L Globulin 3.1 Albumin/Globulin Ratio 0.7 L Blood Type Antibody Screen Crossmatch 11/28/18 11/28/18 11/29/18 09:45 21:20 06:05 WBC 3.9 RBC 2.95 L Hgb 9.2 L Hct 26 L MCV 89 MCH 31 MCHC 35 RDW 17 H Plt Count 7 L* 4 L* MPV 9.9 11.0 H Neut % (Auto) 88.7 Lymph % (Auto) 8.8 [place] % (Auto) 2.4 Eos % (Auto) 0.0 Baso % (Auto) 0.1 Absolute Neuts (auto) 3.5 Absolute Lymphs (auto) 0.3 L Absolute Monos (auto) 0.1 Absolute Eos (auto) 0.0 Absolute Basos (auto) 0.0 Absolute Nucleated RBC 0.0 Nucleated RBC % 0.4 Hem Pathologist Commnt Sodium Potassium Chloride Carbon Dioxide Anion Gap BUN Creatinine Est GFR ( Amer) Est GFR (Non-Af Amer) BUN/Creatinine Ratio Glucose Calcium Magnesium Total Bilirubin AST ALT Alkaline Phosphatase Total Protein Albumin Globulin Albumin/Globulin Ratio Blood Type A Positive Antibody Screen Negative Crossmatch See Detail 11/29/18 08:57 WBC RBC Hgb Hct MCV MCH MCHC RDW Plt Count MPV Neut % (Auto) Lymph % (Auto) [place] % (Auto) Eos % (Auto) Baso % (Auto) Absolute Neuts (auto) Absolute Lymphs (auto) Absolute Monos (auto) Absolute Eos (auto) Absolute Basos (auto) Absolute Nucleated RBC Nucleated RBC % Hem Pathologist Commnt Sodium 138 Potassium 4.1 Chloride 97 L Carbon Dioxide 33 H Anion Gap 8 BUN 38 H Creatinine 0.70 Est GFR ( Amer) 96.5 Est GFR (Non-Af Amer) 79.7 BUN/Creatinine Ratio 54.3 H Glucose 230 H Calcium 7.5 L Magnesium 2.2 Total Bilirubin 1.60 H AST 13 ALT 12 Alkaline Phosphatase 79 Total Protein 6.3 L Albumin 2.6 L Globulin 3.7 Albumin/Globulin Ratio 0.7 L Blood Type Antibody Screen Crossmatch Assessment: []82 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 Admitted for colitis but now with prolonged pancytopenias. Critical blood count at this time is her platelets with complication of intermittent/recurrent/chronic GI bleed, anemia stable today post transfusion yesterday. Unfortunately her ITP remains refractory and the transfusion yesterday showed minimal response. I am concerned for her overall prognosis given her persistent critical platelets she will likely bleed again and this potential may be the cause of her . I do not recommend a platelet transfusion today as her hmg is stable. We discussed this at length and all questions were answered. Ultimately it is reasonable to monitor her through Tuesday at which time she will receive Nplate again, however if she does not respond hospice is most appropriate and she understands this. Plan: []1. Diverticulitis with Diverticular abscess: unable to drain, plan medication management, appreicate ID input - Will need 4 weeks of abx., transition to PO - D14 2. Cdiff colitis: resolved - OK to use PRN imodium 3. Thrombocytopenia: MDS compounded by ITP - Hold transfusion unless active bleeding - Nplate 3 mcg/kg on Tuesday12/01/18 - s/p IVIG, s/p Dex 40 IV daily x4 - follow daily labs 4. Anemia: 2/2 GI bleed - Transfuse for Hgb < 8.0 - Epo increased, no GFS 5. Neutropenia: stable - Continue neupogen 480 mcg sq daily for now 6. Edema: normal EF 09/2018 - cont. home diuretics - Replete K, K-dur 20 melba bid, Mg stable - Follow dialy labs 7. Weakness: - PT every day, work to standing as tolerated 8. Left arm hematoma: OK to decline BP checks today DNR/DNI Dispo: pending improvement in plt., plan for home with daughter
--- NOTE | 2018-11-29 10:07 | PN ---
Progress Note - Progress Note Date of Service: 11/29/18 SOAP: Subjective: CC: C-diff colitis and diverticular abscess HPI: Ms. Cobian is an 82 yo female with PMH significant for Myelodysplastic syndrome, A fib, COPD, CAD s/p CABG, CKD, depression, HLD, HTN, PVD, TIA, CHF, and diverticulitis. Denies fever, chills, shortness of breath, nausea, vomiting, diarrhea, or urinary symptoms. Reports intermittent ABD pain, usually after eating. Reports generalized weakness, 1-2 loose stools daily. She is tolerating a soft diet. Objective: Vital Signs - 8 hr 11/29/18 11/29/18 11/29/18 03:44 07:51 08:37 Temperature 97.5 F 97.5 F Pulse Rate 69 70 Respiratory 21 18 20 Rate Blood Pressure 140/50 145/57 (mmHg) O2 Sat by Pulse 95 100 Oximetry Physical Exam: General: NAD, sitting up in bed Neurological: Alert and Oriented x4 HEENT: No thrush, moist MM Cardiovascular: Heart rate regular Respiratory: Lung sounds clear, diminished bilateral Abdominal: Bowel sounds present, hypoactive; ABD soft, large, tender in the right LQ Skin: No rash Laboratory Results 11/28/18 11/28/18 11/29/18 09:45 21:20 06:05 WBC 3.9 RBC 2.95 L Hgb 9.2 L Hct 26 L MCV 89 MCH 31 MCHC 35 RDW 17 H Plt Count 7 L* 4 L* MPV 9.9 11.0 H Neut % (Auto) 88.7 Lymph % (Auto) 8.8 [place] % (Auto) 2.4 Eos % (Auto) 0.0 Baso % (Auto) 0.1 Absolute Neuts (auto) 3.5 Absolute Lymphs (auto) 0.3 L Absolute Monos (auto) 0.1 Absolute Eos (auto) 0.0 Absolute Basos (auto) 0.0 Absolute Nucleated RBC 0.0 Nucleated RBC % 0.4 Blood Type A Positive Antibody Screen Negative Crossmatch See Detail 11/29/18 08:57 Sodium 138 Potassium 4.1 Chloride 97 L Carbon Dioxide 33 H Anion Gap 8 BUN 38 H Creatinine 0.70 Est GFR ( Amer) 96.5 Est GFR (Non-Af Amer) 79.7 BUN/Creatinine Ratio 54.3 H Glucose 230 H Calcium 7.5 L Magnesium 2.2 Total Bilirubin 1.60 H AST 13 ALT 12 Alkaline Phosphatase 79 Total Protein 6.3 L Albumin 2.6 L Globulin 3.7 Albumin/Globulin Ratio 0.7 L Microbiology 11/27/18 13:20 Stool Gross Appearance - Final Stool C. difficile DNA Amplification - Final 027 Presumptive NEGATIVE Toxigenic C.diff NEGATIVE 11/18/18 09:00 Stool Culture - Final Stool Stool Gross Appearance - Final Shiga Toxin I & II - Final 11/15/18 10:00 Stool Gross Appearance - Final Stool C. difficile DNA Amplification - Final 027 Presumptive NEGATIVE Toxigenic C.diff POSITIVE Stool Lactoferrin - Final 11/15/18 10:00 Stool Occult Blood (MICHELE) - Final Stool Assessment: 1. Recent diverticulitis, now with a diverticular abscess. Unable to be drained by Radiology, abscess measures about 3 cm. Afebrile and no leukocytosis. Continues to have intermittent ABD pain. She is tolerating a soft diet. 2. C-diff colitis. Reports that the diarrhea has resolved, is having with 1-2 loose stools daily. Completed Vancomycin for C-diff colitis, on 11/25/18. 3. PCN and CEPHALOSPORIN allergy. Patient is unsure of the reaction 4. Thrombocytopenia. Hematology/Oncology is following the patient Plan: Continue Levaquin 500 mg IV daily and Flagyl 500 mg IV TID for diverticulitis and diverticular abscess. Can consider changing antibiotics to PO medications: Levaquin 500 mg PO daily and Flagyl 500 mg PO BID for a total of 4 week of antibiotics. Day 14. Followup with ID outpatient. She will need to have a repeat ABD CT scan about 3 weeks into her ABX and prior to the completion of ABX.
[2018-11-29] MEDS ORDERED: Ondansetron ODT TAB* 4 MG SL PRN (10:59)
[2018-11-29] MEDS: clonazePAM TAB(*) 0.5 MG PO PRN ×2 (11:43→20:48)
[2018-11-29] MEDS: Nystatin TOP POWDER* 15 GM BTL TOPICAL SCH ×2 (11:44→22:29)
[2018-11-29] MEDS: PTO: Mirabegron (NF) 50 MG TAB PO SCH (18:14)
[2018-11-29] MEDS: Montelukast Sodium TAB* 10 MG PO SCH (20:48)
[2018-11-29] MEDS: Levofloxacin TAB* 500 MG PO SCH (20:48)
[2018-11-29] MEDS: metroNIDAZOLE TAB* 250 MG PO SCH (20:48)
[2018-11-30 06:04] LABS: Hematocrit 27 % (35-47); Hemoglobin 9.3 g/dL (12.0-16.0); Mean Corpuscular HGB Conc 35 g/dL (31-36); Mean Corpuscular Hemoglobin 31 pg (27-31); Mean Corpuscular Volume 90 fL (80-97); Mean Platelet Volume 11.4 fL (7.4-10.4); Platelet Count 4 10^3/uL (150-450); Red Blood Count 3.01 10^6 /uL (3.70-4.87); Red Cell Distribution Width 16 % (10.5-15); White Blood Count 4.4 10^3/uL (3.5-10.8)
[2018-11-30 06:14] LABS: Albumin 2.8 g/dL (3.2-5.2); Albumin/Globulin Ratio 0.7 (1-3); BUN/Creatinine Ratio 57.3 (8-20); Calcium 8.8 mg/dL (8.6-10.3); EGFR African American 80.4 (>60); EGFR Non-African American 66.4 (>60); Globulin 3.9 g/dL (2-4); Magnesium 2.3 mg/dL (1.9-2.7); Potassium 4.6 mmol/L (3.5-5.0); Total Bilirubin 1.6 mg/dL (0.2-1.0); Total Protein 6.7 g/dL (6.4-8.9)
[2018-11-30 08:15] LABS: ABS Neutrophils 3.8 10^3/ul (1.5-7.7)
[2018-11-30] MEDS: MDI INH SCH ×2 (08:20→08:23)
[2018-11-30] MEDS: TIOTROPIUM BROM INH SCH ×2 (08:20→08:23)
[2018-11-30] MEDS: OLODATEROL INH SCH ×2 (08:20→08:23)
[2018-11-30] MEDS: DULoxetine DR CAP* 60 MG CAP.DR PO SCH (08:38)
[2018-11-30] MEDS: Magnesium Oxide TAB* 400 MG PO SCH (08:38)
[2018-11-30] MEDS: Torsemide TAB 10 MG PO SCH (08:38)
[2018-11-30] MEDS: Folic Acid TAB* 1 MG PO SCH (08:38)
[2018-11-30] MEDS: Potassium Chlor TAB* 20 MEQ TAB.ER PO SCH ×2 (08:38→22:17)
[2018-11-30] MEDS: Nystatin TOP POWDER* 15 GM BTL TOPICAL SCH ×2 (08:39→22:17)
[2018-11-30] MEDS: metroNIDAZOLE TAB* 250 MG PO SCH ×2 (08:39→22:16)
[2018-11-30] MEDS: Pantoprazole TAB * 40 MG TAB PO SCH (08:39)
[2018-11-30] MEDS: FILGRASTIM-SNDZ* 480 MCG/0.8 ML SYRINGE SUBCUT SCH (08:39)
--- NOTE | 2018-11-30 09:50 | PN ---
Progress Note - Progress Note Date of Service: 11/30/18 SOAP: Subjective: []Feels very shaky today and remains frustrated with her limited response. Daughter Ester at bedside with multiple questions regarding plan of care and discussion yesterday. Ester feels she has been more confused. Medications: Acetaminophen (Tylenol Tab*) 650 mg PO Q4H PRN PRN Reason: FEVER/PAIN Last Admin: 11/27/18 23:56 Dose: 650 mg Hydrocodone Bitart/Acetaminophen ([place] 5-325 Tab*) 1 tab PO Q4H PRN PRN Reason: PAIN Last Admin: 11/25/18 20:00 Dose: 1 tab Clonazepam (Klonopin Tab(*)) 0.5 mg PO BID PRN PRN Reason: ANXIETY Last Admin: 11/29/18 20:48 Dose: 0.5 mg Docusate Sodium (Colace Cap*) 200 mg PO BEDTIME PRN PRN Reason: CONSTIPATION Duloxetine HCl (Cymbalta Cap*) 60 mg PO QAM [facility] Last Admin: 11/30/18 08:38 Dose: 60 mg Filgrastim-Sndz (Zarxio*) 480 mcg SUBCUT DAILY [facility] Last Admin: 11/30/18 08:39 Dose: 480 mcg Folic Acid (Folvite Tab*) 1 mg PO DAILY [facility] Last Admin: 11/30/18 08:38 Dose: 1 mg Heparin Sodium (Porcine) (Heparin Flush Picc/Ml/Cvc(*)) 1 - 3 ml FLUSH 0600, 1800 [facility]; Protocol Last Admin: 11/30/18 05:47 Dose: 2 ml Levofloxacin (Levaquin Tab*) 500 mg PO BEDTIME [facility]; Protocol Last Admin: 11/29/18 20:48 Dose: 500 mg Loperamide HCl (Imodium Cap*) 2 mg PO QID PRN PRN Reason: DIARRHEA Magnesium Oxide (Magox 400 Tab*) 400 mg PO DAILY [facility] Last Admin: 11/30/18 08:38 Dose: 400 mg Metronidazole (Flagyl Tab*) 500 mg PO BID [facility] Last Admin: 11/30/18 08:39 Dose: 500 mg Mirabegron (Myrbetriq (Nf)) 50 mg PO QPM [facility] Last Admin: 11/29/18 18:14 Dose: 50 mg Montelukast Sodium (Singulair Tab*) 10 mg PO BEDTIME [facility] Last Admin: 11/29/18 20:48 Dose: 10 mg Nystatin (Nystatin Top Powder*) 1 applic TOPICAL BID [facility] Last Admin: 11/30/18 08:39 Dose: 1 applic Ondansetron HCl (Zofran Odt Tab*) 4 mg SL Q6H PRN PRN Reason: NAUSEA/VOMITING Last Admin: 11/29/18 11:43 Dose: 4 mg Pantoprazole Sodium (Protonix Tab*) 40 mg PO DAILY [facility] Last Admin: 11/30/18 08:39 Dose: 40 mg Potassium Chloride (Klor Con Er Tab*) 20 meq PO BID [facility] Last Admin: 11/30/18 08:38 Dose: 20 meq Senna (Senokot Tab*) 2 tab PO BEDTIME PRN PRN Reason: CONSTIPATION Tiotropium [place]/Olodaterol (Stiolto Respimat Inh [place] (60 Puff)(Nf)) 2 puff INH QAM [facility] Last Admin: 11/30/18 08:23 Dose: Not Given Torsemide (Torsemide) 20 mg PO DAILY [facility] Last Admin: 11/30/18 08:38 Dose: 20 mg Objective: [] Vital Signs Temp Pulse Resp BP Pulse Ox 97.4 F 69 18 145/57 98 11/30/18 07:29 11/30/18 07:29 11/30/18 08:50 11/29/18 07:51 11/30/18 07:29 A&Ox3, EOMI Tremulous HRR, S1S2 LS clear +BS Left arm hematoma slightly decreased, +2 edema remains Laboratory Results - last 24 hr 11/30/18 11/30/18 05:40 05:40 WBC 4.4 RBC 3.01 L Hgb 9.3 L Hct 27 L MCV 90 MCH 31 MCHC 35 RDW 16 H Plt Count 4 L* MPV 11.4 H Neut % (Auto) Not Reportable Lymph % (Auto) Not Reportable [place] % (Auto) Not Reportable Eos % (Auto) Not Reportable Baso % (Auto) Not Reportable Absolute Neuts (auto) 4.0 Absolute Lymphs (auto) Not Reportable Absolute Monos (auto) Not Reportable Absolute Eos (auto) Not Reportable Absolute Basos (auto) Not Reportable Absolute Nucleated RBC Not Reportable Immature Gran % 11.0 H Neutrophils % 76.0 Band Neutrophils % 11.0 H Lymphocytes % 10.0 Monocytes % 3.0 Eosinophils % 0.0 Basophils % 0.0 Nucleated RBC % Not Reportable Abs Neuts (Manual) 3.8 Abs Lymphs (Manual) 0.4 L Abs Monocytes (Manual) 0.1 Absolute Eos (Manual) 0.0 Abs Basophils (Manual) 0.0 Normal RBC Morphology Not Reportable Anisocytosis 1+ Hem Pathologist Commnt Sodium 135 Potassium 4.6 Chloride 93 L Carbon Dioxide 40 H Anion Gap 2 BUN 47 H Creatinine 0.82 Est GFR ( Amer) 80.4 Est GFR (Non-Af Amer) 66.4 BUN/Creatinine Ratio 57.3 H Glucose 247 H Calcium 8.8 Magnesium 2.3 Total Bilirubin 1.60 H AST 13 ALT 13 Alkaline Phosphatase 88 Total Protein 6.7 Albumin 2.8 L Globulin 3.9 Albumin/Globulin Ratio 0.7 L Assessment: []82 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 Admitted for colitis but now with prolonged pancytopenias. Critical blood count at this time is her platelets with complication of intermittent/recurrent/chronic GI bleed, anemia stable today post transfusion 48 hrs ago. 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 I do not recommend a platelet transfusion today as her hmg is stable. We discussed this at length and all questions were answered. Ultimately it is reasonable to monitor her through tomorrow at which time she will receive Nplate again, however if she does not respond hospice is most appropriate and she understands this. She and her daughter are interested in a palliative/hospice consult for more information and they are aware she can stop her aggressive care at any point. Plan: []1. Diverticulitis with Diverticular abscess: unable to drain, plan medication management, appreciate ID input - Will need 4 weeks of abx., tolerating PO as of yesterday, D111/28 - c.diff colitis resolved 3. Thrombocytopenia: MDS compounded by ITP - Hold transfusion unless active bleeding - Nplate 3 mcg/kg tomorrow, 12/01/18 - s/p IVIG, s/p Dex 40 IV daily x4 - follow daily labs 4. Anemia: 2/2 GI bleed - Transfuse for Hgb < 8.0 - Epo increased, no GFS 5. Neutropenia: stable - Continue neupogen 480 mcg sq daily for now 6. Edema: normal EF 09/2018 - cont. home diuretics - Replete K, K-dur 20 melba bid, Mg stable - Follow daily labs 7. Weakness: has not gotten out of bed in several days - unfortunately this deconditioning may exacerbate her need for comfort measures only - PT every day, work to standing as tolerated - consult palliative care 8. Left arm hematoma: change to once daily VS DNR/DNI Dispo: if no improvement in platelets by 12/04 will recommend transition to comfort measures only
--- NOTE | 2018-11-30 09:53 | PN ---
Progress Note - Progress Note Date of Service: 11/30/18 SOAP: Subjective: CC: diverticular abscess HPI: 82 yo woman with MDS and pancytopenia, admission with Cdif which is resolved, and diverticular abscess. No nausea, abd pain or diarrhea. Appetite ok. Objective: Vital Signs Temp 36.2 C 11/30/18 03:50 Pulse 70 11/30/18 03:50 Resp 24 11/30/18 03:50 BP 145/57 11/29/18 07:51 Pulse Ox 97 11/30/18 03:50 Intake & Output 11/29/18 11/30/18 11/30/18 18:59 06:59 18:59 Intake Total 1650 0 Balance 1650 0 Weight 205 lb 4.8 oz Intake: IV Fluids 50 NS (0.9%) 50 IVPB 170 ABX - FLAGYL 110 Dexamethazone 60 Oral 1430 0 Other: Estimated Void Large Large # Bowel Movements 1 0 Estimated Stool Amount Large # Voids 2 Gen:awake, no distress HEENT: no thrush Heart:RRR no murmur Lungs:CTA BL Abd:+BS NTND soft Skin: no rash Laboratory Results - last 24 hr 11/30/18 11/30/18 05:40 05:40 WBC 4.4 RBC 3.01 L Hgb 9.3 L Hct 27 L MCV 90 MCH 31 MCHC 35 RDW 16 H Plt Count 4 L* MPV 11.4 H Neut % (Auto) Not Reportable Lymph % (Auto) Not Reportable [place] % (Auto) Not Reportable Eos % (Auto) Not Reportable Baso % (Auto) Not Reportable Absolute Neuts (auto) 4.0 Absolute Lymphs (auto) Not Reportable Absolute Monos (auto) Not Reportable Absolute Eos (auto) Not Reportable Absolute Basos (auto) Not Reportable Absolute Nucleated RBC Not Reportable Immature Gran % 11.0 H Neutrophils % 76.0 Band Neutrophils % 11.0 H Lymphocytes % 10.0 Monocytes % 3.0 Eosinophils % 0.0 Basophils % 0.0 Nucleated RBC % Not Reportable Abs Neuts (Manual) 3.8 Abs Lymphs (Manual) 0.4 L Abs Monocytes (Manual) 0.1 Absolute Eos (Manual) 0.0 Abs Basophils (Manual) 0.0 Normal RBC Morphology Not Reportable Anisocytosis 1+ Sodium 135 Potassium 4.6 Chloride 93 L Carbon Dioxide 40 H Anion Gap 2 BUN 47 H Creatinine 0.82 Est GFR ( Amer) 80.4 Est GFR (Non-Af Amer) 66.4 BUN/Creatinine Ratio 57.3 H Glucose 247 H Calcium 8.8 Magnesium 2.3 Total Bilirubin 1.60 H AST 13 ALT 13 Alkaline Phosphatase 88 Total Protein 6.7 Albumin 2.8 L Globulin 3.9 Albumin/Globulin Ratio 0.7 L Assessment: 1. Diverticular abscess 2. MDS, pancytopenia 3. Cdif, resolved 4. PCN and cephalosoprin allergies Plan: 1. levaquin 500 mg daily, flagyl 500 mg twice daily; day 15/28, non contrast CT abd/pelvis 1 week.
--- NOTE | 2018-11-30 14:30 | CONSULT ---
Palliative / Hospice Consult Ordering Provider: Cathi Soriano - PCPMarie Referal Reason: Goals of care and aftercare - Subjective Code Status: DNR Advance Directives Location: [facility] [place] EMR MOLST Part A Completed: Yes - on chart MOLST Part E Completed:: Yes - on chart - History or Present Illness History or Present Illness: 82yo with myelodysplastic syndrome presents to ER with severe weakness. Pt started treatment for MDS recently and developed nausea, vomiting and syncope. She was seen at [facility] and admitted with diverticulitis and rectal bleeding for which she received 2units of PRBC and was discharged on antibiotics. Once at home she developed profuse diarrhea and presented to [facility] day prior and ER next day and was admitted. PMH is significant for afib 2010, COPD, chronic sinusitis, CHF, connective tissue disorder, CAD with bypass LAD, CRI, depression, diverticulosis, hyperlipidema, HTN, mitral valve disease and repair 2014, osteoarthritis and interstitial pneumonia. Studies; CTpelvis- hiatal hernia, sigmoid diverticulosis with peridiverticular abscess(3cm), hepatic steatosis and old compression fx of T11, CXR pulmonary vascular congestion, R venous doppler-no DVT, Echo EF60-65%(09/27/18), H/H 9.3/ plt 4, BUN/Cr 27/.82, egfr 66.4, tprot 6.7, alb 2.8 & t bili 1.6. Pt is lives with daughter, at [facility] [place] with Alzheimer dementia, she has 3 children 2 are still living & 2 grand children, no tob & rare etoh. All history is from the pt, daughter and medical records. Pt is admitted with c. 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 Lab Values: Abnormal Lab Results 11/30/18 11/30/18 05:40 05:40 WBC 4.4 RBC 3.01 L Hgb 9.3 L Hct 27 L MCV 90 MCH 31 MCHC 35 RDW 16 H Plt Count 4 L* MPV 11.4 H Neut % (Auto) Not Reportable Lymph % (Auto) Not Reportable [place] % (Auto) Not Reportable Eos % (Auto) Not Reportable Baso % (Auto) Not Reportable Absolute Neuts (auto) 4.0 Absolute Lymphs (auto) Not Reportable Absolute Monos (auto) Not Reportable Absolute Eos (auto) Not Reportable Absolute Basos (auto) Not Reportable Absolute Nucleated RBC Not Reportable Immature Gran % 11.0 H Neutrophils % 76.0 Band Neutrophils % 11.0 H Lymphocytes % 10.0 Monocytes % 3.0 Eosinophils % 0.0 Basophils % 0.0 Nucleated RBC % Not Reportable Abs Neuts (Manual) 3.8 Abs Lymphs (Manual) 0.4 L Abs Monocytes (Manual) 0.1 Absolute Eos (Manual) 0.0 Abs Basophils (Manual) 0.0 Normal RBC Morphology Not Reportable Anisocytosis 1+ Hem Pathologist Commnt Sodium 135 Potassium 4.6 Chloride 93 L Carbon Dioxide 40 H Anion Gap 2 BUN 47 H Creatinine 0.82 Est GFR ( Amer) 80.4 Est GFR (Non-Af Amer) 66.4 BUN/Creatinine Ratio 57.3 H Glucose 247 H Calcium 8.8 Magnesium 2.3 Total Bilirubin 1.60 H AST 13 ALT 13 Alkaline Phosphatase 88 Total Protein 6.7 Albumin 2.8 L Globulin 3.9 Albumin/Globulin Ratio 0.7 L Laboratory Last Values WBC 4.4 10^3/uL (3.5-10.8) 11/30/18 05:40 RBC 3.01 10^6 /uL (3.70-4.87) L 11/30/18 05:40 RBC (Retic) 1.78 10^6/uL (3.70-4.87) L 11/20/18 10:30 Hgb 9.3 g/dL (12.0-16.0) L 11/30/18 05:40 Hct 27 % (35-47) L 11/30/18 05:40 HCT (Retic) 17 % (35-47) L 11/20/18 10:30 MCV 90 fL (80-97) 11/30/18 05:40 MCH 31 pg (27-31) 11/30/18 05:40 MCHC 35 g/dL (31-36) 11/30/18 05:40 RDW 16 % (10.5-15) H 11/30/18 05:40 Plt Count 4 10^3/uL (150-450) L* 11/30/18 05:40 MPV 11.4 fL (7.4-10.4) H 11/30/18 05:40 Neut % (Auto) Not Reportable 11/30/18 05:40 Lymph % (Auto) Not Reportable 11/30/18 05:40 [place] % (Auto) Not Reportable 11/30/18 05:40 Eos % (Auto) Not Reportable 11/30/18 05:40 Baso % (Auto) Not Reportable 11/30/18 05:40 Absolute Neuts (auto) 4.0 10^3/ul (1.5-7.7) 11/30/18 05:40 Absolute Lymphs (auto) Not Reportable 11/30/18 05:40 Absolute Monos (auto) Not Reportable 11/30/18 05:40 Absolute Eos (auto) Not Reportable 11/30/18 05:40 Absolute Basos (auto) Not Reportable 11/30/18 05:40 Absolute Nucleated RBC Not Reportable 11/30/18 05:40 Immature Gran % 11.0 % (0-9) H 11/30/18 05:40 Neutrophils % 76.0 % 11/30/18 05:40 Band Neutrophils % 11.0 % (0-8) H 11/30/18 05:40 Lymphocytes % 10.0 % 11/30/18 05:40 Reactive Lymphs % 6.0 % (0-6) 11/24/18 06:00 Monocytes % 3.0 % 11/30/18 05:40 Eosinophils % 0.0 % 11/30/18 05:40 Basophils % 0.0 % 11/30/18 05:40 Blast Cells % 2.0 % H* 11/24/18 06:00 Nucleated RBC % Not Reportable 11/30/18 05:40 Abs Neuts (Manual) 3.8 10^3/ul (1.5-7.7) 11/30/18 05:40 Abs Lymphs (Manual) 0.4 10^3/ul (1.0-4.8) L 11/30/18 05:40 Abs Monocytes (Manual) 0.1 10^3/ul (0-0.8) 11/30/18 05:40 Absolute Eos (Manual) 0.0 10^3/ul (0-0.6) 11/30/18 05:40 Abs Basophils (Manual) 0.0 10^3/ul (0-0.2) 05/30/19 05:40 Nucleated RBCs/100 WBC 1.0 (0-0) H 11/22/18 06:07 Normal RBC Morphology Not Reportable 11/30/18 05:40 Polychromasia 1+ 11/24/18 06:00 Anisocytosis 1+ 11/30/18 05:40 ESR > 120 mm/Hr (0-29) H 11/20/18 10:30 Retic Count, Calc 1.2 % (0.5-1.5) 11/20/18 10:30 Corrected Retic Count 0.4 % (0.5-1.5) L 11/20/18 10:30 Retic Shift Factor 2.5 11/20/18 10:30 Retic Production Index 0.20 11/20/18 10:30 Immature Retic Fraction 0.37 11/20/18 10:30 Mean Retic Volume 150.4 11/20/18 10:30 Hem Pathologist Commnt 11/30/18 05:40 Sodium 135 mmol/L (135-145) 11/30/18 05:40 Potassium 4.6 mmol/L (3.5-5.0) 11/30/18 05:40 Chloride 93 mmol/L (101-111) L 11/30/18 05:40 Carbon Dioxide 40 mmol/L (22-32) H 11/30/18 05:40 Anion Gap 2 mmol/L (2-11) 11/30/18 05:40 BUN 47 mg/dL (6-24) H 11/30/18 05:40 Creatinine 0.82 mg/dL (0.51-0.95) 11/30/18 05:40 Est GFR ( Amer) 80.4 (>60) 11/30/18 05:40 Est GFR (Non-Af Amer) 66.4 (>60) 11/30/18 05:40 BUN/Creatinine Ratio 57.3 (8-20) H 11/30/18 05:40 Glucose 247 mg/dL (70-100) H 11/30/18 05:40 Calcium 8.8 mg/dL (8.6-10.3) 11/30/18 05:40 Magnesium 2.3 mg/dL (1.9-2.7) 11/30/18 05:40 Erythropoietin 1976 mIU/mL (2.6 - 18.5) H 11/20/18 10:30 Total Bilirubin 1.60 mg/dL (0.2-1.0) H 11/30/18 05:40 Direct Bilirubin 0.90 mg/dL (0.03-0.18) H 11/21/18 06:10 Indirect Bilirubin 1.4 mg/dL (0.3-1.0) H 11/21/18 06:10 AST 13 U/L (13-39) 11/30/18 05:40 ALT 13 U/L (7-52) 11/30/18 05:40 Alkaline Phosphatase 88 U/L (34-104) 11/30/18 05:40 Lactate Dehydrogenase 299 U/L (140-271) H 11/20/18 10:30 Total Protein 6.7 g/dL (6.4-8.9) 11/30/18 05:40 Albumin 2.8 g/dL (3.2-5.2) L 11/30/18 05:40 Globulin 3.9 g/dL (2-4) 11/30/18 05:40 Albumin/Globulin Ratio 0.7 (1-3) L 11/30/18 05:40 Vitamin B12 1002 pg/mL (180-914) H 11/20/18 10:30 Methylmalonic Acid 0.20 nmol/mL (<=0.40) 11/20/18 10:30 Blood Type A Positive 11/28/18 09:45 Antibody Screen Negative 11/28/18 09:45 Crossmatch See Detail 11/28/18 09:45 - Objective Active Medications: Acetaminophen (Tylenol Tab*) 650 mg PO Q4H PRN PRN Reason: FEVER/PAIN Last Admin: 11/27/18 23:56 Dose: 650 mg Hydrocodone Bitart/Acetaminophen ([place] 5-325 Tab*) 1 tab PO Q4H PRN PRN Reason: PAIN Last Admin: 11/25/18 20:00 Dose: 1 tab Clonazepam (Klonopin Tab(*)) 0.5 mg PO BID PRN PRN Reason: ANXIETY Last Admin: 11/29/18 20:48 Dose: 0.5 mg Docusate Sodium (Colace Cap*) 200 mg PO BEDTIME PRN PRN Reason: CONSTIPATION Duloxetine HCl (Cymbalta Cap*) 60 mg PO QAM [facility] Last Admin: 11/30/18 08:38 Dose: 60 mg Filgrastim-Sndz (Zarxio*) 480 mcg SUBCUT DAILY [facility] Last Admin: 11/30/18 08:39 Dose: 480 mcg Folic Acid (Folvite Tab*) 1 mg PO DAILY [facility] Last Admin: 11/30/18 08:38 Dose: 1 mg Heparin Sodium (Porcine) (Heparin Flush Picc/Ml/Cvc(*)) 1 - 3 ml FLUSH 0600, 1800 [facility]; Protocol Last Admin: 11/30/18 05:47 Dose: 2 ml Levofloxacin (Levaquin Tab*) 500 mg PO BEDTIME [facility]; Protocol Last Admin: 11/29/18 20:48 Dose: 500 mg Loperamide HCl (Imodium Cap*) 2 mg PO QID PRN PRN Reason: DIARRHEA Magnesium Oxide (Magox 400 Tab*) 400 mg PO DAILY [facility] Last Admin: 11/30/18 08:38 Dose: 400 mg Metronidazole (Flagyl Tab*) 500 mg PO BID [facility] Last Admin: 11/30/18 08:39 Dose: 500 mg Mirabegron (Myrbetriq (Nf)) 50 mg PO QPM [facility] Last Admin: 11/29/18 18:14 Dose: 50 mg Montelukast Sodium (Singulair Tab*) 10 mg PO BEDTIME [facility] Last Admin: 11/29/18 20:48 Dose: 10 mg Nystatin (Nystatin Top Powder*) 1 applic TOPICAL BID [facility] Last Admin: 11/30/18 08:39 Dose: 1 applic Ondansetron HCl (Zofran Odt Tab*) 4 mg SL Q6H PRN PRN Reason: NAUSEA/VOMITING Last Admin: 11/29/18 11:43 Dose: 4 mg Pantoprazole Sodium (Protonix Tab*) 40 mg PO DAILY [facility] Last Admin: 11/30/18 08:39 Dose: 40 mg Potassium Chloride (Klor Con Er Tab*) 20 meq PO BID [facility] Last Admin: 11/30/18 08:38 Dose: 20 meq Senna (Senokot Tab*) 2 tab PO BEDTIME PRN PRN Reason: CONSTIPATION Tiotropium [place]/Olodaterol (Stiolto Respimat Inh [place] (60 Puff)(Nf)) 2 puff INH QAM [facility] Last Admin: 11/30/18 08:23 Dose: Not Given Torsemide (Torsemide) 20 mg PO DAILY [facility] Last Admin: 11/30/18 08:38 Dose: 20 mg Vital Signs: Vital Signs: Temp Pulse Resp BP Pulse Ox 97.8 F 69 20 145/57 99 11/30/18 11:22 11/30/18 11:22 11/30/18 11:22 11/29/18 07:51 11/30/18 11:22 Patient Weight: Weight 93.123 kg Intake and Output: Intake & Output 11/28/18 11/29/18 11/30/18 12/01/18 06:59 06:59 06:59 06:59 Intake Total 1620 1409 1650 1200 Balance 1620 1409 1650 1200 Weight 92.261 kg 93.667 kg 93.123 kg Intake: IV Fluids 59 50 NS (0.9%) 59 50 IVPB 200 210 170 ABX - FLAGYL 100 110 110 ABX - LEVAQUIN 100 Dexamethazone 100 60 Oral 1420 1140 1430 1200 Other: Estimated Void Large Large Large Large Date of Last Bowel [id number] Movement # Bowel Movements 1 0 0 1 Estimated Stool Amount Small Large Medium # Voids 1 1 2 2 ADLs: Meal Record Start: 11/14/18 17: 20 Freq: DAILY@0900,1400,1800 Status: Active Protocol: Created 11/14/18 17:20 System (Rec: 11/14/18 17:20 System MED-M01) Document 11/15/18 09:00 [id number] (Rec: 11/15/18 19:42 JNG3249 MED-C09) Document 11/15/18 14:00 JZS7228 (Rec: 11/15/18 19:42 KZH0215 MED-C09) Document 11/15/18 18:00 JGH4231 (Rec: 11/15/18 19:42 FCM4775 MED-C09) Document 11/16/18 09:00 IBG2366 (Rec: 11/16/18 13:17 MGG4122 MED-C15) Document 11/16/18 13:17 DCB6132 (Rec: 11/16/18 13:18 QTR4978 MED-C15) Document 11/16/18 18:00 NWR0676 (Rec: 11/16/18 19:04 QLR7374 MED-C15) Document 11/17/18 09:00 OWS9834 (Rec: 11/17/18 09:28 XYO7542 MED-C09) Document 11/17/18 14:00 HCM2460 (Rec: 11/17/18 14:52 HXT2857 MED-C02) Document 11/17/18 18:00 SXV1363 (Rec: 11/17/18 19:17 CDD9579 MED-C09) Document 11/18/18 09:00 TNT0979 (Rec: 11/18/18 11:41 PPL9833 MED-C07) Document 11/18/18 14:00 XXZ8455 (Rec: 11/18/18 18:50 PPW2528 MED-C07) Document 11/18/18 18:00 KCP9599 (Rec: 11/18/18 18:51 TWC4461 MED-C07) Document 11/19/18 09:00 XDV9638 (Rec: 11/19/18 09:20 IWN3182 MED-C09) Document 11/19/18 13:50 GGV5195 (Rec: 11/19/18 13:51 FAS4148 MED-C11) Document 11/19/18 18:00 GYR6941 (Rec: 11/19/18 18:15 THP9324 MED-C11) Document 11/20/18 09:00 RPD9777 (Rec: 11/20/18 10:44 FVH6956 MED-C11) Document 11/20/18 14:00 EJD1988 (Rec: 11/20/18 14:08 BRL8074 MED-C09) Document 11/20/18 18:00 NJO0180 (Rec: 11/20/18 19:05 RHO1958 MED-C09) Document 11/21/18 09:00 KUH8988 (Rec: 11/21/18 09:46 JTC2167 MED-C09) Document 11/21/18 14:00 XRO3766 (Rec: 11/21/18 14:17 LJM1753 MED-C11) Document 11/21/18 18:00 IUW0960 (Rec: 11/21/18 20:35 RHR5367 MED-C05) Document 11/22/18 09:00 BLC3599 (Rec: 11/22/18 12:21 GVO3063 MED-C11) Document 11/22/18 14:00 FUU9649 (Rec: 11/22/18 14:54 PHJ6148 MED-C11) Document 11/22/18 18:00 ZFJ2254 (Rec: 11/22/18 18:59 OHF1979 MED-C11) Document 11/23/18 09:00 VHR2251 (Rec: 11/23/18 17:09 TVG0008 MED-C11) Document 11/23/18 14:00 UBW3600 (Rec: 11/23/18 17:09 NWT1088 MED-C11) Document 11/23/18 18:00 FTL6161 (Rec: 11/23/18 19:12 YMG0694 MED-C11) Document 11/24/18 09:00 UIC7237 (Rec: 11/24/18 16:04 ALG8720 MED-C11) Document 11/24/18 14:00 RDN2057 (Rec: 11/24/18 16:04 XQM0261 MED-C11) Document 11/24/18 18:00 CDK5071 (Rec: 11/24/18 19:19 DDV1867 MED-C11) Document 11/25/18 09:00 MWX9438 (Rec: 11/25/18 09:16 BOW3281 MED-C13) Document 11/25/18 14:00 CXX2774 (Rec: 11/25/18 14:33 TKT1005 MED-C13) Document 11/25/18 17:28 VIW2272 (Rec: 11/25/18 17:28 LZP0322 MED-C13) Document 11/26/18 09:00 LQP1621 (Rec: 11/26/18 11:26 OIV5666 MED-C13) Document 11/26/18 13:57 YFV9338 (Rec: 11/26/18 13:58 BAC8586 MED-C13) Document 11/26/18 18:00 JUZ2143 (Rec: 11/26/18 18:00 RTC5930 MED-C12) Document 11/27/18 09:00 OIE7532 (Rec: 11/27/18 10:04 OJQ1637 MED-C02) Document 11/27/18 14:00 YVD3124 (Rec: 11/27/18 14:24 VTB1335 MED-C02) Document 11/27/18 18:00 BDU9447 (Rec: 11/27/18 18:10 FCH2546 MED-C02) Document 11/28/18 09:00 SSN9000 (Rec: 11/28/18 09:02 BOE2140 MED-C11) Document 11/28/18 14:00 LFN3360 (Rec: 11/28/18 14:08 DLH6460 MED-C09) Document 11/28/18 18:00 KHX6887 (Rec: 11/28/18 18:25 OMP5718 MED-C11) Document 11/29/18 09:00 KJU5805 (Rec: 11/29/18 10:28 JRR3638 MED-C11) Document 11/29/18 14:00 JUW6888 (Rec: 11/29/18 17:08 ZGY3666 MED-C09) Document 11/29/18 18:00 PRW0149 (Rec: 11/29/18 18:20 UVQ4891 MED-C09) Document 11/30/18 09:00 YYX2453 (Rec: 11/30/18 10:49 IPN5714 MED-C05) Document 11/30/18 14:00 SOE6169 (Rec: 11/30/18 14:11 RCG0331 MED-C05) Intake and Output Start: 11/14/18 12: 26 Freq: Status: Active Protocol: Created 11/14/18 12:26 System (Rec: 11/14/18 12:26 System EDRM-C07) Intake and Output Start: 11/14/18 17: 20 Freq: DAILY@0600,1400,2200 Status: Active Protocol: Created 11/14/18 17:20 System (Rec: 11/14/18 17:20 System MED-M01) Document 11/14/18 22:00 PPO4174 (Rec: 11/14/18 22:30 UIM6365 MED-C13) Document 11/15/18 06:00 MLO0579 (Rec: 11/15/18 06:09 HGK9375 MED-C07) Document 11/15/18 14:00 XKY0517 (Rec: 11/15/18 19:43 XFR8454 MED-C09) Document 11/15/18 22:00 IBT7671 (Rec: 11/15/18 22:09 AWO6111 MED-C04) Document 11/16/18 05:38 FAG0480 (Rec: 11/16/18 05:39 OYN5881 MED-C09) Document 11/16/18 14:00 BPF0486 (Rec: 11/16/18 15:16 GXH4165 MED-C15) Document 11/16/18 22:00 CVD5555 (Rec: 11/16/18 22:13 UPE0995 MED-C02) Document 11/17/18 00:58 ZEW9604 (Rec: 11/17/18 00:58 WPY3617 MED-M04) Document 11/17/18 05:31 LNS1851 (Rec: 11/17/18 05:32 BHU6716 MED-C02) Document 11/17/18 14:00 RJX0678 (Rec: 11/17/18 14:52 YNJ2574 MED-C02) Document 11/17/18 22:00 ELZ7331 (Rec: 11/18/18 00:27 WWZ8771 MED-C09) Document 11/18/18 05:08 VCY2907 (Rec: 11/18/18 05:13 JYX0834 MED-C09) Document 11/18/18 14:00 MBP5871 (Rec: 11/18/18 19:27 VWB2727 MED-M02) Document 11/18/18 22:00 TVC4042 (Rec: 11/19/18 00:20 EZU5635 MED-C09) Document 11/19/18 05:16 RQM2936 (Rec: 11/19/18 05:17 PAL6937 MED-C09) Document 11/19/18 14:00 AZW6430 (Rec: 11/19/18 14:04 ULZ0573 MED-C11) Document 11/19/18 22:00 WPY4222 (Rec: 11/19/18 22:28 RQK6546 MED-C07) Document 11/20/18 05:17 HFJ8701 (Rec: 11/20/18 05:20 YYP5648 MED-M01) Document 11/20/18 13:22 DMM7777 (Rec: 11/20/18 13:22 JGX1171 MED-C09) Document 11/20/18 20:29 URF8686 (Rec: 11/20/18 20:30 QWY4333 MED-C05) Document 11/20/18 23:06 QNY6523 (Rec: 11/20/18 23:06 KGR8000 MED-C13) Document 11/21/18 04:49 LGP8335 (Rec: 11/21/18 04:49 KUQ9764 MEDL-C02) Document 11/21/18 14:00 CYY6734 (Rec: 11/21/18 14:17 SEJ5057 MED-C11) Document 11/21/18 21:48 MAD7818 (Rec: 11/21/18 21:49 YFD0867 MED-C13) Document 11/22/18 05:54 RHU3108 (Rec: 11/22/18 05:55 XDY9370 MED-C13) Document 11/22/18 14:00 AGZ1267 (Rec: 11/22/18 14:54 NAY8662 MED-C11) Document 11/22/18 22:00 NBM9958 (Rec: 11/23/18 00:12 DBJ6432 MED-C16) Document 11/23/18 06:00 DRX4999 (Rec: 11/23/18 06:49 GLO4652 MED-C16) Document 11/23/18 14:00 RTM7900 (Rec: 11/23/18 17:09 ANO4931 MED-C11) Document 11/23/18 22:00 OMB4569 (Rec: 11/24/18 00:56 HCE3022 MED-C09) Document 11/24/18 05:43 GLJ9628 (Rec: 11/24/18 05:46 DEW4618 MED-C12) Document 11/24/18 14:00 ILA3900 (Rec: 11/24/18 16:04 VQB2142 MED-C11) Document 11/24/18 19:47 RLI7802 (Rec: 11/24/18 19:48 XGM6682 MED-C42) Document 11/24/18 21:34 MXR6151 (Rec: 11/24/18 21:35 GCS6818 MED-C05) Document 11/25/18 05:05 TKT8500 (Rec: 11/25/18 05:06 YMQ7749 MED-C05) Document 11/25/18 14:00 SBY2026 (Rec: 11/25/18 14:33 PGC8975 MED-C13) Document 11/25/18 22:00 TQG8216 (Rec: 11/25/18 23:21 SCC2910 MED-C05) Document 11/26/18 05:50 TYI4672 (Rec: 11/26/18 05:51 RIQ8006 MED-C05) Document 11/26/18 11:45 HJQ8271 (Rec: 11/26/18 11:46 MKN2277 MED-C13) Document 11/26/18 20:55 IIB7528 (Rec: 11/26/18 20:57 KAS4559 MED-C16) Document 11/27/18 06:00 LFT1376 (Rec: 11/27/18 06:09 MUP8592 MED-C16) Document 11/27/18 14:00 KVA0535 (Rec: 11/27/18 14:24 JID1805 MED-C02) Document 11/27/18 20:49 FPI3052 (Rec: 11/27/18 20:50 DQL6610 MED-C42) Document 11/28/18 04:40 MOL2518 (Rec: 11/28/18 04:40 RWV1280 MED-C42) Document 11/28/18 14:00 RIA1035 (Rec: 11/28/18 15:19 ZPP9363 MED-C09) Document 11/28/18 21:56 UNS3802 (Rec: 11/28/18 21:56 AEG2661 MED-C05) Document 11/29/18 06:00 DHX9994 (Rec: 11/29/18 06:09 PSM5803 MED-C11) Document 11/29/18 08:19 NDG0241 (Rec: 11/29/18 08:20 TMU9466 MED-C11) Document 11/29/18 21:57 VSA5784 (Rec: 11/29/18 21:58 OLG0083 MED-C07) Document 11/30/18 05:58 FUX2793 (Rec: 11/30/18 06:00 VCV6290 MED-C07) Document 11/30/18 14:00 DNO3843 (Rec: 11/30/18 14:11 EKA1836 MED-C05) Eyes: No Scleral Icterus Ears/Nose/Mouth/Throat: Clear Oropharnyx, Mucous Membranes Moist Neck: NL Appearance and Movements; NL JVP Cardiovascular: NL Sounds; No Murmurs; No JVD, RRR, - - Bilateral +2 LE edema. Edema to LUE. Abdominal: NL Sounds; No Tenderness; No Distention Extremities: - - LUE edema and bruising. Patient reports is improved from yesterday. Radial pulse strong Neurological: Alert and Oriented x 3 - Assessment Assessment: 84 yo female with MDS and ITP not responding to intervention hospice eligible - Plan Consult Plan (MU): Hospice Plan: Long discussion with pt and her daughter. Pt is getting tired of being in the hospital and being unwell all the time. She doesn't want to keep coming back to the hospital. They have a good understanding of her illness and prognosis. We discussed hospice which she is familiar with since a family member used it. Their biggest concern going forward is where to go once discharged. Daughter works long hours and will need a lot of help at home. She contacted home health agencies and it's too expensive plus there is a shortage of aides currently. Pt would prefer to go home but not sure it is possible. Hospice information/ benefits were discussed, brochure was given. She liked the idea of hospice residence and a referral was sent. 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 We discussed SNF which at first she didn't want but may be open to it if she is able to sign on with hospice and there are no beds at the residence. They had a positive experience at [facility] [place] with her . in the past. We also discussed [facility] but they may not take insurance, daughter was going to call to verify fees. KPS 40%, PPS 40%. Pt is eligible for hospice with a diagnosis of refractory ITP, MDS and recurrent GI bleeding/blood loss. - Time On Unit Date of Evaluation: 11/30/18 Hospice Consult Time in: 12:30 Hospice Consult Time Out: 14:00 Hospice Consult Time Total: 90 > 50% of Time Spend In Counseling or Coordinating Care: Yes
[2018-11-30] MEDS: PTO: Mirabegron (NF) 50 MG TAB PO SCH (18:00)
[2018-11-30] MEDS: Levofloxacin TAB* 500 MG PO SCH (22:16)
[2018-11-30] MEDS: Montelukast Sodium TAB* 10 MG PO SCH (22:17)
[2018-12-01 05:53] LABS: Hematocrit 26 % (35-47); Hemoglobin 8.9 g/dL (12.0-16.0); Mean Corpuscular HGB Conc 34 g/dL (31-36); Mean Corpuscular Hemoglobin 31 pg (27-31); Mean Corpuscular Volume 90 fL (80-97); Mean Platelet Volume 10.9 fL (7.4-10.4); Platelet Count 5 10^3/uL (150-450); Red Blood Count 2.88 10^6 /uL (3.70-4.87); Red Cell Distribution Width 16 % (10.5-15); White Blood Count 4.1 10^3/uL (3.5-10.8)
[2018-12-01] MEDS: MDI INH SCH (07:34)
[2018-12-01] MEDS: OLODATEROL INH SCH (07:34)
[2018-12-01] MEDS: TIOTROPIUM BROM INH SCH (07:34)
[2018-12-01 08:37] LABS: ABS Lymphocytes 0.7 10^3/ul (1.0-4.8); ABS Monocytes 0.1 10^3/ul (0-0.8); ABS Neutrophils 3.3 10^3/ul (1.5-7.7); Eosinophil % 0.1 %; Nucleated Red Blood Cells % 0.2
--- NOTE | 2018-12-01 09:32 | PN ---
Progress Note - Progress Note Date of Service: 12/01/18 SOAP: Subjective: [Feeling "shaky" this am. No recurrent diarrhea or abd pain.] Objective: [ Laboratory Results - last 24 hr 11/30/18 12/01/18 05:40 05:30 WBC 4.1 RBC 2.88 L Hgb 8.9 L Hct 26 L MCV 90 MCH 31 MCHC 34 RDW 16 H Plt Count 5 L* MPV 10.9 H Neut % (Auto) 80.3 Lymph % (Auto) 18.0 [place] % (Auto) 1.4 Eos % (Auto) 0.1 Baso % (Auto) 0.2 Absolute Neuts (auto) 3.3 Absolute Lymphs (auto) 0.7 L Absolute Monos (auto) 0.1 Absolute Eos (auto) 0.0 Absolute Basos (auto) 0.0 Absolute Nucleated RBC 0.0 Immature Gran % 5.0 Neutrophils % 76.0 Band Neutrophils % 5.0 Lymphocytes % 18.0 Monocytes % 1.0 Nucleated RBC % 0.2 Nucleated RBCs/100 WBC 1.0 H Hem Pathologist Commnt Acetaminophen (Tylenol Tab*) 650 mg PO Q4H PRN PRN Reason: FEVER/PAIN Last Admin: 11/27/18 23:56 Dose: 650 mg Hydrocodone Bitart/Acetaminophen ([place] 5-325 Tab*) 1 tab PO Q4H PRN PRN Reason: PAIN Last Admin: 11/25/18 20:00 Dose: 1 tab Clonazepam (Klonopin Tab(*)) 0.5 mg PO BID PRN PRN Reason: ANXIETY Last Admin: 11/29/18 20:48 Dose: 0.5 mg Docusate Sodium (Colace Cap*) 200 mg PO BEDTIME PRN PRN Reason: CONSTIPATION Duloxetine HCl (Cymbalta Cap*) 60 mg PO QAM [facility] Last Admin: 11/30/18 08:38 Dose: 60 mg Filgrastim-Sndz (Zarxio*) 480 mcg SUBCUT DAILY [facility] Last Admin: 11/30/18 08:39 Dose: 480 mcg Folic Acid (Folvite Tab*) 1 mg PO DAILY [facility] Last Admin: 11/30/18 08:38 Dose: 1 mg Heparin Sodium (Porcine) (Heparin Flush Picc/Ml/Cvc(*)) 1 - 3 ml FLUSH 0600, 1800 [facility]; Protocol Last Admin: 12/01/18 05:38 Dose: 2 ml Levofloxacin (Levaquin Tab*) 500 mg PO BEDTIME [facility]; Protocol Last Admin: 11/30/18 22:16 Dose: 500 mg Loperamide HCl (Imodium Cap*) 2 mg PO QID PRN PRN Reason: DIARRHEA Magnesium Oxide (Magox 400 Tab*) 400 mg PO DAILY [facility] Last Admin: 11/30/18 08:38 Dose: 400 mg Metronidazole (Flagyl Tab*) 500 mg PO BID [facility] Last Admin: 11/30/18 22:16 Dose: 500 mg Mirabegron (Myrbetriq (Nf)) 50 mg PO QPM [facility] Last Admin: 11/30/18 18:00 Dose: 50 mg Montelukast Sodium (Singulair Tab*) 10 mg PO BEDTIME [facility] Last Admin: 11/30/18 22:17 Dose: 10 mg Nystatin (Nystatin Top Powder*) 1 applic TOPICAL BID [facility] Last Admin: 11/30/18 22:17 Dose: 1 applic Ondansetron HCl (Zofran Odt Tab*) 4 mg SL Q6H PRN PRN Reason: NAUSEA/VOMITING Last Admin: 11/29/18 11:43 Dose: 4 mg Pantoprazole Sodium (Protonix Tab*) 40 mg PO DAILY [facility] Last Admin: 11/30/18 08:39 Dose: 40 mg Potassium Chloride (Klor Con Er Tab*) 20 meq PO BID [facility] Last Admin: 11/30/18 22:17 Dose: 20 meq Senna (Senokot Tab*) 2 tab PO BEDTIME PRN PRN Reason: CONSTIPATION Tiotropium [place]/Olodaterol (Stiolto Respimat Inh [place] (60 Puff)(Nf)) 2 puff INH QAM [facility] Last Admin: 12/01/18 07:34 Dose: Not Given Torsemide (Torsemide) 20 mg PO DAILY [facility] Last Admin: 11/30/18 08:38 Dose: 20 mg Vital Signs: Temp Pulse Resp BP Pulse Ox 97.0 F 69 20 127/57 100 11/30/18 23:32 11/30/18 23:32 11/30/18 23:32 11/30/18 19:45 11/30/18 23:32 Exam: Gen: 82 yo female who appears chronically well, in NAD but appears weak HEENT: MMM CV: RRR Resp: CTA, no w/c/r Abd: soft, mild TTP over RLQ and LLQ Ext: 1-2+ LE edema Skin: multiple areas of ecchymosis] [Assessment: []82 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 Admitted for colitis but now with prolonged pancytopenias. Critical blood count at this time is her platelets with complication of intermittent/recurrent/chronic GI bleed, now stable post transfusion. Unfortunately her ITP remains refractory and we remain concerned for her overall prognosis given her persistent critical platelets she will likely bleed again. Due to the refractory nature of her disease and multiple other comorbidities Hospice has been recommended which she and her daughter are agreeable with if she does not respond to the higher dose of Nplate. Plan: []1. Diverticulitis with Diverticular abscess: unable to drain, plan medication management, appreciate ID input - Will need 4 weeks of abx., tolerating PO as of yesterday, D16/28 - repeat CT abd/pelvis ~12/07/18 - c.diff colitis resolved 3. Thrombocytopenia: MDS compounded by ITP - Hold platelet transfusion unless active bleeding - Nplate 3 mcg/kg today, 12/01/18 - s/p IVIG, s/p Dex 40 IV daily x4 - follow daily labs 4. Anemia: 2/2 GI bleed - Transfuse for Hgb < 8.0 - Epo increased, no GFS 5. Neutropenia: stable - Continue neupogen 480 mcg sq daily for now 6. Edema: normal EF 09/2018 - cont. home diuretics - Replete K prn, K-dur 20 mEq bid, Mg stable - Follow daily labs 7. Weakness: deconditioned - cont to work with PT with goal for standing 8. Left arm hematoma: stable - once daily VS only DNR/DNI Dispo: if no improvement in platelets by 12/04 will recommend transition to comfort measures only with plan for dc with Hospice]
--- NOTE | 2018-12-01 10:06 | PN ---
Progress Note - Progress Note Date of Service: 12/01/18 SOAP: Subjective: CC: Diverticular abscess HPI: Ms. Cobian is an 82 yo female with PMH significant for MDS, A fib, COPD, CAD s/p CABG, CKD, depression, HLD, HTN, PVD, TIA, CHF, and diverticulitis. Denies fever , chills, shortness of breath, nausea, vomiting, abdominal pain, diarrhea, or urinary symptoms. Reports generalized weakness, 1-2 soft stools daily. She is tolerating a soft diet without difficulty. Objective: Vital signs: T 96.2, HR 70, RR 18, BP 136/46, O2 sat 100% on 2L Physical Exam: General: NAD, sitting up in bed Neurological: Alert and Oriented x 4 HEENT: Moist MM, no thrush Cardiovascular: Heart rate regular Respiratory: Lung sound clear Abdominal: Bowel sounds present; ABD soft, non tender and large, non distended Skin: No rash Laboratory Results - last 24 hr 11/30/18 12/01/18 05:40 05:30 WBC 4.1 RBC 2.88 L Hgb 8.9 L Hct 26 L MCV 90 MCH 31 MCHC 34 RDW 16 H Plt Count 5 L* MPV 10.9 H Neut % (Auto) 80.3 Lymph % (Auto) 18.0 [place] % (Auto) 1.4 Eos % (Auto) 0.1 Baso % (Auto) 0.2 Absolute Neuts (auto) 3.3 Absolute Lymphs (auto) 0.7 L Absolute Monos (auto) 0.1 Absolute Eos (auto) 0.0 Absolute Basos (auto) 0.0 Absolute Nucleated RBC 0.0 Immature Gran % 5.0 Neutrophils % 76.0 Band Neutrophils % 5.0 Lymphocytes % 18.0 Monocytes % 1.0 Nucleated RBC % 0.2 Nucleated RBCs/100 WBC 1.0 H Normal RBC Morphology Normal Microbiology 11/27/18 13:20 Stool Gross Appearance - Final Stool C. difficile DNA Amplification - Final 027 Presumptive NEGATIVE Toxigenic C.diff NEGATIVE 11/18/18 09:00 Stool Culture - Final Stool Stool Gross Appearance - Final Shiga Toxin I & II - Final 11/15/18 10:00 Stool Gross Appearance - Final Stool C. difficile DNA Amplification - Final 027 Presumptive NEGATIVE Toxigenic C.diff POSITIVE Stool Lactoferrin - Final 11/15/18 10:00 Stool Occult Blood (MICHELE) - Final Stool Assessment: 1. Diverticular abscess. Afebrile and no leukocytosis. ABD pain has resolved. Tolerating a soft diet. 2. MDS with pancytopenia. Being followed by Onc/Hem. 3. C-diff colitis. Resolved 4. PCN and cephalosoprin allergies Plan: Continue Levaquin 500 mg PO daily and flagyl 500 mg PO twice daily; day 16/28. Should have a non contrast abd/pelvis CT in 1 week.
[2018-12-01] MEDS ORDERED: ROMIPLOSTIM 250 MCG/0.5 ML SUBCUT ONE (11:00)
[2018-12-01] MEDS: metroNIDAZOLE TAB* 250 MG PO SCH ×2 (11:02→21:46)
[2018-12-01] MEDS: Folic Acid TAB* 1 MG PO SCH (11:02)
[2018-12-01] MEDS: DULoxetine DR CAP* 60 MG CAP.DR PO SCH (11:03)
[2018-12-01] MEDS: Pantoprazole TAB * 40 MG TAB PO SCH (11:03)
[2018-12-01] MEDS: Potassium Chlor TAB* 20 MEQ TAB.ER PO SCH ×2 (11:03→21:48)
[2018-12-01] MEDS: Torsemide TAB 10 MG PO SCH (11:03)
[2018-12-01] MEDS: Magnesium Oxide TAB* 400 MG PO SCH (11:03)
[2018-12-01] MEDS: Nystatin TOP POWDER* 15 GM BTL TOPICAL SCH ×2 (11:04→21:47)
[2018-12-01] MEDS: FILGRASTIM-SNDZ* 480 MCG/0.8 ML SYRINGE SUBCUT SCH (11:10)
[2018-12-01] MEDS: PTO: Mirabegron (NF) 50 MG TAB PO SCH (18:13)
[2018-12-01] MEDS: Loperamide CAP* 2 MG PO PRN ×2 (18:31→21:47)
[2018-12-01] MEDS: Montelukast Sodium TAB* 10 MG PO SCH (21:47)
[2018-12-01] MEDS: Levofloxacin TAB* 500 MG PO SCH (21:47)
[2018-12-01] MEDS: Acetaminophen TAB* 325 MG PO PRN (21:50)
[2018-12-02 05:59] LABS: Hematocrit 26 % (35-47); Hemoglobin 8.9 g/dL (12.0-16.0); Mean Corpuscular HGB Conc 34 g/dL (31-36); Mean Corpuscular Hemoglobin 31 pg (27-31); Mean Corpuscular Volume 90 fL (80-97); Mean Platelet Volume 10.8 fL (7.4-10.4); Platelet Count 5 10^3/uL (150-450); Red Blood Count 2.89 10^6 /uL (3.70-4.87); Red Cell Distribution Width 16 % (10.5-15); White Blood Count 4.4 10^3/uL (3.5-10.8)
[2018-12-02 06:17] LABS: BUN/Creatinine Ratio 46.5 (8-20); Calcium 8.7 mg/dL (8.6-10.3); EGFR African American 75.9 (>60); EGFR Non-African American 62.7 (>60); Potassium 3.9 mmol/L (3.5-5.0)
[2018-12-02 07:41] LABS: ABS Lymphocytes 0.9 10^3/ul (1.0-4.8); ABS Monocytes 0.1 10^3/ul (0-0.8); ABS Neutrophils 3.4 10^3/ul (1.5-7.7); Eosinophil % 0.8 %; Lymphocyte % 20.2 %; Nucleated Red Blood Cells % 0.2
[2018-12-02] MEDS: TIOTROPIUM BROM INH SCH (07:50)
[2018-12-02] MEDS: OLODATEROL INH SCH (07:50)
[2018-12-02] MEDS: MDI INH SCH (07:50)
[2018-12-02] MEDS: Folic Acid TAB* 1 MG PO SCH (08:58)
[2018-12-02] MEDS: DULoxetine DR CAP* 60 MG CAP.DR PO SCH (08:58)
[2018-12-02] MEDS: Torsemide TAB 10 MG PO SCH (08:58)
[2018-12-02] MEDS: FILGRASTIM-SNDZ* 480 MCG/0.8 ML SYRINGE SUBCUT SCH (08:58)
[2018-12-02] MEDS: Magnesium Oxide TAB* 400 MG PO SCH (08:58)
[2018-12-02] MEDS: metroNIDAZOLE TAB* 250 MG PO SCH ×2 (08:58→20:38)
[2018-12-02] MEDS: Potassium Chlor TAB* 20 MEQ TAB.ER PO SCH ×2 (08:58→20:37)
[2018-12-02] MEDS: Pantoprazole TAB * 40 MG TAB PO SCH (08:58)
[2018-12-02] MEDS: Nystatin TOP POWDER* 15 GM BTL TOPICAL SCH ×2 (09:09→20:45)
[2018-12-02] MEDS: Acetaminophen TAB* 325 MG PO PRN (17:36)
[2018-12-02] MEDS: PTO: Mirabegron (NF) 50 MG TAB PO SCH (17:49)
[2018-12-02] MEDS: Levofloxacin TAB* 500 MG PO SCH (20:37)
[2018-12-02] MEDS: Montelukast Sodium TAB* 10 MG PO SCH (20:38)
[2018-12-03 04:44] LABS: ABS Lymphocytes 0.9 10^3/ul (1.0-4.8); ABS Monocytes 0.1 10^3/ul (0-0.8); ABS Neutrophils 4.3 10^3/ul (1.5-7.7); Eosinophil % 0.9 %; Hematocrit 27 % (35-47); Hemoglobin 9.3 g/dL (12.0-16.0); Lymphocyte % 16.1 %; Mean Corpuscular HGB Conc 34 g/dL (31-36); Mean Corpuscular Hemoglobin 31 pg (27-31); Mean Corpuscular Volume 91 fL (80-97); Mean Platelet Volume 11.2 fL (7.4-10.4); Nucleated Red Blood Cells % 0.2; Platelet Count 7 10^3/uL (150-450); Red Blood Count 3.02 10^6 /uL (3.70-4.87); Red Cell Distribution Width 16 % (10.5-15); White Blood Count 5.3 10^3/uL (3.5-10.8)
[2018-12-03] MEDS: MDI INH SCH (08:37)
[2018-12-03] MEDS: OLODATEROL INH SCH (08:37)
[2018-12-03] MEDS: TIOTROPIUM BROM INH SCH (08:37)
[2018-12-03] MEDS: Folic Acid TAB* 1 MG PO SCH (08:45)
[2018-12-03] MEDS: metroNIDAZOLE TAB* 250 MG PO SCH ×2 (08:45→21:16)
[2018-12-03] MEDS: DULoxetine DR CAP* 60 MG CAP.DR PO SCH (08:46)
[2018-12-03] MEDS: Magnesium Oxide TAB* 400 MG PO SCH (08:46)
[2018-12-03] MEDS: Torsemide TAB 10 MG PO SCH (08:46)
[2018-12-03] MEDS: Potassium Chlor TAB* 20 MEQ TAB.ER PO SCH ×2 (08:46→21:16)
[2018-12-03] MEDS: Pantoprazole TAB * 40 MG TAB PO SCH (08:47)
[2018-12-03] MEDS: Acetaminophen TAB* 325 MG PO PRN ×2 (08:47→15:38)
[2018-12-03] MEDS: FILGRASTIM-SNDZ* 480 MCG/0.8 ML SYRINGE SUBCUT SCH (08:48)
[2018-12-03] MEDS: Nystatin TOP POWDER* 15 GM BTL TOPICAL SCH ×2 (08:48→21:16)
[2018-12-03] MEDS: Loperamide CAP* 2 MG PO PRN (15:38)
[2018-12-03] MEDS: Clotrimazole TROCHE* 10 MG TROCHE SCH ×2 (18:18→21:21)
[2018-12-03] MEDS: PTO: Mirabegron (NF) 50 MG TAB PO SCH (18:18)
[2018-12-03] MEDS: Montelukast Sodium TAB* 10 MG PO SCH (21:16)
[2018-12-03] MEDS: Levofloxacin TAB* 500 MG PO SCH (21:16)
[2018-12-04] MEDS: Clotrimazole TROCHE* 10 MG TROCHE SCH ×5 (04:22→22:32)
[2018-12-04 04:51] LABS: Hematocrit 26 % (35-47); Hemoglobin 8.9 g/dL (12.0-16.0); Mean Corpuscular HGB Conc 34 g/dL (31-36); Mean Corpuscular Hemoglobin 31 pg (27-31); Mean Corpuscular Volume 91 fL (80-97); Mean Platelet Volume 10.2 fL (7.4-10.4); Platelet Count 10 10^3/uL (150-450); Red Blood Count 2.89 10^6 /uL (3.70-4.87); Red Cell Distribution Width 16 % (10.5-15); White Blood Count 5.5 10^3/uL (3.5-10.8)
[2018-12-04 04:59] LABS: BUN/Creatinine Ratio 33.7 (8-20); Calcium 8.8 mg/dL (8.6-10.3); EGFR African American 79.1 (>60); EGFR Non-African American 65.3 (>60); Potassium 3.9 mmol/L (3.5-5.0)
[2018-12-04 05:15] LABS: ABS Eosinophils 0.1 10^3/ul (0-0.6); ABS Lymphocytes 0.7 10^3/ul (1.0-4.8); ABS Monocytes 0.1 10^3/ul (0-0.8); ABS Neutrophils 4.5 10^3/ul (1.5-7.7); Eosinophil % 1.2 %; Lymphocyte % 13.7 %; Nucleated Red Blood Cells % 0.1
[2018-12-04] MEDS: OLODATEROL INH SCH (09:21)
[2018-12-04] MEDS: TIOTROPIUM BROM INH SCH (09:21)
[2018-12-04] MEDS: MDI INH SCH (09:21)
--- NOTE | 2018-12-04 09:33 | PN ---
Progress Note - Progress Note Date of Service: 12/04/18 SOAP: Subjective: CC: Diverticular abscess HPI: Ms. Cobian is an 82 yo female with PMH significant for MDS, A fib, COPD, CAD s/p CABG, CKD, depression, HLD, HTN, PVD, TIA, CHF, and diverticulitis. Denies fever , chills, shortness of breath, nausea, vomiting, diarrhea, or urinary symptoms. Reports continued generalized weakness. She is tolerating a soft diet but reports a poor appetite. Has intermittent ABD pain. She is starting to get anxious about going home, and would like to go home. Objective: Physical Exam: General: NAD, sitting up in bed Neurological: Alert and Oriented HEENT: No thrush Cardiovascular: Heart rate regular Respiratory: Lung sounds clear bilateral Abdominal: Bowel sounds present; ABD soft, large, and tender in bilateral lower quadrants Skin: No rash Laboratory Results - last 24 hr 12/04/18 12/04/18 04:25 04:25 WBC 5.5 RBC 2.89 L Hgb 8.9 L Hct 26 L MCV 91 MCH 31 MCHC 34 RDW 16 H Plt Count 10 L MPV 10.2 Neut % (Auto) 82.5 Lymph % (Auto) 13.7 [place] % (Auto) 2.3 Eos % (Auto) 1.2 Baso % (Auto) 0.3 Absolute Neuts (auto) 4.5 Absolute Lymphs (auto) 0.7 L Absolute Monos (auto) 0.1 Absolute Eos (auto) 0.1 Absolute Basos (auto) 0.0 Absolute Nucleated RBC 0.0 Nucleated RBC % 0.1 Sodium 138 Potassium 3.9 Chloride 92 L Carbon Dioxide 42 H* Anion Gap 4 BUN 28 H Creatinine 0.83 Est GFR ( Amer) 79.1 Est GFR (Non-Af Amer) 65.3 BUN/Creatinine Ratio 33.7 H Glucose 126 H Calcium 8.8 Microbiology 11/27/18 13:20 Stool Gross Appearance - Final Stool C. difficile DNA Amplification - Final 027 Presumptive NEGATIVE Toxigenic C.diff NEGATIVE 11/18/18 09:00 Stool Culture - Final Stool Stool Gross Appearance - Final Shiga Toxin I & II - Final 11/15/18 10:00 Stool Gross Appearance - Final Stool C. difficile DNA Amplification - Final 027 Presumptive NEGATIVE Toxigenic C.diff POSITIVE Stool Lactoferrin - Final 11/15/18 10:00 Stool Occult Blood (MICHELE) - Final Stool Assessment: 1. Diverticular abscess. Afebrile and no leukocytosis. Continues to have intermittent ABD pain. Tolerating a soft diet. 2. MDS with pancytopenia. Being followed by Onc/Hem. 3. C-diff colitis. Resolved 4. PCN and cephalosoprin allergies Plan: Continue Levaquin 500 mg PO daily and flagyl 500 mg PO twice daily; day . Should have a non contrast abd/pelvis CT later this week to eval for resolution of the abscess.
[2018-12-04] MEDS: clonazePAM TAB(*) 0.5 MG PO PRN (09:46)
[2018-12-04] MEDS: Potassium Chlor TAB* 20 MEQ TAB.ER PO SCH ×2 (09:47→21:22)
[2018-12-04] MEDS: metroNIDAZOLE TAB* 250 MG PO SCH ×2 (09:47→21:22)
[2018-12-04] MEDS: Pantoprazole TAB * 40 MG TAB PO SCH (09:47)
[2018-12-04] MEDS: Folic Acid TAB* 1 MG PO SCH (09:47)
[2018-12-04] MEDS: Magnesium Oxide TAB* 400 MG PO SCH (09:47)
[2018-12-04] MEDS: Torsemide TAB 10 MG PO SCH (09:47)
[2018-12-04] MEDS: DULoxetine DR CAP* 60 MG CAP.DR PO SCH (09:47)
[2018-12-04] MEDS: Nystatin TOP POWDER* 15 GM BTL TOPICAL SCH (09:48)
[2018-12-04] MEDS: FILGRASTIM-SNDZ* 480 MCG/0.8 ML SYRINGE SUBCUT SCH (09:48)
--- NOTE | 2018-12-04 10:35 | PN ---
Progress Note - Progress Note Date of Service: 12/04/18 SOAP: Subjective: []Feels OK, but frustrated. Wants to go to [facility] tomorrow regardless of plt. Stomach still feels off at times. Medications: Acetaminophen (Tylenol Tab*) 650 mg PO Q4H PRN PRN Reason: FEVER/PAIN Last Admin: 12/03/18 15:38 Dose: 650 mg Hydrocodone Bitart/Acetaminophen ([place] 5-325 Tab*) 1 tab PO Q4H PRN PRN Reason: PAIN Last Admin: 11/25/18 20:00 Dose: 1 tab Clonazepam (Klonopin Tab(*)) 0.5 mg PO BID PRN PRN Reason: ANXIETY Last Admin: 12/04/18 09:46 Dose: 0.5 mg Clotrimazole (Mycelex Adrián*) 10 mg .SEE ORDER 1000,1400,1800,2200 [facility] Last Admin: 12/04/18 10:16 Dose: Not Given Clotrimazole (Mycelex Adrián*) 10 mg .SEE ORDER 0600 [facility] Last Admin: 12/04/18 04:22 Dose: 10 mg Docusate Sodium (Colace Cap*) 200 mg PO BEDTIME PRN PRN Reason: CONSTIPATION Duloxetine HCl (Cymbalta Cap*) 60 mg PO QAM [facility] Last Admin: 12/04/18 09:47 Dose: 60 mg Filgrastim-Sndz (Zarxio*) 480 mcg SUBCUT DAILY [facility] Last Admin: 12/04/18 09:48 Dose: 480 mcg Folic Acid (Folvite Tab*) 1 mg PO DAILY [facility] Last Admin: 12/04/18 09:47 Dose: 1 mg Heparin Sodium (Porcine) (Heparin Flush Picc/Ml/Cvc(*)) 1 - 3 ml FLUSH 0600, 1800 [facility]; Protocol Last Admin: 12/04/18 04:21 Dose: 2 ml Levofloxacin (Levaquin Tab*) 500 mg PO BEDTIME [facility]; Protocol Last Admin: 12/03/18 21:16 Dose: 500 mg Loperamide HCl (Imodium Cap*) 2 mg PO QID PRN PRN Reason: DIARRHEA Last Admin: 12/03/18 15:38 Dose: 2 mg Magnesium Oxide (Magox 400 Tab*) 400 mg PO DAILY [facility] Last Admin: 12/04/18 09:47 Dose: 400 mg Metronidazole (Flagyl Tab*) 500 mg PO BID [facility] Last Admin: 12/04/18 09:47 Dose: 500 mg Mirabegron (Myrbetriq (Nf)) 50 mg PO QPM [facility] Last Admin: 12/03/18 18:18 Dose: 50 mg Montelukast Sodium (Singulair Tab*) 10 mg PO BEDTIME [facility] Last Admin: 12/03/18 21:16 Dose: 10 mg Nystatin (Nystatin Top Powder*) 1 applic TOPICAL BID [facility] Last Admin: 12/04/18 09:48 Dose: 1 applic Ondansetron HCl (Zofran Odt Tab*) 4 mg SL Q6H PRN PRN Reason: NAUSEA/VOMITING Last Admin: 11/29/18 11:43 Dose: 4 mg Pantoprazole Sodium (Protonix Tab*) 40 mg PO DAILY [facility] Last Admin: 12/04/18 09:47 Dose: 40 mg Potassium Chloride (Klor Con Er Tab*) 20 meq PO BID [facility] Last Admin: 12/04/18 09:47 Dose: 20 meq Senna (Senokot Tab*) 2 tab PO BEDTIME PRN PRN Reason: CONSTIPATION Tiotropium [place]/Olodaterol (Stiolto Respimat Inh [place] (60 Puff)(Nf)) 2 puff INH QAM [facility] Last Admin: 12/04/18 09:21 Dose: Not Given Torsemide (Torsemide) 20 mg PO DAILY [facility] Last Admin: 12/04/18 09:47 Dose: 20 mg Objective: [] Vital Signs Temp Pulse Resp BP Pulse Ox 97.2 F 70 20 115/65 100 12/04/18 03:13 12/04/18 03:13 12/04/18 09:46 12/04/18 03:13 12/04/18 03:13 A&Ox3, EOMI, neuro grossly non-focal HRR, S1S2 LS clear with poor resp. effort +BS, abd. soft and mildly tender throughout Laboratory Results - last 24 hr 12/04/18 12/04/18 04:25 04:25 WBC 5.5 RBC 2.89 L Hgb 8.9 L Hct 26 L MCV 91 MCH 31 MCHC 34 RDW 16 H Plt Count 10 L MPV 10.2 Neut % (Auto) 82.5 Lymph % (Auto) 13.7 [place] % (Auto) 2.3 Eos % (Auto) 1.2 Baso % (Auto) 0.3 Absolute Neuts (auto) 4.5 Absolute Lymphs (auto) 0.7 L Absolute Monos (auto) 0.1 Absolute Eos (auto) 0.1 Absolute Basos (auto) 0.0 Absolute Nucleated RBC 0.0 Nucleated RBC % 0.1 Sodium 138 Potassium 3.9 Chloride 92 L Carbon Dioxide 42 H* Anion Gap 4 BUN 28 H Creatinine 0.83 Est GFR ( Amer) 79.1 Est GFR (Non-Af Amer) 65.3 BUN/Creatinine Ratio 33.7 H Glucose 126 H Calcium 8.8 Assessment: []82 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 Admitted for colitis but now with prolonged pancytopenias. Critical blood count at this time is her platelets with complication of intermittent/recurrent/chronic GI bleed, now stable post transfusion. 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 Plan: []1. Diverticulitis with Diverticular abscess: unable to drain, plan medication management, appreciate ID input - Will need 4 weeks of abx., tolerating PO, D103/31 - repeat CT abd/pelvis ~12/07/18 - c.diff colitis resolved 3. Thrombocytopenia: MDS compounded by ITP - Hold platelet transfusion unless active bleeding - Nplate qFriday unless refractory this week - follow daily labs 4. Anemia: 2/2 GI bleed - Transfuse for Hgb < 8.0 - Epo increased, no GFS 5. Neutropenia: stable - Continue neupogen 480 mcg sq daily for now 6. Weakness: de-conditioned - cont to work with PT with goal for standing 7. Left arm hematoma: stable - once daily VS only DNR/DNI Dispo: plan for d/c to [facility], +/- hospice depending on plt. tomorrow (if cont. 'd rise will hold hospice for cont.'d weekly inj. as outpatient)
[2018-12-04] MEDS: Acetaminophen TAB* 325 MG PO PRN ×2 (16:28→21:20)
[2018-12-04] MEDS: PTO: Mirabegron (NF) 50 MG TAB PO SCH (18:23)
[2018-12-04] MEDS: Montelukast Sodium TAB* 10 MG PO SCH (21:22)
[2018-12-04] MEDS: Levofloxacin TAB* 500 MG PO SCH (21:22)
[2018-12-05] MEDS: Clotrimazole TROCHE* 10 MG TROCHE SCH ×6 (06:03→22:18)
[2018-12-05 09:37] LABS: ABS Eosinophils 0.1 10^3/ul (0-0.6); ABS Lymphocytes 0.8 10^3/ul (1.0-4.8); ABS Monocytes 0.1 10^3/ul (0-0.8); ABS Neutrophils 3.8 10^3/ul (1.5-7.7); Eosinophil % 1.5 %; Hematocrit 25 % (35-47); Hemoglobin 8.3 g/dL (12.0-16.0); Lymphocyte % 16.2 %; Mean Corpuscular HGB Conc 34 g/dL (31-36); Mean Corpuscular Hemoglobin 31 pg (27-31); Mean Corpuscular Volume 91 fL (80-97); Mean Platelet Volume 9.5 fL (7.4-10.4); Nucleated Red Blood Cells % 0.5; Platelet Count 11 10^3/uL (150-450); Red Cell Distribution Width 16 % (10.5-15); White Blood Count 4.7 10^3/uL (3.5-10.8)
[2018-12-05 09:49] LABS: BUN/Creatinine Ratio 29.5 (8-20); Calcium 8.9 mg/dL (8.6-10.3); EGFR African American 73.9 (>60); EGFR Non-African American 61.1 (>60); Potassium 3.9 mmol/L (3.5-5.0)
[2018-12-05] MEDS: Pantoprazole TAB * 40 MG TAB PO SCH (10:45)
[2018-12-05] MEDS: DULoxetine DR CAP* 60 MG CAP.DR PO SCH (10:45)
[2018-12-05] MEDS: metroNIDAZOLE TAB* 250 MG PO SCH ×2 (10:46→20:27)
[2018-12-05] MEDS: Torsemide TAB 10 MG PO SCH (10:46)
[2018-12-05] MEDS: Folic Acid TAB* 1 MG PO SCH (10:47)
[2018-12-05] MEDS: Magnesium Oxide TAB* 400 MG PO SCH (10:47)
[2018-12-05] MEDS: Potassium Chlor TAB* 20 MEQ TAB.ER PO SCH ×2 (10:48→20:27)
[2018-12-05] MEDS: Acetaminophen TAB* 325 MG PO PRN ×2 (10:48→20:26)
[2018-12-05] MEDS: FILGRASTIM-SNDZ* 480 MCG/0.8 ML SYRINGE SUBCUT SCH (10:49)
[2018-12-05] MEDS: MDI INH SCH (10:59)
[2018-12-05] MEDS: TIOTROPIUM BROM INH SCH (10:59)
[2018-12-05] MEDS: OLODATEROL INH SCH (10:59)
--- NOTE | 2018-12-05 12:29 | DS ---
DISCHARGE SUMMARY: DATE OF ADMISSION: 11/14/18 DATE OF DISCHARGE: 12/05/18 PRIMARY ONCOLOGIST AND ATTENDING PHYSICIAN: Dr. Wilton Chase.* (DICTATED BY CARL BOLAND) CONSULTING INFECTIOUS DISEASE SPECIALIST: Dr. Chato Gomez. CONSULTING PALLIATIVE PHYSICIAN: Dr. Mcgee. PRIMARY DISCHARGE DIAGNOSES: 1. Clostridium difficile colitis. 2. Diverticular abscess. 3. Myelodysplastic syndrome and refractory ITP causing severe thrombocytopenia. SECONDARY DISCHARGE DIAGNOSES: 1. Chronic obstructive pulmonary disease. 2. Diastolic heart failure. DISCHARGE MEDICATIONS: 1. Clonazepam 0.5 mg p.o. daily. 2. Cymbalta 60 mg p.o. daily. 3. Flagyl 500 mg p.o. twice daily. 4. Myrbetriq 50 mg p.o. daily. 5. Singulair 10 mg p.o. daily. 6. Omeprazole 20 mg p.o. twice daily. 7. Zofran 4 mg p.o. q.6 hours as needed. 8. Potassium 10 mEq p.o. daily. 9. Stiolto Respimat 2 puffs once daily. 10. Torsemide 20 mg p.o. daily. 11. Levaquin 500 mg p.o. daily x7 days. 12. Flagyl 500 mg p.o. twice daily for 7 days. HOSPITAL IMAGING: CT abdomen and pelvis shows findings consistent with sigmoid diverticulitis with peridiverticular abscess as well as hepatic steatosis. Chest x-ray on 11/16/18 shows pulmonary vascular congestion. Venous Doppler studies on 11/17/18 is negative for right lower extremity DVT. HOSPITAL COURSE: This is an 83-year-old female with a relatively recent diagnosis of MDS and history of ITP, who was hospitalized at [facility] earlier in November with complaints of abdominal pain and diarrhea. She was treated for diverticulitis with initial improvement and discharged on Cipro and Flagyl. She subsequently developed severe diarrhea, which she attempted to control at home with taking up to 6 Imodium at a time, but developed severe weakness and her daughter brought her to the emergency department for further evaluation. Initial labs demonstrated neutropenia with an absolute neutrophil count of 900 and anemia with hemoglobin of 9.3 and platelet count of 7000. The patient was afebrile in the emergency department and remained afebrile throughout her hospital stay. Initial imaging including a CT of the abdomen and pelvis showed findings consistent with diverticulitis as well as a diverticular abscess. Due to her severe thrombocytopenia, the patient was not felt to be an appropriate surgical candidate and the location of the abscess was not amenable to percutaneous drainage. Stool was positive for C. diff and requested Infectious Disease consultation. The patient was treated with oral vancomycin for C. diff colitis for a total of 10 days and received parenteral Levaquin and Flagyl for diverticular abscess with recommendation for total of 4 weeks of antibiotics. The patient received a platelet transfusion, which did not correspond with an improvement in her platelet count. She subsequently received high-dose steroids and IVIG again without improvement in thrombocytopenia. She was subsequently treated with Nplate, titrated up to a dose of 3 mcg/kg weekly with a small response in her platelets at that dose. The patient's hospitalization was quite prolonged and she has multiple comorbidities with rather borderline performance status prior to her hospitalization and this prolonged hospitalization left her quite weak. She will plan to be discharged to [facility] for more intensive nursing health, but is clear that she does not want to be hospitalized again in the future. She did meet with palliative physician, Dr. Mcgee, who agrees she is appropriate for hospice and will plan to sign on to home hospice services to be delivered at [facility]. No plan for further CBC monitoring and we will discontinue additional therapy for MDS and ITP, but do recommend that she complete her full course of antibiotics for the diverticular abscess. DISPOSITION AND FOLLOWUP PLAN: This is an 83-year-old female being discharged to [facility] in stable condition. Plan to sign on with hospice services in the near future. She should complete a total of 7 additional days of oral antibiotics. Discharge medication list was updated and unnecessary medications were discontinued. CARL BOLAND [id number]/[facility] #: [id number] [facility]PITALSkylar
[2018-12-05] MEDS: PTO: Mirabegron (NF) 50 MG TAB PO SCH (17:10)
[2018-12-05] MEDS: Levofloxacin TAB* 500 MG PO SCH (20:27)
[2018-12-05] MEDS: Montelukast Sodium TAB* 10 MG PO SCH (20:27)
[2018-12-06] MEDS: Clotrimazole TROCHE* 10 MG TROCHE SCH (05:11)
[2018-12-06 07:50] VITALS: BP 120/36
[2018-12-06] MEDS: DULoxetine DR CAP* 60 MG CAP.DR PO SCH (07:51)
[2018-12-06] MEDS: Torsemide TAB 10 MG PO SCH (07:58)
[2018-12-06] MEDS: Potassium Chlor TAB* 20 MEQ TAB.ER PO SCH (07:58)
[2018-12-06] MEDS: Folic Acid TAB* 1 MG PO SCH (07:58)
[2018-12-06] MEDS: Magnesium Oxide TAB* 400 MG PO SCH (07:58)
[2018-12-06] MEDS: metroNIDAZOLE TAB* 250 MG PO SCH (07:58)
[2018-12-06] MEDS: Pantoprazole TAB * 40 MG TAB PO SCH (07:58)
[2018-12-06] MEDS: TIOTROPIUM BROM INH SCH (08:01)
[2018-12-06] MEDS: MDI INH SCH (08:01)
[2018-12-06] MEDS: OLODATEROL INH SCH (08:01)
[2018-12-06] MEDS: FILGRASTIM-SNDZ* 480 MCG/0.8 ML SYRINGE SUBCUT SCH (08:18)
== END 2018-12-06 08:15 | DRG 813 ==
LOC: ED 12:18 → MED 15:28
PROVIDERS: ADMIT Internal Medicine Hematology & Oncology; ATTEND Internal Medicine Hematology & Oncology
PROC: 30233R1 Transfusion of Nonautologous Platelets into Peripheral Vein, Percutaneous Approach (ICD-10-PCS; principal; 2018-11-14)
PROC: 30233S1 Transfusion of Nonautologous Globulin into Peripheral Vein, Percutaneous Approach (ICD-10-PCS; 2018-11-14)
PROC: 02HV33Z Insertion of Infusion Device into Superior Vena Cava, Percutaneous Approach (ICD-10-PCS; 2018-11-16)
DX: D69.3 Immune thrombocytopenic purpura (principal); K57.20 Diverticulitis of large intestine with perforation and abscess without bleeding; A04.72 Enterocolitis due to Clostridium difficile, not specified as recurrent; I13.0 Hypertensive heart and chronic kidney disease with heart failure and stage 1 through stage 4 chronic kidney disease, or unspecified chronic kidney disease; I50.32 Chronic diastolic (congestive) heart failure; D61.818 Other pancytopenia; J44.9 Chronic obstructive pulmonary disease, unspecified; M19.90 Unspecified osteoarthritis, unspecified site; Z96.643 Presence of artificial hip joint, bilateral; Z96.652 Presence of left artificial knee joint; Z96.612 Presence of left artificial shoulder joint; Z96.611 Presence of right artificial shoulder joint; J32.9 Chronic sinusitis, unspecified; F32.9 Major depressive disorder, single episode, unspecified; I25.10 Atherosclerotic heart disease of native coronary artery without angina pectoris; M81.0 Age-related osteoporosis without current pathological fracture; I73.9 Peripheral vascular disease, unspecified; D46.9 Myelodysplastic syndrome, unspecified; N18.9 Chronic kidney disease, unspecified; E78.5 Hyperlipidemia, unspecified; G47.33 Obstructive sleep apnea (adult) (pediatric); I48.91 Unspecified atrial fibrillation; M48.00 Spinal stenosis, site unspecified; K76.0 Fatty (change of) liver, not elsewhere classified; Z66 Do not resuscitate; Z88.1 Allergy status to other antibiotic agents; Z88.8 Allergy status to other drugs, medicaments and biological substances; Z86.14 Personal history of Methicillin resistant Staphylococcus aureus infection; Z87.891 Personal history of nicotine dependence; Z82.49 Family history of ischemic heart disease and other diseases of the circulatory system; Z95.0 Presence of cardiac pacemaker; Z95.1 Presence of aortocoronary bypass graft; Z86.73 Personal history of transient ischemic attack (TIA), and cerebral infarction without residual deficits; Z95.2 Presence of prosthetic heart valve; Z87.440 Personal history of urinary (tract) infections; Z88.0 Allergy status to penicillin
CPT/HCPCS: 36415; 71045; 74177; 80048; 80053; 82248; 82272; 82607; 82668; 83615; 83630; 83735; 83921; 85025; 85027; 85045; 85049; 85060; 85652; 86850; 86900; 86901; 86922; 87045; 87046; 87493; 87899; 90283; 94640; 99222; 99232; 99233; 99239; 99284; A9270-GY; G8978-GP-CL; G8979-GP-CK; G8987-GO-CM; G8988-GO-CK; J0744; J1100; J1569; J1940; J1956; J2405; J2796; J3475; J3480; J3490; J7512; P9035; P9040; Q5101; Q9967